=== PATIENT | male | born 1930 | race Caucasian/White ===

== ENCOUNTER 2016-07-20 07:54 | Emergency (ER) | payer MEDICARE, BC ==
[~2016-07-20] VITALS: Wt 88.0 kg
[~2016-07-20 07:54] MED LIST: ATOR40TA68 PO; GLIP-95 PO; LISI40TA9 PO; METF-382 PO; PIOG45TA15 PO; TIMO10DR7 BOTH EYES
[2016-07-20] MEDS ORDERED: TETANUS IMMUNE GLOB 250 UNIT SYG IM ONE (08:30)
[2016-07-20] MEDS ORDERED: DIPHTH/TET/ACEL PERTUSS (ADULT) 0.5 ML VIAL IM* ONE (09:00)
--- NOTE | 2016-07-20 09:22 | ERD ---
ER Documentation Chief Complaint Date/Time DATE: 07/20/16 TIME: 09:09 Chief Complaint fall after missing a step at home. abrasion to left arm. no loc/head injury HPI This is an 85-year-old male that presents to the emergency department after he had a mechanical trip and fall just prior to arrival. The patient indicates he was reading his newspaper and was walking up the stairs when he tripped and landed on his flexed left knee and left upper extremity. He stated there was abrasions with minimal bleeding. He did not hit his head or lose consciousness. He was able to ambulate and drove himself to the emergency department to be further evaluated. His primary care physician is Dr. Perez. He denies a headache or changes in vision and he also denies any neck pain with no numbness or tingling of the upper or lower extremities. He is unaware of when his last tetanus toxoid update was given. ROS All systems reviewed and are negative except as per history of present illness. Medications Home Meds Reported Medications Timolol Maleate* (Timoptic*) 0.5%- 5ml Opht, 1 DROP BOTH EYES QAM, #1 EA 11/30/15 Glipizide* (Glipizide*) 10 Mg Tablet, 10 MG PO BID for 90 Days, #180 TAB 11/30/15 Lisinopril* (Lisinopril*) 40 Mg Tablet, 40 MG PO DAILY for 90 Days, #90 TAB 11/30/15 Atorvastatin* (Atorvastatin*) 40 Mg Tablet, 40 MG PO QHS, #30 TAB 11/30/15 Metformin Hcl* (Metformin Hcl*) 500 Mg Tablet, 500 MG PO WITH MEALS, #90 TAB 11/30/15 Discontinued Reported Medications Pioglitazone Hcl* (Pioglitazone Hcl*) 45 Mg Tablet, 45 MG PO DAILY, TAB 11/30/15 Allergies Allergies: Coded Allergies: No Known Allergy (Unverified , 07/20/16) PMhx/Soc History of Surgery: Yes (Stent placement, tonsillectomy, colonoscopy, resection of prostate) Anesthesia Reaction: No Hx Neurological Disorder: No Hx Respiratory Disorders: No Hx Cardiac Disorders: Yes (HTN, stent placement, atherosclerotic heart disease , ) Hx Psychiatric Problems: No Hx Miscellaneous Medical Probl: Yes (cholesterol) Hx Alcohol Use: Yes (Couple of beers a week ) Hx Substance Use: No Hx Tobacco Use: No Smoking Status: Never smoker Physical Exam Vitals Vital Signs Date Time Temp Pulse Resp B/P Pulse Ox O2 Delivery O2 Flow Rate FiO2 07/20/16 07:58 98.4 78 20 160/64 98 Physical Exam Constitutional:Well-developed. Well-nourished. HEENT:Normocephalic. Atraumatic.Pupils were equal round reactive to light. Moist mucous membranes.No tonsillar exudates. No nasoseptal hematoma. No hemotympanum peer Neck: No nuchal rigidity. No lymphadenopathy. No posterior cervical spine tenderness or step-offs. Respiratory: Not using accessory muscles of respiration.Lungs were clear to auscultation bilaterally. No rhonchi. No rales. No wheezing. Cardiovascular: Regular rate regular rhythm.No murmurs. No rubs were appreciated.S1, S2 normal. Distal pulses are palpable 2+ bilaterally. No crepitus no ecchymosis no flail chest GI: Abdomen was soft. Nontender. Non Distended. No pulsatile abdominal masses or bruits. No rebound. No guarding. Bowel sounds were present and normal. No flank ecchymosis. No periumbilical ecchymosis. Muscle skeletal: Full range of motion of both the upper and lower extremities bilaterally.Normal muscle tone.No assymetrical calf tenderness or swelling. Tenderness with abrasion over the left patella. No laxity on valgus or varus stress testing of the left of the right knee. Lower extremities were equal length and symmetrical with no internal or external rotation. Patient was able to ambulate more than 4 steps in the emergency department without any difficulty. Tenderness over the distal left forearm with no tenderness on flexion or extension of the left of the right elbow. Patient was able to AB duct the left upper extremity past 90 with no tenderness over the left humeral head. Skin: No petechia, no purpura. No lesions on the palms or the soles of the feet. No maculopapular rash. Abrasion over the distal left humerus. Abrasion with ecchymosis over the distal third extensor surface on the radial aspect of the left forearm and overlying abrasion of the left patella with no underlying effusion NEURO: Patient was alert, awake, orientated x3.No facial droop. Gait observed and normal with no ataxia.Speech had regular rate and rhythm. No focal neurological deficits. Results 24 hrs Current Medications Medications (Trade) Dose Ordered Sig/Dimitris Route PRN Reason Start Time Stop Time Status Last Admin Dose Admin Tetanus Immune Globulin (Hypertet S/D) 250 units ONCE ONCE IM 07/20/16 08:30 07/20/16 08:31 Cancel Diphtheria/ Tetanus/Acell Pertussis (Adacel) 0.5 ml ONCE ONCE IM* 07/20/16 09:00 07/20/16 09:01 DC 07/20/16 08:58 Procedures/MDM This patient presented to the emergency department mechanical ground-level fall. The patient is not taking any anticoagulant medication. The patient refused any analgesic medication and was given a tetanus toxoid update. Radiographic imaging ordered and reviewed by myself as well as the radiologist which included an x-ray of the left knee left forearm and there is no underlying fracture. The patient's wounds were cleaned and irrigated with normal saline. Topical antimicrobial gel being bacitracin was applied to the wounds as well as a Kerlix dressing. The patient felt comfortable being discharged home and will follow with his primary care physician Dr. Perez. The patient was discharged home in fair condition. They were instructed to return to the emergency department at any time if there was any worsening of their condition. The patient stated they would follow up with their PCP in the next 24-48 hours to initiate a suitable medication regimen under the care of their PCP as well as to allow their PCP to monitor any drug reactions. The patient was discharged home with prescriptions after they gave informed consent to the new medication. They were also fully informed by myself on the adverse effects and adverse drug interactions in order to provide adequate safeguards to prevent possible adverse reactions to medications. Departure Diagnosis: Primary Impression: Left knee sprain Additional Impression: Abrasion of forearm, left Condition: Fair STEPHANIE SHELL Jul 20, 2016 09:20
--- NOTE | 2016-07-20 09:50 | RADRPT ---
PROCEDURE: Left knee x-ray CLINICAL INDICATION: fall TECHNIQUE: AP, lateral and oblique views of the left knee were obtained. COMPARISON: None FINDINGS: There is normal mineralization. No acute fracture or dislocation is seen. There are no significant degenerative changes. There is no joint effusion. There is no significant soft tissue swelling. Atherosclerotic arterial calcification of the visualized superficial femoral and popliteal artery. IMPRESSION: Normal x-ray of the left knee. RPTAT:AAJJ Physician Jaymie Date Time Electronically viewed and signed by Physician Jaymie on 07/20/2016 09:50 TASHA/
--- NOTE | 2016-07-20 09:51 | RADRPT ---
PROCEDURE: Left forearm x-ray CLINICAL INDICATION: Fall. Skin laceration and pain. TECHNIQUE: AP and lateral views of the left forearm. COMPARISON: None. FINDINGS: No fracture or dislocation. The ulna and radius are intact. The wrist and elbow joints are unremar kable. No soft tissue abnormality. IMPRESSION: 1. No fracture or dislocation. No soft tissue abnormality. RPTAT:AAJJ Sri Berry Physician Date Time Electronically viewed and signed by Physician Jaymie on 07/20/2016 09:51 TASHA/
--- NOTE | 2016-07-20 09:54 | RADRPT ---
PROCEDURE: Left humerus. CLINICAL INDICATION: Fall, skin laceration. TECHNIQUE: AP and abducted view of the left humerus COMPARISON: None. FINDINGS: No evidence of radiopaque foreign body. No fracture or dislocation. The humerus is intact. Normal appearance of the left shoulder joint. The visualized elbow joint is unremarkable. IMPRESSION: No fracture or dislocation. No radiopaque foreign body. Physician Jaymie Date Time Electronically viewed and signed by Physician Jaymie on 07/20/2016 09:53 TASHA/
== END 2016-07-20 10:52 | disposition home or self-care (01) ==
LOC: E/R 07:54
DX: S83.92XA Sprain of unspecified site of left knee, initial encounter (principal); S50.812A Abrasion of left forearm, initial encounter; I10 Essential (primary) hypertension; I25.10 Atherosclerotic heart disease of native coronary artery without angina pectoris; E11.9 Type 2 diabetes mellitus without complications; W10.9XXA Fall (on) (from) unspecified stairs and steps, initial encounter; Y92.009 Unspecified place in unspecified non-institutional (private) residence as the place of occurrence of the external cause; Z95.5 Presence of coronary angioplasty implant and graft; Z79.84 Long term (current) use of oral hypoglycemic drugs; Z23 Encounter for immunization
CPT/HCPCS: 73060; 73090; 73562; 90389; 90471; 90715

== ENCOUNTER → 2016-08-29 | Outpatient (CLI) | payer MEDICARE, BC ==
[~2016-08-29] MED LIST changes: -PIOG45TA15 PO
--- NOTE | 2016-08-29 19:00 | RADRPT ---
PROCEDURE: CT abdomen and pelvis without IV contrast. CLINICAL INDICATION: Abdominal pain TECHNIQUE: CT scan of the abdomen and pelvis without contrast was performed on the turboBOTZ volumetric [address] scanner. The patient was scanned without intravenous contrast. Coronal and sagittal refo rmatted images were obtained from the axial source images. The CTDI vol is 12.74 mGy and the DLP is 810.03 mGy-cm. COMPARISON: 01/16/2016 FINDINGS: CT abdomen: The lung bases are clear. The heart size is not enlarged and is without pericardial thickening or e ffusion. Aortic and coronary vascular calcifications are seen. The liver is normal in size and density and is without focal mass or intrahepatic biliary dilatation . The spleen is normal in size and homogeneous in density. The stomach is grossly unremarkable. A gain seen is a cystic structure in the pancreatic tail measuring approximately 2.3 x 2.1 cm in size and has not changed significantly. The remainder of the pancreas as visualized is normal. The gall bladder and biliary tree are unremarkable and there is no evidence for common bile duct dilatation. The adrenal glands are symmetric and normal. Mild right hydroureteronephrosis is seen secondary to an irregular mass in the bladder. No obstructing stone is seen. The left collecting system is nor mal. No renal calculus or mass lesion is seen. The aorta is of normal in caliber. Atherosclerotic vascular disease is seen. There is no retroperito liu lymphadenopathy. The sj hepatis region is clear. The large bowel is stool-filled. Sigmoid diverticulosis is seen without evidence of diverticulitis. The small and remainder of the large pedro pablo l and mesentery, as visualized, are otherwise unremarkable. The normal appendix is identified. CT pelvis: A large irregular heterogeneous mass from the right side of the bladder is seen. The mass measures approximately 9.3 x 7.3 x 7.7 cm in size. Compared to the prior examination, the mass is new. In a ddition, irregular bladder wall thickening is seen which is increased compared to the prior examinat ion. A bladder calculus is seen measuring 1.2 cm in size and is new compared to the prior examinatio n. The pelvic sidewalls and inguinal regions are clear. No pelvic mass, lymphadenopathy, or free fl uid is seen. No acute inflammation is seen. Diffuse osteopenia is seen. Degenerative spondylosis of the lumbar spine is seen. No osteolytic or o steoblastic lesion is detected. IMPRESSION: 1. Large irregular bladder mass projecting from the right side of the bladder worrisome for a bladd er neoplasm and is new compared to the prior examination. In addition, the urinary bladder wall thi ckening has increased compared to the prior examination. Correlation with cystoscopy and tissue kenyatta gnosis is recommended. 2. Mild right hydroureteronephrosis secondary to obstruction by the irregular bladder mass. 3. Bladder calculus measuring 1.2 cm in size which is new. 4. Stable small cystic lesion in the pancreatic tail. 5. Sigmoid diverticulosis without evidence of diverticulitis. 6. Stool filled large bowel. RPTAT: HPNM Physician Char Date Time Electronically viewed and signed by Ren Cooper Physician on 08/29/2016 18:59 /
--- NOTE | 2016-08-29 19:05 | RADRPT ---
PROCEDURE: CT Lumbar Spine. CLINICAL INDICATION: Low back pain. TECHNIQUE: The study was performed on a GE [address] scanner. Spiral axial images were obtained through the lumbar spine. Sagittal and coronal reformations were created from the ra w axial data. The images were reviewed on a PACS workstation. The CTDI vol is 25.84 mGy an the DLP i s 799.97 mGy-cm. COMPARISON: No prior studies are available for comparison. FINDINGS: Diffuse osteopenia is seen. The lumbar lordosis is maintained. The vertebral body heights are nor mal. No acute fracture or subluxation is seen. Bridging syndesmophytes are seen with relative prese rvation of the disk space. Sclerotic foci is seen in the right sacrum and right iliac bone. The lar gest lesion is seen in the right sacrum measuring 7 mm in size. The paravertebral soft tissues are unremarkable. Atherosclerotic vascular disease is seen. Degenerative changes in the bilateral sacroi liac joints is seen. Near ankylosis of the bilateral sacroiliac joints is seen. T12-L1: Vacuum disk phenomena is seen. No significant central canal or foraminal stenosis is seen. L1-L2: Calcification of the disk space is seen. No significant central canal or foraminal stenosis is seen. L2-L3: Minimal bulging of the posterior annulus is seen. No significant central canal or foraminal stenosis is seen. L3-L4: Mild posterior disk height loss is seen with calcification of the posterior annulus. Mild bi lateral foraminal stenosis is seen. Ligamentum flavum thickening is seen. No significant central c anal stenosis is seen. L4-L5: Mild posterior disk height loss is seen. Mild bulging of the posterior annulus is seen. Mil d bilateral facet arthropathy is seen with ligamentum flavum thickening. Narrowing of the lateral r ecesses is seen. Mild to moderate right foraminal stenosis is seen with mild left foraminal stenosi s. No significant central canal stenosis is seen. L5-S1: Mild posterior disk height loss is seen. Mild posterior disk bulge is seen. Mild bilateral facet arthropathy is seen. No significant central canal stenosis is seen. Mild to moderate bilater al foraminal stenosis is seen. For the findings in the abdomen and pelvis, please refer to the CT of the abdomen and pelvis report from 08/29/2016. IMPRESSION: 1. Multilevel degenerative spondylosis of the lumbar spine as described above. 2. CT findings consistent with diffuse idiopathic skeletal hyperostosis as detailed above. 3. Diffuse osteopenia. RPTAT: HPNM Ren Cooper Physician Date Time Electronically viewed and signed by Ren Cooper Physician on 08/29/2016 19:05 /
== END | disposition home or self-care (01) ==
LOC: C/S 09:44
PROVIDERS: ATTEND Internal Medicine
DX: K57.90 Diverticulosis of intestine, part unspecified, without perforation or abscess without bleeding (principal); R10.9 Unspecified abdominal pain; M54.9 Dorsalgia, unspecified; N32.9 Bladder disorder, unspecified; K86.2 Cyst of pancreas
CPT/HCPCS: 72131; 74176

== ENCOUNTER 2016-09-13 11:51 | Emergency (ER) | payer BC, MEDICARE ==
[~2016-09-13] VITALS: Ht 177.8 cm; Wt 84.5 kg
[2016-09-13 11:54] VITALS: Ht 177.8 cm; Wt 84.5 kg
== END 2016-09-13 16:23 | disposition left against medical advice (07) ==
LOC: E/R 16:07
DX: Z53.21 Procedure and treatment not carried out due to patient leaving prior to being seen by health care provider (principal)

== ENCOUNTER 2016-10-09 03:24 | Inpatient (IN) | payer MEDICARE, BC ==
[2016-10-09] VITALS (11 sets, daily range): BP systolic 99–115; BP diastolic 55–68; PULSE 74–103; RESP 18–20; TEMP 97.2; BMI 26.1
[~2016-10-09] VITALS: Ht 175.3 cm; Wt 83.7 kg
[~2016-10-09 03:24] MED LIST changes: -METF-382 PO; +METF500T4 PO
[2016-10-09 03:58] LABS: ADD SCAN DIFF NO
[2016-10-09 04:10] LABS: INR 1.18; PROTIME 15.1 Sec (12.2-14.2); PT RATIO 1.2
[2016-10-09 04:11] LABS: PARTIAL THROMBOPLASTIN TIME 33.6 Sec (25.0-35.0)
[2016-10-09 04:12] LABS: HEMATOCRIT 28.5 % (42.0-52.0); HEMOGLOBIN 9.1 g/dl (14.0-18.0); MEAN CORPUSCULAR HEMOGLOBIN 25.8 pg (29.0-33.0); MEAN CORPUSCULAR HGB CONC 31.9 g/dl (32.0-37.0); MEAN CORPUSCULAR VOLUME 80.7 fl (82.0-101.0); MEAN PLATELET VOLUME 8.5 fl (7.4-10.4); PLATELET COUNT 447 10^3/UL (140-415); RED BLOOD COUNT 3.53 10^6/ul (4.70-6.10); RED CELL DISTRIBUTION WIDTH 17.7 % (11.5-14.5); WHITE BLOOD COUNT 21.7 10^3/ul (4.8-10.8)
[2016-10-09 04:13] LABS: CALCIUM 10.5 mg/dl (8.4-10.2); CREATININE 1.16 mg/dl (0.61-1.24); POTASSIUM 4.2 mmol/L (3.5-5.1)
[2016-10-09 04:25] LABS: TROPONIN-I 0.034 ng/ml (0.00-0.12)
[2016-10-09] MEDS ORDERED: NITROGLYCERIN 2% 1 GM OINT PKT TD STA (04:37)
--- NOTE | 2016-10-09 04:39 | RADRPT ---
PROCEDURE: XR Chest. CLINICAL INDICATION: Chest pain TECHNIQUE: Single frontal view of the chest was obtained COMPARISON: 01/17/2016 FINDINGS: The heart is not enlarged. Mild tortuosity of thoracic aorta apparent. Calcification in thoracic a bhavin. There is minimal prominence of the lung interstitium likely minimal chronic changes. There is an antelmo roximate 3 cm nodular density at the right lung base not seen on the previous chest x-ray or on the CT abdomen of 08/29/2016 suspicious for metastasis. New patchy increased density at left lung base c ould represent atelectasis or infiltrate. There is no pleural effusion or pneumothorax seen. ECG leads projected over the chest. IMPRESSION: Suspicious for 3 cm metastasis at right lung base appearing since previous studies. New patchy incre ased density at left lung base could represent atelectasis or infiltrate. RPTAT: HJES .Jesus German MD, Date Time Electronically viewed and signed by .Jesus German MD, on 10/09/2016 04:39 .S/
[2016-10-09] MEDS ORDERED: morphine 4 MG/ML VIAL IV STA (05:01)
[2016-10-09] MEDS ORDERED: ONDANSETRON 4 MG INJ IV STA (05:01)
[2016-10-09 05:08] LABS: EOSINOPHILS # 1.1 10^3/ul (0.0-0.5); LYMPHOCYTES # 1.3 10^3/ul (0.8-2.9); MONOCYTE # 0.4 10^3/ul (0.3-0.9); NEUTROPHIL # 18.9 10^3/ul (1.6-7.5)
--- NOTE | 2016-10-09 05:39 | ERA ---
ER Documentation Chief Complaint Date/Time DATE: 10/09/16 TIME: 05:39 Chief Complaint CP, ALIVATED BY 1 SL NITRO BY EMS HPI This is a 86-year-old male who comes in with chest pain via EMS. He was given nitro in route with minimal relief. No fevers or chills. No nausea no vomiting or chest pain is pressure-like, substernal, no chronic exacerbating or alleviating factors. No other current complaints ROS All systems reviewed and are negative except as per history of present illness. Medications Home Meds Reported Medications Timolol Maleate* (Timoptic*) 0.5%- 5ml Opht, 1 DROP BOTH EYES QAM, #1 EA 11/30/15 Glipizide* (Glipizide*) 10 Mg Tablet, 10 MG PO BID for 90 Days, #180 TAB 11/30/15 Lisinopril* (Lisinopril*) 40 Mg Tablet, 40 MG PO DAILY for 90 Days, #90 TAB 11/30/15 Atorvastatin* (Atorvastatin*) 40 Mg Tablet, 40 MG PO QHS, #30 TAB 11/30/15 Metformin Hcl* (Metformin Hcl*) 500 Mg Tablet, 500 MG PO WITH MEALS, #90 TAB 11/30/15 Allergies Allergies: Coded Allergies: No Known Allergy (Unverified , 07/20/16) PMhx/Soc History of Surgery: Yes (Stent placement, tonsillectomy, colonoscopy, resection of prostate) Anesthesia Reaction: No Hx Neurological Disorder: No Hx Respiratory Disorders: No Hx Cardiac Disorders: Yes (HTN, stent placement, atherosclerotic heart disease , ) Hx Psychiatric Problems: No Hx Miscellaneous Medical Probl: Yes (cholesterol, BLADDER CA) Hx Alcohol Use: Yes (Couple of beers a week ) Hx Substance Use: No Hx Tobacco Use: No Smoking Status: Never smoker Physical Exam Vitals Vital Signs Date Time Temp Pulse Resp B/P Pulse Ox O2 Delivery O2 Flow Rate FiO2 10/09/16 03:30 97.2 91 16 133/70 96 Room Air 10/09/16 03:30 Nasal Cannula 4 10/09/16 03:26 97.2 88 16 125/87 100 Physical Exam Const: [] Head: Atraumatic Eyes: Normal Conjunctiva ENT: Normal External Ears, Nose and Mouth. Neck: Full range of motion..~ No meningismus. Resp: Clear to auscultation bilaterally Cardio: Regular rate and rhythm, no murmurs Abd: Soft, non tender, non distended. Normal bowel sounds Skin: No petechiae or rashes Back: No midline or flank tenderness Ext: No cyanosis, or edema Neur: Awake and alert Psych: Normal Mood and Affect Result Diagram: 10/09/1634010/09/16340 Results 24 hrs Laboratory Tests Test 10/09/16 03:41 White Blood Count 21.710^3/ul Red Blood Count 3.5310^6/ul Hemoglobin 9.1g/dl Hematocrit 28.5% Mean Corpuscular Volume 80.7fl Mean Corpuscular Hemoglobin 25.8pg Mean Corpuscular Hemoglobin Concent 31.9g/dl Red Cell Distribution Width 17.7% Platelet Count 98069^3/UL Mean Platelet Volume 8.5fl Neutrophils % 87.0% Lymphocytes % 6.0% Monocytes % 2.0% Eosinophils % 5.0% Neutrophils # 18.910^3/ul Lymphocytes # 1.310^3/ul Monocytes # 0.410^3/ul Eosinophils # 1.110^3/ul Prothrombin Time 15.1Sec Prothrombin Time Ratio 1.2 INR International Normalized Ratio 1.18 Activated Partial Thromboplast Time 33.6Sec Sodium Level 135mmol/L Potassium Level 4.2mmol/L Chloride Level 103mmol/L Carbon Dioxide Level 30mmol/L Anion Gap 6 Blood Urea Nitrogen 22mg/dl Creatinine 1.16mg/dl Glucose Level 210mg/dl Calcium Level 10.5mg/dl Troponin I 0.034ng/ml Current Medications Medications (Trade) Dose Ordered Sig/Dimitris Route PRN Reason Start Time Stop Time Status Last Admin Dose Admin Nitroglycerin (Nitroglycerin 2% Oint) 1 inch ONCE STAT TD 10/09/16 04:37 10/09/16 04:38 DC 10/09/16 04:41 Morphine Sulfate (morphine) 4 mg ONCE STAT IV 10/09/16 05:01 10/09/16 05:03 DC 10/09/16 05:11 Ondansetron HCl (Zofran Inj) 4 mg ONCE STAT IV 10/09/16 05:01 10/09/16 05:03 DC 10/09/16 05:11 Procedures/MDM EKG: Rate/Rhythm: [Normal Sinus Rhythm] QRS, ST, T-waves: [No changes consistent w/ acute ischemia] Impression: [No evidence of ischemia or arrhythmia] Chest X-ray 1V Interpreted by me: Soft Tissue: No acute abnormalities Bones: No acute abnormalities Mediastinum/Cardiac Silhouette/Lungs: Left lower lobe infiltrate Medical decision-makin-year-old gentleman with chest pain but also has an elevated white elevated white count and possible pneumonia. Blood cultures have been sent off. Lactate is currently pending. Oncoming physician will follow up lactic acid. Started on broad-spectrum antibiotics. Departure Diagnosis: Primary Impression: Chest pain Qualified Code: R07.9 - Chest pain, unspecified type Additional Impression: Pneumonia Qualified Code: J18.1 - Pneumonia of left lower lobe due to infectious organism Condition: Serious KAYCE SAHU Oct 09, 2016 05:39
[2016-10-09] MEDS ORDERED: VANCOMYCIN 1 GM (PMX) 250 ML IVPB STA (05:40)
[2016-10-09] MEDS ORDERED: CEFEPIME 1GM/50 ML (PMX) 50 ML IVPB STA (05:40)
--- NOTE | 2016-10-09 05:45 | QN ---
Documentation Comment Primary care physician called Dr. Londono. No response after 1 hour multiple pages. Patient admitted to panel KAYCE SAHU Oct 09, 2016 05:45
[2016-10-09] MEDS ORDERED: ALBUTEROL 0.083% (NEB) 2.5 MG/3 ML AMP NEB PRN (06:30)
[2016-10-09] MEDS ORDERED: IPRATROPIUM (NEB) 0.5 MG/2.5 ML AMP NEB PRN (06:30)
[2016-10-09] MEDS ORDERED: NACL 0.9% 3 ML SYG IV SCH (06:30)
[2016-10-09] MEDS ORDERED: METF500T4 PO (06:36)
[2016-10-09] MEDS ORDERED: PANT40TA3 PO (06:38)
[2016-10-09] MEDS ORDERED: FURO-110 PO (06:38)
[2016-10-09] MEDS ORDERED: INSU100C SQ (06:39)
[2016-10-09] MEDS ORDERED: LANT3I SC (06:40)
[2016-10-09] MEDS ORDERED: METO25TA7 PO (06:40)
[2016-10-09] MEDS ORDERED: SITA100T8 PO (06:40)
[2016-10-09] MEDS ORDERED: GLUCOSE GEL 15 GRAM TUBE PO PRN ×2 (07:30)
[2016-10-09] MEDS ORDERED: DEXTROSE 50% 50 ML SYRINGE IV PRN ×2 (07:30)
[2016-10-09] MEDS ORDERED: GLUCAGON 1 MG INJ IM PRN (07:30)
[2016-10-09] MEDS ORDERED: GLUCOSE GEL 15 GRAM TUBE BUCCAL PRN (07:30)
[2016-10-09] MEDS: METOPROLOL (XL) 25 MG TAB PO SCH (08:41)
[2016-10-09] MEDS: LISINOPRIL 20 MG TAB PO SCH (08:42)
[2016-10-09] MEDS: PANTOPRAZOLE (EC) 40 MG TAB PO SCH (08:42)
[2016-10-09] MEDS: INSULIN ASPART [NOVOLOG] 3 ML PEN SC SCH ×4 (08:51→20:57)
[2016-10-09] MEDS ORDERED: TIMOLOL 0.5% 5 ML OPH BOTH EYES ONE (09:00)
[2016-10-09 09:10] LABS: CREATINE KINASE < 20 IU/L (23-200)
[2016-10-09 09:16] LABS: TROPONIN-I 0.044 ng/ml (0.00-0.12)
[2016-10-09 09:19] LABS: CK-MB 0.29 ng/ml (0.0-2.4)
[2016-10-09] MEDS: CEFTAZIDIME 2GM/50 ML (PMX) 50 ML IV SCH ×3 (10:05→21:33)
[2016-10-09] MEDS: AZITHROMYCIN 500MG/NS (PMX) 250 ML IV SCH (11:04)
[2016-10-09 18:07] LABS: CREATINE KINASE < 20 IU/L (23-200)
[2016-10-09 18:11] LABS: TROPONIN-I 0.024 ng/ml (0.00-0.12)
[2016-10-09 18:12] LABS: CK-MB 0.63 ng/ml (0.0-2.4)
--- NOTE | 2016-10-09 18:56 | PREOPHP ---
DATE OF ADMISSION: 10/09/2016 REASON FOR CONSULTATION: Obstructed right ureter. HISTORY OF PRESENT ILLNESS: This 86-year-old man was transferred early this morning from [facility] after he developed substernal chest pain. The patient was taken by paramedics to [facility]. The patient was seen in the emergency room. He had an acute [place] ruled ou t. He was admitted to a telemetry floor. The patient's recent past medical history is significant in that he has a large right-sided urinary bladder tumor that is obstructing his right ureter. He u nderwent surgery about 2 weeks ago at [facility] by Dr. Seun Gonzalez. Dr. Gonzalez did a biopsy of the bladder tumor and removed a bladder stone. The patient also had a right nephrostomy tube place d because of a blocked right ureter. The patient is now doing well. He says he has had very slight chest pain during today. The patient is awake and alert. He is with his son in his room. CURRENT MEDICATIONS: The patient is currently taking the following medication: 1. Timolol maleate 0.5% one drop both eyes. 2. Lisinopril 40 mg a day. 3. Atorvastatin 40 mg a day. 4. Metformin 500 mg with meals. ALLERGIES: HE HAS NO KNOWN DRUG ALLERGIES. PAST SURGICAL HISTORY: As far as surgery, cardiac stent placed years ago, tonsillectomy, colonoscop y, resection of the prostate gland. PAST MEDICAL HISTORY: He does have a history of hypertension, coronary artery disease, stent placem ent, hyperlipidemia, diabetes mellitus. SOCIAL HISTORY: He drinks alcohol socially, mostly beer, a couple times a week. He does not smoke cigarettes, has never smoked. PHYSICAL EXAMINATION: VITAL SIGNS: Temperature 97.9, pulse of 86, blood pressure 99/57, O2 saturation 97% on 2 liters myron al cannula. HEENT: Head normocephalic. Eyes: Extraocular muscles intact. Nose and mouth normal. NECK: Supple. No neck vein distention. LUNGS: Clear to auscultation. HEART: Regular rhythm. No murmurs, gallops, or rubs. ABDOMEN: Soft, nontender. EXTREMITIES: No peripheral edema. NEUROLOGIC: Grossly intact without any focal deficits. LABORATORY DATA: Show sodium 135, potassium 4.2, chloride 103, CO2 of 30, BUN 22, creatinine 1.16, glucose of 210, calcium of 10.5. White blood count 21,700; hemoglobin 9.2, hematocrit 28.5. Coags are normal. Chest x-ray shows possible metastatic lesion, which the patient is known to have. He d oes have a faint infiltrate or atelectasis at the left base. IMPRESSION: 1. This patient presents now with what sounds like angina. He does have a history of coronary kirit ry disease, but he has been stable without chest pain recently. His troponin was low. 2. Faint left lower lobe infiltrate or atelectasis, possible pneumonia. He is on antibiotics. 3. Obstructed right kidney, now with a nephrostomy tube. 4. Metastatic bladder cancer. 5. Hypertension. 6. Diabetes mellitus. 7. Hypercalcemia. PLAN: 1. Cardiology and oncology consultations. 2. Check labs in the morning. 3. Start physical therapy. 4. Continue current antibiotics. Dictated By: JEFF OSPINA MD ND/NTS Conf#: [id number] DID#: [id number] CC: KAYCE MEJÍA MD;*End*
[2016-10-09] MEDS: ATORVASTATIN 40 MG TAB PO SCH (20:53)
[2016-10-09] MEDS ORDERED: INSULIN GLARGINE [LANtus] 3 ML PEN SC SCH (21:00)
[2016-10-09] MEDS: NITROGLYCERIN 2% 1 GM OINT PKT TD SCH (21:37)
[2016-10-10] VITALS (12 sets, daily range): BP systolic 103–114; BP diastolic 57–65; PULSE 72–87; RESP 16–20
[2016-10-10] MEDS: CEFTAZIDIME 2GM/50 ML (PMX) 50 ML IV SCH ×3 (05:41→21:38)
[2016-10-10] MEDS: PANTOPRAZOLE (EC) 40 MG TAB PO SCH (05:41)
[2016-10-10] MEDS: NITROGLYCERIN 2% 1 GM OINT PKT TD SCH ×3 (05:42→21:40)
[2016-10-10] MEDS: AZITHROMYCIN 500MG/NS (PMX) 250 ML IV SCH (06:26)
[2016-10-10 07:43] LABS: AADO2 Arterial 75.2 mmHg (7.0-24.0); Allen Test ACCEPTAB; Arterial Base Excess 6.8 mmol/L (-3.0-3); Arterial COHb 0.1 % (0.0-3.0); Arterial Fraction of Oxyhgb 93.2 % (93.0-99.0); Arterial HCO3 30.8 mmol/L (22.0-26.0); Arterial MetHb 0.4 % (0.0-1.5); Arterial Total Hemglobin 8.8 g/dl (12.0-18.0); MODE NASAL CANNULA
[2016-10-10 07:52] LABS: ADD SCAN DIFF NO
[2016-10-10 07:59] LABS: BASOPHILS % 0.2 % (0.0-2.0); EOSINOPHILS # 0.2 10^3/ul (0.0-0.5); EOSINOPHILS % 0.8 % (0.0-7.0); HEMATOCRIT 28.9 % (42.0-52.0); HEMOGLOBIN 8.9 g/dl (14.0-18.0); LYMPHOCYTES # 1.4 10^3/ul (0.8-2.9); LYMPHOCYTES % 7.4 % (15.0-51.0); MEAN CORPUSCULAR HEMOGLOBIN 25.2 pg (29.0-33.0); MEAN CORPUSCULAR HGB CONC 30.8 g/dl (32.0-37.0); MEAN CORPUSCULAR VOLUME 81.9 fl (82.0-101.0); MEAN PLATELET VOLUME 8.8 fl (7.4-10.4); MONOCYTE # 1.2 10^3/ul (0.3-0.9); MONOCYTES % 6.5 % (0.0-11.0); NEUTROPHILS % 84.1 % (39.0-77.0); PLATELET COUNT 413 10^3/UL (140-415); RED BLOOD COUNT 3.53 10^6/ul (4.70-6.10); RED CELL DISTRIBUTION WIDTH 17.8 % (11.5-14.5)
[2016-10-10] MEDS: METOPROLOL (XL) 25 MG TAB PO SCH (08:08)
[2016-10-10] MEDS: LISINOPRIL 20 MG TAB PO SCH (08:09)
[2016-10-10] MEDS: INSULIN ASPART [NOVOLOG] 3 ML PEN SC SCH ×4 (08:13→20:50)
[2016-10-10 08:20] LABS: ALBUMIN 2.4 g/dl (3.3-4.9); ALBUMIN/GLOBULIN RATIO 0.85; BILIRUBIN,INDIRECT 0.5 mg/dl (0-1.1); BILIRUBIN,TOTAL 0.5 mg/dl (0.2-1.3); CALCIUM 10.2 mg/dl (8.4-10.2); CREATININE 1.11 mg/dl (0.61-1.24); MAGNESIUM 1.7 mg/dl (1.7-2.5); TOTAL PROTEIN 5.2 g/dl (6.1-8.1)
--- NOTE | 2016-10-10 09:11 | RADRPT ---
PROCEDURE: XR Chest. CLINICAL INDICATION: Chest pain TECHNIQUE: Single frontal chest x-ray. COMPARISON: 10/09/2016 FINDINGS: There are multiple bilateral nodular opacities measuring up to 2.6 cm in the left upper lung and 2.9 cm in the right lower lung. There is mild left basilar atelectasis. There are no alveolar infiltr ates or edema. There is a small left pleural effusion present. Calcific atherosclerosis of the ao rta is present... The cardiomediastinal silhouette is unremarkable. The osseous structures are inta ct. IMPRESSION: Multiple bilateral nodular opacities measuring up to 3 cm. Question metastatic disease. CT scan of the chest could be obtained to further evaluate. Left lower lung atelectasis and small pleural effusion.. RPTAT: JJ .Jesus Jenkins MD, Date Time Electronically viewed and signed by .Jesus Jenkins MD, on 10/10/2016 09:11 .L/
--- NOTE | 2016-10-10 13:09 | CONS ---
Date/Time of Note Date/Time of Note DATE: 10/10/16 TIME: 12:49 Assessment/Plan Assessment/Plan Chief Complaint/Hosp Course Impression: - chest pain - history sounds like unstable angina, relieved with sln. however, trivial trop elevation with flat change not c/w with ACS. will risk stratify with stress testing. 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 per pcp/onc - Chronic leukocytosis - ? related to lung mass Recommendations - lexiscan stress to risk stratify given new severe symptoms. - obtain 2d echo to r/o wma - cont tele monitoring - cont statin/bb - add low dose asa, however unclear if can tolerated intermediate designer given gib history , hgb stable now however - prn sln - d/w dr ospina Problems: Consultation Date/Type/Reason Admit Date/Time Oct 09, 2016 at 05:45 Date of Consultation: Oct 10, 2016 Type of Consultation: Cardiology Reason for Consultation Chest Pain Referring Provider: JEFF OSPINA MD Hx of Present Illness Mr. Fernandez is a 86-year-old man with h/o of CAD s/p PCI in 2002. Pt transferred to [facility] from nursing facility yesterday due to progressive chest pain. Pt reports severe substernal cp at rest, not activity, no associated sob, n/v, diaphoresis. pain persisted for hours and intensified, EMS called pt given medication he states and pain relieved immediately(? SLN). Pt states did have pain at hospital improved with morphine. no current pain. no pnd, orhtopnea, edema. reports cough which makes pain worse. + sputum. no fevers/chills/ sweats. no palpitations, fainting. pt does report unintentional weight loss from metastatic bladder ca. He has a large right-sided urinary bladder tumor that is obstructing his right ureter and underwent surgery about 2 weeks ago at [facility] by Dr. Seun Gonzlaez discharged on 10/01. Constitutional: no complaints Eyes: no complaints ENT: no complaints Respiratory: cough, shortness of breath Cardiovascular: chest pain Gastrointestinal: no complaints Genitourinary: other (R ) Musculoskeletal: no complaints Skin: no complaints Neurologic: no complaints Psychological: nl mood/affect, no complaints Immunologic: no complaints Past Medical History Anemia (285.9) (D64.9)- microcytic iron deficient anemia Aortic stenosis (424.1) (I35.0) - Mild on echo 1.3-1.4 cm 04/07 Asymptomatic carotid artery stenosis (433.10) (I65.29) - Extensive moderately calcified plaquing in bilateral mid and distal common, bilateral proximal with patent vertebral arteries bilaterally 04/07 and 09/07 CAD (coronary artery disease), kashia coronary artery (414.01) (I25.10)- Proximal to mid 3.0 x 13 mm bare-metal stent , 70% OM, 2003 Diabetes mellitus (250.00) (E11.9) Essential hypertension (401.9) (I10) First degree atrioventricular block (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.11) (I44.0) Glaucoma (365.9) (H40.9) History of upper gastrointestinal hemorrhage (V12.79) (Z87.19)- UGI Bleed vph transfused H Pylori Hyperlipidemia (272.4) (E78.5) Left ventricular hypertrophy (429.3) (I51.7) Past Surgical History History of Cath Stent Placement LAD 2002 3.0x13mm BMS prox-mid LAD History of Prostate Surgery TURP History of Tonsillectomy child Family History Significant Family History: other ( Family history of coronary arteriosclerosis (V17.3) (Z82.49)) Social History Smoking Status: Former smoker Other Social History Former smoker (V15.82) (Z87.891) stopped 30 years ago 2ppd x20 yrs. Never Drank Alcohol Exam/Review of Systems Vital Signs Vitals Vital Signs Date Time Temp Pulse Resp B/P Pulse Ox O2 Delivery O2 Flow Rate FiO2 10/10/16 12:14 87 10/10/16 11:33 97.7 18 103/59 97 10/10/16 08:30 Nasal Cannula 2.0 10/10/16 05:40 28 Intake and Output 10/09/16 10/09/16 10/10/16 15:00 23:00 07:00 Intake Total 900 ml 150 ml Output Total 1150 ml 350 ml Balance -250 ml -200 ml Exam Constitutional: alert, oriented, other (cachectic) Psych: nl mood/affect, no complaints Head: atraumatic, normocephalic Eyes: nl conjunctiva, nl lids ENMT: mucosa pink and moist Neck: non-tender, supple, No jvd Respiratory: other (crackles, decreased bs R base) Cardiovascular: other (irregularly irregular, nl s1s2, ii/vi lynda rusb ) Gastrointestinal: non-tender, soft Musculoskeletal: nl extremities to inspection Extremities: normal pulses Neurological: PERMANENT WAVER II-XII intact, nl mental status, nl speech, nl strength Results Result Diagram: 10/10/16 0650 10/10/16 0650 Results 24 hrs Laboratory Tests Test 10/09/16 17:04 10/09/16 17:15 10/09/16 20:52 10/10/16 01:50 Bedside Glucose 222 H 257 H 209 Creatine Kinase < 20 L Creatine Kinase Index Creatinine Kinase MB (Mass) 0.63 Troponin I 0.024 Test 10/10/16 05:00 10/10/16 06:50 10/10/16 07:50 10/10/16 12:11 Blood Gas Specimen Source Blood arterial Arterial Blood Date Drawn 10/10/2016 5:30:09 AM Arterial Blood pH (Temp corrected) 7.491 H Arterial Blood pCO2 (Temp correct) 41.2 Arterial Blood pO2 (Temp corrected) 68.6 L Arterial Blood HCO3 30.8 H Arterial Blood Base Excess 6.8 H Arterial Blood Oxygen Saturation 93.7 L Alvaro Test ACCEPTAB Arterial Blood Gas Puncture Site Left Radial Arterial Blood Carboxyhemoglobin 0.1 Arterial Blood Methemoglobin 0.4 Blood Gas A-a O2 Differential 75.2 H Oxyhemoglobin Percent 93.2 Total Hemoglobin 8.8 L Blood Gas Temperature 37.0 Blood Gas Actual Respiration Rate 18 Blood Gas Modality NASAL CANNULA FiO2 27.0 Blood Gas Notified Whom MG Blood Gas Notified Time 10/10/2016 5:41:20 AM White Blood Count 19.0 H Red Blood Count 3.53 L Hemoglobin 8.9 L Hematocrit 28.9 L Mean Corpuscular Volume 81.9 L Mean Corpuscular Hemoglobin 25.2 L Mean Corpuscular Hemoglobin Concent 30.8 L Red Cell Distribution Width 17.8 H Platelet Count 413 Mean Platelet Volume 8.8 Neutrophils % 84.1 H Lymphocytes % 7.4 L Monocytes % 6.5 Eosinophils % 0.8 Basophils % 0.2 Nucleated Red Blood Cells % 0.0 Neutrophils # 16.0 H Lymphocytes # 1.4 Monocytes # 1.2 H Eosinophils # 0.2 Basophils # 0.0 Nucleated Red Blood Cells # 0.0 Sodium Level 136 Potassium Level 4.0 Chloride Level 102 Carbon Dioxide Level 32 H Anion Gap 6 L Blood Urea Nitrogen 24 H Creatinine 1.11 Glucose Level 150 Calcium Level 10.2 Magnesium Level 1.7 Total Bilirubin 0.5 Direct Bilirubin 0.00 Indirect Bilirubin 0.5 Aspartate Amino Transf (AST/SGOT) 28 Alanine Aminotransferase (ALT/SGPT) 40 Alkaline Phosphatase 74 Total Protein 5.2 L Albumin 2.4 L Globulin 2.80 Albumin/Globulin Ratio 0.85 Bedside Glucose 161 207 Medications Medications Current Medications Ondansetron HCl (Zofran Inj) 4 mg Q6H PRN IV NAUSEA AND/OR VOMITING; Start at 06:30 Acetaminophen (Tylenol Tab) 650 mg Q6H PRN PO PAIN LEVEL 1-3 OR FEVER; Start at 06:30 Acetaminophen/ Hydrocodone Bitart ([place] (5/325)) 1 tab Q6H PRN PO MODERATE PAIN LEVEL 4-6; Start 10/09/16 at 06:30 Acetaminophen/ Hydrocodone Bitart ([place] (5/325)) 2 tab Q6H PRN PO SEVERE PAIN LEVEL 7-10; Start 10/09/16 at 06:30 Docusate Sodium (Colace) 100 mg Q12H PRN PO CONSTIPATION; Start 10/09/16 at 06: 30 Magnesium Hydroxide 30 ml 30 ml DAILY PRN PO CONSTIPATION; Start 10/09/16 at 06 :30 Azithromycin 250 ml @ 250 mls/hr Q24H IV Last administered on 10/10/16 06:26 ; Admin Dose 250 MLS/HR; Start 10/09/16 at 06:30 Ceftazidime/ Dextrose (Fortaz 2gm/50 ml (Pmx)) 50 ml @ 100 mls/hr Q8 IV Last administered on 10/10/16 05:41; Admin Dose 100 MLS/HR; Start 10/09/16 at 06:30 Lisinopril (Zestril) 40 mg DAILY PO Last administered on 10/09/16 08:42; Admin Dose 40 MG; Start 10/09/16 at 09:00 Atorvastatin Calcium (Lipitor) 40 mg HS PO Last administered on 10/09/16 20:53 ; Admin Dose 40 MG; Start 10/09/16 at 21:00 Metoprolol Succinate (Toprol Xl) 25 mg DAILY PO Last administered on 10/09/16 08:41; Admin Dose 25 MG; Start 10/09/16 at 09:00 Insulin Glargine (Lantus) 15 unit QHS SC Last administered on 10/09/16 20:57; Admin Dose 15 UNIT; Start 10/09/16 at 21:00 Pantoprazole (Protonix Tab) 40 mg DAILY@06 PO Last administered on 10/10/16 05 :41; Admin Dose 40 MG; Start 10/09/16 at 07:30 Miscellaneous Information 1 ea NOTE XX ; Start 10/09/16 at 07:30 Glucose (Glutose) 15 gm Q15M PRN PO DECREASED GLUCOSE; Start 10/09/16 at 07:30 Glucose (Glutose) 22.5 gm Q15M PRN PO DECREASED GLUCOSE; Start 10/09/16 at 07: 30 Dextrose (D50w Syringe) 25 ml Q15M PRN IV DECREASED GLUCOSE; Start 10/09/16 at 07:30 Dextrose (D50w Syringe) 50 ml Q15M PRN IV DECREASED GLUCOSE; Start 10/09/16 at 07:30 Glucagon (Glucagen) 1 mg Q15M PRN IM DECREASED GLUCOSE; Start 10/09/16 at 07:30 Glucose (Glutose) 15 gm Q15M PRN BUCCAL DECREASED GLUCOSE; Start 10/09/16 at 07 :30 Nitroglycerin (Nitroglycerin 2% Oint) 1 inch Q8 TD Last administered on 05:42; Admin Dose 1 INCH; Start 10/09/16 at 22:00 Procedures Procedures CXR images reviewed, R lung mass EKG: irregular rhythm, likely sinus with pacs as compared to previous ekg. no acute st abnl. LEAH BLACKMAN Oct 10, 2016 13:00
--- NOTE | 2016-10-10 13:23 | CONS ---
Date/Time of Note Date/Time of Note DATE: 10/10/16 TIME: 13:17 Assessment/Plan Assessment/Plan Chief Complaint/Hosp Course 1. He is here for chest pain and was seen by cardiology this morning , probably a stress test tomoorow . 2. metastatic bladder cancer . 3. CAD 4. DM on insulin 5. dysphagia , will order speech therapy . Problems: Consultation Date/Type/Reason Admit Date/Time Oct 09, 2016 at 05:45 Initial Consult Date 10/10/16 Type of Consultation: Cardiology Referring Provider: JEFF OSPINA MD 24 HR Interval Summary Free Text/Dictation He Is feeling better . No chest pain but he has been coughing . Constitutional: no complaints Exam/Review of Systems Vital Signs Vitals Vital Signs Date Time Temp Pulse Resp B/P Pulse Ox O2 Delivery O2 Flow Rate FiO2 10/10/16 12:14 87 10/10/16 11:33 97.7 18 103/59 97 10/10/16 08:30 Nasal Cannula 2.0 10/10/16 05:40 28 Intake and Output 10/09/16 10/09/16 10/10/16 14:59 22:59 06:59 Intake Total 900 ml 150 ml Output Total 700 ml 800 ml Balance 200 ml -650 ml Exam Constitutional: alert, frail, oriented Psych: nl mood/affect, no complaints Respiratory: clear to auscultation, normal air movement Cardiovascular: regular rate and rhythm Gastrointestinal: non-tender, soft Musculoskeletal: nl extremities to inspection Results Result Diagram: 10/10/16 0650 10/10/16 0650 Results 24 hrs Laboratory Tests Test 10/09/16 17:04 10/09/16 17:15 10/09/16 20:52 10/10/16 01:50 Bedside Glucose 222 H 257 H 209 Creatine Kinase < 20 L Creatine Kinase Index Creatinine Kinase MB (Mass) 0.63 Troponin I 0.024 Test 10/10/16 05:00 10/10/16 06:50 10/10/16 07:50 10/10/16 12:11 Blood Gas Specimen Source Blood arterial Arterial Blood Date Drawn 10/10/2016 5:30:09 AM Arterial Blood pH (Temp corrected) 7.491 H Arterial Blood pCO2 (Temp correct) 41.2 Arterial Blood pO2 (Temp corrected) 68.6 L Arterial Blood HCO3 30.8 H Arterial Blood Base Excess 6.8 H Arterial Blood Oxygen Saturation 93.7 L Alvaro Test ACCEPTAB Arterial Blood Gas Puncture Site Left Radial Arterial Blood Carboxyhemoglobin 0.1 Arterial Blood Methemoglobin 0.4 Blood Gas A-a O2 Differential 75.2 H Oxyhemoglobin Percent 93.2 Total Hemoglobin 8.8 L Blood Gas Temperature 37.0 Blood Gas Actual Respiration Rate 18 Blood Gas Modality NASAL CANNULA FiO2 27.0 Blood Gas Notified Whom MG Blood Gas Notified Time 10/10/2016 5:41:20 AM White Blood Count 19.0 H Red Blood Count 3.53 L Hemoglobin 8.9 L Hematocrit 28.9 L Mean Corpuscular Volume 81.9 L Mean Corpuscular Hemoglobin 25.2 L Mean Corpuscular Hemoglobin Concent 30.8 L Red Cell Distribution Width 17.8 H Platelet Count 413 Mean Platelet Volume 8.8 Neutrophils % 84.1 H Lymphocytes % 7.4 L Monocytes % 6.5 Eosinophils % 0.8 Basophils % 0.2 Nucleated Red Blood Cells % 0.0 Neutrophils # 16.0 H Lymphocytes # 1.4 Monocytes # 1.2 H Eosinophils # 0.2 Basophils # 0.0 Nucleated Red Blood Cells # 0.0 Sodium Level 136 Potassium Level 4.0 Chloride Level 102 Carbon Dioxide Level 32 H Anion Gap 6 L Blood Urea Nitrogen 24 H Creatinine 1.11 Glucose Level 150 Calcium Level 10.2 Magnesium Level 1.7 Total Bilirubin 0.5 Direct Bilirubin 0.00 Indirect Bilirubin 0.5 Aspartate Amino Transf (AST/SGOT) 28 Alanine Aminotransferase (ALT/SGPT) 40 Alkaline Phosphatase 74 Total Protein 5.2 L Albumin 2.4 L Globulin 2.80 Albumin/Globulin Ratio 0.85 Bedside Glucose 161 207 Medications Medications Current Medications Ondansetron HCl (Zofran Inj) 4 mg Q6H PRN IV NAUSEA AND/OR VOMITING; Start at 06:30 Acetaminophen (Tylenol Tab) 650 mg Q6H PRN PO PAIN LEVEL 1-3 OR FEVER; Start at 06:30 Acetaminophen/ Hydrocodone Bitart ([place] (5/325)) 1 tab Q6H PRN PO MODERATE PAIN LEVEL 4-6; Start 10/09/16 at 06:30 Acetaminophen/ Hydrocodone Bitart ([place] (5/325)) 2 tab Q6H PRN PO SEVERE PAIN LEVEL 7-10; Start 10/09/16 at 06:30 Docusate Sodium (Colace) 100 mg Q12H PRN PO CONSTIPATION; Start 10/09/16 at 06: 30 Magnesium Hydroxide 30 ml 30 ml DAILY PRN PO CONSTIPATION; Start 10/09/16 at 06 :30 Azithromycin 250 ml @ 250 mls/hr Q24H IV Last administered on 10/10/16 06:26 ; Admin Dose 250 MLS/HR; Start 10/09/16 at 06:30 Ceftazidime/ Dextrose (Fortaz 2gm/50 ml (Pmx)) 50 ml @ 100 mls/hr Q8 IV Last administered on 10/10/16 05:41; Admin Dose 100 MLS/HR; Start 10/09/16 at 06:30 Lisinopril (Zestril) 40 mg DAILY PO Last administered on 10/09/16 08:42; Admin Dose 40 MG; Start 10/09/16 at 09:00 Atorvastatin Calcium (Lipitor) 40 mg HS PO Last administered on 10/09/16 20:53 ; Admin Dose 40 MG; Start 10/09/16 at 21:00 Metoprolol Succinate (Toprol Xl) 25 mg DAILY PO Last administered on 10/09/16 08:41; Admin Dose 25 MG; Start 10/09/16 at 09:00 Insulin Glargine (Lantus) 15 unit QHS SC Last administered on 10/09/16 20:57; Admin Dose 15 UNIT; Start 10/09/16 at 21:00 Pantoprazole (Protonix Tab) 40 mg DAILY@06 PO Last administered on 10/10/16 05 :41; Admin Dose 40 MG; Start 10/09/16 at 07:30 Miscellaneous Information 1 ea NOTE XX ; Start 10/09/16 at 07:30 Glucose (Glutose) 15 gm Q15M PRN PO DECREASED GLUCOSE; Start 10/09/16 at 07:30 Glucose (Glutose) 22.5 gm Q15M PRN PO DECREASED GLUCOSE; Start 10/09/16 at 07: 30 Dextrose (D50w Syringe) 25 ml Q15M PRN IV DECREASED GLUCOSE; Start 10/09/16 at 07:30 Dextrose (D50w Syringe) 50 ml Q15M PRN IV DECREASED GLUCOSE; Start 4/17/17 at 07:30 Glucagon (Glucagen) 1 mg Q15M PRN IM DECREASED GLUCOSE; Start 10/09/16 at 07:30 Glucose (Glutose) 15 gm Q15M PRN BUCCAL DECREASED GLUCOSE; Start 10/09/16 at 07 :30 Nitroglycerin (Nitroglycerin 2% Oint) 1 inch Q8 TD Last administered on t 05:42; Admin Dose 1 INCH; Start 10/09/16 at 22:00 Aspirin (Halfprin) 81 mg ONCE ONCE PO ; Start 10/10/16 at 13:30; Stop 10/10/16 at 13:31 JEFF OSPINA MD Oct 10, 2016 13:23
[2016-10-10] MEDS ORDERED: ASPIRIN (EC) 81 MG TAB PO ONE (13:30)
[2016-10-10] MEDS: INSULIN GLARGINE [LANtus] 3 ML PEN SC SCH (20:51)
[2016-10-10] MEDS: ATORVASTATIN 40 MG TAB PO SCH (20:51)
[2016-10-11] VITALS (12 sets, daily range): BP systolic 98–122; BP diastolic 54–65; PULSE 75–92; RESP 17–20
[2016-10-11] MEDS: CEFTAZIDIME 2GM/50 ML (PMX) 50 ML IV SCH ×3 (06:03→21:57)
[2016-10-11] MEDS: PANTOPRAZOLE (EC) 40 MG TAB PO SCH (06:03)
[2016-10-11] MEDS: NITROGLYCERIN 2% 1 GM OINT PKT TD SCH ×3 (06:09→22:04)
[2016-10-11] MEDS: AZITHROMYCIN 500MG/NS (PMX) 250 ML IV SCH (06:37)
[2016-10-11] MEDS: INSULIN ASPART [NOVOLOG] 3 ML PEN SC SCH ×4 (07:55→21:59)
[2016-10-11] MEDS: LISINOPRIL 20 MG TAB PO SCH (08:14)
[2016-10-11] MEDS: METOPROLOL (XL) 25 MG TAB PO SCH (08:14)
--- NOTE | 2016-10-11 08:14 | RADRPT ---
Echocardiogram Report Patient Name: JENNY CRAFT Gender: Male Date: 1930 Study Date: 10-Oct-2016 Entry Level Financial Analyst: [facility] Location: 520 Ref. Physician: DEL BLACKMAN Quality: Technically Difficult Study Procedures: Transthoracic echocardiogram with complete 2D, M-Mode, and doppler examination. Indications: Chest Pain. 2D/M Mode Doppler Measurement Value Normal Ranges Measurement Value Normal Ranges LVIDd 2D 3.7 3.5 - 5.6 cm KEITH Vmax 1.5 cm2 LVIDs 2D 2.5 2.1 - 4.1 cm KEITH VTI 1.5 cm2 LVPWd 2D 1.5 0.6 - 1.1 cm AV Mean Jerome 0.7 m/sec IVSd 2D 1.6 0.6 - 1.1 cm AV Mean PG 2.5 mmHg AoR Diam 2D 2.9 2.0 - 3.7 cm AV Peak Jerome 1.1 m/sec EDV 2D 57.6 cm3 AV Peak PG 5.3 mmHg ESV 2D 15.5 cm3 AV VTI 18.2 cm LVOT Diam 2.1 cm LVOT Mean Jerome 0.3 m/sec LVOT Mean PG 0.4 mmHg LVOT Peak Jerome 0.5 m/sec LVOT Peak PG 0.9 mmHg LVOT VTI 7.4 cm MV E Peak Jerome 0.4 m/sec MV A Peak Jerome 0.3 m/sec MV E/A 1.4 MV Decel Time 226 msec MV Decel Mellette 2 MV E/A 1.4 Findings Left Ventricle: Normal left ventricular systolic function. Normal left ventricular cavity size. Left ventricle not well visualized. Moderate concentric left ventricular hypertrophy. Ejection fraction is visually estimated at 60 %. Tissue Doppler/Mitral Doppler indices are within normal limits. Right Ventricle: Not well visualized. Left Atrium: There is mild enlargement of left atrium. Right Atrium: Not well visualized. Mitral Valve: Mild mitral leaflet calcification. Mild mitral annular calcification. Trace mitral regurgitation. Aortic Valve: Mild aortic stenosis. Aortic valve Max velocity 2.72 m/sec. Max PG 29.50 mmHg. Mean PG 17.50 mmHg. Aortic valve area 1.90 cm2. Aortic cusps appear mildly calcified. Trileaflet aortic valve. Tricuspid Valve: Tricuspid valve not well visualized. Unable to obtain RVSP due to minimal presence of tricuspid regurgitation. There is trace tricuspid regurgitation. Pulmonic Valve: Pulmonic valve not well visualized. Pericardium: Normal pericardium with no significant pericardial effusion. Aorta: Not well visualized. IVC: The IVC is not well visualized. Conclusions Very technically difficult study with limited visualization of cardiac structures and endocardial borders in multiple views. Normal left ventricular systolic function. Normal left ventricular cavity size. Left ventricle not well visualized. Moderate concentric left ventricular hypertrophy. Ejection fraction is visually estimated at 60 %. Tissue Doppler/Mitral Doppler indices are within normal limits. Not well visualized. There is mild enlargement of left atrium. Mild aortic stenosis. Aortic valve Max velocity 2.72 m/sec. Max PG 29.50 mmHg. Mean PG 17.50 mmHg. Aortic valve area 1.90 cm2. Aortic cusps appear mildly calcified. Trileaflet aortic valve. Tricuspid valve not well visualized. Unable to obtain RVSP due to minimal presence of tricuspid regurgitation. There is trace tricuspid regurgitation. Normal pericardium with no significant pericardial effusion. Electronically Signed By: Del Blackman 11-Oct-2016 08:13:30 -0700 Patient Name: JENNY CRAFT Study Date: 10-Oct-2016 [id number]
--- NOTE | 2016-10-11 09:04 | RADRPT ---
Vent Rate: 81 bpm RR Interval: 0 msec ME Interval: 0 msec QRS Duration: 82 msec QT Interval: 346 msec QTC Interval: 401 msec P-R-T [place]: 0 - -13 - 44 degrees Atrial fibrillation Abnormal ECG Electronically Signed By: Del Singer [id number]
[2016-10-11] MEDS ORDERED: REGADENOSON 0.4 MG/5 ML SYG ONE (09:10)
--- NOTE | 2016-10-11 09:25 | CONS ---
Date/Time of Note Date/Time of Note DATE: 10/11/16 TIME: 09:07 Assessment/Plan Assessment/Plan Chief Complaint/Hosp Course Impression: - chest pain - history sounds like unstable angina, relieved with sln. however, trivial trop elevation with flat change not c/w with ACS. will risk stratify with stress testing. - afib- rate controlled, non valvular. elevated chads score but not ideal candidate for anticoag given metastatic bladder ca. 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 per pcp/onc - Chronic leukocytosis - ? related to lung mass Recommendations - lexiscan stress to risk stratify today - poor quality 2d echo, no wma normal fxn. - cont tele monitoring - cont statin/bb - low dose asa cont given afib, not ideal candidate for anticoag given ? prognosis from metastatic disease - prn sln - d/w dr ospina Problems: Consultation Date/Type/Reason Admit Date/Time Oct 09, 2016 at 05:45 Initial Consult Date 10/10/16 Type of Consultation: Cardiology Referring Provider: JEFF OSPINA MD 24 HR Interval Summary Free Text/Dictation no acute events. denies recurrent chest pain. has cont cough tele reviewed: irregular rhythm without discernible p waves, likely afib Exam/Review of Systems Vital Signs Vitals Vital Signs Date Time Temp Pulse Resp B/P Pulse Ox O2 Delivery O2 Flow Rate FiO2 10/11/16 08:07 77 10/11/16 07:25 98.6 18 98/54 96 10/10/16 20:04 Nasal Cannula 2.0 10/10/16 05:40 28 Intake and Output 10/10/16 10/10/16 10/11/16 14:59 22:59 06:59 Intake Total 250 ml 740 ml 290 ml Output Total 1200 ml 300 ml Balance 250 ml -460 ml -10 ml Exam Constitutional: alert, oriented Psych: no complaints Head: normocephalic Eyes: nl conjunctiva ENMT: nl external ears & nose, nl lips & teeth, nl nasal mucosa & septum Neck: non-tender, supple, No jvd Respiratory: clear to auscultation, normal air movement Cardiovascular: nl pulses, regular rate and rhythm, systolic murmur, No S3, No S4 Gastrointestinal: non-tender, soft Musculoskeletal: nl extremities to inspection, nl gait and stance Extremities: normal pulses Neurological: RELIABILITY MANAGER II-XII intact, nl mental status Results Result Diagram: 10/10/16 0650 10/10/16 0650 Results 24 hrs Laboratory Tests Test 10/10/16 12:11 10/10/16 17:27 10/10/16 20:49 10/11/16 01:56 Bedside Glucose 207 204 213 158 Test 10/11/16 07:52 Bedside Glucose 151 Medications Medications Current Medications Ondansetron HCl (Zofran Inj) 4 mg Q6H PRN IV NAUSEA AND/OR VOMITING; Start at 06:30 Acetaminophen (Tylenol Tab) 650 mg Q6H PRN PO PAIN LEVEL 1-3 OR FEVER; Start at 06:30 Acetaminophen/ Hydrocodone Bitart ([place] (5/325)) 1 tab Q6H PRN PO MODERATE PAIN LEVEL 4-6; Start 10/09/16 at 06:30 Acetaminophen/ Hydrocodone Bitart ([place] (5/325)) 2 tab Q6H PRN PO SEVERE PAIN LEVEL 7-10; Start 10/09/16 at 06:30 Docusate Sodium (Colace) 100 mg Q12H PRN PO CONSTIPATION; Start 10/09/16 at 06: 30 Magnesium Hydroxide 30 ml 30 ml DAILY PRN PO CONSTIPATION; Start 10/09/16 at 06 :30 Azithromycin 250 ml @ 250 mls/hr Q24H IV Last administered on 10/11/16 06:37 ; Admin Dose 250 MLS/HR; Start 10/09/16 at 06:30 Ceftazidime/ Dextrose (Fortaz 2gm/50 ml (Pmx)) 50 ml @ 100 mls/hr Q8 IV Last administered on 10/11/16 06:03; Admin Dose 100 MLS/HR; Start 10/09/16 at 06:30 Lisinopril (Zestril) 40 mg DAILY PO Last administered on 10/09/16 08:42; Admin Dose 40 MG; Start 10/09/16 at 09:00 Atorvastatin Calcium (Lipitor) 40 mg HS PO Last administered on 10/10/16 20:51 ; Admin Dose 40 MG; Start 10/09/16 at 21:00 Metoprolol Succinate (Toprol Xl) 25 mg DAILY PO Last administered on 10/09/16 08:41; Admin Dose 25 MG; Start 10/09/16 at 09:00 Pantoprazole (Protonix Tab) 40 mg DAILY@06 PO Last administered on 10/11/16 06 :03; Admin Dose 40 MG; Start 10/09/16 at 07:30 Miscellaneous Information 1 ea NOTE XX ; Start 10/09/16 at 07:30 Glucose (Glutose) 15 gm Q15M PRN PO DECREASED GLUCOSE; Start 10/09/16 at 07:30 Glucose (Glutose) 22.5 gm Q15M PRN PO DECREASED GLUCOSE; Start 10/09/16 at 07: 30 Dextrose (D50w Syringe) 25 ml Q15M PRN IV DECREASED GLUCOSE; Start 10/09/16 at 07:30 Dextrose (D50w Syringe) 50 ml Q15M PRN IV DECREASED GLUCOSE; Start 10/09/16 at 07:30 Glucagon (Glucagen) 1 mg Q15M PRN IM DECREASED GLUCOSE; Start 10/09/16 at 07:30 Glucose (Glutose) 15 gm Q15M PRN BUCCAL DECREASED GLUCOSE; Start 10/09/16 at 07 :30 Nitroglycerin (Nitroglycerin 2% Oint) 1 inch Q8 TD Last administered on 06:09; Admin Dose 1 INCH; Start 10/09/16 at 22:00 Insulin Glargine (Lantus) 20 unit QHS SC Last administered on 10/10/16 20:51; Admin Dose 20 UNIT; Start 10/10/16 at 21:00 Procedures Procedures cxr images reviewed Multiple bilateral nodular opacities measuring up to 3 cm. Left lower lung atelectasis and small pleural effusion LEAH BLACKMAN Oct 11, 2016 09:25
--- NOTE | 2016-10-11 10:49 | PN ---
Date/Time of Note Date/Time of Note DATE: 10/11/16 TIME: 10:41 Assessment/Plan VTE Prophylaxis VTE Prophylaxis Intervention: LMWH Lines/Catheters IV Catheter Type (from Nrs): Saline Lock Urinary Cath still in place: Yes (KIMBROUGH CATH AND RIGHT NEPHROSTOMY TUBE) Reason Cath still needed: urinary retention Assessment/Plan Chief Complaint/Hosp Course 1. He is here for chest pain and was seen by cardiology this morning , and had a cardiac stress test today .. 2. metastatic bladder cancer . 3. CAD 4. DM on insulin 5. dysphagia , will order speech therapy . 6. Dr Perez , oncologist has been consulted for treatment of bladder cancer . Problems: Subjective 24 Hr Interval Summary Free Text/Dictation He is awake and alert . he had a cardiac stress test today . He denies Chest pain . Constitutional: improved, no complaints Cardiovascular: no complaints Gastrointestinal: no complaints Genitourinary: no complaints Musculoskeletal: no complaints Neurologic: no complaints Exam/Review of Systems Vital Signs Vitals Vital Signs Date Time Temp Pulse Resp B/P Pulse Ox O2 Delivery O2 Flow Rate FiO2 10/11/16 08:07 77 10/11/16 07:25 98.6 18 98/54 96 10/10/16 20:04 Nasal Cannula 2.0 10/10/16 05:40 28 Intake and Output 10/10/16 10/10/16 10/11/16 15:00 23:00 07:00 Intake Total 250 ml 740 ml 290 ml Output Total 1200 ml 300 ml Balance 250 ml -460 ml -10 ml Exam Constitutional: alert, frail, oriented Respiratory: clear to auscultation, diminished breath sounds Cardiovascular: regular rate and rhythm Gastrointestinal: nl liver, spleen, non-tender, soft Musculoskeletal: nl extremities to inspection Results Result Diagram: 10/10/16 0650 10/10/16 0650 Results 24 hrs Laboratory Tests Test 10/10/16 12:11 10/10/16 17:27 10/10/16 20:49 10/11/16 01:56 Bedside Glucose 207 204 213 158 Test 10/11/16 07:52 Bedside Glucose 151 Medications Medications Current Medications Ondansetron HCl (Zofran Inj) 4 mg Q6H PRN IV NAUSEA AND/OR VOMITING; Start at 06:30 Acetaminophen (Tylenol Tab) 650 mg Q6H PRN PO PAIN LEVEL 1-3 OR FEVER; Start at 06:30 Acetaminophen/ Hydrocodone Bitart ([place] (5/325)) 1 tab Q6H PRN PO MODERATE PAIN LEVEL 4-6; Start 10/09/16 at 06:30 Acetaminophen/ Hydrocodone Bitart ([place] (5/325)) 2 tab Q6H PRN PO SEVERE PAIN LEVEL 7-10; Start 10/09/16 at 06:30 Docusate Sodium (Colace) 100 mg Q12H PRN PO CONSTIPATION; Start 10/09/16 at 06: 30 Magnesium Hydroxide 30 ml 30 ml DAILY PRN PO CONSTIPATION; Start 10/09/16 at 06 :30 Azithromycin 250 ml @ 250 mls/hr Q24H IV Last administered on 10/11/16 06:37 ; Admin Dose 250 MLS/HR; Start 10/09/16 at 06:30 Ceftazidime/ Dextrose (Fortaz 2gm/50 ml (Pmx)) 50 ml @ 100 mls/hr Q8 IV Last administered on 10/11/16 06:03; Admin Dose 100 MLS/HR; Start 10/09/16 at 06:30 Lisinopril (Zestril) 40 mg DAILY PO Last administered on 10/09/16 08:42; Admin Dose 40 MG; Start 10/09/16 at 09:00 Atorvastatin Calcium (Lipitor) 40 mg HS PO Last administered on 10/10/16 20:51 ; Admin Dose 40 MG; Start 10/09/16 at 21:00 Metoprolol Succinate (Toprol Xl) 25 mg DAILY PO Last administered on 10/09/16 08:41; Admin Dose 25 MG; Start 10/09/16 at 09:00 Pantoprazole (Protonix Tab) 40 mg DAILY@06 PO Last administered on 10/11/16 06 :03; Admin Dose 40 MG; Start 10/09/16 at 07:30 Miscellaneous Information 1 ea NOTE XX ; Start 10/09/16 at 07:30 Glucose (Glutose) 15 gm Q15M PRN PO DECREASED GLUCOSE; Start 10/09/16 at 07:30 Glucose (Glutose) 22.5 gm Q15M PRN PO DECREASED GLUCOSE; Start 10/09/16 at 07: 30 Dextrose (D50w Syringe) 25 ml Q15M PRN IV DECREASED GLUCOSE; Start 10/09/16 at 07:30 Dextrose (D50w Syringe) 50 ml Q15M PRN IV DECREASED GLUCOSE; Start 10/09/16 at 07:30 Glucagon (Glucagen) 1 mg Q15M PRN IM DECREASED GLUCOSE; Start 10/09/16 at 07:30 Glucose (Glutose) 15 gm Q15M PRN BUCCAL DECREASED GLUCOSE; Start 10/09/16 at 07 :30 Nitroglycerin (Nitroglycerin 2% Oint) 1 inch Q8 TD Last administered on 06:09; Admin Dose 1 INCH; Start 10/09/16 at 22:00 Insulin Glargine (Lantus) 20 unit QHS SC Last administered on 10/10/16 20:51; Admin Dose 20 UNIT; Start 10/10/16 at 21:00 JEFF OSPINA MD Oct 11, 2016 10:49
[2016-10-11] MEDS: ENOXAPARIN 30 MG/0.3 ML SYG SC SCH (11:54)
--- NOTE | 2016-10-11 13:17 | RADRPT ---
PROCEDURE: Lexiscan myocardial perfusion study CLINICAL INDICATION: 86 -year-old patient complaining of chest pain. TECHNIQUE: Lexiscan 0.4 mg intravenously separate acquisition gated myocardial perfusion SPECT usi ng Tc 99m Myoview 32.3 mCi intravenously at stress and Tc-99m Myoview, 10.5 mCi intravenously at res t was performed using the rest/stress sequence. Poststress Myoview SPECT images were obtained in th e supine position. COMPARISON: November 30, 2015. FINDINGS: Perfusion images reveal no evidence of perfusion defects. Lexiscan post stress gated SPECT images demonstrate no wall motion abnormalities. IMPRESSION: 1. No evidence of new perfusion defects. 2. No new wall motion abnormalities. 3. The left ventricle ejection fraction at stress is 61% (prior EF was 69%). RPTAT: HH .Vanessa Mccoy MD, Date Time Electronically viewed and signed by .Vanessa Mccoy MD, on 10/11/2016 13:17 .L/
[2016-10-11] MEDS: MAGNESIUM HYDROXIDE 30ML CUP PO PRN (13:38)
[2016-10-11] MEDS: DOCUSATE SODIUM 100 MG CAP PO PRN (13:39)
--- NOTE | 2016-10-11 20:24 | CONS ---
DATE OF ADMISSION: 10/09/2016 DATE OF CONSULTATION: 10/11/2016 TYPE OF CONSULTATION: Medical oncology REQUESTING PHYSICIAN: John Ospina MD REASON FOR CONSULTATION: Urothelial carcinoma. Dear Dr. Ospina: Thank you very much for asking me to see this very interesting and pleasant gentleman in oncologic c onsultation. As you know, Mr. Fernandez is an 86-year-old male who has recently been a resident of [facility]. The patient was transferred to [facility] this morning bec ause of substernal chest pain. The patient states that he was given nitroglycerin by EMT and had re lief of symptoms within seconds. The patient has not had any other objective evidence of myocardial damage. He did undergo a myocardial perfusion study today with a stress study. This showed a left ventricular ejection fraction of 61% at stress. Prior to stress, it was 69%. There were no new mo tion wall studies and no evidence of perfusion defects. The patient, however significantly, has recently been found to have evidence of urothelial malignanc y. The patient was found to have a large right-sided mass, which on cystoscopy and transurethral re section, was found could not be resected. It was found actually to be causing obstruction of the ri ght ureteral orifice. It is likely that this tumor is actually evolving from the right ureter. The patient has required the placement of a percutaneous right nephrostomy because of the right uret eral blockage. The patient also had had a recent PET CT scan, which did show evidence of the bladder mass as well a s evidence of extra vesicular spread and probable pulmonary metastases. The patient complaints have been basically regarding the possible bladder tumor, which at one time m ay have been causing some back pain. 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 The patient therefore does self-catheterization s after having developed recurrent urinary tract infections. The patient states that he was told in the that he had a bladder stone. Several attempts in t he past had been made to find this stone, which apparently recently may have passed. PAST MEDICAL HISTORY: The patient's other significant past history includes a history of type 2 kenyatta betes mellitus. He also has a history of coronary artery disease as well as hypertension. He has h ad previous placement of coronary artery stent. He has also had a transurethral resection of the pr ostate in the past for benign hypertrophy. The patient has a history also of at least 2 upper GI bleeds due to peptic ulcer disease. Most rece nt was approximately 1 year ago and was found to be bleeding at the time of upper GI endoscopy. MEDICATIONS AT TIME OF ADMISSION: Include: 1. Lisinopril 40 mg a day. 2. Atorvastatin 40 mg per day. 3. Metformin 500 mg with meals. ALLERGIES: THE PATIENT STATES HE HAS NO KNOWN ALLERGIES. SOCIAL HISTORY: The patient is . He was born in [place]. 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 The patient states he stopped smoking in 1969 when he had his first peptic ulcer bleed. He stat es he also stopped drinking at that time. FAMILY HISTORY: Remarkable in that his father may have had renal carcinoma and his sister may have had colon carcinoma. He has a son with diabetes mellitus. LABORATORY DATA: Sodium 136, potassium 4, BUN 24, creatinine 1.1. Bilirubin: 0.5 total direct, i ndirect 0.5. AST 28, ALT 40, alkaline phosphatase 74, albumin 2.4, and globulin 2.8. White count i s 19,000 with an absolute neutrophil count of 16,000 and absolute lymphocyte count of 1400, hemoglob in 8.9 and hematocrit 28, MCV 81.9, MCH 25.2, MCHC 30.8, RDW 17.8, and platelet count 413,000. Prot domenic on admission was 15.1 seconds, INR of 1.18, and PTT was 33.6 seconds. A chest x-ray does show multiple bilateral nodular opacities, which are said to measure up to 3 cm. PHYSICAL EXAMINATION: GENERAL: At this time reveals a well-developed, but thin male who is in no acute distress . VITAL SIGNS: Temperature 98.1, pulse 80 per minute and regular, respirations 17, blood pressure is 111/65, and pulse oximetry is 96% on 2 liters of oxygen. SKIN: Good skin turgor, but pale. There are scattered ecchymoses in the areas of previous venipunc ture. HEENT: Normocephalic. No evidence of trauma. The pupils are equal, round, react to light and acco mmodation. Sclerae nonicteric. Oral mucosa is moist without lesions. Tongue is well papillated. No gingival hyperplasia, no hypertrophy of Waldeyer ring, no mucosa telangiectasias. There is nasal oxygen in place. NECK: Supple. No jugular venous distention or thyroid enlargement. CHEST: Clear to auscultation and percussion. No rhonchi, wheezes, rales, or rubs. There is no ravi n on percussion of the spine, sternum, clavicles, or ribs. NODES: No palpable lymphadenopathy in lymph node bearing area. BREASTS: No gynecomastia. HEART: Regular sinus rhythm. No S3, S4, or murmurs. No rubs. ABDOMEN: Flat and soft. There is no organomegaly, masses, or tenderness. Bowel sounds are active. There is a Castañeda catheter in place. There is also a percutaneous nephrostomy in the right flank. EXTREMITIES: Good range of motion. No clubbing, no edema, or cyanosis. NEUROLOGIC: Reveals no focal neurologic abnormalities. DISCUSSION: This patient has a biopsy-proven metastatic urothelial carcinoma. This is likely arisi ng from the right ureter causing ureteral obstruction and requiring nephrostomy. The placement of h is nephrostomy has helped to normalize the patient's renal function once again. As noted, the patient has had a PET CT scan that shows extra vesicular spread of tumor including pul monary metastases. I have had a discussion with the patient and his son who is at the bedside at this time. I have exp lained that this tumor is not resectable and that any therapy would be palliative and not curative. Previously there had been a discussion regarding combined chemotherapy and radiation therapy, but I do not feel this would be of any benefit. The patient has pulmonary metastases and therefore local control with radiation therapy would unlikely prolong the patient's survival unless there was also r esponse to systemic therapy. Radiation would also be associated with increased morbidity, including potential bowel injury. Patients with metastatic urothelial carcinoma are best treated with a cisplatin based combination ch emotherapy. This could include a combination of cisplatin and paclitaxel or cisplatin and gemcitabi ne, or all 3 drugs combined. The use of such therapy, of course, would depend on adequate renal function. Cisplatin should be re served for those people whose creatinine clearance is at least 60 mL per minute. Any of the above agents could be used as single agent; however, this is not associated with as a goo d response as the combination. If the patient's renal function is not adequate to allow use of cisplatin, then on carboplatin could be substituted, but this may cause increased marrow suppression. Other options are the use of immu notherapy using PD-L1 inhibitors. The patient is moderately anemic at this time with some hypochromic and macrocytic indices. Will ob tain iron studies to include iron, iron binding capacity, and a ferritin at this time. Will discuss the possible therapies again with the patient and choices will be made somewhat dependi ng upon the ultimate stabilization of his renal function. Once again, thank you very much for the opportunity of participating in the medical care of this harini y interesting and pleasant patient. I will be happy to follow this patient with you and assist in h is oncologic evaluation and followup as necessary. Dictated By: RADHA SHAW MD SR/NTS Conf#: [id number] DID#: [id number] CC: KAYCE MEJÍA MD; JOHN OSPINA MD;*EndCC*
[2016-10-11] MEDS: ATORVASTATIN 40 MG TAB PO SCH (21:57)
[2016-10-11] MEDS: INSULIN GLARGINE [LANtus] 3 ML PEN SC SCH (22:00)
[2016-10-12] VITALS (11 sets, daily range): BP systolic 90–120; BP diastolic 50–69; PULSE 65–84; RESP 17–18
[2016-10-12] MEDS: HYDROCODONE/APAP (5/325) TAB PO PRN (00:34)
[2016-10-12] MEDS: CEFTAZIDIME 2GM/50 ML (PMX) 50 ML IV SCH ×3 (05:38→21:54)
[2016-10-12] MEDS: NITROGLYCERIN 2% 1 GM OINT PKT TD SCH ×3 (05:39→21:52)
[2016-10-12] MEDS: PANTOPRAZOLE (EC) 40 MG TAB PO SCH (05:39)
[2016-10-12] MEDS: AZITHROMYCIN 500MG/NS (PMX) 250 ML IV SCH (06:23)
[2016-10-12] MEDS: INSULIN ASPART [NOVOLOG] 3 ML PEN SC SCH ×4 (07:55→20:41)
[2016-10-12 08:18] LABS: ADD SCAN DIFF NO
[2016-10-12 08:23] LABS: BASOPHILS % 0.1 % (0.0-2.0); EOSINOPHILS # 0.1 10^3/ul (0.0-0.5); EOSINOPHILS % 0.7 % (0.0-7.0); HEMATOCRIT 26.4 % (42.0-52.0); HEMOGLOBIN 8.1 g/dl (14.0-18.0); LYMPHOCYTES # 1.3 10^3/ul (0.8-2.9); LYMPHOCYTES % 8.9 % (15.0-51.0); MEAN CORPUSCULAR HEMOGLOBIN 24.8 pg (29.0-33.0); MEAN CORPUSCULAR HGB CONC 30.7 g/dl (32.0-37.0); MONOCYTES % 6.6 % (0.0-11.0); NEUTROPHIL # 12.5 10^3/ul (1.6-7.5); PLATELET COUNT 384 10^3/UL (140-415); RED BLOOD COUNT 3.26 10^6/ul (4.70-6.10); RED CELL DISTRIBUTION WIDTH 17.3 % (11.5-14.5)
[2016-10-12 08:37] LABS: ALBUMIN 2.1 g/dl (3.3-4.9)
[2016-10-12 08:38] LABS: IRON 16 ug/dl (35-150); POTASSIUM 3.1 mmol/L (3.5-5.1)
[2016-10-12 08:40] LABS: ALBUMIN/GLOBULIN RATIO 0.77; BILIRUBIN,INDIRECT 0.4 mg/dl (0-1.1); BILIRUBIN,TOTAL 0.4 mg/dl (0.2-1.3); CREATININE 1.07 mg/dl (0.61-1.24); TOTAL PROTEIN 4.8 g/dl (6.1-8.1)
[2016-10-12 08:41] LABS: CALCIUM 9.9 mg/dl (8.4-10.2)
[2016-10-12 08:47] LABS: TOTAL IRON BINDING CAPACITY 159 ug/dl (241-421)
[2016-10-12] MEDS: ACETAMINOPHEN 325 MG TAB PO PRN (08:51)
[2016-10-12] MEDS: DOCUSATE SODIUM 100 MG CAP PO PRN (08:51)
[2016-10-12] MEDS: METOPROLOL (XL) 25 MG TAB PO SCH (08:51)
[2016-10-12] MEDS: MAGNESIUM HYDROXIDE 30ML CUP PO PRN (08:51)
[2016-10-12] MEDS: LISINOPRIL 20 MG TAB PO SCH (08:52)
[2016-10-12] MEDS: ENOXAPARIN 30 MG/0.3 ML SYG SC SCH (08:58)
[2016-10-12] MEDS ORDERED: POTASSIUM CHLORIDE (SR) 20 MEQ TAB PO STA (10:11)
--- NOTE | 2016-10-12 10:17 | CONS ---
Date/Time of Note Date/Time of Note DATE: 10/12/16 TIME: 10:15 Assessment/Plan Assessment/Plan Chief Complaint/Hosp Course 1. He is here for chest pain and was seen by cardiology this morning , and had a cardiac stress yesterday which was negative for ischemia... 2. metastatic bladder cancer . 3. CAD 4. DM on insulin 5. dysphagia , will order speech therapy . 6. Dr Perez , oncologist has been consulted for treatment of bladder cancer . Dr. Perez saw the patient yesterday. He probably will start chemotherapy soon. 7. I am going to start discharge planning to transfer the patient back to [facility] . Problems: Consultation Date/Type/Reason Admit Date/Time Oct 09, 2016 at 05:45 Initial Consult Date 10/10/16 Type of Consultation: Cardiology Referring Provider: EJFF OSPINA MD 24 HR Interval Summary Free Text/Dictation He is feeling better. He denies any chest pain. Constitutional: improved, no complaints Exam/Review of Systems Vital Signs Vitals Vital Signs Date Time Temp Pulse Resp B/P Pulse Ox O2 Delivery O2 Flow Rate FiO2 10/12/16 08:19 65 10/12/16 07:41 Nasal Cannula 2.0 10/12/16 07:29 98.2 18 90/50 99 10/10/16 05:40 28 Intake and Output 10/11/16 10/11/16 10/12/16 14:59 22:59 06:59 Intake Total 800 ml 450 ml Output Total 300 ml 500 ml 300 ml Balance -300 ml 300 ml 150 ml Exam Constitutional: alert, frail, oriented Respiratory: clear to auscultation, normal air movement Cardiovascular: regular rate and rhythm Gastrointestinal: non-tender, soft Musculoskeletal: nl extremities to inspection Results Result Diagram: 10/12/16 0735 10/12/16 0735 Results 24 hrs Laboratory Tests Test 10/11/16 11:48 10/11/16 17:32 10/11/16 21:55 10/12/16 01:42 Bedside Glucose 158 225 H 217 130 Test 10/12/16 07:35 10/12/16 08:49 10/12/16 09:13 White Blood Count 15.0 #H Red Blood Count 3.26 L Hemoglobin 8.1 L Hematocrit 26.4 L Mean Corpuscular Volume 81.0 L Mean Corpuscular Hemoglobin 24.8 L Mean Corpuscular Hemoglobin Concent 30.7 L Red Cell Distribution Width 17.3 H Platelet Count 384 Mean Platelet Volume 9.0 Neutrophils % 83.0 H Lymphocytes % 8.9 L Monocytes % 6.6 Eosinophils % 0.7 Basophils % 0.1 Nucleated Red Blood Cells % 0.0 Neutrophils # 12.5 H Lymphocytes # 1.3 Monocytes # 1.0 H Eosinophils # 0.1 Basophils # 0.0 Nucleated Red Blood Cells # 0.0 Sodium Level 136 Potassium Level 3.1 L Chloride Level 99 Carbon Dioxide Level 31 Anion Gap 9 Blood Urea Nitrogen 24 H Creatinine 1.07 Glucose Level 49 *L Calcium Level 9.9 Iron Level 16 L Total Iron Binding Capacity 159 L Percent Iron Saturation 10 L Ferritin Pending Total Bilirubin 0.4 Direct Bilirubin 0.00 Indirect Bilirubin 0.4 Aspartate Amino Transf (AST/SGOT) 33 Alanine Aminotransferase (ALT/SGPT) 39 Alkaline Phosphatase 61 Total Protein 4.8 L Albumin 2.1 L Globulin 2.70 Albumin/Globulin Ratio 0.77 Bedside Glucose 63 L 90 Medications Medications Current Medications Ondansetron HCl (Zofran Inj) 4 mg Q6H PRN IV NAUSEA AND/OR VOMITING; Start at 06:30 Acetaminophen (Tylenol Tab) 650 mg Q6H PRN PO PAIN LEVEL 1-3 OR FEVER Last administered on 10/12/16 08:51; Admin Dose 650 MG; Start 10/09/16 at 06:30 Acetaminophen/ Hydrocodone Bitart ([place] (5/325)) 1 tab Q6H PRN PO MODERATE PAIN LEVEL 4-6; Start 10/09/16 at 06:30 Acetaminophen/ Hydrocodone Bitart ([place] (5/325)) 2 tab Q6H PRN PO SEVERE PAIN LEVEL 7-10 Last administered on 10/12/16 00:34; Admin Dose 2 TAB; Start at 06:30 Docusate Sodium (Colace) 100 mg Q12H PRN PO CONSTIPATION Last administered on 08:51; Admin Dose 100 MG; Start 10/09/16 at 06:30 Magnesium Hydroxide 30 ml 30 ml DAILY PRN PO CONSTIPATION Last administered on 10/12/16 08:51; Admin Dose 30 ML; Start 10/09/16 at 06:30 Azithromycin 250 ml @ 250 mls/hr Q24H IV Last administered on 10/12/16 06:23 ; Admin Dose 250 MLS/HR; Start 10/09/16 at 06:30 Ceftazidime/ Dextrose (Fortaz 2gm/50 ml (Pmx)) 50 ml @ 100 mls/hr Q8 IV Last administered on 10/12/16 05:38; Admin Dose 100 MLS/HR; Start 10/09/16 at 06:30 Lisinopril (Zestril) 40 mg DAILY PO Last administered on 10/09/16 08:42; Admin Dose 40 MG; Start 10/09/16 at 09:00 Atorvastatin Calcium (Lipitor) 40 mg HS PO Last administered on 10/11/16 21:57 ; Admin Dose 40 MG; Start 10/09/16 at 21:00 Metoprolol Succinate (Toprol Xl) 25 mg DAILY PO Last administered on 10/12/16 08:51; Admin Dose 25 MG; Start 10/09/16 at 09:00 Pantoprazole (Protonix Tab) 40 mg DAILY@06 PO Last administered on 10/12/16 05 :39; Admin Dose 40 MG; Start 10/09/16 at 07:30 Miscellaneous Information 1 ea NOTE XX ; Start 10/09/16 at 07:30 Glucose (Glutose) 15 gm Q15M PRN PO DECREASED GLUCOSE; Start 10/09/16 at 07:30 Glucose (Glutose) 22.5 gm Q15M PRN PO DECREASED GLUCOSE; Start 10/09/16 at 07: 30 Dextrose (D50w Syringe) 25 ml Q15M PRN IV DECREASED GLUCOSE; Start 10/09/16 at 07:30 Dextrose (D50w Syringe) 50 ml Q15M PRN IV DECREASED GLUCOSE; Start 10/09/16 at 07:30 Glucagon (Glucagen) 1 mg Q15M PRN IM DECREASED GLUCOSE; Start 10/09/16 at 07:30 Glucose (Glutose) 15 gm Q15M PRN BUCCAL DECREASED GLUCOSE; Start 10/09/16 at 07 :30 Nitroglycerin (Nitroglycerin 2% Oint) 1 inch Q8 TD Last administered on 05:39; Admin Dose 1 INCH; Start 10/09/16 at 22:00 Enoxaparin Sodium (Lovenox) 30 mg DAILY SC Last administered on 10/12/16t 08:58 ; Admin Dose 30 MG; Start 10/11/16 at 11:00 Insulin Glargine (Lantus) 15 unit QHS SC ; Start 10/12/16 at 21:00 JEFF OSPINA MD Oct 12, 2016 10:17
[2016-10-12] MEDS: SOD FERRIC GLUC COMPLX 125 MG in SOD CHLORIDE 0.9% 100 ML IVPB SCH (12:32)
--- NOTE | 2016-10-12 12:34 | PN ---
Date/Time of Note Date/Time of Note DATE: 10/12/16 TIME: 12:27 Assessment/Plan VTE Prophylaxis VTE Prophylaxis Intervention: other (per primary MD) Lines/Catheters IV Catheter Type (from Nrs): Peripheral IV Urinary Cath still in place: Yes Reason Cath still needed: other (indicate) (weakness) Assessment/Plan Assessment/Plan Iron studies are suggestive of anemia of chronic disease. Ferritin is still pending. The lymphopenia and hypoalbuminemia, as well as his clinical appearance, are suggestive of poor nutrition. Cr is not elevated but may understate the impairment of renal function given the depleted muscle mass. 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 Dr. Perez will follow up and decide with family what the best approach is for this man. Subjective 24 Hr Interval Summary Free Text/Dictation Pt is tired and sleepy. No discomfort. Exam/Review of Systems Vital Signs Vitals Vital Signs Date Time Temp Pulse Resp B/P Pulse Ox O2 Delivery O2 Flow Rate FiO2 10/12/16 12:19 78 10/12/16 11:31 98.3 18 110/57 93 10/12/16 07:41 Nasal Cannula 2.0 10/10/16 05:40 28 Intake and Output 10/11/16 10/11/16 10/12/16 15:00 23:00 07:00 Intake Total 800 ml 450 ml Output Total 300 ml 500 ml 300 ml Balance -300 ml 300 ml 150 ml Exam Head: normocephalic Neck: supple Respiratory: clear to auscultation Cardiovascular: regular rate and rhythm Gastrointestinal: non-tender, soft Results Result Diagram: 10/12/16 0735 10/12/16 0735 Results 24 hrs Laboratory Tests Test 10/11/16 17:32 10/11/16 21:55 10/12/16 01:42 10/12/16 07:35 Bedside Glucose 225 H 217 130 White Blood Count 15.0 #H Red Blood Count 3.26 L Hemoglobin 8.1 L Hematocrit 26.4 L Mean Corpuscular Volume 81.0 L Mean Corpuscular Hemoglobin 24.8 L Mean Corpuscular Hemoglobin Concent 30.7 L Red Cell Distribution Width 17.3 H Platelet Count 384 Mean Platelet Volume 9.0 Neutrophils % 83.0 H Lymphocytes % 8.9 L Monocytes % 6.6 Eosinophils % 0.7 Basophils % 0.1 Nucleated Red Blood Cells % 0.0 Neutrophils # 12.5 H Lymphocytes # 1.3 Monocytes # 1.0 H Eosinophils # 0.1 Basophils # 0.0 Nucleated Red Blood Cells # 0.0 Sodium Level 136 Potassium Level 3.1 L Chloride Level 99 Carbon Dioxide Level 31 Anion Gap 9 Blood Urea Nitrogen 24 H Creatinine 1.07 Glucose Level 49 *L Calcium Level 9.9 Iron Level 16 L Total Iron Binding Capacity 159 L Percent Iron Saturation 10 L Ferritin Pending Total Bilirubin 0.4 Direct Bilirubin 0.00 Indirect Bilirubin 0.4 Aspartate Amino Transf (AST/SGOT) 33 Alanine Aminotransferase (ALT/SGPT) 39 Alkaline Phosphatase 61 Total Protein 4.8 L Albumin 2.1 L Globulin 2.70 Albumin/Globulin Ratio 0.77 Test 10/12/16 08:49 10/12/16 09:13 Bedside Glucose 63 L 90 Medications Medications Current Medications Ondansetron HCl (Zofran Inj) 4 mg Q6H PRN IV NAUSEA AND/OR VOMITING; Start at 06:30 Acetaminophen (Tylenol Tab) 650 mg Q6H PRN PO PAIN LEVEL 1-3 OR FEVER Last administered on 10/12/16 08:51; Admin Dose 650 MG; Start 10/09/16 at 06:30 Acetaminophen/ Hydrocodone Bitart ([place] (5/325)) 1 tab Q6H PRN PO MODERATE PAIN LEVEL 4-6; Start 10/09/16 at 06:30 Acetaminophen/ Hydrocodone Bitart ([place] (5/325)) 2 tab Q6H PRN PO SEVERE PAIN LEVEL 7-10 Last administered on 10/12/16 00:34; Admin Dose 2 TAB; Start at 06:30 Docusate Sodium (Colace) 100 mg Q12H PRN PO CONSTIPATION Last administered on 08:51; Admin Dose 100 MG; Start 10/09/16 at 06:30 Magnesium Hydroxide 30 ml 30 ml DAILY PRN PO CONSTIPATION Last administered on 10/12/16 08:51; Admin Dose 30 ML; Start 10/09/16 at 06:30 Ceftazidime/ Dextrose (Fortaz 2gm/50 ml (Pmx)) 50 ml @ 100 mls/hr Q8 IV Last administered on 10/12/16 05:38; Admin Dose 100 MLS/HR; Start 10/09/16 at 06:30 Lisinopril (Zestril) 40 mg DAILY PO Last administered on 10/09/16 08:42; Admin Dose 40 MG; Start 10/09/16 at 09:00 Atorvastatin Calcium (Lipitor) 40 mg HS PO Last administered on 10/11/16 21:57 ; Admin Dose 40 MG; Start 10/09/16 at 21:00 Metoprolol Succinate (Toprol Xl) 25 mg DAILY PO Last administered on 10/12/16 08:51; Admin Dose 25 MG; Start 10/09/16 at 09:00 Pantoprazole (Protonix Tab) 40 mg DAILY@06 PO Last administered on 10/12/16 05 :39; Admin Dose 40 MG; Start 10/09/16 at 07:30 Miscellaneous Information 1 ea NOTE XX ; Start 10/09/16 at 07:30 Glucose (Glutose) 15 gm Q15M PRN PO DECREASED GLUCOSE; Start 10/09/16 at 07:30 Glucose (Glutose) 22.5 gm Q15M PRN PO DECREASED GLUCOSE; Start 10/09/16 at 07: 30 Dextrose (D50w Syringe) 25 ml Q15M PRN IV DECREASED GLUCOSE; Start 10/09/16 at 07:30 Dextrose (D50w Syringe) 50 ml Q15M PRN IV DECREASED GLUCOSE; Start 10/09/16 at 07:30 Glucagon (Glucagen) 1 mg Q15M PRN IM DECREASED GLUCOSE; Start 10/09/16 at 07:30 Glucose (Glutose) 15 gm Q15M PRN BUCCAL DECREASED GLUCOSE; Start 10/09/16 at 07 :30 Nitroglycerin (Nitroglycerin 2% Oint) 1 inch Q8 TD Last administered on 05:39; Admin Dose 1 INCH; Start 10/09/16 at 22:00 Enoxaparin Sodium (Lovenox) 30 mg DAILY SC Last administered on 10/12/16 08:58 ; Admin Dose 30 MG; Start 10/11/16 at 11:00 Insulin Glargine 15 unit 15 unit QHS SC ; Start 10/12/16 at 21:00 Ferric Sodium Gluconate Complex/ Sodium Chloride (Ferrlecit/NS) 110 ml @ 110 mls/hr Q24H IVPB ; Start 10/12/16 at 12:00; Stop 10/16/16 at 12:59 Azithromycin (Zithromax) 250 mg DAILY PO ; Start 10/13/16 at 09:00 KIP MILLER MD Oct 12, 2016 12:34
[2016-10-12] MEDS: ATORVASTATIN 40 MG TAB PO SCH (20:43)
[2016-10-12] MEDS: INSULIN GLARGINE [LANtus] 3 ML PEN SC SCH (20:43)
[2016-10-13] VITALS (11 sets, daily range): BP systolic 102–141; BP diastolic 52–68; PULSE 77–84; RESP 17–20
[2016-10-13] MEDS: NITROGLYCERIN 2% 1 GM OINT PKT TD SCH (06:00)
[2016-10-13] MEDS: PANTOPRAZOLE (EC) 40 MG TAB PO SCH (06:06)
[2016-10-13] MEDS: CEFTAZIDIME 2GM/50 ML (PMX) 50 ML IV SCH (06:06)
[2016-10-13] MEDS: INSULIN ASPART [NOVOLOG] 3 ML PEN SC SCH ×4 (07:55→22:00)
[2016-10-13] MEDS: DOCUSATE SODIUM 100 MG CAP PO PRN (08:28)
[2016-10-13] MEDS: METOPROLOL (XL) 25 MG TAB PO SCH (08:28)
[2016-10-13] MEDS: AZITHROMYCIN 250 MG TAB PO SCH (08:28)
[2016-10-13] MEDS: ACETAMINOPHEN 325 MG TAB PO PRN (08:28)
[2016-10-13] MEDS: MAGNESIUM HYDROXIDE 30ML CUP PO PRN (08:29)
[2016-10-13] MEDS: LISINOPRIL 20 MG TAB PO SCH (08:29)
[2016-10-13] MEDS: ENOXAPARIN 30 MG/0.3 ML SYG SC SCH (08:36)
--- NOTE | 2016-10-13 09:56 | CONS ---
Date/Time of Note Date/Time of Note DATE: 10/13/16 TIME: 09:47 Assessment/Plan Assessment/Plan Chief Complaint/Hosp Course 1. He is here for chest pain and was seen by cardiology this morning , and had a cardiac stress yesterday which was negative for ischemia..He has not had more chest pain . 2. metastatic bladder cancer . 3. CAD 4. DM on insulin 5. dysphagia , will order speech therapy . 6. Dr Perez , oncologist has been consulted for treatment of bladder cancer . Dr. Perez saw the patient yesterday. He probably will start chemotherapy soon. 7. A fib , this is new , cardiology recommends ASA 81 mg a day . 8. he has iron deficiency anemia , he is on a course of IV Ferrlicit . Problems: Consultation Date/Type/Reason Admit Date/Time Oct 09, 2016 at 05:45 Initial Consult Date 10/10/16 Type of Consultation: Cardiology Referring Provider: JEFF OSPINA MD 24 HR Interval Summary Free Text/Dictation He complains of R leg pain . He is getting IV Ferrlicit for iron deficiency Exam/Review of Systems Vital Signs Vitals Vital Signs Date Time Temp Pulse Resp B/P Pulse Ox O2 Delivery O2 Flow Rate FiO2 10/13/16 09:15 84 10/13/16 07:40 Nasal Cannula 2.0 10/13/16 07:31 98.2 20 102/57 97 10/10/16 05:40 28 Intake and Output 10/12/16 10/12/16 10/13/16 15:00 23:00 07:00 Intake Total 850 ml 400 ml Output Total 2600 ml 1900 ml Balance -1750 ml -1500 ml Exam Constitutional: alert, frail, oriented Respiratory: clear to auscultation, normal air movement Cardiovascular: irregular rhythm Gastrointestinal: soft Musculoskeletal: nl extremities to inspection Results Result Diagram: 10/12/16 0735 10/12/16 0735 Results 24 hrs Laboratory Tests Test 10/12/16 11:44 10/12/16 17:10 10/12/16 20:36 10/13/16 01:31 Bedside Glucose 192 218 210 125 Test 10/13/16 08:32 Bedside Glucose 101 Medications Medications Current Medications Ondansetron HCl (Zofran Inj) 4 mg Q6H PRN IV NAUSEA AND/OR VOMITING; Start at 06:30 Acetaminophen (Tylenol Tab) 650 mg Q6H PRN PO PAIN LEVEL 1-3 OR FEVER Last administered on 10/13/16 08:28; Admin Dose 650 MG; Start 10/09/16 at 06:30 Acetaminophen/ Hydrocodone Bitart ([place] (5/325)) 1 tab Q6H PRN PO MODERATE PAIN LEVEL 4-6; Start 10/09/16 at 06:30 Acetaminophen/ Hydrocodone Bitart ([place] (5/325)) 2 tab Q6H PRN PO SEVERE PAIN LEVEL 7-10 Last administered on 10/12/16 00:34; Admin Dose 2 TAB; Start at 06:30 Docusate Sodium (Colace) 100 mg Q12H PRN PO CONSTIPATION Last administered on 08:28; Admin Dose 100 MG; Start 10/09/16 at 06:30 Magnesium Hydroxide 30 ml 30 ml DAILY PRN PO CONSTIPATION Last administered on 10/13/16 08:29; Admin Dose 30 ML; Start 10/09/16 at 06:30 Ceftazidime/ Dextrose (Fortaz 2gm/50 ml (Pmx)) 50 ml @ 100 mls/hr Q8 IV Last administered on 10/13/16 06:06; Admin Dose 100 MLS/HR; Start 10/09/16 at 06:30 Lisinopril (Zestril) 40 mg DAILY PO Last administered on 10/13/16 08:29; Admin Dose 40 MG; Start 10/09/16 at 09:00 Atorvastatin Calcium (Lipitor) 40 mg HS PO Last administered on 10/12/16 20:43 ; Admin Dose 40 MG; Start 10/09/16 at 21:00 Metoprolol Succinate (Toprol Xl) 25 mg DAILY PO Last administered on 10/13/16 08:28; Admin Dose 25 MG; Start 10/09/16 at 09:00 Pantoprazole (Protonix Tab) 40 mg DAILY@06 PO Last administered on 10/13/16 06 :06; Admin Dose 40 MG; Start 10/09/16 at 07:30 Miscellaneous Information 1 ea NOTE XX ; Start 10/09/16 at 07:30 Glucose (Glutose) 15 gm Q15M PRN PO DECREASED GLUCOSE; Start 10/09/16 at 07:30 Glucose (Glutose) 22.5 gm Q15M PRN PO DECREASED GLUCOSE; Start 10/09/16 at 07: 30 Dextrose (D50w Syringe) 25 ml Q15M PRN IV DECREASED GLUCOSE; Start 10/09/16 at 07:30 Dextrose (D50w Syringe) 50 ml Q15M PRN IV DECREASED GLUCOSE; Start 10/09/16 at 07:30 Glucagon (Glucagen) 1 mg Q15M PRN IM DECREASED GLUCOSE; Start 10/09/16 at 07:30 Glucose (Glutose) 15 gm Q15M PRN BUCCAL DECREASED GLUCOSE; Start 10/09/16 at 07 :30 Nitroglycerin (Nitroglycerin 2% Oint) 1 inch Q8 TD Last administered on 05:39; Admin Dose 1 INCH; Start 10/09/16 at 22:00 Enoxaparin Sodium (Lovenox) 30 mg DAILY SC Last administered on 10/13/16 08:36 ; Admin Dose 30 MG; Start 10/11/16 at 11:00 Insulin Glargine 15 unit 15 unit QHS SC Last administered on 10/12/16 20:43; Admin Dose 15 UNIT; Start 10/12/16 at 21:00 Ferric Sodium Gluconate Complex/ Sodium Chloride (Ferrlecit/NS) 110 ml @ 110 mls/hr Q24H IVPB Last administered on 10/12/16 12:32; Admin Dose 110 MLS/HR; Start 10/12/16 at 12:00; Stop 10/16/16 at 12:59 Azithromycin (Zithromax) 250 mg DAILY PO Last administered on 10/13/16 08:28; Admin Dose 250 MG; Start 10/13/16 at 09:00 JEFF OSPINA MD Oct 13, 2016 09:56
--- NOTE | 2016-10-13 10:05 | PN ---
DATE: 10/13/2016 TYPE OF CONSULTATION: Hematology oncology progress note. SUBJECTIVE: The patient complains that he is experiencing some pain in the anterior right thigh. T his started only since being in the hospital. It is not associated with any movement or position. He does not complain of numbness and tingling. OBJECTIVE VITAL SIGNS: Temperature 98.2, pulse 77 and irregular, respirations 20, blood pressure 120/57, puls e oximetry 97%. SKIN: Pale. Scattered ecchymosis. No petechiae or rashes. HEENT: No mucosal lesions. No scleral icterus. Nasal oxygen in place. NECK: Supple, no jugular venous distention or thyroid enlargement. CHEST: Clear to auscultation and percussion. No rhonchi, wheezes, rales, or rubs. HEART: Irregular regular rate and rhythm. Ventricular response approximately 80. ABDOMEN: Soft, no masses or ascites. There is a nephrostomy tube draining urine on the right. Fol ey catheter is in place. EXTREMITIES: No clubbing. No edema or cyanosis. There is no rash or abnormality in the area where the patient does complain of right anterior thigh pain. No palpable cords or Homans sign. NEUROLOGIC: Normal except for weakness. LABORATORY DATA: Iron studies demonstrate a serum iron of 16, iron binding capacity of 159, saturat ion is 10%, ferritin 387. ASSESSMENT: 1. Metastatic urothelial carcinoma. 2. Anemia. PLAN: The patient has been started on parenteral iron replacement and will get 125 mg of elemental iron on a daily basis. This has been ordered for 5 days. I do feel the patient does have some degr ee of iron deficiency. Iron studies are also consistent with "anemia of chronic disease." At this time, we will hold any chemotherapy until the patient does have complete rehabilitation as l pietro as renal function continues to improve. Dictated By: RADHA SHAW MD SR/KAROLYN Conf#: [id number] DID#: [id number]
--- NOTE | 2016-10-13 10:35 | OPR ---
DATE OF OPERATION: 10/11/2016 TEST PERFORMED: ECG portion of Lexiscan nuclear stress test. INDICATIONS: Chest pain. SUPERVISING PROVIDER: Leah Singer MD REFERRING PROVIDER: John Londono MD HISTORY: Mr. Fernandez is an 86-year-old man with a history of metastatic bladder cancer presented with chest pain. The patient with multiple CAD risk factors therefore, presented for nuclear perfusion stress test. PROCEDURE: Following intravenous line placement, 0.4 mg of Lexiscan was infused over 10 minutes. This was followed by injection of radiotracer by nuclear scientist. The patient tolerated the stress portion of the procedure well and was transferred to nuclear department for further imaging. Resting ECG: Atrial fibrillation with a ventricular of 96 beats per minute. No resting ST or T wave abnormalities. Stress ECG shows no evidence of ischemic ST segment changes. Normal blood pressure response to stress. No arrhythmias with stress. No chest pain or dyspnea with stress. SUMMARY: This ECG portion of the nuclear stress test did not show any evidence of ischemia. Please see separately dictated perfusion report for full and final details. Dictated By: LEAH DUMONT/KAROLYN Conf#: [id number] DID#: [id number] MTDQuinton
[2016-10-13 11:25] LABS: ADD SCAN DIFF NO
[2016-10-13 11:27] LABS: ABNORMAL IP MESSAGE 1; HEMATOCRIT 30.8 % (42.0-52.0); HEMOGLOBIN 9.5 g/dl (14.0-18.0); MEAN CORPUSCULAR HEMOGLOBIN 24.9 pg (29.0-33.0); MEAN CORPUSCULAR HGB CONC 30.8 g/dl (32.0-37.0); MEAN CORPUSCULAR VOLUME 80.6 fl (82.0-101.0); MEAN PLATELET VOLUME 8.7 fl (7.4-10.4); PLATELET COUNT 447 10^3/UL (140-415); RED BLOOD COUNT 3.82 10^6/ul (4.70-6.10); RED CELL DISTRIBUTION WIDTH 17.2 % (11.5-14.5); WHITE BLOOD COUNT 24.8 10^3/ul (4.8-10.8)
[2016-10-13] MEDS: ASPIRIN 81 MG TAB GTB SCH (11:33)
--- NOTE | 2016-10-13 11:37 | RADRPT ---
PROCEDURE: Left femur x-ray CLINICAL INDICATION: Right leg pain. TECHNIQUE: AP and lateral views of the femur were obtained. COMPARISON: None FINDINGS: There is normal mineralization. Dorsal patellar enthesopathy. No acute fracture or dislocation is seen. Degenerative changes of the right hip joint with subchond ral acetabular roof sclerosis and femoral head joint spurring. There is no significant soft tissue swelling. Arterial vascular calcification of the superficial femoral artery IMPRESSION: 1. No fracture or dislocation. Degenerative changes of the right hip joint. RPTAT:AAJJ Sri Berry Physician Date Time Electronically viewed and signed by Physician Jaymie on 10/13/2016 11:37 TASHA/
[2016-10-13 11:39] LABS: ALBUMIN 2.5 g/dl (3.3-4.9)
[2016-10-13 11:40] LABS: POTASSIUM 4.1 mmol/L (3.5-5.1)
[2016-10-13 11:42] LABS: ALBUMIN/GLOBULIN RATIO 0.78; BILIRUBIN,INDIRECT 0.5 mg/dl (0-1.1); BILIRUBIN,TOTAL 0.5 mg/dl (0.2-1.3); CREATININE 1.08 mg/dl (0.61-1.24); TOTAL PROTEIN 5.7 g/dl (6.1-8.1)
[2016-10-13 11:43] LABS: CALCIUM 10.3 mg/dl (8.4-10.2)
[2016-10-13] MEDS: SOD FERRIC GLUC COMPLX 125 MG in SOD CHLORIDE 0.9% 100 ML IVPB SCH (12:21)
[2016-10-13 13:48] LABS: MONOCYTE # 3.5 10^3/ul (0.3-0.9); NEUTROPHIL # 20.1 10^3/ul (1.6-7.5)
--- NOTE | 2016-10-13 15:00 | CONS ---
Date/Time of Note Date/Time of Note DATE: 10/13/16 TIME: 14:57 Assessment/Plan Assessment/Plan Chief Complaint/Hosp Course Impression: - chest pain - r/o for acs, negative stress test/low risk. no further cardiac workup. possibly related to lung mass - afib- rate controlled, non valvular. elevated chads score but not ideal candidate for anticoag given metastatic bladder ca. 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 per pcp/onc - Chronic leukocytosis - ? related to lung mass Recommendations - ok to cont low dose asa, unclear prognosis and benefit from full dose anticoag. 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 prognosis from metastatic disease - d/w dr ospina Problems: Consultation Date/Type/Reason Admit Date/Time Oct 09, 2016 at 05:45 Initial Consult Date 10/10/16 Type of Consultation: Cardiology Referring Provider: JEFF OSPINA MD 24 HR Interval Summary Free Text/Dictation no acute events. no cp. cont cough, sob. eating ok, no n/v. tele reviewed: afib, rate controlled pvcs Exam/Review of Systems Vital Signs Vitals Vital Signs Date Time Temp Pulse Resp B/P Pulse Ox O2 Delivery O2 Flow Rate FiO2 10/13/16 11:56 97.4 83 20 121/63 93 10/13/16 07:40 Nasal Cannula 2.0 10/10/16 05:40 28 Intake and Output 10/12/16 10/12/16 10/13/16 15:00 23:00 07:00 Intake Total 850 ml 400 ml Output Total 2600 ml 1900 ml Balance -1750 ml -1500 ml Exam Constitutional: alert, oriented Psych: no complaints Head: normocephalic Eyes: nl conjunctiva ENMT: nl external ears & nose, nl lips & teeth, nl nasal mucosa & septum Neck: non-tender, supple, No jvd Respiratory: clear to auscultation, normal air movement Cardiovascular: nl pulses, regular rate and rhythm, systolic murmur, No S3, No S4 Gastrointestinal: non-tender, soft Musculoskeletal: nl extremities to inspection, nl gait and stance Extremities: normal pulses Neurological: [employer] II-XII intact, nl mental status Results Result Diagram: 10/13/16 1115 10/13/16 1115 Results 24 hrs Laboratory Tests Test 10/12/16 17:10 10/12/16 20:36 10/13/16 01:31 10/13/16 08:32 Bedside Glucose 218 210 125 101 Test 10/13/16 11:15 10/13/16 12:14 White Blood Count 24.8 #H Red Blood Count 3.82 L Hemoglobin 9.5 L Hematocrit 30.8 L Mean Corpuscular Volume 80.6 L Mean Corpuscular Hemoglobin 24.9 L Mean Corpuscular Hemoglobin Concent 30.8 L Red Cell Distribution Width 17.2 H Platelet Count 447 H Mean Platelet Volume 8.7 Neutrophils % 81.0 H Lymphocytes % 4.0 L Monocytes % 14.0 H Metamyelocytes % 1.0 H Neutrophils # 20.1 H Lymphocytes # 1.0 Monocytes # 3.5 H Metamyelocytes # 0.2 Differential Comment MANUAL DIFF Sodium Level 136 Potassium Level 4.1 Chloride Level 97 Carbon Dioxide Level 31 Anion Gap 12 Blood Urea Nitrogen 19 Creatinine 1.08 Glucose Level 152 # Calcium Level 10.3 H Total Bilirubin 0.5 Direct Bilirubin 0.00 Indirect Bilirubin 0.5 Aspartate Amino Transf (AST/SGOT) 27 Alanine Aminotransferase (ALT/SGPT) 37 Alkaline Phosphatase 79 Total Protein 5.7 L Albumin 2.5 L Globulin 3.20 Albumin/Globulin Ratio 0.78 Bedside Glucose 157 Medications Medications Current Medications Ondansetron HCl (Zofran Inj) 4 mg Q6H PRN IV NAUSEA AND/OR VOMITING; Start at 06:30 Acetaminophen (Tylenol Tab) 650 mg Q6H PRN PO PAIN LEVEL 1-3 OR FEVER Last administered on 10/13/16 08:28; Admin Dose 650 MG; Start 10/09/16 at 06:30 Acetaminophen/ Hydrocodone Bitart ([place] (5/325)) 1 tab Q6H PRN PO MODERATE PAIN LEVEL 4-6; Start 10/09/16 at 06:30 Acetaminophen/ Hydrocodone Bitart ([place] (5/325)) 2 tab Q6H PRN PO SEVERE PAIN LEVEL 7-10 Last administered on 10/12/16 00:34; Admin Dose 2 TAB; Start at 06:30 Docusate Sodium (Colace) 100 mg Q12H PRN PO CONSTIPATION Last administered on 08:28; Admin Dose 100 MG; Start 10/09/16 at 06:30 Magnesium Hydroxide (Milk Of Mag) 30 ml DAILY PRN PO CONSTIPATION Last administered on 10/13/16 08:29; Admin Dose 30 ML; Start 10/09/16 at 06:30 Lisinopril (Zestril) 40 mg DAILY PO Last administered on 10/13/16 08:29; Admin Dose 40 MG; Start 10/09/16 at 09:00 Atorvastatin Calcium (Lipitor) 40 mg HS PO Last administered on 10/12/16 20:43 ; Admin Dose 40 MG; Start 10/09/16 at 21:00 Metoprolol Succinate (Toprol Xl) 25 mg DAILY PO Last administered on 10/13/16 08:28; Admin Dose 25 MG; Start 10/09/16 at 09:00 Pantoprazole (Protonix Tab) 40 mg DAILY@06 PO Last administered on 10/13/16 06 :06; Admin Dose 40 MG; Start 10/09/16 at 07:30 Miscellaneous Information 1 ea NOTE XX ; Start 10/09/16 at 07:30 Glucose (Glutose) 15 gm Q15M PRN PO DECREASED GLUCOSE; Start 10/09/16 at 07:30 Glucose (Glutose) 22.5 gm Q15M PRN PO DECREASED GLUCOSE; Start 10/09/16 at 07: 30 Dextrose (D50w Syringe) 25 ml Q15M PRN IV DECREASED GLUCOSE; Start 10/09/16 at 07:30 Dextrose (D50w Syringe) 50 ml Q15M PRN IV DECREASED GLUCOSE; Start 10/09/16 at 07:30 Glucagon (Glucagen) 1 mg Q15M PRN IM DECREASED GLUCOSE; Start 10/09/16 at 07:30 Glucose (Glutose) 15 gm Q15M PRN BUCCAL DECREASED GLUCOSE; Start 10/09/16 at 07 :30 Enoxaparin Sodium (Lovenox) 30 mg DAILY SC Last administered on 10/13/16 08:36 ; Admin Dose 30 MG; Start 10/11/16 at 11:00 Insulin Glargine 15 unit 15 unit QHS SC Last administered on 10/12/16 20:43; Admin Dose 15 UNIT; Start 10/12/16 at 21:00 Ferric Sodium Gluconate Complex/ Sodium Chloride (Ferrlecit/NS) 110 ml @ 110 mls/hr Q24H IVPB Last administered on 10/13/16 12:21; Admin Dose 110 MLS/HR; Start 10/12/16 at 12:00; Stop 10/16/16 at 12:59 Azithromycin (Zithromax) 250 mg DAILY PO Last administered on 10/13/16 08:28; Admin Dose 250 MG; Start 10/13/16 at 09:00 Aspirin (Aspirin) 81 mg DAILY GTB Last administered on 10/13/16 11:33; Admin Dose 81 MG; Start 10/13/16 at 10:30 Procedures Procedures stress images reviewed: no ischemia, normal lvef LEAH BLACKMAN Oct 13, 2016 15:00
[2016-10-13] MEDS: ATORVASTATIN 40 MG TAB PO SCH (21:55)
[2016-10-13] MEDS: INSULIN GLARGINE [LANtus] 3 ML PEN SC SCH (22:02)
[2016-10-14 05:33] LABS: ADD SCAN DIFF NO
[2016-10-14 05:49] LABS: POTASSIUM 3.7 mmol/L (3.5-5.1)
[2016-10-14 05:51] LABS: CREATININE 1.06 mg/dl (0.61-1.24)
[2016-10-14 05:52] LABS: CALCIUM 10.2 mg/dl (8.4-10.2); MAGNESIUM 2.3 mg/dl (1.7-2.5)
[2016-10-14] MEDS: PANTOPRAZOLE (EC) 40 MG TAB PO SCH (06:05)
[2016-10-14 06:59] VITALS: BP 108/62; RESP 19
[2016-10-14 07:29] LABS: BASOPHILS % 0.1 % (0.0-2.0); EOSINOPHILS # 0.1 10^3/ul (0.0-0.5); EOSINOPHILS % 0.5 % (0.0-7.0); HEMATOCRIT 28.3 % (42.0-52.0); HEMOGLOBIN 8.7 g/dl (14.0-18.0); LYMPHOCYTES # 1.5 10^3/ul (0.8-2.9); LYMPHOCYTES % 7.6 % (15.0-51.0); MEAN CORPUSCULAR HEMOGLOBIN 25.1 pg (29.0-33.0); MEAN CORPUSCULAR HGB CONC 30.7 g/dl (32.0-37.0); MEAN CORPUSCULAR VOLUME 81.6 fl (82.0-101.0); MEAN PLATELET VOLUME 9.2 fl (7.4-10.4); MONOCYTE # 1.2 10^3/ul (0.3-0.9); MONOCYTES % 6.1 % (0.0-11.0); NEUTROPHIL # 17.1 10^3/ul (1.6-7.5); NEUTROPHILS % 85.1 % (39.0-77.0); PLATELET COUNT 395 10^3/UL (140-415); RED BLOOD COUNT 3.47 10^6/ul (4.70-6.10); RED CELL DISTRIBUTION WIDTH 17.3 % (11.5-14.5); WHITE BLOOD COUNT 20.1 10^3/ul (4.8-10.8)
[2016-10-14] MEDS: INSULIN ASPART [NOVOLOG] 3 ML PEN SC SCH ×5 (07:50→20:33)
[2016-10-14] MEDS: TIMOPTIC 0.5% EYE DROPS BOTH EYES SCH (08:37)
[2016-10-14] MEDS: AZITHROMYCIN 250 MG TAB PO SCH (08:38)
[2016-10-14] MEDS: ASPIRIN 81 MG TAB GTB SCH (08:38)
[2016-10-14] MEDS: METOPROLOL (XL) 25 MG TAB PO SCH (08:39)
[2016-10-14] MEDS: LISINOPRIL 20 MG TAB PO SCH (08:40)
[2016-10-14] MEDS: ENOXAPARIN 30 MG/0.3 ML SYG SC SCH (08:46)
[2016-10-14] MEDS ORDERED: PATIENT'S OWN MEDICATION BOTH EYES SCH (09:00)
--- NOTE | 2016-10-14 11:21 | CONS ---
DATE OF ADMISSION: 10/09/2016 DATE OF CONSULTATION: 10/14/2016 SUBJECTIVE: Mr. Fernandez is feeling fairly well. He is somewhat frustrated about some care in the [facility]. No specific complaints at this time. OBJECTIVE: VITAL SIGNS: Temperature 98.4, pulse 77, respirations 18, blood pressure 108/62, pulse oximetry 97% on room air. SKIN: Pale. No petechiae or rashes. HEENT: No mucosal lesions. No scleral icterus. NECK: Supple, no jugular venous distention or thyroid enlargement. CHEST: Clear to auscultation and percussion. No rhonchi, wheezes, rales or rubs. NODES: No palpable lymphadenopathy in any lymph node bearing area. ABDOMEN: Soft, no masses, no ascites. There is a right nephrostomy tube in place. There is a Fole y catheter in place. EXTREMITIES: No clubbing, edema or cyanosis. No palpable cords or Homans sign. NEUROLOGIC: Normal except for diffuse weakness. White count 20,100 with 85% neutrophils, hemoglobin 8.7, hematocrit 28.3, platelet count 395,000. Sodium 135, potassium 3.7, creatinine 1.06, BUN 19. 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 PLAN: I have discussed the situation with Dr. Perez, and we agree the patient should receive chemotherapy while in the hospital. Plan will be to give the patient gemcitabine 1000 mg per meter squared on days 1, 8 and 15. He would then also receive cisplatin 70 mg per meter squared on day 2 of each 21 to 28 day cycle. The patient's creatinine clearance is approximately 55 mL per minute and therefore, I feel the patie nt can proceed with cisplatin. The patient does have a leukocytosis. I am concerned about starting chemotherapy with an infection. This is likely urinary in nature. We will obtain urine culture and sensitivity from Castañeda cathete r and also a separate specimen from nephrostomy. Dictated By: RADHA SHAW MD SR/NTS Conf#: [id number] DID#: [id number]
[2016-10-14] MEDS: SOD FERRIC GLUC COMPLX 125 MG in SOD CHLORIDE 0.9% 100 ML IVPB SCH (12:06)
--- NOTE | 2016-10-14 12:43 | PN ---
Date/Time of Note Date/Time of Note DATE: 10/14/16 TIME: 12:33 Assessment/Plan VTE Prophylaxis VTE Prophylaxis Intervention: heparin Lines/Catheters IV Catheter Type (from Nrs): Saline Lock Urinary Cath still in place: Yes Reason Cath still needed: urinary retention Assessment/Plan Chief Complaint/Hosp Course 86 y/o Logan Kae Resident with with metastatic bladder cancer c/b R ureteral obstruction s/p nephrostomy tube. Patient also w/ PMH of HTN, HLD, DMII, CAD who was admitted 10/09 for chest pain. ACS ruled out, stress test found to be negative. Patient was found to have new afib. H/c also c/b leukocytosis. Waiting to have chemo. Problems: Assessment/Plan A/P: Onc/Heme #metastatic bladder cancer -appreciate onc recs -plan to start cisplatin after active infection ruled out #anemia-mixed picture of DAVEY and AOCD -IV iron (venofer) ID #leukocytosis-unclear etiology. has been stable. Patient does not appear septic and no obvious localizing signs/symptoms. Doesnt appear to have PNA. If he does have an infection likely urinary source. blood cx x2 negative at admission -urine culture, UA -ctm Endo #DMII-goal BG 140-180 -lantus -AISS Cards #afib-non valvular, elevated Chads -rate control -ASA per cards given likely poor overall prognosis and risk of further AC at this tie -appreciate cards recs #HLD -atorva Subjective 24 Hr Interval Summary Free Text/Dictation Patient doing well this morning. Eager to start chemo. Denies chest pain, sob, cough, nausea, vomiting, diarrhea, constipation, abdominal pain, fevers or chills. Exam/Review of Systems Vital Signs Vitals Vital Signs Date Time Temp Pulse Resp B/P Pulse Ox O2 Delivery O2 Flow Rate FiO2 10/14/16 06:59 98.4 77 19 108/62 97 10/13/16 23:50 Room Air 10/13/16 16:00 2.0 Intake and Output 10/13/16 10/13/16 10/14/16 15:00 23:00 07:00 Intake Total 700 ml 120 ml 720 ml Output Total 900 ml 100 ml 1025 ml Balance -200 ml 20 ml -305 ml Exam Gen-NAD, alert and oriented to person, place, time, and situation HEENT-OP clear, MMM, no scleral icterus CV-RRR, systolic murmur at base pulm-CTAB, somewhat diminished breath sounds on Left posterior lung urena Abd-soft, nt, ND, +BS Ext-no c/c/e Results Result Diagram: 10/14/16 0423 10/14/16 0423 Results 24 hrs Laboratory Tests Test 10/13/16 17:28 10/13/16 21:55 10/14/16 01:57 10/14/16 04:23 Bedside Glucose 135 242 H 151 White Blood Count 20.1 H Red Blood Count 3.47 L Hemoglobin 8.7 L Hematocrit 28.3 L Mean Corpuscular Volume 81.6 L Mean Corpuscular Hemoglobin 25.1 L Mean Corpuscular Hemoglobin Concent 30.7 L Red Cell Distribution Width 17.3 H Platelet Count 395 Mean Platelet Volume 9.2 Neutrophils % 85.1 H Lymphocytes % 7.6 L Monocytes % 6.1 Eosinophils % 0.5 Basophils % 0.1 Nucleated Red Blood Cells % 0.0 Neutrophils # 17.1 H Lymphocytes # 1.5 Monocytes # 1.2 H Eosinophils # 0.1 Basophils # 0.0 Nucleated Red Blood Cells # 0.0 Sodium Level 135 Potassium Level 3.7 Chloride Level 100 Carbon Dioxide Level 30 Anion Gap 9 Blood Urea Nitrogen 19 Creatinine 1.06 Glucose Level 110 # Calcium Level 10.2 Magnesium Level 2.3 Test 10/14/16 08:36 10/14/16 12:01 Bedside Glucose 83 233 H Medications Medications Current Medications Ondansetron HCl (Zofran Inj) 4 mg Q6H PRN IV NAUSEA AND/OR VOMITING; Start at 06:30 Acetaminophen (Tylenol Tab) 650 mg Q6H PRN PO PAIN LEVEL 1-3 OR FEVER Last administered on 10/13/16 08:28; Admin Dose 650 MG; Start 10/09/16 at 06:30 Acetaminophen/ Hydrocodone Bitart ([place] (5/325)) 1 tab Q6H PRN PO MODERATE PAIN LEVEL 4-6; Start 10/09/16 at 06:30 Acetaminophen/ Hydrocodone Bitart ([place] (5/325)) 2 tab Q6H PRN PO SEVERE PAIN LEVEL 7-10 Last administered on 10/12/16 00:34; Admin Dose 2 TAB; Start at 06:30 Docusate Sodium (Colace) 100 mg Q12H PRN PO CONSTIPATION Last administered on 08:28; Admin Dose 100 MG; Start 10/09/16 at 06:30 Magnesium Hydroxide (Milk Of Mag) 30 ml DAILY PRN PO CONSTIPATION Last administered on 10/13/16 08:29; Admin Dose 30 ML; Start 10/09/16 at 06:30 Lisinopril (Zestril) 40 mg DAILY PO Last administered on 10/14/16 08:40; Admin Dose 40 MG; Start 10/09/16 at 09:00 Atorvastatin Calcium (Lipitor) 40 mg HS PO Last administered on 10/13/16 21:55 ; Admin Dose 40 MG; Start 10/09/16 at 21:00 Metoprolol Succinate (Toprol Xl) 25 mg DAILY PO Last administered on 10/14/16 08:39; Admin Dose 25 MG; Start 10/09/16 at 09:00 Pantoprazole (Protonix Tab) 40 mg DAILY@06 PO Last administered on 10/14/16 06 :05; Admin Dose 40 MG; Start 10/09/16 at 07:30 Miscellaneous Information 1 ea NOTE XX ; Start 10/09/16 at 07:30 Glucose (Glutose) 15 gm Q15M PRN PO DECREASED GLUCOSE; Start 10/09/16 at 07:30 Glucose (Glutose) 22.5 gm Q15M PRN PO DECREASED GLUCOSE; Start 10/09/16 at 07: 30 Dextrose (D50w Syringe) 25 ml Q15M PRN IV DECREASED GLUCOSE; Start 10/09/16 at 07:30 Dextrose (D50w Syringe) 50 ml Q15M PRN IV DECREASED GLUCOSE; Start 10/09/16 at 07:30 Glucagon (Glucagen) 1 mg Q15M PRN IM DECREASED GLUCOSE; Start 10/09/16 at 07:30 Glucose (Glutose) 15 gm Q15M PRN BUCCAL DECREASED GLUCOSE; Start 10/09/16 at 07 :30 Enoxaparin Sodium (Lovenox) 30 mg DAILY SC Last administered on 10/14/16 08:46 ; Admin Dose 30 MG; Start 10/11/16 at 11:00 Insulin Glargine 15 unit 15 unit QHS SC Last administered on 10/13/16 22:02; Admin Dose 15 UNIT; Start 10/12/16 at 21:00 Ferric Sodium Gluconate Complex/ Sodium Chloride (Ferrlecit/NS) 110 ml @ 110 mls/hr Q24H IVPB Last administered on 10/14/16 12:06; Admin Dose 110 MLS/HR; Start 10/12/16 at 12:00; Stop 10/16/16 at 12:59 Azithromycin (Zithromax) 250 mg DAILY PO Last administered on 10/14/16 08:38; Admin Dose 250 MG; Start 10/13/16 at 09:00 Aspirin (Aspirin) 81 mg DAILY GTB Last administered on 10/14/16 08:38; Admin Dose 81 MG; Start 10/13/16 at 10:30 Non-Formulary Medication 1 ea DAILY BOTH EYES Last administered on 10/14/16 08 :37; Admin Dose 1 EA; Start 10/14/16 at 09:00 AMILCAR TELLES MD Oct 14, 2016 12:42
[2016-10-14] MEDS: HYDROCODONE/APAP (5/325) TAB PO PRN (16:04)
[2016-10-14 19:40] VITALS: BP 125/68; RESP 20
[2016-10-14] MEDS: ATORVASTATIN 40 MG TAB PO SCH (20:31)
[2016-10-14] MEDS: INSULIN GLARGINE [LANtus] 3 ML PEN SC SCH (20:33)
[2016-10-15] MEDS: PANTOPRAZOLE (EC) 40 MG TAB PO SCH (05:42)
[2016-10-15 05:57] LABS: ADD SCAN DIFF NO
[2016-10-15 06:02] LABS: CALCIUM 10.2 mg/dl (8.4-10.2); CREATININE 1.11 mg/dl (0.61-1.24); POTASSIUM 4.1 mmol/L (3.5-5.1)
[2016-10-15 06:18] LABS: BASOPHILS % 0.1 % (0.0-2.0); EOSINOPHILS # 0.1 10^3/ul (0.0-0.5); EOSINOPHILS % 0.7 % (0.0-7.0); HEMATOCRIT 28.7 % (42.0-52.0); HEMOGLOBIN 8.8 g/dl (14.0-18.0); LYMPHOCYTES # 1.6 10^3/ul (0.8-2.9); LYMPHOCYTES % 7.7 % (15.0-51.0); MEAN CORPUSCULAR HEMOGLOBIN 25.1 pg (29.0-33.0); MEAN CORPUSCULAR HGB CONC 30.7 g/dl (32.0-37.0); MEAN CORPUSCULAR VOLUME 81.8 fl (82.0-101.0); MEAN PLATELET VOLUME 9.2 fl (7.4-10.4); MONOCYTE # 1.2 10^3/ul (0.3-0.9); MONOCYTES % 5.7 % (0.0-11.0); NEUTROPHIL # 17.2 10^3/ul (1.6-7.5); PLATELET COUNT 373 10^3/UL (140-415); RED BLOOD COUNT 3.51 10^6/ul (4.70-6.10); RED CELL DISTRIBUTION WIDTH 17.5 % (11.5-14.5); WHITE BLOOD COUNT 20.3 10^3/ul (4.8-10.8)
[2016-10-15] MEDS: INSULIN ASPART [NOVOLOG] 3 ML PEN SC SCH ×4 (07:50→21:07)
[2016-10-15 08:35] VITALS: BP 118/65; RESP 18
[2016-10-15] MEDS: TIMOPTIC 0.5% EYE DROPS BOTH EYES SCH (09:00)
[2016-10-15] MEDS: ASPIRIN 81 MG TAB GTB SCH (09:19)
[2016-10-15] MEDS: AZITHROMYCIN 250 MG TAB PO SCH (09:20)
[2016-10-15] MEDS: METOPROLOL (XL) 25 MG TAB PO SCH (09:20)
[2016-10-15] MEDS: ENOXAPARIN 30 MG/0.3 ML SYG SC SCH (09:21)
[2016-10-15] MEDS: LISINOPRIL 20 MG TAB PO SCH (09:21)
--- NOTE | 2016-10-15 11:04 | PN ---
DATE: 10/15/2016 MEDICAL ONCOLOGY PROGRESS NOTE SUBJECTIVE: The patient states he is feeling well. He had a good night sleep. His appetite is goo d. He is not experiencing nausea or vomiting or pain. He has had no cough or shortness of breath. OBJECTIVE: VITAL SIGNS: Temperature 98.5, pulse 88, respirations 18, blood pressure 118/65, pulse oximetry 96% on room air. SKIN: No ecchymoses. No petechiae or rashes but pale. HEENT: No mucosal lesions. No scleral icterus. NECK: Supple, no jugular venous distention or thyroid enlargement. CHEST: Clear to auscultation and percussion. No rhonchi, wheezes, rales, or rubs. NODES: No palpable lymphadenopathy in the lymph node bearing area. ABDOMEN: Soft. There are no masses or ascites. There is a nephrostomy tube on the right flank. A Castañeda catheter is in place. EXTREMITIES: No clubbing. No edema or cyanosis. No palpable cords or Homans sign. LABORATORY DATA: White count is 20,300 with an absolute neutrophil count of 17,200, absolute lympho cyte count is 1600, and absolute monocyte count is 1200. Hemoglobin 8.8, hematocrit 27.6, and plate let count is 373,000. The peripheral smear has been reviewed. Red blood cell morphology is relatively normal. There is s ome macrocytosis. No fragmented red blood cells or spherocytes. The white blood cells are increase d in number, mostly mature neutrophils, but there is definite toxic granulation and Dohle bodies. T here are occasional circulating metamyelocytes seen. Platelets are normal in number and morphology. ASSESSMENT: 1. Metastatic urothelial carcinoma. 2. Leukocytosis, possible urinary tract infection. Urine cultures have been obtained. Separate cultures have been obtained from both the Castañeda cathete r and from the nephrostomy tube. Would like to rule out possible infection prior to initiation of chemotherapy. It is possible that the leukocytosis is a "reactive" phenomenon but more likely the patient has a urinary tract infectio n. This has been a recurrent problem. Dictated By: RADHA SHAW MD SR/NTS Conf#: [id number] DID#: [id number]
--- NOTE | 2016-10-15 11:41 | PN ---
Date/Time of Note Date/Time of Note DATE: 10/15/16 TIME: 11:38 Assessment/Plan VTE Prophylaxis VTE Prophylaxis Intervention: ambulation, heparin, SCD's Lines/Catheters IV Catheter Type (from Nrsg): [place] line still needed: No Urinary Cath still in place: Yes Reason Cath still needed: urinary retention Assessment/Plan Chief Complaint/Hosp Course 86 y/o [facility] Resident with with metastatic bladder cancer c/b R ureteral obstruction s/p nephrostomy tube. Patient also w/ PMH of HTN, HLD, DMII, CAD who was admitted 10/09 for chest pain. ACS ruled out, stress test found to be negative. Patient was found to have new afib. H/c also c/b leukocytosis. Waiting to have chemo. Problems: Assessment/Plan Onc/Heme #metastatic bladder cancer -appreciate onc recs -plan to start cisplatin after active infection ruled out #anemia-mixed picture of DAVEY and AOCD -IV iron (venofer) ID #leukocytosis-unclear etiology. has been stable. Patient does not appear septic and no obvious localizing signs/symptoms. Doesnt appear to have PNA. If he does have an infection likely urinary source. blood cx x2 negative at admission. urine cx no growth thus far. -continue to follow urine cultures -ctm Endo #DMII-goal BG 140-180 -lantus -AISS Cards #afib-non valvular, elevated Chads -rate control -ASA per cards given likely poor overall prognosis and risk of further AC at this tie -appreciate cards recs #HLD -atorva GI #constipation -will add miralax. Subjective 24 Hr Interval Summary Free Text/Dictation Patient doing well this am. Denies fevers, chills, nausea, vomiting, diarrhea, abdominal pain, sob, cough. Has not had BM for 3 days. Exam/Review of Systems Vital Signs Vitals Vital Signs Date Time Temp Pulse Resp B/P Pulse Ox O2 Delivery O2 Flow Rate FiO2 10/15/16 08:35 98.5 88 18 118/65 96 10/13/16 23:50 Room Air 10/13/16 16:00 2.0 Intake and Output 10/14/16 10/14/16 10/15/16 15:00 23:00 07:00 Intake Total 110 ml 1500 ml 480 ml Output Total 950 ml 1700 ml Balance 110 ml 550 ml -1220 ml Exam Gen-NAD, alert and oriented to person, place, time, and situation HEENT-OP clear, MMM, no scleral icterus CV-RRR, systolic murmur at base pulm-CTAB, somewhat diminished breath sounds on Left posterior lung urena Abd-soft, nt, ND, +BS Ext-no c/c/e Results Result Diagram: 10/15/16 0425 10/15/16 0425 Results 24 hrs Laboratory Tests Test 10/14/16 12:01 10/14/16 17:14 10/14/16 20:29 10/15/16 03:37 Bedside Glucose 233 H 183 228 H 113 Test 10/15/16 04:25 10/15/16 08:07 White Blood Count 20.3 H Red Blood Count 3.51 L Hemoglobin 8.8 L Hematocrit 28.7 L Mean Corpuscular Volume 81.8 L Mean Corpuscular Hemoglobin 25.1 L Mean Corpuscular Hemoglobin Concent 30.7 L Red Cell Distribution Width 17.5 H Platelet Count 373 Mean Platelet Volume 9.2 Neutrophils % 85.0 H Lymphocytes % 7.7 L Monocytes % 5.7 Eosinophils % 0.7 Basophils % 0.1 Nucleated Red Blood Cells % 0.0 Neutrophils # 17.2 H Lymphocytes # 1.6 Monocytes # 1.2 H Eosinophils # 0.1 Basophils # 0.0 Nucleated Red Blood Cells # 0.0 Sodium Level 133 L Potassium Level 4.1 Chloride Level 101 Carbon Dioxide Level 32 H Anion Gap 4 L Blood Urea Nitrogen 19 Creatinine 1.11 Glucose Level 97 Calcium Level 10.2 Bedside Glucose 85 Medications Medications Current Medications Ondansetron HCl (Zofran Inj) 4 mg Q6H PRN IV NAUSEA AND/OR VOMITING; Start at 06:30 Acetaminophen (Tylenol Tab) 650 mg Q6H PRN PO PAIN LEVEL 1-3 OR FEVER Last administered on 10/13/16 08:28; Admin Dose 650 MG; Start 10/09/16 at 06:30 Acetaminophen/ Hydrocodone Bitart ([place] (5/325)) 1 tab Q6H PRN PO MODERATE PAIN LEVEL 4-6 Last administered on 10/14/16 16:04; Admin Dose 1 TAB; Start at 06:30 Acetaminophen/ Hydrocodone Bitart ([place] (5/325)) 2 tab Q6H PRN PO SEVERE PAIN LEVEL 7-10 Last administered on 10/12/16 00:34; Admin Dose 2 TAB; Start at 06:30 Docusate Sodium (Colace) 100 mg Q12H PRN PO CONSTIPATION Last administered on 08:28; Admin Dose 100 MG; Start 10/09/16 at 06:30 Magnesium Hydroxide (Milk Of Mag) 30 ml DAILY PRN PO CONSTIPATION Last administered on 10/13/16 08:29; Admin Dose 30 ML; Start 10/09/16 at 06:30 Lisinopril (Zestril) 40 mg DAILY PO Last administered on 10/15/16 09:21; Admin Dose 40 MG; Start 10/09/16 at 09:00 Atorvastatin Calcium (Lipitor) 40 mg HS PO Last administered on 10/14/16 20:31 ; Admin Dose 40 MG; Start 10/09/16 at 21:00 Metoprolol Succinate (Toprol Xl) 25 mg DAILY PO Last administered on 10/15/16 09:20; Admin Dose 25 MG; Start 10/09/16 at 09:00 Pantoprazole (Protonix Tab) 40 mg DAILY@06 PO Last administered on 10/15/16 05 :42; Admin Dose 40 MG; Start 10/09/16 at 07:30 Miscellaneous Information 1 ea NOTE XX ; Start 10/09/16 at 07:30 Glucose (Glutose) 15 gm Q15M PRN PO DECREASED GLUCOSE; Start 10/09/16 at 07:30 Glucose (Glutose) 22.5 gm Q15M PRN PO DECREASED GLUCOSE; Start 10/09/16 at 07: 30 Dextrose (D50w Syringe) 25 ml Q15M PRN IV DECREASED GLUCOSE; Start 10/09/16 at 07:30 Dextrose (D50w Syringe) 50 ml Q15M PRN IV DECREASED GLUCOSE; Start 10/09/16 at 07:30 Glucagon (Glucagen) 1 mg Q15M PRN IM DECREASED GLUCOSE; Start 10/09/16 at 07:30 Glucose (Glutose) 15 gm Q15M PRN BUCCAL DECREASED GLUCOSE; Start 10/09/16 at 07 :30 Enoxaparin Sodium (Lovenox) 30 mg DAILY SC Last administered on 10/15/16 09:21 ; Admin Dose 30 MG; Start 10/11/16 at 11:00 Insulin Glargine 15 unit 15 unit QHS SC Last administered on 10/14/16 20:33; Admin Dose 15 UNIT; Start 10/12/16 at 21:00 Ferric Sodium Gluconate Complex/ Sodium Chloride (Ferrlecit/NS) 110 ml @ 110 mls/hr Q24H IVPB Last administered on 10/14/16 12:06; Admin Dose 110 MLS/HR; Start 10/12/16 at 12:00; Stop 10/16/16 at 12:59 Azithromycin (Zithromax) 250 mg DAILY PO Last administered on 10/15/16 09:20; Admin Dose 250 MG; Start 10/13/16 at 09:00 Aspirin (Aspirin) 81 mg DAILY GTB Last administered on 10/15/16 09:19; Admin Dose 81 MG; Start 10/13/16 at 10:30 Non-Formulary Medication 1 ea DAILY BOTH EYES Last administered on 10/14/16 08 :37; Admin Dose 1 EA; Start 10/14/16 at 09:00 AMILCAR TELLES MD Oct 15, 2016 11:41
[2016-10-15] MEDS ORDERED: POLYETHYLENE GLYCOL 17 GM PACKET NGT PRN (12:00)
[2016-10-15] MEDS: SOD FERRIC GLUC COMPLX 125 MG in SOD CHLORIDE 0.9% 100 ML IVPB SCH (13:09)
[2016-10-15 19:34] VITALS: BP 138/71; RESP 18
[2016-10-15] MEDS ORDERED: POLYETHYLENE GLYCOL 17 GM PACKET PO PRN (20:32)
[2016-10-15] MEDS: ATORVASTATIN 40 MG TAB PO SCH (20:58)
[2016-10-15] MEDS: INSULIN GLARGINE [LANtus] 3 ML PEN SC SCH (21:02)
[2016-10-16 05:26] LABS: ADD SCAN DIFF NO
[2016-10-16 05:34] LABS: BASOPHILS % 0.2 % (0.0-2.0); EOSINOPHILS # 0.1 10^3/ul (0.0-0.5); EOSINOPHILS % 0.7 % (0.0-7.0); HEMATOCRIT 26.9 % (42.0-52.0); HEMOGLOBIN 8.6 g/dl (14.0-18.0); LYMPHOCYTES # 1.4 10^3/ul (0.8-2.9); LYMPHOCYTES % 7.1 % (15.0-51.0); MEAN CORPUSCULAR HEMOGLOBIN 25.7 pg (29.0-33.0); MEAN CORPUSCULAR VOLUME 80.3 fl (82.0-101.0); MEAN PLATELET VOLUME 8.8 fl (7.4-10.4); MONOCYTE # 1.2 10^3/ul (0.3-0.9); MONOCYTES % 6.2 % (0.0-11.0); NEUTROPHIL # 16.5 10^3/ul (1.6-7.5); PLATELET COUNT 329 10^3/UL (140-415); RED BLOOD COUNT 3.35 10^6/ul (4.70-6.10); RED CELL DISTRIBUTION WIDTH 17.4 % (11.5-14.5); WHITE BLOOD COUNT 19.4 10^3/ul (4.8-10.8)
[2016-10-16 05:44] LABS: CREATININE 1.05 mg/dl (0.61-1.24); POTASSIUM 4.4 mmol/L (3.5-5.1)
[2016-10-16] MEDS: PANTOPRAZOLE (EC) 40 MG TAB PO SCH (06:02)
[2016-10-16] MEDS: TIMOPTIC 0.5% EYE DROPS BOTH EYES SCH (08:45)
[2016-10-16] MEDS: ASPIRIN 81 MG TAB GTB SCH (08:45)
[2016-10-16] MEDS: AZITHROMYCIN 250 MG TAB PO SCH (08:46)
[2016-10-16] MEDS: LISINOPRIL 20 MG TAB PO SCH (08:46)
[2016-10-16] MEDS: METOPROLOL (XL) 25 MG TAB PO SCH (08:47)
[2016-10-16] MEDS: INSULIN ASPART [NOVOLOG] 3 ML PEN SC SCH ×4 (08:48→21:16)
[2016-10-16] MEDS: ENOXAPARIN 30 MG/0.3 ML SYG SC SCH (08:49)
[2016-10-16 09:11] VITALS: BP 119/65; RESP 20
--- NOTE | 2016-10-16 10:15 | PN ---
DATE: 10/16/2016 SUBJECTIVE: The patient states he is doing well. Only complaint is fatigue. He is not experiencin g any pain. No shaking, chills or complaints of fever. OBJECTIVE: VITAL SIGNS: Temperature 99.1, pulse 80, respirations 18, blood pressure 138/71, pulse oximetry 94. SKIN: Pale. No ecchymosis, no petechiae or rashes. HEENT: No mucosal lesions. No scleral icterus. NECK: Supple, no jugular venous distention or thyroid enlargement. CHEST: Clear to auscultation and percussion. No rhonchi, wheezes, or rubs. HEART: Regular sinus rhythm. No S3, S4, murmurs. ABDOMEN: Soft, no masses. No ascites. Nephrostomy tube in the right flank. Castañeda catheter in plac e. EXTREMITIES: No clubbing, edema or cyanosis. No palpable cords or Homans sign. NEUROLOGIC: Normal except for generalized weakness. LABORATORIES: Sodium 132, potassium 4.4, creatinine 1.05, BUN 18, white count 19,400 with an absolu te neutrophil count of 16,500, hemoglobin 8.6, hematocrit 26.9 and platelet count 329,000. Urine C and S from the nephrostomy tube shows no growth after 24 hours. There is no growth yet on u rine from Castañeda catheter. ASSESSMENT: Metastatic urothelial carcinoma. PLAN: We will plan on initiating chemotherapy today. The patient will receive gemcitabine today 19 00 mg. On 10/17/2016, the patient will be scheduled to receive cisplatin 130 mg IV. Dictated By: RADHA SHAW MD, SR/KAROLYN Conf#: [id number] DID#: [id number]
[2016-10-16] MEDS: SOD FERRIC GLUC COMPLX 125 MG in SOD CHLORIDE 0.9% 100 ML IVPB SCH (11:40)
--- NOTE | 2016-10-16 13:01 | PN ---
Date/Time of Note Date/Time of Note DATE: 10/16/16 TIME: 12:48 Assessment/Plan VTE Prophylaxis VTE Prophylaxis Intervention: LMWH Lines/Catheters [facility] Urinary Cath still in place: Yes Reason Cath still needed: urinary retention Assessment/Plan Chief Complaint/Hosp Course 1. He is here for chest pain , and had a cardiac stress test which was negative for ischemia..He has not had more chest pain . 2. metastatic bladder cancer . 3. CAD 4. DM on insulin 5. dysphagia , will order speech therapy . 6. Dr Perez , oncologist has been consulted for treatment of bladder cancer . He probably will start chemotherapy soon. 7. A fib , this is new , cardiology recommends ASA 81 mg a day . 8. he has iron deficiency anemia , he is on a course of IV Ferrlicit . 9. UTI , vernon catheter growing enterococci and gram negative rods .ID consulted . Zosyn started . 10. leukocytosis has been present for weeks .possibly related to tumor . Problems: Subjective 24 Hr Interval Summary Free Text/Dictation He is awake and alert. He has no new complaints. Constitutional: no complaints Respiratory: cough Gastrointestinal: no complaints Genitourinary: other Exam/Review of Systems Vital Signs Vitals Vital Signs Date Time Temp Pulse Resp B/P Pulse Ox O2 Delivery O2 Flow Rate FiO2 10/16/16 09:11 99.1 70 20 119/65 96 10/13/16 23:50 Room Air 10/13/16 16:00 2.0 Intake and Output 10/15/16 10/15/16 10/16/16 15:00 23:00 07:00 Intake Total 110 ml 840 ml 580 ml Output Total 3150 ml 1600 ml Balance 110 ml -2310 ml -1020 ml Exam stage 2 decubitis ulcer on buttocks Neck: supple Respiratory: clear to auscultation Cardiovascular: regular rate and rhythm Gastrointestinal: soft Musculoskeletal: nl extremities to inspection Results Result Diagram: 10/16/16 0446 10/16/16 0446 Results 24 hrs Laboratory Tests Test 10/15/16 17:34 10/15/16 20:59 10/16/16 02:08 10/16/16 04:46 Bedside Glucose 196 257 H 187 White Blood Count 19.4 H Red Blood Count 3.35 L Hemoglobin 8.6 L Hematocrit 26.9 L Mean Corpuscular Volume 80.3 L Mean Corpuscular Hemoglobin 25.7 L Mean Corpuscular Hemoglobin Concent 32.0 Red Cell Distribution Width 17.4 H Platelet Count 329 Mean Platelet Volume 8.8 Neutrophils % 85.0 H Lymphocytes % 7.1 L Monocytes % 6.2 Eosinophils % 0.7 Basophils % 0.2 Nucleated Red Blood Cells % 0.0 Neutrophils # 16.5 H Lymphocytes # 1.4 Monocytes # 1.2 H Eosinophils # 0.1 Basophils # 0.0 Nucleated Red Blood Cells # 0.0 Sodium Level 132 L Potassium Level 4.4 Chloride Level 100 Carbon Dioxide Level 30 Anion Gap 6 L Blood Urea Nitrogen 18 Creatinine 1.05 Glucose Level 131 Calcium Level 10.0 Test 10/16/16 08:30 Bedside Glucose 174 Medications Medications Current Medications Ondansetron HCl (Zofran Inj) 4 mg Q6H PRN IV NAUSEA AND/OR VOMITING; Start at 06:30 Acetaminophen (Tylenol Tab) 650 mg Q6H PRN PO PAIN LEVEL 1-3 OR FEVER Last administered on 10/13/16 08:28; Admin Dose 650 MG; Start 10/09/16 at 06:30 Acetaminophen/ Hydrocodone Bitart ([place] (5/325)) 1 tab Q6H PRN PO MODERATE PAIN LEVEL 4-6 Last administered on 10/14/16 16:04; Admin Dose 1 TAB; Start at 06:30 Acetaminophen/ Hydrocodone Bitart ([place] (5/325)) 2 tab Q6H PRN PO SEVERE PAIN LEVEL 7-10 Last administered on 10/12/16 00:34; Admin Dose 2 TAB; Start at 06:30 Docusate Sodium (Colace) 100 mg Q12H PRN PO CONSTIPATION Last administered on 08:28; Admin Dose 100 MG; Start 10/09/16 at 06:30 Magnesium Hydroxide (Milk Of Mag) 30 ml DAILY PRN PO CONSTIPATION Last administered on 10/13/16 08:29; Admin Dose 30 ML; Start 10/09/16 at 06:30 Lisinopril (Zestril) 40 mg DAILY PO Last administered on 10/16/16 08:46; Admin Dose 40 MG; Start 10/09/16 at 09:00 Atorvastatin Calcium (Lipitor) 40 mg HS PO Last administered on 10/15/16 20:58 ; Admin Dose 40 MG; Start 10/09/16 at 21:00 Metoprolol Succinate (Toprol Xl) 25 mg DAILY PO Last administered on 10/16/16 08:47; Admin Dose 25 MG; Start 10/09/16 at 09:00 Pantoprazole (Protonix Tab) 40 mg DAILY@06 PO Last administered on 10/16/16 06 :02; Admin Dose 40 MG; Start 10/09/16 at 07:30 Miscellaneous Information 1 ea NOTE XX ; Start 10/09/16 at 07:30 Glucose (Glutose) 15 gm Q15M PRN PO DECREASED GLUCOSE; Start 10/09/16 at 07:30 Glucose (Glutose) 22.5 gm Q15M PRN PO DECREASED GLUCOSE; Start 10/09/16 at 07: 30 Dextrose (D50w Syringe) 25 ml Q15M PRN IV DECREASED GLUCOSE; Start 10/09/16 at 07:30 Dextrose (D50w Syringe) 50 ml Q15M PRN IV DECREASED GLUCOSE; Start 10/09/16 at 07:30 Glucagon (Glucagen) 1 mg Q15M PRN IM DECREASED GLUCOSE; Start 10/09/16 at 07:30 Glucose (Glutose) 15 gm Q15M PRN BUCCAL DECREASED GLUCOSE; Start 10/09/16 at 07 :30 Enoxaparin Sodium (Lovenox) 30 mg DAILY SC Last administered on 10/16/16 08:49 ; Admin Dose 30 MG; Start 10/11/16 at 11:00 Insulin Glargine 15 unit 15 unit QHS SC Last administered on 10/15/16 21:02; Admin Dose 15 UNIT; Start 10/12/16 at 21:00 Ferric Sodium Gluconate Complex/ Sodium Chloride (Ferrlecit/NS) 110 ml @ 110 mls/hr Q24H IVPB Last administered on 10/16/16 11:40; Admin Dose 110 MLS/HR; Start 10/12/16 at 12:00; Stop 10/16/16 at 12:59 Azithromycin (Zithromax) 250 mg DAILY PO Last administered on 10/16/16 08:46; Admin Dose 250 MG; Start 10/13/16 at 09:00 Aspirin (Aspirin) 81 mg DAILY GTB Last administered on 10/16/16 08:45; Admin Dose 81 MG; Start 10/13/16 at 10:30 Non-Formulary Medication 1 ea DAILY BOTH EYES Last administered on 10/16/16 08 :45; Admin Dose 1 EA; Start 10/14/16 at 09:00 Polyethylene Glycol (Miralax) 17 gm DAILY PRN PO CONSTIPATION; Start 10/15/16 at 20:32 JEFF OSPINA MD Oct 16, 2016 13:01
[2016-10-16] MEDS: PIPER-TAZO 3.375 GM IV (PMX) 100 ML IVPB SCH ×2 (13:43→21:21)
--- NOTE | 2016-10-16 14:24 | CONS ---
Date/Time of Note Date/Time of Note DATE: 10/16/16 TIME: 13:58 Assessment/Plan Assessment/Plan Chief Complaint/Hosp Course assessment/impression - leukocytosis, either due to infection or large tumor burden from metastatic bladder CA - complicated UTI or asymptomatic colonization of the urinary tracts due to Gram negative bacteria, enterococci and yeast - recent UTI due to ESBL+bacteria, took meropenem for this - bladder CA, invasion into the pelvic sidewall, probably lungs too - R hydronephrosis s/p R nephrostomy tube placement - atonic/neurogenic bladder - bladder stone s/p removal - s/p TURP - CAD, recent chest pain. 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 Scant phlegm per Pt. recommendations - I recommend and have ordered: CT abd/pel to r/o deep seated infection/abscess , lactic acid, HIV screen - await the speciation and sensitivity of Gram negative darline in his urinary sample - continue pip/tazo, add fluconazole. Will adjust antibiotics based on the final culture result management d/w Pt, his RN and Dr. Londono. Thank you. Problems: Consultation Date/Type/Reason Admit Date/Time Oct 09, 2016 at 05:45 Date of Consultation: Oct 16, 2016 Type of Consultation: ID Reason for Consultation complicated UTI/pyelonephritis Hx of Present Illness This is an 86 yo male with CAD, DM and atonic bladder requiring self- catheterization for years. Pt developed abdominal and back pain, and was found out to have a large bladder tumor that is obstructing his R ureter and causing R hydronephrosis. 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 A few weeks ago he underwent surgery at [facility] by Dr. Gonzalez. He had a biopsy of the bladder tumor, removed a bladder stone and placed a R nephrostomy tube. Pt was also treated for UTI due to ESBL+bacteria with meropenem. Pt was eventually transferred to SNF. On 10/09/2016, Pt was transferred to ER here due to chest pain. Stress test was negative for ischemia. During this admission, Pt has elevated WBC count. He has chronic cough but no sputum and urine samples were collected from the nephrostomy tube and Castañeda. The sample from nephrostomy tube grew yeast while that from Castañeda grew enterococci and Gram negative darline. Dr. Londono requested ID consultation on this Pt. Constitutional: no complaints Eyes: no complaints ENT: no complaints Respiratory: cough (chronic), No pleuritic pain, No shortness of breath, No sputum, No wheezing Cardiovascular: no complaints Gastrointestinal: no complaints Genitourinary: hematuria, other (Castañeda, +R nephrostomy tube) Musculoskeletal: no complaints Skin: no complaints Neurologic: no complaints Psychological: no complaints Immunologic: no complaints Past Medical History Medical History: coronary artery disease, diabetes, other (metastatic bladder CA) Past Surgical History Past Surgical Hx: other (PCI, CABG) Social History Alcohol Use: occasionally Smoking Status: Former smoker Drug Use: none Exam/Review of Systems Vital Signs Vitals Vital Signs Date Time Temp Pulse Resp B/P Pulse Ox O2 Delivery O2 Flow Rate FiO2 10/16/16 09:11 99.1 70 20 119/65 96 10/13/16 23:50 Room Air 10/13/16 16:00 2.0 Intake and Output 10/15/16 10/15/16 10/16/16 15:00 23:00 07:00 Intake Total 110 ml 840 ml 580 ml Output Total 3150 ml 1600 ml Balance 110 ml -2310 ml -1020 ml Exam Constitutional: frail Psych: no complaints Head: atraumatic, normocephalic Eyes: nl conjunctiva, nl lids ENMT: mucosa pink and moist, nl external ears & nose, nl nasal mucosa & septum , other (poor dentition) Neck: supple Respiratory: clear to auscultation, normal air movement Cardiovascular: nl pulses, regular rate and rhythm Gastrointestinal: non-tender, soft, No distended Genitourinary - Male: other (R nephrostomy tube, Castañeda, insertion site is clean ) Musculoskeletal: nl extremities to inspection Extremities: normal pulses, No edema Neurological: lethargic Skin: nl turgor Results Result Diagram: 10/16/16 0446 10/16/16 0446 Results 24 hrs Laboratory Tests Test 10/15/16 17:34 10/15/16 20:59 10/16/16 02:08 10/16/16 04:46 Bedside Glucose 196 257 H 187 White Blood Count 19.4 H Red Blood Count 3.35 L Hemoglobin 8.6 L Hematocrit 26.9 L Mean Corpuscular Volume 80.3 L Mean Corpuscular Hemoglobin 25.7 L Mean Corpuscular Hemoglobin Concent 32.0 Red Cell Distribution Width 17.4 H Platelet Count 329 Mean Platelet Volume 8.8 Neutrophils % 85.0 H Lymphocytes % 7.1 L Monocytes % 6.2 Eosinophils % 0.7 Basophils % 0.2 Nucleated Red Blood Cells % 0.0 Neutrophils # 16.5 H Lymphocytes # 1.4 Monocytes # 1.2 H Eosinophils # 0.1 Basophils # 0.0 Nucleated Red Blood Cells # 0.0 Sodium Level 132 L Potassium Level 4.4 Chloride Level 100 Carbon Dioxide Level 30 Anion Gap 6 L Blood Urea Nitrogen 18 Creatinine 1.05 Glucose Level 131 Calcium Level 10.0 Test 10/16/16 08:30 10/16/16 12:51 Bedside Glucose 174 207 Medications Medications Current Medications Ondansetron HCl (Zofran Inj) 4 mg Q6H PRN IV NAUSEA AND/OR VOMITING; Start at 06:30 Acetaminophen (Tylenol Tab) 650 mg Q6H PRN PO PAIN LEVEL 1-3 OR FEVER Last administered on 10/13/16 08:28; Admin Dose 650 MG; Start 10/09/16 at 06:30 Acetaminophen/ Hydrocodone Bitart ([place] (5/325)) 1 tab Q6H PRN PO MODERATE PAIN LEVEL 4-6 Last administered on 10/14/16 16:04; Admin Dose 1 TAB; Start at 06:30 Acetaminophen/ Hydrocodone Bitart ([place] (5/325)) 2 tab Q6H PRN PO SEVERE PAIN LEVEL 7-10 Last administered on 10/12/16 00:34; Admin Dose 2 TAB; Start at 06:30 Docusate Sodium (Colace) 100 mg Q12H PRN PO CONSTIPATION Last administered on 08:28; Admin Dose 100 MG; Start 10/09/16 at 06:30 Magnesium Hydroxide (Milk Of Mag) 30 ml DAILY PRN PO CONSTIPATION Last administered on 10/13/16 08:29; Admin Dose 30 ML; Start 10/09/16 at 06:30 Lisinopril (Zestril) 40 mg DAILY PO Last administered on 10/16/16 08:46; Admin Dose 40 MG; Start 10/09/16 at 09:00 Atorvastatin Calcium (Lipitor) 40 mg HS PO Last administered on 10/15/16 20:58 ; Admin Dose 40 MG; Start 10/09/16 at 21:00 Metoprolol Succinate (Toprol Xl) 25 mg DAILY PO Last administered on 10/16/16 08:47; Admin Dose 25 MG; Start 10/09/16 at 09:00 Pantoprazole (Protonix Tab) 40 mg DAILY@06 PO Last administered on 10/16/16 06 :02; Admin Dose 40 MG; Start 10/09/16 at 07:30 Miscellaneous Information 1 ea NOTE XX ; Start 10/09/16 at 07:30 Glucose (Glutose) 15 gm Q15M PRN PO DECREASED GLUCOSE; Start 10/09/16 at 07:30 Glucose (Glutose) 22.5 gm Q15M PRN PO DECREASED GLUCOSE; Start 10/09/16 at 07: 30 Dextrose (D50w Syringe) 25 ml Q15M PRN IV DECREASED GLUCOSE; Start 10/09/16 at 07:30 Dextrose (D50w Syringe) 50 ml Q15M PRN IV DECREASED GLUCOSE; Start 10/09/16 at 07:30 Glucagon (Glucagen) 1 mg Q15M PRN IM DECREASED GLUCOSE; Start 10/09/16 at 07:30 Glucose (Glutose) 15 gm Q15M PRN BUCCAL DECREASED GLUCOSE; Start 10/09/16 at 07 :30 Enoxaparin Sodium (Lovenox) 30 mg DAILY SC Last administered on 10/16/16 08:49 ; Admin Dose 30 MG; Start 10/11/16 at 11:00 Insulin Glargine (Lantus) 15 unit QHS SC Last administered on 10/15/16 21:02; Admin Dose 15 UNIT; Start 10/12/16 at 21:00 Azithromycin (Zithromax) 250 mg DAILY PO Last administered on 10/16/16 08:46; Admin Dose 250 MG; Start 10/13/16 at 09:00 Aspirin (Aspirin) 81 mg DAILY GTB Last administered on 10/16/16 08:45; Admin Dose 81 MG; Start 10/13/16 at 10:30 Non-Formulary Medication 1 ea DAILY BOTH EYES Last administered on 10/16/16 08 :45; Admin Dose 1 EA; Start 10/14/16 at 09:00 Polyethylene Glycol 17 gm 17 gm DAILY PRN PO CONSTIPATION; Start 10/15/16 at 20 :32 Piperacillin Sod/ Tazobactam Sod (Zosyn 3.375gm/ 100 ml (Pmx)) 100 ml @ 200 mls /hr Q8 IVPB Last administered on 10/16/16 13:43; Admin Dose 200 MLS/HR; Start 10/16/16 at 14:00 VIRGILIO JACOBSON M.D. Oct 16, 2016 14:10
--- NOTE | 2016-10-16 15:02 | RADRPT ---
PROCEDURE: XR Chest. CLINICAL INDICATION: Chronic cough. Evaluate for infiltrate. TECHNIQUE: PA and Lateral views of the chest were obtained. COMPARISON: None. FINDINGS: The soft tissues are normal. There are osteophytes in the thoracic spine. The heart is mildly enla rged. The cardiomediastinal silhouette and hilar structures are normal. The pulmonary vasculature i s upper limits of normal. There are vascular calcifications in the aortic arch. There are infiltrate s in the right left lower lobes and in the periphery of the left upper lobe. The costophrenic angle s are normal. IMPRESSION: 1. Infiltrates identified in the lower periphery of the left upper lobe and in the bases of the lung s suspicious for pneumonia. Follow-up imaging is recommended to ensure clearing of the nodular infil trate in the lower periphery of the left upper lobe. 2. Cardiomegaly. 3. Atherosclerotic vascular disease. 4. Spondylosis of the thoracic spine. RPTAT:AAJJ Physician Yolanda Date Time Electronically viewed and signed by Physician Yolanda on 10/16/2016 15:02 CURT/
--- NOTE | 2016-10-16 16:53 | RADRPT ---
PROCEDURE: CT abdomen and pelvis without contrast. CLINICAL INDICATION: Recurrent urinary tract infection and pyelonephritis. Evaluate for abscess o r urinary tract calculi TECHNIQUE: CT scan of the abdomen and pelvis without contrast was performed. Sagittal and coronal reformatted images were obtained from the axial source images. CTDI = 15.79 mGy; DLP = 1044.28 mGy- cm COMPARISON: CT abdomen and pelvis 08/29/2016 FINDINGS: Visualized lower thorax: Interval development of compressive atelectasis of the lower lobes bilater ally caused by new bilateral pleural effusions larger on the left. A new right middle lobe nodule i s estimated at 2.6 x 2.3 cm and unable to exclude metastatic disease versus a primary lung neoplasm (series 3 image 1). Liver, gallbladder, pancreas and spleen: The liver is normal and size, contour and attenuation. Th ere is no evidence for a liver mass or ductal dilatation. The gallbladder is unremarkable. No comm on bile duct abnormality is demonstrated. In the pancreatic tail is a stable unilocular cystic lesi on estimated at 2.5 x 1.7 cm (series 3 image 40). There is no evidence of pancreatitis or pancreati c duct dilatation. The spleen is normal in size. Adrenal glands and genitourinary system: The adrenal glands are normal bilaterally. There has been interval placement of a right-sided percutaneous nephrostomy, the distal tip of the catheter in the right renal pelvis. Associated resolution of right-sided hydronephrosis is noted. Left-sided hydro nephrosis has developed estimated at this moderate to severe. There is stranding of the perinephric fat bilaterally that is worse compared to the prior study however, there is no evidence of perineph tonya collection to suggest abscess. The right ureter is unremarkable, the left ureter is dilated. Th e aggressive appearing mass arising from the right urinary bladder wall is grossly larger than on th e prior study now estimated at 14.4 x 8.5 cm and obliterating the right pelvic fat adjacent to the i liac vasculature at the pelvic sidewall (series 3 image 1 are 44). A Castañeda catheter is now visible within the lumen of the urinary bladder as is intraluminal gas presumably from prior instrumentation. The previously seen in the urinary bladder calculus is believed to have been fragm ented in the interval, small posterior left bladder calculi are suggested the largest 5 mm (series 3 image 143). The prostate gland is grossly normal in size. The scrotum shows likely tiny bilateral hydroceles and bilateral fat containing inguinal hernias are unchanged. Gastrointestinal system: The stomach is normal in caliber with no abnormality of significance. The small bowel is normal in caliber with no ileus, obstruction or wall thickening. The appendix and s urrounding fat are within the limits of normal. Constipation pattern is again noted, a moderate jeramy unt of fecal debris throughout the colon. There is no evidence for colitis or diverticulitis. Peritoneum, retroperitoneum, lymph nodes and vessels: The abdominal aorta is normal in caliber. The re is stable severe aortic and iliac system atherosclerotic calcification. The inferior vena cava i s unremarkable. Pelvic adenopathy on the right is likely present and worse than on the prior examina tion but is continuous with the right urinary bladder mass and difficult to individually evaluate. There is no evidence of retroperitoneal or intra-abdominal adenopathy. There is no ascites. Osseous structures and musculoskeletal findings: There is no fracture, lytic or blastic lesion. Mod erate to severe spondylosis of the thoracolumbar spine is noted with bridging syndesmophytes No musc ular abnormality or soft tissue pathology is present. RPTAT:HJJR IMPRESSION: 1. Interval increase in the bilateral perinephric fat stranding compared to the CT of 08/29/2016 po ssibly correlating with pyelonephritis clinically on this unenhanced exam but without evidence of pe rinephric or pararenal abscess. 2. Successful interval right percutaneous nephrostomy catheter placement with relief of right-sided hydronephrosis and hydroureter seen on the previous study. 3. Development of left-sided hydroureteronephrosis, moderate to severe, presumably related to the en larging aggressive appearing right urinary bladder mass. 4. Suspected small fragments of urinary bladder calculi in the posterior left dependent portion wit h a Castañeda catheter in proper position, foci of gas within the bladder believed to be related to blad milton instrumentation. No gas is visible within the urinary bladder wall. 5. Likely increase in right pelvic sidewall adenopathy versus extension of the urinary bladder mass compared to the previous study. Ben Koch, Physician Date Time Electronically viewed and signed by Ben Koch, Physician on 10/16/2016 16:52 JR/
[2016-10-16] MEDS: FLUCONAZOLE 200 MG/NS (PMX) 100 ML IVPB SCH (16:56)
[2016-10-16 19:47] VITALS: BP 160/62; RESP 18
[2016-10-16] MEDS: ATORVASTATIN 40 MG TAB PO SCH (21:08)
[2016-10-16] MEDS: INSULIN GLARGINE [LANtus] 3 ML PEN SC SCH (21:15)
[2016-10-17] MEDS: PIPER-TAZO 3.375 GM IV (PMX) 100 ML IVPB SCH (05:06)
[2016-10-17] MEDS: DOCUSATE SODIUM 100 MG CAP PO PRN (05:06)
[2016-10-17] MEDS: PANTOPRAZOLE (EC) 40 MG TAB PO SCH (05:07)
[2016-10-17 07:45] VITALS: BP 134/64; RESP 18
[2016-10-17] MEDS: INSULIN ASPART [NOVOLOG] 3 ML PEN SC SCH ×4 (07:50→21:20)
[2016-10-17] MEDS: ASPIRIN 81 MG TAB GTB SCH (08:54)
[2016-10-17] MEDS: TIMOPTIC 0.5% EYE DROPS BOTH EYES SCH (08:54)
[2016-10-17] MEDS: METOPROLOL (XL) 25 MG TAB PO SCH (08:55)
[2016-10-17] MEDS: LISINOPRIL 20 MG TAB PO SCH (08:55)
[2016-10-17] MEDS: AZITHROMYCIN 250 MG TAB PO SCH (08:56)
[2016-10-17] MEDS: ENOXAPARIN 30 MG/0.3 ML SYG SC SCH (09:02)
--- NOTE | 2016-10-17 10:13 | CONS ---
Date/Time of Note Date/Time of Note DATE: 10/17/16 TIME: 10:05 Assessment/Plan Assessment/Plan Chief Complaint/Hosp Course assessment/impression - leukocytosis due to b/l pyelonephritis - complicated UTI and b/l pyelonephritis due to ESBL+E. coli, enterococci and yeast - recent UTI due to ESBL+bacteria, took meropenem for this - bladder CA, invasion into the pelvic sidewall, probably lungs too - R-sided hydronephrosis s/p R nephrostomy tube placement - L-sided hydroureteronephrosis - atonic/neurogenic bladder - bladder stone s/p removal, CT on 10/16/2016 showed residual fragments - s/p TURP - CAD, recent chest pain. 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 Scant phlegm per Pt. recommendations - change pip/tazo to meropenem for ESBL+E. coli and enterococci (ampicillin- sensitive strain). Plan for 10 days - continue fluconazole. Plan for 10 days - contact isolation for ESBL+E. coli management d/w Pt, his RN Thank you. Problems: Consultation Date/Type/Reason Admit Date/Time Oct 09, 2016 at 05:45 Initial Consult Date 10/16/16 Type of Consultation: ID Referring Provider: JEFF OSPINA MD 24 HR Interval Summary Constitutional: no complaints Detailed Summary Eyes: no complaints ENT: no complaints Respiratory: cough (chronic), No pleuritic pain, No sputum Cardiovascular: no complaints Gastrointestinal: no complaints Genitourinary: other (+vernon and nephrostomy tube) Musculoskeletal: no complaints Skin: no complaints Exam/Review of Systems Vital Signs Vitals Vital Signs Date Time Temp Pulse Resp B/P Pulse Ox O2 Delivery O2 Flow Rate FiO2 10/17/16 07:45 99.3 88 18 134/64 93 10/13/16 23:50 Room Air 10/13/16 16:00 2.0 Intake and Output 10/16/16 10/16/16 10/17/16 15:00 23:00 07:00 Intake Total 1260 ml 700 ml Output Total 1775 ml 3000 ml Balance -515 ml -2300 ml Exam Constitutional: frail Psych: nl mood/affect, no complaints Head: normocephalic Eyes: nl conjunctiva ENMT: nl external ears & nose Neck: supple Respiratory: clear to auscultation, normal air movement Cardiovascular: regular rate and rhythm Gastrointestinal: non-tender, soft Genitourinary - Male: other ([place] and R nephrostomy tube) Musculoskeletal: nl extremities to inspection Results Result Diagram: 10/16/16 0446 10/16/16 0446 Results 24 hrs Laboratory Tests Test 10/16/16 12:51 10/16/16 17:38 10/16/16 21:11 10/17/16 04:25 Bedside Glucose 207 208 247 H Lactic Acid Level 1.5 HIV (1&2) Antibody NEGATIVE Test 10/17/16 08:39 Bedside Glucose 119 Medications Medications Current Medications Ondansetron HCl (Zofran Inj) 4 mg Q6H PRN IV NAUSEA AND/OR VOMITING; Start at 06:30 Acetaminophen (Tylenol Tab) 650 mg Q6H PRN PO PAIN LEVEL 1-3 OR FEVER Last administered on 10/13/16 08:28; Admin Dose 650 MG; Start 10/09/16 at 06:30 Acetaminophen/ Hydrocodone Bitart ([place] (5/325)) 1 tab Q6H PRN PO MODERATE PAIN LEVEL 4-6 Last administered on 10/14/16 16:04; Admin Dose 1 TAB; Start at 06:30 Acetaminophen/ Hydrocodone Bitart ([place] (5/325)) 2 tab Q6H PRN PO SEVERE PAIN LEVEL 7-10 Last administered on 10/12/16 00:34; Admin Dose 2 TAB; Start at 06:30 Docusate Sodium (Colace) 100 mg Q12H PRN PO CONSTIPATION Last administered on 05:06; Admin Dose 100 MG; Start 10/09/16 at 06:30 Magnesium Hydroxide (Milk Of Mag) 30 ml DAILY PRN PO CONSTIPATION Last administered on 10/13/16 08:29; Admin Dose 30 ML; Start 10/09/16 at 06:30 Lisinopril (Zestril) 40 mg DAILY PO Last administered on 10/17/16 08:55; Admin Dose 40 MG; Start 10/09/16 at 09:00 Atorvastatin Calcium (Lipitor) 40 mg HS PO Last administered on 10/16/16 21:08 ; Admin Dose 40 MG; Start 10/09/16 at 21:00 Metoprolol Succinate (Toprol Xl) 25 mg DAILY PO Last administered on 10/17/16 08:55; Admin Dose 25 MG; Start 10/09/16 at 09:00 Pantoprazole (Protonix Tab) 40 mg DAILY@06 PO Last administered on 10/17/16 05 :07; Admin Dose 40 MG; Start 10/09/16 at 07:30 Miscellaneous Information 1 ea NOTE XX ; Start 10/09/16 at 07:30 Glucose (Glutose) 15 gm Q15M PRN PO DECREASED GLUCOSE; Start 10/09/16 at 07:30 Glucose (Glutose) 22.5 gm Q15M PRN PO DECREASED GLUCOSE; Start 10/09/16 at 07: 30 Dextrose (D50w Syringe) 25 ml Q15M PRN IV DECREASED GLUCOSE; Start 10/09/16 at 07:30 Dextrose (D50w Syringe) 50 ml Q15M PRN IV DECREASED GLUCOSE; Start 10/09/16 at 07:30 Glucagon (Glucagen) 1 mg Q15M PRN IM DECREASED GLUCOSE; Start 10/09/16 at 07:30 Glucose (Glutose) 15 gm Q15M PRN BUCCAL DECREASED GLUCOSE; Start 10/09/16 at 07 :30 Enoxaparin Sodium (Lovenox) 30 mg DAILY SC Last administered on 10/17/16 09:02 ; Admin Dose 30 MG; Start 10/11/16 at 11:00 Insulin Glargine (Lantus) 15 unit QHS SC Last administered on 10/16/16 21:15; Admin Dose 15 UNIT; Start 10/12/16 at 21:00 Azithromycin (Zithromax) 250 mg DAILY PO Last administered on 10/17/16 08:56; Admin Dose 250 MG; Start 10/13/16 at 09:00 Aspirin (Aspirin) 81 mg DAILY GTB Last administered on 10/17/16 08:54; Admin Dose 81 MG; Start 10/13/16 at 10:30 Non-Formulary Medication 1 ea DAILY BOTH EYES Last administered on 10/17/16 08 :54; Admin Dose 1 EA; Start 10/14/16 at 09:00 Polyethylene Glycol 17 gm 17 gm DAILY PRN PO CONSTIPATION; Start 10/15/16 at 20 :32 Piperacillin Sod/ Tazobactam Sod 100 ml @ 200 mls/hr Q8 IVPB Last administered on 10/17/16 05:06; Admin Dose 200 MLS/HR; Start 10/16/16 at 14:00 Fluconazole (Diflucan 200 Mg/ NS (Pmx)) 100 ml @ 100 mls/hr Q24H IVPB Last administered on 10/16/16 16:56; Admin Dose 100 MLS/HR; Start 10/16/16 at 16:00 VIRGILIO JACOBSON M.D. Oct 17, 2016 10:13
[2016-10-17] MEDS ORDERED: ONDANSETRON INJ 16 MG, DEXAMETHASONE 4 MG/ML 20 MG in DEXTROSE 5% 50 ML IV ONE (13:00)
--- NOTE | 2016-10-17 13:27 | PN ---
Date/Time of Note Date/Time of Note DATE: 10/17/16 TIME: 13:20 Assessment/Plan VTE Prophylaxis VTE Prophylaxis Intervention: other (per primary) Lines/Catheters IV Catheter Type (from Nrsg): Saline Lock Urinary Cath still in place: Yes Reason Cath still needed: other (indicate) (weakness) Assessment/Plan Assessment/Plan Chemotherapy is being delayed for treatment of his infection. He and family are asking whether he will go to [facility] before the chemo is given. I do not know the answer to that presently. I will inform Dr. Perez of the delay. Subjective 24 Hr Interval Summary Free Text/Dictation Pt was due for chemotherapy today but he is being started on antibiotics for infection. Exam/Review of Systems Vital Signs Vitals Vital Signs Date Time Temp Pulse Resp B/P Pulse Ox O2 Delivery O2 Flow Rate FiO2 10/17/16 07:45 99.3 88 18 134/64 93 10/13/16 23:50 Room Air 10/13/16 16:00 2.0 Intake and Output 10/16/16 10/16/16 10/17/16 15:00 23:00 07:00 Intake Total 1260 ml 700 ml Output Total 1775 ml 3000 ml Balance -515 ml -2300 ml Exam Constitutional: alert, oriented Head: normocephalic, other (bitemporal muscle wasting) Eyes: nl conjunctiva ENMT: nl external ears & nose, other (no mucositis) Respiratory: clear to auscultation Cardiovascular: regular rate and rhythm Gastrointestinal: non-tender, soft Results Result Diagram: 10/16/16 0446 10/16/16 0446 Results 24 hrs Laboratory Tests Test 10/16/16 17:38 10/16/16 21:11 10/17/16 04:25 10/17/16 08:39 Bedside Glucose 208 247 H 119 Lactic Acid Level 1.5 HIV (1&2) Antibody NEGATIVE Test 10/17/16 12:14 Bedside Glucose 223 H Medications Medications Current Medications Ondansetron HCl (Zofran Inj) 4 mg Q6H PRN IV NAUSEA AND/OR VOMITING; Start at 06:30 Acetaminophen (Tylenol Tab) 650 mg Q6H PRN PO PAIN LEVEL 1-3 OR FEVER Last administered on 10/13/16t 08:28; Admin Dose 650 MG; Start 10/09/16 at 06:30 Acetaminophen/ Hydrocodone Bitart ([place] (5/325)) 1 tab Q6H PRN PO MODERATE PAIN LEVEL 4-6 Last administered on 10/14/16 16:04; Admin Dose 1 TAB; Start at 06:30 Acetaminophen/ Hydrocodone Bitart ([place] (5/325)) 2 tab Q6H PRN PO SEVERE PAIN LEVEL 7-10 Last administered on 10/12/16 00:34; Admin Dose 2 TAB; Start at 06:30 Docusate Sodium (Colace) 100 mg Q12H PRN PO CONSTIPATION Last administered on 05:06; Admin Dose 100 MG; Start 10/09/16 at 06:30 Magnesium Hydroxide (Milk Of Mag) 30 ml DAILY PRN PO CONSTIPATION Last administered on 10/13/16 08:29; Admin Dose 30 ML; Start 10/09/16 at 06:30 Lisinopril (Zestril) 40 mg DAILY PO Last administered on 10/17/16 08:55; Admin Dose 40 MG; Start 10/09/16 at 09:00 Atorvastatin Calcium (Lipitor) 40 mg HS PO Last administered on 10/16/16 21:08 ; Admin Dose 40 MG; Start 10/09/16 at 21:00 Metoprolol Succinate (Toprol Xl) 25 mg DAILY PO Last administered on 10/17/16 08:55; Admin Dose 25 MG; Start 10/09/16 at 09:00 Pantoprazole (Protonix Tab) 40 mg DAILY@06 PO Last administered on 10/17/16 05 :07; Admin Dose 40 MG; Start 10/09/16 at 07:30 Miscellaneous Information 1 ea NOTE XX ; Start 10/09/16 at 07:30 Glucose (Glutose) 15 gm Q15M PRN PO DECREASED GLUCOSE; Start 10/09/16 at 07:30 Glucose (Glutose) 22.5 gm Q15M PRN PO DECREASED GLUCOSE; Start 10/09/16 at 07: 30 Dextrose (D50w Syringe) 25 ml Q15M PRN IV DECREASED GLUCOSE; Start 10/09/16 at 07:30 Dextrose (D50w Syringe) 50 ml Q15M PRN IV DECREASED GLUCOSE; Start 10/09/16 at 07:30 Glucagon (Glucagen) 1 mg Q15M PRN IM DECREASED GLUCOSE; Start 10/09/16 at 07:30 Glucose (Glutose) 15 gm Q15M PRN BUCCAL DECREASED GLUCOSE; Start 10/09/16 at 07 :30 Enoxaparin Sodium (Lovenox) 30 mg DAILY SC Last administered on 10/17/16 09:02 ; Admin Dose 30 MG; Start 10/11/16 at 11:00 Insulin Glargine (Lantus) 15 unit QHS SC Last administered on 10/16/16 21:15; Admin Dose 15 UNIT; Start 10/12/16 at 21:00 Azithromycin (Zithromax) 250 mg DAILY PO Last administered on 10/17/16 08:56; Admin Dose 250 MG; Start 10/13/16 at 09:00 Aspirin (Aspirin) 81 mg DAILY GTB Last administered on 10/17/16 08:54; Admin Dose 81 MG; Start 10/13/16 at 10:30 Non-Formulary Medication 1 ea DAILY BOTH EYES Last administered on 10/17/16 08 :54; Admin Dose 1 EA; Start 10/14/16 at 09:00 Polyethylene Glycol 17 gm 17 gm DAILY PRN PO CONSTIPATION; Start 10/15/16 at 20 :32 Fluconazole 100 ml @ 100 mls/hr Q24H IVPB Last administered on 10/16/16 16:56 ; Admin Dose 100 MLS/HR; Start 10/16/16 at 16:00 Meropenem 100 ml @ 200 mls/hr Q8 IVPB ; Start 10/17/16 at 14:00; Stop 10/27/16 at 13:59 Gemcitabine HCl/ Sodium Chloride (Gemzar/NS) 250 ml @ 500 mls/hr ONCE IV ; Start 10/17/16 at 14:00; Status Future Hold KIP MILLER MD Oct 17, 2016 13:27
[2016-10-17] MEDS ORDERED: SOD CHLORIDE 0.9% IV SCH (14:00)
[2016-10-17] MEDS ORDERED: GEMCITABINE IV SCH (14:00)
[2016-10-17] MEDS: HYDROCODONE/APAP (5/325) TAB PO PRN ×2 (14:07→22:50)
[2016-10-17] MEDS ORDERED: BARIUM SULFATE 135 ML (E-Z HD) PO ONE (15:01)
[2016-10-17] MEDS ORDERED: BARIUM SULFATE 454 GM TUBE (E-Z PASTE) PO ONE (15:01)
--- NOTE | 2016-10-17 15:12 | RADRPT ---
PROCEDURE: Video swallow examination of the esophagus CLINICAL INDICATION: aspiration TECHNIQUE: Real time video fluoroscopy of the lateral neck was performed. The patient was given b arium in multiple different consistencies by the speech pathologist. Fluoroscopy time: 2.5 minutes COMPARISON: None. FINDINGS: There is mild pooling of contrast in the vallecula and piriform sinus. IMPRESSION: Mild pooling of contrast in the vallecula and piriform sinus. Please refer to the speech pathology notes for more information and recommendations. RPTAT: KK Physician Elaina Date Time Electronically viewed and signed by Physician Elaina on 10/17/2016 15:12 RA/
[2016-10-17] MEDS: MEROPENEM 1 GM/100 ML (PMX) 100 ML IVPB SCH ×2 (15:49→21:21)
[2016-10-17] MEDS: MAGNESIUM HYDROXIDE 30ML CUP PO PRN (15:49)
[2016-10-17] MEDS: ACETAMINOPHEN 325 MG TAB PO PRN (16:33)
[2016-10-17] MEDS: FLUCONAZOLE 200 MG/NS (PMX) 100 ML IVPB SCH (17:48)
--- NOTE | 2016-10-17 20:36 | CONS ---
Date/Time of Note Date/Time of Note DATE: 10/17/16 TIME: 20:28 Assessment/Plan Assessment/Plan Chief Complaint/Hosp Course 1. He is here for chest pain , and had a cardiac stress test which was negative for ischemia..He has not had more chest pain . 2. metastatic bladder cancer .I spoke with his son Santo and we discussed current situation . We discussed Code status and son says that he wants to be DNR . 3. CAD 4. DM on insulin 5. dysphagia , will order speech therapy . 6. Dr Perez , oncologist has been consulted for treatment of bladder cancer . He probably will start chemotherapy soon however now needs to have treatment of antibiotics . 7. A fib , this is new , cardiology recommends ASA 81 mg a day . 8. he has iron deficiency anemia , he is on a course of IV Ferrlicit . 9. UTI , now with L hydronephrosis , possible abscess . he may need a L nephrostomy . 10. leukocytosis has been present for weeks .possibly related to tumor He is now having urine cultures positive for ESBL and enterococci . He is now on appropriate antibiotics and being seen by ID .. Problems: Consultation Date/Type/Reason Admit Date/Time Oct 09, 2016 at 05:45 Initial Consult Date 10/10/16 Type of Consultation: ID Referring Provider: JEFF OSPINA MD 24 HR Interval Summary Free Text/Dictation he is feeling weak and tired . He just finished a video swallowing study . Exam/Review of Systems Vital Signs Vitals Vital Signs Date Time Temp Pulse Resp B/P Pulse Ox O2 Delivery O2 Flow Rate FiO2 10/17/16 18:00 101.5 10/17/16 07:45 88 18 134/64 93 10/13/16 23:50 Room Air 10/13/16 16:00 2.0 Intake and Output 10/16/16 10/16/16 10/17/16 15:00 23:00 07:00 Intake Total 1260 ml 700 ml Output Total 1775 ml 3000 ml Balance -515 ml -2300 ml Exam Constitutional: alert, frail, oriented Respiratory: clear to auscultation Cardiovascular: regular rate and rhythm Gastrointestinal: non-tender, soft Musculoskeletal: nl extremities to inspection Results Result Diagram: 10/16/16 0446 10/16/16 0446 Results 24 hrs Laboratory Tests Test 10/16/16 21:11 10/17/16 04:25 10/17/16 08:39 10/17/16 12:14 Bedside Glucose 247 H 119 223 H Lactic Acid Level 1.5 HIV (1&2) Antibody NEGATIVE Test 10/17/16 17:47 Bedside Glucose 216 Medications Medications Current Medications Ondansetron HCl (Zofran Inj) 4 mg Q6H PRN IV NAUSEA AND/OR VOMITING; Start at 06:30 Acetaminophen (Tylenol Tab) 650 mg Q6H PRN PO PAIN LEVEL 1-3 OR FEVER Last administered on 10/17/16 16:33; Admin Dose 650 MG; Start 10/09/16 at 06:30 Acetaminophen/ Hydrocodone Bitart ([place] (5/325)) 1 tab Q6H PRN PO MODERATE PAIN LEVEL 4-6 Last administered on 10/17/16 14:07; Admin Dose 1 TAB; Start at 06:30 Acetaminophen/ Hydrocodone Bitart ([place] (5/325)) 2 tab Q6H PRN PO SEVERE PAIN LEVEL 7-10 Last administered on 10/12/16 00:34; Admin Dose 2 TAB; Start at 06:30 Docusate Sodium (Colace) 100 mg Q12H PRN PO CONSTIPATION Last administered on 05:06; Admin Dose 100 MG; Start 10/09/16 at 06:30 Magnesium Hydroxide (Milk Of Mag) 30 ml DAILY PRN PO CONSTIPATION Last administered on 10/17/16 15:49; Admin Dose 30 ML; Start 10/09/16 at 06:30 Lisinopril (Zestril) 40 mg DAILY PO Last administered on 10/17/16 08:55; Admin Dose 40 MG; Start 10/09/16 at 09:00 Atorvastatin Calcium (Lipitor) 40 mg HS PO Last administered on 10/16/16 21:08 ; Admin Dose 40 MG; Start 10/09/16 at 21:00 Metoprolol Succinate (Toprol Xl) 25 mg DAILY PO Last administered on 10/17/16 08:55; Admin Dose 25 MG; Start 10/09/16 at 09:00 Pantoprazole (Protonix Tab) 40 mg DAILY@06 PO Last administered on 10/17/16 05 :07; Admin Dose 40 MG; Start 10/09/16 at 07:30 Miscellaneous Information 1 ea NOTE XX ; Start 10/09/16 at 07:30 Glucose (Glutose) 15 gm Q15M PRN PO DECREASED GLUCOSE; Start 10/09/16 at 07:30 Glucose (Glutose) 22.5 gm Q15M PRN PO DECREASED GLUCOSE; Start 10/09/16 at 07: 30 Dextrose (D50w Syringe) 25 ml Q15M PRN IV DECREASED GLUCOSE; Start 10/09/16 at 07:30 Dextrose (D50w Syringe) 50 ml Q15M PRN IV DECREASED GLUCOSE; Start 10/09/16 at 07:30 Glucagon (Glucagen) 1 mg Q15M PRN IM DECREASED GLUCOSE; Start 10/09/16 at 07:30 Glucose (Glutose) 15 gm Q15M PRN BUCCAL DECREASED GLUCOSE; Start 10/09/16 at 07 :30 Enoxaparin Sodium (Lovenox) 30 mg DAILY SC Last administered on 10/17/16 09:02 ; Admin Dose 30 MG; Start 10/11/16 at 11:00 Insulin Glargine (Lantus) 15 unit QHS SC Last administered on 10/16/16 21:15; Admin Dose 15 UNIT; Start 10/12/16 at 21:00 Azithromycin (Zithromax) 250 mg DAILY PO Last administered on 10/17/16 08:56; Admin Dose 250 MG; Start 10/13/16 at 09:00 Aspirin (Aspirin) 81 mg DAILY GTB Last administered on 10/17/16 08:54; Admin Dose 81 MG; Start 10/13/16 at 10:30 Non-Formulary Medication 1 ea DAILY BOTH EYES Last administered on 10/17/16 08 :54; Admin Dose 1 EA; Start 10/14/16 at 09:00 Polyethylene Glycol 17 gm 17 gm DAILY PRN PO CONSTIPATION; Start 10/15/16 at 20 :32 Fluconazole 100 ml @ 100 mls/hr Q24H IVPB Last administered on 10/17/16 17:48 ; Admin Dose 100 MLS/HR; Start 10/16/16 at 16:00 Meropenem 100 ml @ 200 mls/hr Q8 IVPB Last administered on 10/17/16 15:49; Admin Dose 200 MLS/HR; Start 10/17/16 at 14:00; Stop 10/27/16 at 13:59 Gemcitabine HCl/ Sodium Chloride (Gemzar/NS) 250 ml @ 500 mls/hr ONCE IV ; Start 10/17/16 at 14:00; Status Future Hold JEFF OSPINA MD Oct 17, 2016 20:36
[2016-10-17 21:03] VITALS: BP 102/58; RESP 20
[2016-10-17] MEDS: ATORVASTATIN 40 MG TAB PO SCH (21:18)
[2016-10-17] MEDS: INSULIN GLARGINE [LANtus] 3 ML PEN SC SCH (21:20)
[2016-10-18] MEDS: MEROPENEM 1 GM/100 ML (PMX) 100 ML IVPB SCH ×3 (05:53→21:10)
[2016-10-18] MEDS: PANTOPRAZOLE (EC) 40 MG TAB PO SCH (05:53)
[2016-10-18 07:53] VITALS: BP 87/54; RESP 20
--- NOTE | 2016-10-18 08:32 | CONS ---
Date/Time of Note Date/Time of Note DATE: 10/18/16 TIME: 08:27 Assessment/Plan Assessment/Plan Chief Complaint/Hosp Course 1. He has a L hydronephrosis on CT scan of abdomen and pelvis . I spoke to him and his son about placing a L percutaneous nephrostomy . Patient agrees . 2. metastatic bladder cancer .I spoke with his son Santo and we discussed current situation . We discussed Code status and son says that he wants to be DNR . 3. CAD 4. DM on insulin 5. dysphagia , will order speech therapy . 6. Dr Perez , oncologist has been consulted for treatment of bladder cancer . He probably will start chemotherapy soon however now needs to have treatment of antibiotics . 7. A fib , this is new , cardiology recommends ASA 81 mg a day . 8. he has iron deficiency anemia , he is on a course of IV Ferrlicit . 9. UTI , now with L hydronephrosis , possible abscess . he may need a L nephrostomy . 10. leukocytosis has been present for weeks .possibly related to tumor He is now having urine cultures positive for ESBL and enterococci . He is now on appropriate antibiotics and being seen by ID .. Problems: Consultation Date/Type/Reason Admit Date/Time Oct 09, 2016 at 05:45 Initial Consult Date 10/10/16 Type of Consultation: ID Referring Provider: JEFF OSPINA MD 24 HR Interval Summary Free Text/Dictation He is feeling better today today . Constitutional: no complaints Exam/Review of Systems Vital Signs Vitals Vital Signs Date Time Temp Pulse Resp B/P Pulse Ox O2 Delivery O2 Flow Rate FiO2 10/18/16 07:53 97.8 93 20 87/54 94 Intake and Output 10/17/16 10/17/16 10/18/16 15:00 23:00 07:00 Intake Total 900 ml 500 ml Output Total 1300 ml 350 ml Balance -400 ml 150 ml Exam Constitutional: alert, frail, oriented Respiratory: clear to auscultation Cardiovascular: regular rate and rhythm Gastrointestinal: soft Musculoskeletal: nl extremities to inspection Results Result Diagram: 10/16/16 0446 10/16/16 0446 Results 24 hrs Laboratory Tests Test 10/17/16 08:39 10/17/16 12:14 10/17/16 17:47 10/17/16 21:16 Bedside Glucose 119 223 H 216 307 H Test 10/18/16 02:15 Bedside Glucose 270 H Medications Medications Current Medications Ondansetron HCl (Zofran Inj) 4 mg Q6H PRN IV NAUSEA AND/OR VOMITING; Start at 06:30 Acetaminophen (Tylenol Tab) 650 mg Q6H PRN PO PAIN LEVEL 1-3 OR FEVER Last administered on 10/17/16 16:33; Admin Dose 650 MG; Start 10/09/16 at 06:30 Acetaminophen/ Hydrocodone Bitart ([place] (5/325)) 1 tab Q6H PRN PO MODERATE PAIN LEVEL 4-6 Last administered on 10/17/16 14:07; Admin Dose 1 TAB; Start at 06:30 Acetaminophen/ Hydrocodone Bitart ([place] (5/325)) 2 tab Q6H PRN PO SEVERE PAIN LEVEL 7-10 Last administered on 10/17/16 22:50; Admin Dose 2 TAB; Start at 06:30 Docusate Sodium (Colace) 100 mg Q12H PRN PO CONSTIPATION Last administered on 05:06; Admin Dose 100 MG; Start 10/09/16 at 06:30 Magnesium Hydroxide (Milk Of Mag) 30 ml DAILY PRN PO CONSTIPATION Last administered on 10/17/16 15:49; Admin Dose 30 ML; Start 10/09/16 at 06:30 Lisinopril (Zestril) 40 mg DAILY PO Last administered on 10/17/16 08:55; Admin Dose 40 MG; Start 10/09/16 at 09:00 Atorvastatin Calcium (Lipitor) 40 mg HS PO Last administered on 10/17/16 21:18 ; Admin Dose 40 MG; Start 10/09/16 at 21:00 Metoprolol Succinate (Toprol Xl) 25 mg DAILY PO Last administered on 10/17/16 08:55; Admin Dose 25 MG; Start 10/09/16 at 09:00 Pantoprazole (Protonix Tab) 40 mg DAILY@06 PO Last administered on 10/18/16 05 :53; Admin Dose 40 MG; Start 10/09/16 at 07:30 Miscellaneous Information 1 ea NOTE XX ; Start 10/09/16 at 07:30 Glucose (Glutose) 15 gm Q15M PRN PO DECREASED GLUCOSE; Start 10/09/16 at 07:30 Glucose (Glutose) 22.5 gm Q15M PRN PO DECREASED GLUCOSE; Start 10/09/16 at 07: 30 Dextrose (D50w Syringe) 25 ml Q15M PRN IV DECREASED GLUCOSE; Start 10/09/16 at 07:30 Dextrose (D50w Syringe) 50 ml Q15M PRN IV DECREASED GLUCOSE; Start 10/09/16 at 07:30 Glucagon (Glucagen) 1 mg Q15M PRN IM DECREASED GLUCOSE; Start 10/09/16 at 07:30 Glucose (Glutose) 15 gm Q15M PRN BUCCAL DECREASED GLUCOSE; Start 10/09/16 at 07 :30 Insulin Glargine (Lantus) 15 unit QHS SC Last administered on 10/17/16 21:20; Admin Dose 15 UNIT; Start 10/12/16 at 21:00 Non-Formulary Medication 1 ea DAILY BOTH EYES Last administered on 10/17/16 08 :54; Admin Dose 1 EA; Start 10/14/16 at 09:00 Polyethylene Glycol 17 gm 17 gm DAILY PRN PO CONSTIPATION; Start 10/15/16 at 20 :32 Fluconazole 100 ml @ 100 mls/hr Q24H IVPB Last administered on 10/17/16 17:48 ; Admin Dose 100 MLS/HR; Start 10/16/16 at 16:00 Meropenem 100 ml @ 200 mls/hr Q8 IVPB Last administered on 10/18/16 05:53; Admin Dose 200 MLS/HR; Start 10/17/16 at 14:00; Stop 10/27/16 at 13:59 Gemcitabine HCl/ Sodium Chloride (Gemzar/NS) 250 ml @ 500 mls/hr ONCE IV ; Start 10/17/16 at 14:00; Status Future Hold JEFF OSPINA MD Oct 18, 2016 08:32
[2016-10-18] MEDS: METOPROLOL (XL) 25 MG TAB PO SCH (09:00)
[2016-10-18] MEDS: LISINOPRIL 20 MG TAB PO SCH (09:00)
[2016-10-18 09:17] LABS: ADD SCAN DIFF NO
[2016-10-18 09:21] LABS: ABNORMAL IP MESSAGE 1; MEAN CORPUSCULAR HEMOGLOBIN 25.1 pg (29.0-33.0); MEAN CORPUSCULAR VOLUME 80.8 fl (82.0-101.0); MEAN PLATELET VOLUME 9.1 fl (7.4-10.4); PLATELET COUNT 339 10^3/UL (140-415); RED BLOOD COUNT 3.59 10^6/ul (4.70-6.10); RED CELL DISTRIBUTION WIDTH 18.3 % (11.5-14.5); WHITE BLOOD COUNT 30.2 10^3/ul (4.8-10.8)
[2016-10-18 09:39] LABS: INR 1.34; PROTIME 16.7 Sec (12.2-14.2); PT RATIO 1.3
[2016-10-18 09:40] LABS: ALBUMIN 2.2 g/dl (3.3-4.9); PARTIAL THROMBOPLASTIN TIME 37.6 Sec (25.0-35.0); POTASSIUM 3.6 mmol/L (3.5-5.1)
[2016-10-18 09:42] LABS: CREATININE 1.27 mg/dl (0.61-1.24)
[2016-10-18 09:43] LABS: ALBUMIN/GLOBULIN RATIO 0.75; BILIRUBIN,INDIRECT 0.6 mg/dl (0-1.1); BILIRUBIN,TOTAL 0.6 mg/dl (0.2-1.3); TOTAL PROTEIN 5.1 g/dl (6.1-8.1)
[2016-10-18] MEDS: TIMOPTIC 0.5% EYE DROPS BOTH EYES SCH (09:44)
[2016-10-18] MEDS: INSULIN ASPART [NOVOLOG] 3 ML PEN SC SCH ×4 (09:44→21:16)
--- NOTE | 2016-10-18 10:19 | CONS ---
DATE OF ADMISSION: 10/09/2016 DATE OF CONSULTATION: 10/18/2016 TYPE OF CONSULTATION: Oncology progress note. SUBJECTIVE: The patient states he had a near syncopal episode after coming back from scan yesterday. This was not associated with any chest pain. No diaphoresis, no nausea or vomiting. The patient is not complaining of pain at this time. OBJECTIVE VITAL SIGNS: Temperature max 101.5, now 97.8, pulse 93 per minute and regular, respirations 20, blo od pressure 87/54, pulse oximetry 94% on 2 liters. SKIN: Pale. No petechiae or rashes. HEENT: No mucosal lesions. No scleral icterus. Oral mucosa is dry, but there are no lesions. NECK: Supple, no jugular venous distention or thyroid enlargement. CHEST: Clear to auscultation and percussion. No rhonchi, wheezes, rales or rubs. There is a cardi ac device in the left anterior chest. HEART: Regular sinus rhythm, no S3, S4 or murmurs. ABDOMEN: Soft. No masses or ascites. EXTREMITIES: No clubbing, edema or cyanosis. No palpable cords or Homans sign. NEUROLOGIC: Normal. The patient did have a CT scan of the abdomen and pelvis on October 16. This did demonstrate worsening hydronephrosis and hydroureter on the left side. A urine culture of 10/14/2016 from the Castañeda catheter does show enterococcus species as well as ESBL E coli. The patient has been seen in infectious disease consultation by Dr. Masters. He is now on m eropenem. Hopefully, this will cover both organisms. Also will continue on fluconazole. ASSESSMENT: 1. Metastatic urothelial carcinoma. 2. Hydronephrosis, secondary to #1. 3. Urinary tract infection with enterococcus and ESBL E. coli. The patient will require some type of drainage of the kidney on the left side. Without this it will be difficult to clear the patient's infection and initiate chemotherapy. Dictated By: RADHA SHAW MD SR/NTS Conf#: [id number] DID#: [id number]
[2016-10-18 11:27] LABS: LYMPHOCYTES # 0.3 10^3/ul (0.8-2.9); MONOCYTE # 0.9 10^3/ul (0.3-0.9)
[2016-10-18 11:43] LABS: ADD UMIC YES; URINE BILIRUBIN (Dip) NEGATIVE (NEGATIVE); URINE BLOOD (Dip) 3+ (NEGATIVE); URINE COLOR YELLOW (YELLOW); URINE GLUCOSE (Dip) NEGATIVE (NEGATIVE); URINE KETONES (Dip) TRACE (NEGATIVE); URINE LEUKOCYTE ESTERASE (Dip) 2+ (NEGATIVE); URINE NITRITE (Dip) NEGATIVE (NEGATIVE); URINE TOTAL PROTEIN (Dip) 2+ (NEGATIVE); URINE UROBILINOGEN (Dip) 0.2 E.U./dL (0.1-1.0)
--- NOTE | 2016-10-18 11:55 | CONS ---
Date/Time of Note Date/Time of Note DATE: 10/18/16 TIME: 11:47 Assessment/Plan Assessment/Plan Chief Complaint/Hosp Course assessment/impression - fever and leukocytosis due to b/l pyelonephritis, large tumor burden and L hydronephrosis - complicated UTI and b/l pyelonephritis due to ESBL+E. coli, enterococci and yeast - recent UTI due to ESBL+bacteria, took meropenem for this - bladder CA, invasion into the pelvic sidewall, probably lungs too - R-sided hydronephrosis s/p R nephrostomy tube placement - L-sided hydroureteronephrosis - atonic/neurogenic bladder - bladder stone s/p removal, CT on 10/16/2016 showed residual fragments - s/p TURP - CAD, recent chest pain. 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 Scant phlegm per Pt. recommendations - repeat blood cultures, urinalysis and urine culture from each Castañeda catheter and R nephrostomy tube - continue meropenem for ESBL+E. coli and enterococci (ampicillin-sensitive strain, 10/18/2016-). Plan for 10 days - continue fluconazole. Plan for 10 days too - will adjust antibiotics based on new culture results - contact isolation for ESBL+E. coli management d/w Pt, his RN Problems: Consultation Date/Type/Reason Admit Date/Time Oct 09, 2016 at 05:45 Initial Consult Date 10/16/16 Type of Consultation: ID Referring Provider: JEFF OSPINA MD 24 HR Interval Summary Constitutional: no complaints Detailed Summary Eyes: no complaints ENT: no complaints Respiratory: cough, No sputum Cardiovascular: no complaints Gastrointestinal: other (passing mucus/air per rectum) Genitourinary: other (FC, R nephrostomy tube) Musculoskeletal: no complaints Skin: no complaints Exam/Review of Systems Vital Signs Vitals Vital Signs Date Time Temp Pulse Resp B/P Pulse Ox O2 Delivery O2 Flow Rate FiO2 10/18/16 07:53 97.8 93 20 87/54 94 Intake and Output 10/17/16 10/17/16 10/18/16 15:00 23:00 07:00 Intake Total 900 ml 500 ml Output Total 1300 ml 350 ml Balance -400 ml 150 ml Exam Constitutional: alert, frail Psych: confusion Head: atraumatic, normocephalic Eyes: nl conjunctiva, nl lids ENMT: nl external ears & nose, nl nasal mucosa & septum Neck: supple Respiratory: clear to auscultation, congested cough, normal air movement Cardiovascular: regular rate and rhythm Gastrointestinal: non-tender, other (bloody mucus per rectum), soft Genitourinary - Male: other (FC) Extremities: No edema Results Result Diagram: 10/18/16 0911 10/18/16 0911 Results 24 hrs Laboratory Tests Test 10/17/16 12:14 10/17/16 17:47 10/17/16 21:16 10/18/16 02:15 Bedside Glucose 223 H 216 307 H 270 H Test 10/18/16 08:30 10/18/16 09:11 Bedside Glucose 173 White Blood Count 30.2 #H Red Blood Count 3.59 L Hemoglobin 9.0 L Hematocrit 29.0 L Mean Corpuscular Volume 80.8 L Mean Corpuscular Hemoglobin 25.1 L Mean Corpuscular Hemoglobin Concent 31.0 L Red Cell Distribution Width 18.3 H Platelet Count 339 Mean Platelet Volume 9.1 Neutrophils % 96.0 H Lymphocytes % 1.0 L Monocytes % 3.0 Neutrophils # 29.0 H Lymphocytes # 0.3 L Monocytes # 0.9 Differential Comment MANUAL DIFF Large Platelets OCCASIONAL Prothrombin Time 16.7 H Prothrombin Time Ratio 1.3 INR International Normalized Ratio 1.34 Activated Partial Thromboplast Time 37.6 H Sodium Level 135 Potassium Level 3.6 Chloride Level 99 Carbon Dioxide Level 28 Anion Gap 12 Blood Urea Nitrogen 27 H Creatinine 1.27 H Glucose Level 189 Calcium Level 10.0 Total Bilirubin 0.6 Direct Bilirubin 0.00 Indirect Bilirubin 0.6 Aspartate Amino Transf (AST/SGOT) 20 Alanine Aminotransferase (ALT/SGPT) 33 Alkaline Phosphatase 68 Total Protein 5.1 L Albumin 2.2 L Globulin 2.90 Albumin/Globulin Ratio 0.75 Medications Medications Current Medications Ondansetron HCl (Zofran Inj) 4 mg Q6H PRN IV NAUSEA AND/OR VOMITING; Start at 06:30 Acetaminophen (Tylenol Tab) 650 mg Q6H PRN PO PAIN LEVEL 1-3 OR FEVER Last administered on 10/17/16 16:33; Admin Dose 650 MG; Start 10/09/16 at 06:30 Acetaminophen/ Hydrocodone Bitart ([place] (5/325)) 1 tab Q6H PRN PO MODERATE PAIN LEVEL 4-6 Last administered on 10/17/16 14:07; Admin Dose 1 TAB; Start at 06:30 Acetaminophen/ Hydrocodone Bitart ([place] (5/325)) 2 tab Q6H PRN PO SEVERE PAIN LEVEL 7-10 Last administered on 10/17/16 22:50; Admin Dose 2 TAB; Start at 06:30 Docusate Sodium (Colace) 100 mg Q12H PRN PO CONSTIPATION Last administered on 05:06; Admin Dose 100 MG; Start 10/09/16 at 06:30 Magnesium Hydroxide (Milk Of Mag) 30 ml DAILY PRN PO CONSTIPATION Last administered on 10/17/16 15:49; Admin Dose 30 ML; Start 10/09/16 at 06:30 Lisinopril (Zestril) 40 mg DAILY PO Last administered on 10/17/16 08:55; Admin Dose 40 MG; Start 10/09/16 at 09:00 Atorvastatin Calcium (Lipitor) 40 mg HS PO Last administered on 10/17/16 21:18 ; Admin Dose 40 MG; Start 10/09/16 at 21:00 Metoprolol Succinate (Toprol Xl) 25 mg DAILY PO Last administered on 10/17/16 08:55; Admin Dose 25 MG; Start 10/09/16 at 09:00 Pantoprazole (Protonix Tab) 40 mg DAILY@06 PO Last administered on 10/18/16 05 :53; Admin Dose 40 MG; Start 10/09/16 at 07:30 Miscellaneous Information 1 ea NOTE XX ; Start 10/09/16 at 07:30 Glucose (Glutose) 15 gm Q15M PRN PO DECREASED GLUCOSE; Start 10/09/16 at 07:30 Glucose (Glutose) 22.5 gm Q15M PRN PO DECREASED GLUCOSE; Start 10/09/16 at 07: 30 Dextrose (D50w Syringe) 25 ml Q15M PRN IV DECREASED GLUCOSE; Start 10/09/16 at 07:30 Dextrose (D50w Syringe) 50 ml Q15M PRN IV DECREASED GLUCOSE; Start 10/09/16 at 07:30 Glucagon (Glucagen) 1 mg Q15M PRN IM DECREASED GLUCOSE; Start 10/09/16 at 07:30 Glucose (Glutose) 15 gm Q15M PRN BUCCAL DECREASED GLUCOSE; Start 10/09/16 at 07 :30 Insulin Glargine (Lantus) 15 unit QHS SC Last administered on 10/17/16 21:20; Admin Dose 15 UNIT; Start 10/12/16 at 21:00 Non-Formulary Medication 1 ea DAILY BOTH EYES Last administered on 10/18/16 09 :44; Admin Dose 1 EA; Start 10/14/16 at 09:00 Polyethylene Glycol 17 gm 17 gm DAILY PRN PO CONSTIPATION; Start 10/15/16 at 20 :32 Fluconazole 100 ml @ 100 mls/hr Q24H IVPB Last administered on 10/17/16 17:48 ; Admin Dose 100 MLS/HR; Start 10/16/16 at 16:00 Meropenem 100 ml @ 200 mls/hr Q8 IVPB Last administered on 10/18/16 05:53; Admin Dose 200 MLS/HR; Start 10/17/16 at 14:00; Stop 10/27/16 at 13:59 Gemcitabine HCl/ Sodium Chloride (Gemzar/NS) 250 ml @ 500 mls/hr ONCE IV ; Start 10/17/16 at 14:00; Status Future Hold VIRGILIO JACOBSON M.D. Oct 18, 2016 11:55
[2016-10-18 12:57] LABS: BACTERIA,URINE MANY; URINE RBCS >200 /HPF (0)
[2016-10-18] MEDS ORDERED: SOD CHLORIDE 0.9% 500 ML IV ONE (13:00)
[2016-10-18 13:26] LABS: ADD UMIC YES; URINE BILIRUBIN (Dip) NEGATIVE (NEGATIVE); URINE BLOOD (Dip) TRACE (NEGATIVE); URINE COLOR LT. YELLOW (YELLOW); URINE GLUCOSE (Dip) NEGATIVE (NEGATIVE); URINE KETONES (Dip) NEGATIVE (NEGATIVE); URINE LEUKOCYTE ESTERASE (Dip) NEGATIVE (NEGATIVE); URINE NITRITE (Dip) NEGATIVE (NEGATIVE); URINE TOTAL PROTEIN (Dip) TRACE (NEGATIVE); URINE UROBILINOGEN (Dip) 0.2 E.U./dL (0.1-1.0)
[2016-10-18 13:45] LABS: BACTERIA,URINE FEW
[2016-10-18] MEDS ORDERED: PHYTONADIONE (1 MG/ML PO SYG) PO ONE (14:30)
[2016-10-18] MEDS: SOD CHLORIDE 0.9% 1,000 ML IV SCH ×2 (17:32→21:00)
[2016-10-18] MEDS: FLUCONAZOLE 200 MG/NS (PMX) 100 ML IVPB SCH (17:34)
[2016-10-18 20:56] VITALS: BP 98/56; RESP 20
[2016-10-18] MEDS: ATORVASTATIN 40 MG TAB PO SCH (21:10)
[2016-10-18] MEDS: INSULIN GLARGINE [LANtus] 3 ML PEN SC SCH (21:20)
[2016-10-19] VITALS (17 sets, daily range): BP systolic 98–134; BP diastolic 50–84; PULSE 87–106; RESP 16–18
[2016-10-19] MEDS ORDERED: DEXTROSE 5%-0.45% NACL 1,000 ML IV SCH (01:00)
[2016-10-19 05:09] LABS: ADD SCAN DIFF NO
[2016-10-19 05:15] LABS: ABNORMAL IP MESSAGE 1; EOSINOPHILS # 0.1 10^3/ul (0.0-0.5); EOSINOPHILS % 0.3 % (0.0-7.0); HEMATOCRIT 25.2 % (42.0-52.0); HEMOGLOBIN 7.7 g/dl (14.0-18.0); LYMPHOCYTES # 1.3 10^3/ul (0.8-2.9); LYMPHOCYTES % 5.3 % (15.0-51.0); MEAN CORPUSCULAR HEMOGLOBIN 24.5 pg (29.0-33.0); MEAN CORPUSCULAR HGB CONC 30.6 g/dl (32.0-37.0); MEAN CORPUSCULAR VOLUME 80.3 fl (82.0-101.0); MONOCYTE # 0.9 10^3/ul (0.3-0.9); MONOCYTES % 3.9 % (0.0-11.0); NEUTROPHIL # 21.1 10^3/ul (1.6-7.5); NEUTROPHILS % 89.8 % (39.0-77.0); PLATELET COUNT 288 10^3/UL (140-415); RED BLOOD COUNT 3.14 10^6/ul (4.70-6.10); RED CELL DISTRIBUTION WIDTH 18.4 % (11.5-14.5); WHITE BLOOD COUNT 23.6 10^3/ul (4.8-10.8)
[2016-10-19] MEDS: PANTOPRAZOLE (EC) 40 MG TAB PO SCH (05:19)
[2016-10-19] MEDS: MEROPENEM 1 GM/100 ML (PMX) 100 ML IVPB SCH ×3 (05:19→22:37)
[2016-10-19 05:24] LABS: INR 1.17; PT RATIO 1.2
[2016-10-19 05:25] LABS: PARTIAL THROMBOPLASTIN TIME 40.5 Sec (25.0-35.0)
[2016-10-19 05:30] LABS: ALBUMIN/GLOBULIN RATIO 0.8; BILIRUBIN,INDIRECT 0.4 mg/dl (0-1.1); BILIRUBIN,TOTAL 0.4 mg/dl (0.2-1.3); CALCIUM 9.9 mg/dl (8.4-10.2); CREATININE 1.22 mg/dl (0.61-1.24); POTASSIUM 3.6 mmol/L (3.5-5.1); TOTAL PROTEIN 4.5 g/dl (6.1-8.1)
[2016-10-19] MEDS: TIMOPTIC 0.5% EYE DROPS BOTH EYES SCH (08:21)
[2016-10-19] MEDS: INSULIN ASPART [NOVOLOG] 3 ML PEN SC SCH ×4 (08:24→21:42)
--- NOTE | 2016-10-19 08:52 | PN ---
Date/Time of Note Date/Time of Note DATE: 10/19/16 TIME: 08:50 Assessment/Plan VTE Prophylaxis VTE Prophylaxis Intervention: other (per primary) Lines/Catheters IV Catheter Type (from Nrs): Saline Lock Urinary Cath still in place: Yes Reason Cath still needed: other (indicate) (weakness) Assessment/Plan Assessment/Plan Pt is still on antibiotics. Chemotherapy to be given once he is cleared by ID. No new suggestions now. Subjective 24 Hr Interval Summary Free Text/Dictation Pt feels alright presently. Anxious to get treatment started. Exam/Review of Systems Vital Signs Vitals Vital Signs Date Time Temp Pulse Resp B/P Pulse Ox O2 Delivery O2 Flow Rate FiO2 10/19/16 08:10 98.3 102 18 102/50 93 Intake and Output 10/18/16 10/18/16 10/19/16 15:00 23:00 07:00 Intake Total 1350 ml 1090 ml Output Total 465 ml 600 ml Balance 885 ml 490 ml Exam Constitutional: alert, oriented Head: normocephalic, other (bilateral temporal wasting) Eyes: nl conjunctiva Neck: supple Respiratory: clear to auscultation Cardiovascular: regular rate and rhythm Gastrointestinal: soft Results Result Diagram: 10/19/16 0450 10/19/16 0450 Results 24 hrs Laboratory Tests Test 10/18/16 09:11 10/18/16 09:45 10/18/16 12:15 10/18/16 17:33 White Blood Count 30.2 #H Red Blood Count 3.59 L Hemoglobin 9.0 L Hematocrit 29.0 L Mean Corpuscular Volume 80.8 L Mean Corpuscular Hemoglobin 25.1 L Mean Corpuscular Hemoglobin Concent 31.0 L Red Cell Distribution Width 18.3 H Platelet Count 339 Mean Platelet Volume 9.1 Neutrophils % 96.0 H Lymphocytes % 1.0 L Monocytes % 3.0 Neutrophils # 29.0 H Lymphocytes # 0.3 L Monocytes # 0.9 Differential Comment MANUAL DIFF Large Platelets OCCASIONAL Prothrombin Time 16.7 H Prothrombin Time Ratio 1.3 INR International Normalized Ratio 1.34 Activated Partial Thromboplast Time 37.6 H Sodium Level 135 Potassium Level 3.6 Chloride Level 99 Carbon Dioxide Level 28 Anion Gap 12 Blood Urea Nitrogen 27 H Creatinine 1.27 H Glucose Level 189 Calcium Level 10.0 Total Bilirubin 0.6 Direct Bilirubin 0.00 Indirect Bilirubin 0.6 Aspartate Amino Transf (AST/SGOT) 20 Alanine Aminotransferase (ALT/SGPT) 33 Alkaline Phosphatase 68 Total Protein 5.1 L Albumin 2.2 L Globulin 2.90 Albumin/Globulin Ratio 0.75 Urine Color LT. YELLOW Urine Clarity CLEAR Urine pH 5.5 Urine Specific [place] 1.020 Urine Ketones NEGATIVE Urine Nitrite NEGATIVE Urine Bilirubin NEGATIVE Urine Urobilinogen 0.2 E.U./dL Urine Leukocyte Esterase NEGATIVE Urine Microscopic RBC 2-5 Urine Microscopic WBC 2-5 Urine Epithelial Cells FEW Urine Bacteria FEW Urine Coarse Granular Casts FEW Urine Yeast FEW Urine Hemoglobin TRACE Urine Glucose NEGATIVE Urine Total Protein TRACE Bedside Glucose 198 148 Test 10/18/16 20:23 10/19/16 04:50 10/19/16 08:18 Bedside Glucose 185 166 White Blood Count 23.6 #H Red Blood Count 3.14 L Hemoglobin 7.7 L Hematocrit 25.2 L Mean Corpuscular Volume 80.3 L Mean Corpuscular Hemoglobin 24.5 L Mean Corpuscular Hemoglobin Concent 30.6 L Red Cell Distribution Width 18.4 H Platelet Count 288 Mean Platelet Volume 9.0 Neutrophils % 89.8 H Lymphocytes % 5.3 L Monocytes % 3.9 Eosinophils % 0.3 Basophils % 0.0 Nucleated Red Blood Cells % 0.0 Neutrophils # 21.1 H Lymphocytes # 1.3 Monocytes # 0.9 Eosinophils # 0.1 Basophils # 0.0 Nucleated Red Blood Cells # 0.0 Prothrombin Time 15.0 H Prothrombin Time Ratio 1.2 INR International Normalized Ratio 1.17 Activated Partial Thromboplast Time 40.5 H Sodium Level 131 L Potassium Level 3.6 Chloride Level 102 Carbon Dioxide Level 27 Anion Gap 6 L Blood Urea Nitrogen 27 H Creatinine 1.22 Glucose Level 174 Calcium Level 9.9 Total Bilirubin 0.4 Direct Bilirubin 0.00 Indirect Bilirubin 0.4 Aspartate Amino Transf (AST/SGOT) 27 Alanine Aminotransferase (ALT/SGPT) 36 Alkaline Phosphatase 68 Total Protein 4.5 L Albumin 2.0 L Globulin 2.50 Albumin/Globulin Ratio 0.80 Medications Medications Current Medications Ondansetron HCl (Zofran Inj) 4 mg Q6H PRN IV NAUSEA AND/OR VOMITING; Start at 06:30 Acetaminophen (Tylenol Tab) 650 mg Q6H PRN PO PAIN LEVEL 1-3 OR FEVER Last administered on 10/17/16 16:33; Admin Dose 650 MG; Start 10/09/16 at 06:30 Acetaminophen/ Hydrocodone Bitart ([place] (5/325)) 1 tab Q6H PRN PO MODERATE PAIN LEVEL 4-6 Last administered on 10/17/16 14:07; Admin Dose 1 TAB; Start at 06:30 Acetaminophen/ Hydrocodone Bitart ([place] (5/325)) 2 tab Q6H PRN PO SEVERE PAIN LEVEL 7-10 Last administered on 10/17/16 22:50; Admin Dose 2 TAB; Start at 06:30 Docusate Sodium (Colace) 100 mg Q12H PRN PO CONSTIPATION Last administered on 05:06; Admin Dose 100 MG; Start 10/09/16 at 06:30 Magnesium Hydroxide (Milk Of Mag) 30 ml DAILY PRN PO CONSTIPATION Last administered on 10/17/16 15:49; Admin Dose 30 ML; Start 10/09/16 at 06:30 Lisinopril (Zestril) 40 mg DAILY PO Last administered on 10/17/16 08:55; Admin Dose 40 MG; Start 10/09/16 at 09:00 Atorvastatin Calcium (Lipitor) 40 mg HS PO Last administered on 10/18/16 21:10 ; Admin Dose 40 MG; Start 10/09/16 at 21:00 Metoprolol Succinate (Toprol Xl) 25 mg DAILY PO Last administered on 10/17/16 08:55; Admin Dose 25 MG; Start 10/09/16 at 09:00 Pantoprazole (Protonix Tab) 40 mg DAILY@06 PO Last administered on 10/19/16 05 :19; Admin Dose 40 MG; Start 10/09/16 at 07:30 Miscellaneous Information 1 ea NOTE XX ; Start 10/09/16 at 07:30 Glucose (Glutose) 15 gm Q15M PRN PO DECREASED GLUCOSE; Start 10/09/16 at 07:30 Glucose (Glutose) 22.5 gm Q15M PRN PO DECREASED GLUCOSE; Start 10/09/16 at 07: 30 Dextrose (D50w Syringe) 25 ml Q15M PRN IV DECREASED GLUCOSE; Start 10/09/16 at 07:30 Dextrose (D50w Syringe) 50 ml Q15M PRN IV DECREASED GLUCOSE; Start 10/09/16 at 07:30 Glucagon (Glucagen) 1 mg Q15M PRN IM DECREASED GLUCOSE; Start 10/09/16 at 07:30 Glucose (Glutose) 15 gm Q15M PRN BUCCAL DECREASED GLUCOSE; Start 10/09/16 at 07 :30 Insulin Glargine (Lantus) 15 unit QHS SC Last administered on 10/18/16 21:20; Admin Dose 15 UNIT; Start 10/12/16 at 21:00 Non-Formulary Medication 1 ea DAILY BOTH EYES Last administered on 10/19/16 08 :21; Admin Dose 1 EA; Start 10/14/16 at 09:00 Polyethylene Glycol 17 gm 17 gm DAILY PRN PO CONSTIPATION; Start 10/15/16 at 20 :32 Fluconazole 100 ml @ 100 mls/hr Q24H IVPB Last administered on 10/18/16 17:34 ; Admin Dose 100 MLS/HR; Start 10/16/16 at 16:00 Meropenem 100 ml @ 200 mls/hr Q8 IVPB Last administered on 10/19/16 05:19; Admin Dose 200 MLS/HR; Start 10/17/16 at 14:00; Stop 10/27/16 at 13:59 Gemcitabine HCl 1.9 gm/Sodium Chloride 250 ml @ 500 mls/hr ONCE IV ; Start at 14:00; Status Future Hold Dextrose/Sodium Chloride (D5-1/2ns) 1,000 ml @ 70 mls/hr [id number] IV Last administered on 10/19/16 02:15; Admin Dose 70 MLS/HR; Start 10/19/16 at 01:00 KIP MILLER MD Oct 19, 2016 08:52
[2016-10-19] MEDS: METOPROLOL (XL) 25 MG TAB PO SCH (09:00)
[2016-10-19] MEDS: LISINOPRIL 20 MG TAB PO SCH (09:00)
--- NOTE | 2016-10-19 10:39 | PN ---
Date/Time of Note Date/Time of Note DATE: 10/19/16 TIME: 10:35 Assessment/Plan VTE Prophylaxis VTE Prophylaxis Intervention: other Lines/Catheters IV Catheter Type (from Nrs): Saline Lock Urinary Cath still in place: Yes Reason Cath still needed: urinary retention Assessment/Plan Assessment/Plan 1. Metastatic bladder cancer with now need for left nephrostomy 2. Mild hypercalcemia (albumin is low) 3. Anemia, will transfuse 2 units in anticipation for #1. 4. Hyponatremia, will change iv fluid 5. ESBL uti, abx per id Subjective 24 Hr Interval Summary Constitutional: other (feels weak) Respiratory: No cough, No shortness of breath Cardiovascular: No chest pain Gastrointestinal: other (abd bloating, mild) Genitourinary: no complaints Exam/Review of Systems Vital Signs Vitals Vital Signs Date Time Temp Pulse Resp B/P Pulse Ox O2 Delivery O2 Flow Rate FiO2 10/19/16 08:10 98.3 102 18 102/50 93 Intake and Output 10/18/16 10/18/16 10/19/16 15:00 23:00 07:00 Intake Total 1350 ml 1090 ml Output Total 465 ml 600 ml Balance 885 ml 490 ml Exam Neck: No jvd Respiratory: clear to auscultation Cardiovascular: regular rate and rhythm Gastrointestinal: other (sl distended, not tender) Extremities: edema (1+ and 1-2+ sacral edema) Results Result Diagram: 10/19/16 0450 10/19/16 0450 Results 24 hrs Laboratory Tests Test 10/18/16 12:15 10/18/16 17:33 10/18/16 20:23 10/19/16 04:50 Bedside Glucose 198 148 185 White Blood Count 23.6 #H Red Blood Count 3.14 L Hemoglobin 7.7 L Hematocrit 25.2 L Mean Corpuscular Volume 80.3 L Mean Corpuscular Hemoglobin 24.5 L Mean Corpuscular Hemoglobin Concent 30.6 L Red Cell Distribution Width 18.4 H Platelet Count 288 Mean Platelet Volume 9.0 Neutrophils % 89.8 H Lymphocytes % 5.3 L Monocytes % 3.9 Eosinophils % 0.3 Basophils % 0.0 Nucleated Red Blood Cells % 0.0 Neutrophils # 21.1 H Lymphocytes # 1.3 Monocytes # 0.9 Eosinophils # 0.1 Basophils # 0.0 Nucleated Red Blood Cells # 0.0 Prothrombin Time 15.0 H Prothrombin Time Ratio 1.2 INR International Normalized Ratio 1.17 Activated Partial Thromboplast Time 40.5 H Sodium Level 131 L Potassium Level 3.6 Chloride Level 102 Carbon Dioxide Level 27 Anion Gap 6 L Blood Urea Nitrogen 27 H Creatinine 1.22 Glucose Level 174 Calcium Level 9.9 Total Bilirubin 0.4 Direct Bilirubin 0.00 Indirect Bilirubin 0.4 Aspartate Amino Transf (AST/SGOT) 27 Alanine Aminotransferase (ALT/SGPT) 36 Alkaline Phosphatase 68 Total Protein 4.5 L Albumin 2.0 L Globulin 2.50 Albumin/Globulin Ratio 0.80 Test 10/19/16 08:18 Bedside Glucose 166 Medications Medications Current Medications Ondansetron HCl (Zofran Inj) 4 mg Q6H PRN IV NAUSEA AND/OR VOMITING; Start at 06:30 Acetaminophen (Tylenol Tab) 650 mg Q6H PRN PO PAIN LEVEL 1-3 OR FEVER Last administered on 10/17/16 16:33; Admin Dose 650 MG; Start 10/09/16 at 06:30 Acetaminophen/ Hydrocodone Bitart ([place] (5/325)) 1 tab Q6H PRN PO MODERATE PAIN LEVEL 4-6 Last administered on 10/17/16 14:07; Admin Dose 1 TAB; Start at 06:30 Acetaminophen/ Hydrocodone Bitart ([place] (5/325)) 2 tab Q6H PRN PO SEVERE PAIN LEVEL 7-10 Last administered on 10/17/16 22:50; Admin Dose 2 TAB; Start at 06:30 Docusate Sodium (Colace) 100 mg Q12H PRN PO CONSTIPATION Last administered on 05:06; Admin Dose 100 MG; Start 10/09/16 at 06:30 Magnesium Hydroxide (Milk Of Mag) 30 ml DAILY PRN PO CONSTIPATION Last administered on 10/17/16 15:49; Admin Dose 30 ML; Start 10/09/16 at 06:30 Lisinopril (Zestril) 40 mg DAILY PO Last administered on 10/17/16 08:55; Admin Dose 40 MG; Start 10/09/16 at 09:00 Atorvastatin Calcium (Lipitor) 40 mg HS PO Last administered on 10/18/16 21:10 ; Admin Dose 40 MG; Start 10/09/16 at 21:00 Metoprolol Succinate (Toprol Xl) 25 mg DAILY PO Last administered on 10/17/16 08:55; Admin Dose 25 MG; Start 10/09/16 at 09:00 Pantoprazole (Protonix Tab) 40 mg DAILY@06 PO Last administered on 10/19/16 05 :19; Admin Dose 40 MG; Start 10/09/16 at 07:30 Miscellaneous Information 1 ea NOTE XX ; Start 10/09/16 at 07:30 Glucose (Glutose) 15 gm Q15M PRN PO DECREASED GLUCOSE; Start 10/09/16 at 07:30 Glucose (Glutose) 22.5 gm Q15M PRN PO DECREASED GLUCOSE; Start 10/09/16 at 07: 30 Dextrose (D50w Syringe) 25 ml Q15M PRN IV DECREASED GLUCOSE; Start 10/09/16 at 07:30 Dextrose (D50w Syringe) 50 ml Q15M PRN IV DECREASED GLUCOSE; Start 10/09/16 at 07:30 Glucagon (Glucagen) 1 mg Q15M PRN IM DECREASED GLUCOSE; Start 10/09/16 at 07:30 Glucose (Glutose) 15 gm Q15M PRN BUCCAL DECREASED GLUCOSE; Start 10/09/16 at 07 :30 Insulin Glargine (Lantus) 15 unit QHS SC Last administered on 10/18/16 21:20; Admin Dose 15 UNIT; Start 10/12/16 at 21:00 Non-Formulary Medication 1 ea DAILY BOTH EYES Last administered on 10/19/16 08 :21; Admin Dose 1 EA; Start 10/14/16 at 09:00 Polyethylene Glycol 17 gm 17 gm DAILY PRN PO CONSTIPATION; Start 10/15/16 at 20 :32 Fluconazole 100 ml @ 100 mls/hr Q24H IVPB Last administered on 10/18/16 17:34 ; Admin Dose 100 MLS/HR; Start 10/16/16 at 16:00 Meropenem 100 ml @ 200 mls/hr Q8 IVPB Last administered on 10/19/16 05:19; Admin Dose 200 MLS/HR; Start 10/17/16 at 14:00; Stop 10/27/16 at 13:59 Gemcitabine HCl 1.9 gm/Sodium Chloride 250 ml @ 500 mls/hr ONCE IV ; Start at 14:00; Status Future Hold Dextrose/Sodium Chloride (D5-1/2ns) 1,000 ml @ 70 mls/hr [id number] IV Last administered on 10/19/16t 02:15; Admin Dose 70 MLS/HR; Start 10/19/16 at 01:00 KIP SEXTON MD Oct 19, 2016 10:39
[2016-10-19] MEDS: SOD CHLORIDE 0.9% 1,000 ML IV SCH (11:13)
[2016-10-19] MEDS ORDERED: POTASSIUM CHLORIDE 20 MEQ in SOD CHLORIDE 0.9% 100 ML IVPB ONE (12:00)
--- NOTE | 2016-10-19 12:05 | CONS ---
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 Radiation therapy strictly for local control can be considered He appears to have a progressive infectious process I think the most likely source is his left kidney where he may have infected urine and that obstructed kidney. Chemotherapy is being contemplated but would not be safe until and unless the infectious process is under control Patient's outlook in my opinion is quite limited in my opinion treatment should be engaged mostly to limit pain and discomfort I spoke with Dr. Walton and Dr. Billings. Left-sided percutaneous nephrostomy is scheduled with Dr. Billings I hand irrigated the patient's catheter today and will ask the nurses to hand irrigated relatively vigorously 3 times a day I spoke with the charge nurse and the patient's nurse Problems: Consultation Date/Type/Reason Admit Date/Time Oct 09, 2016 at 05:45 Date of Consultation: Oct 19, 2016 Type of Consultation: uro Reason for Consultation bladder cancer with complications Referring Provider: ALLISON RAMIREZ MD Hx of Present Illness Thank you for request for evaluation Leslie is known to me for about a year but he presented a few weeks ago with a bladder mass identified on CT scan. Indication for the CT scan was hematuria and unexplained weight loss. The CT scan showed bladder mass with evidence of metastatic disease both the lung and pelvis. The the bladder mass extended to the pelvic sidewall and was causing small degree of right hydronephrosis.. The patient has been on self intermittent catheterization initially under the care of Dr. Claudia Ortiz and then the patient followed up with me about a year ago. At that time he was diagnosed with an atonic bladder having failed transurethral resection of the prostate and he voiding by self- catheterization which she was doing without problem. Neurologic evaluation about a year ago showed no evidence of pelvic mass. He then followed up several weeks ago with the above CT findings. Patient underwent cystoscopy and eventually surgical resection/biopsy. Bladder mass was extremely large replacing the great majority of the bladder. A large portion of the mass was necrotic and also he was identified as having a large bladder stone was causing problems with his catheterization. The bladder stone was broken up and excised a few weeks ago at the same time as the biopsy resection of his bladder mass which was entirely unresectable. The trigone was not visible so was unable to insert a stent on the right left side was also obliterated but there was no hydronephrosis on the left side at that time The patient was subsequently discharged from [facility] and went to a rehabilitation unit is tolerating the hematuria catheter well. He needed a special catheter because of the large amount of debris that was necrosing from his bladder cancer. This catheter has large holes and a large bore to allow for a hand irrigation if needed and to allow the large particulate matter to pass. Patient's prognosis is poor and he was however being evaluated for the option of chemotherapy. Radiation to the bladder is being considered only for local control because he is at risk of hemorrhage and pain and obstruction. Indeed, before he underwent a resection he was having copious hematuria with recurrent clot retention. Last week however he was admitted to the [facility] emergency room because of chest pain and he has been admitted ever since. He has slowly deteriorated and now has developed relatively severe left hydronephrosis which only a few weeks ago was not present. Also he appears to possibly have an infectious scenario. The bacteria growing from his bladder may be misleading as this is colonization due to indwelling catheter. He has however been treated for the bacteria growing from the bladder but he continues to deteriorate and his white count is quite high. I have had discussions with Dr. Londono over the phone and left nephrostomy tube is advisable. I spoke with Dr. Billings this morning who will proceed I also spoke with Dr. Walton Constitutional: other (feels weak) Eyes: no complaints ENT: no complaints Respiratory: No cough, No shortness of breath Cardiovascular: No chest pain Gastrointestinal: other (abd bloating, mild) Genitourinary: no complaints Musculoskeletal: no complaints Skin: no complaints Neurologic: no complaints Psychological: confusion Immunologic: no complaints Past Medical History Medical History: coronary artery disease, diabetes, other (metastatic bladder CA) Past Surgical History Past Surgical Hx: other (PCI, CABG) Social History Alcohol Use: occasionally Smoking Status: Former smoker Drug Use: none Exam/Review of Systems Vital Signs Vitals Vital Signs Date Time Temp Pulse Resp B/P Pulse Ox O2 Delivery O2 Flow Rate FiO2 10/19/16 08:10 98.3 102 18 102/50 93 Intake and Output 10/18/16 10/18/16 10/19/16 15:00 23:00 07:00 Intake Total 1350 ml 1090 ml Output Total 465 ml 600 ml Balance 885 ml 490 ml Exam Constitutional: alert, oriented Psych: no complaints Neck: supple Respiratory: normal air movement Gastrointestinal: soft Genitourinary - Male: nl penis, other (Indwelling large-bore hematuria catheter was irrigated has debris but appears to be unobstructed) Results Result Diagram: 10/19/16 0450 10/19/16 0450 Results 24 hrs Laboratory Tests Test 10/18/16 12:15 10/18/16 17:33 10/18/16 20:23 10/19/16 04:50 Bedside Glucose 198 148 185 White Blood Count 23.6 #H Red Blood Count 3.14 L Hemoglobin 7.7 L Hematocrit 25.2 L Mean Corpuscular Volume 80.3 L Mean Corpuscular Hemoglobin 24.5 L Mean Corpuscular Hemoglobin Concent 30.6 L Red Cell Distribution Width 18.4 H Platelet Count 288 Mean Platelet Volume 9.0 Neutrophils % 89.8 H Lymphocytes % 5.3 L Monocytes % 3.9 Eosinophils % 0.3 Basophils % 0.0 Nucleated Red Blood Cells % 0.0 Neutrophils # 21.1 H Lymphocytes # 1.3 Monocytes # 0.9 Eosinophils # 0.1 Basophils # 0.0 Nucleated Red Blood Cells # 0.0 Prothrombin Time 15.0 H Prothrombin Time Ratio 1.2 INR International Normalized Ratio 1.17 Activated Partial Thromboplast Time 40.5 H Sodium Level 131 L Potassium Level 3.6 Chloride Level 102 Carbon Dioxide Level 27 Anion Gap 6 L Blood Urea Nitrogen 27 H Creatinine 1.22 Glucose Level 174 Calcium Level 9.9 Total Bilirubin 0.4 Direct Bilirubin 0.00 Indirect Bilirubin 0.4 Aspartate Amino Transf (AST/SGOT) 27 Alanine Aminotransferase (ALT/SGPT) 36 Alkaline Phosphatase 68 Total Protein 4.5 L Albumin 2.0 L Globulin 2.50 Albumin/Globulin Ratio 0.80 Test 10/19/16 08:18 10/19/16 11:02 Bedside Glucose 166 199 Medications Medications Current Medications Ondansetron HCl (Zofran Inj) 4 mg Q6H PRN IV NAUSEA AND/OR VOMITING; Start at 06:30 Acetaminophen (Tylenol Tab) 650 mg Q6H PRN PO PAIN LEVEL 1-3 OR FEVER Last administered on 10/17/16 16:33; Admin Dose 650 MG; Start 10/09/16 at 06:30 Acetaminophen/ Hydrocodone Bitart ([place] (5/325)) 1 tab Q6H PRN PO MODERATE PAIN LEVEL 4-6 Last administered on 10/17/16 14:07; Admin Dose 1 TAB; Start at 06:30 Acetaminophen/ Hydrocodone Bitart ([place] (5/325)) 2 tab Q6H PRN PO SEVERE PAIN LEVEL 7-10 Last administered on 10/17/16 22:50; Admin Dose 2 TAB; Start at 06:30 Docusate Sodium (Colace) 100 mg Q12H PRN PO CONSTIPATION Last administered on 05:06; Admin Dose 100 MG; Start 10/09/16 at 06:30 Magnesium Hydroxide (Milk Of Mag) 30 ml DAILY PRN PO CONSTIPATION Last administered on 10/17/16 15:49; Admin Dose 30 ML; Start 10/09/16 at 06:30 Lisinopril (Zestril) 40 mg DAILY PO Last administered on 10/17/16 08:55; Admin Dose 40 MG; Start 10/09/16 at 09:00 Atorvastatin Calcium (Lipitor) 40 mg HS PO Last administered on 10/18/16 21:10 ; Admin Dose 40 MG; Start 10/09/16 at 21:00 Metoprolol Succinate (Toprol Xl) 25 mg DAILY PO Last administered on 10/17/16 08:55; Admin Dose 25 MG; Start 10/09/16 at 09:00 Pantoprazole (Protonix Tab) 40 mg DAILY@06 PO Last administered on 10/19/16 05 :19; Admin Dose 40 MG; Start 10/09/16 at 07:30 Miscellaneous Information 1 ea NOTE XX ; Start 10/09/16 at 07:30 Glucose (Glutose) 15 gm Q15M PRN PO DECREASED GLUCOSE; Start 10/09/16 at 07:30 Glucose (Glutose) 22.5 gm Q15M PRN PO DECREASED GLUCOSE; Start 10/09/16 at 07: 30 Dextrose (D50w Syringe) 25 ml Q15M PRN IV DECREASED GLUCOSE; Start 10/09/16 at 07:30 Dextrose (D50w Syringe) 50 ml Q15M PRN IV DECREASED GLUCOSE; Start 10/09/16 at 07:30 Glucagon (Glucagen) 1 mg Q15M PRN IM DECREASED GLUCOSE; Start 10/09/16 at 07:30 Glucose (Glutose) 15 gm Q15M PRN BUCCAL DECREASED GLUCOSE; Start 10/09/16 at 07 :30 Insulin Glargine (Lantus) 15 unit QHS SC Last administered on 10/18/16 21:20; Admin Dose 15 UNIT; Start 10/12/16 at 21:00 Non-Formulary Medication 1 ea DAILY BOTH EYES Last administered on 10/19/16 08 :21; Admin Dose 1 EA; Start 10/14/16 at 09:00 Polyethylene Glycol 17 gm 17 gm DAILY PRN PO CONSTIPATION; Start 10/15/16 at 20 :32 Fluconazole 100 ml @ 100 mls/hr Q24H IVPB Last administered on 10/18/16 17:34 ; Admin Dose 100 MLS/HR; Start 10/16/16 at 16:00 Meropenem 100 ml @ 200 mls/hr Q8 IVPB Last administered on 10/19/16 05:19; Admin Dose 200 MLS/HR; Start 10/17/16 at 14:00; Stop 10/27/16 at 13:59 Gemcitabine HCl 1.9 gm/Sodium Chloride 250 ml @ 500 mls/hr ONCE IV ; Start at 14:00; Status Future Hold Sodium Chloride 1,000 ml @ 60 mls/hr [id number] IV Last administered on 11:13; Admin Dose 60 MLS/HR; Start 10/19/16 at 10:30 Potassium Chloride/Sodium Chloride (KCl/NS) 110 ml @ 55 mls/hr ONCE ONCE IVPB ; Start 10/19/16 at 12:00; Stop 10/19/16 at 13:59 ALLISON RAMIREZ MD Oct 19, 2016 12:05
[2016-10-19] MEDS ORDERED: FENTAnyl 50 MCG/ML VIAL ONE (13:31)
[2016-10-19] MEDS ORDERED: MIDAZOLAM 1 MG/ML 2 ML INJ ONE (13:31)
[2016-10-19] MEDS ORDERED: LIDOCAINE 1% (MDV) 20 ML INJ ONE (13:31)
[2016-10-19] MEDS ORDERED: SOD CHLORIDE 0.9% 500 ML ONE (13:31)
[2016-10-19] MEDS ORDERED: IODIXANOL LOCM 50 ML BTL ONE (14:31)
[2016-10-19] MEDS ORDERED: ONDANSETRON 4 MG INJ ONE (14:38)
--- NOTE | 2016-10-19 16:12 | RADRPT ---
PROCEDURE: Ultrasound guidance for needle placement for left nephrostomy. CLINICAL INDICATION: Left hydronephrosis. TECHNIQUE: Informed consent was obtained. The procedure, risks, benefits, complications and alternatives were explained to the patient. Risks including bleeding and infection were explained. The patient underst ood and was willing to proceed. A procedural pause was performed. The patient's name, date of , and procedure to be performed w ere verified. Using local anesthetic, sterile technique and ultrasound guidance, a 22-gauge Chiba needle was advan clovis into a mid pole jane in the left kidney. A 0.018 in guidewire was inserted. The remainder of the study was performed with fluoroscopic guidance. The patient tolerated procedure well. COMPARISON: None. FINDINGS: The ultrasound images demonstrate the needle within a midpole jane of the left kidney. IMPRESSION: 1. Successful ultrasound guidance for placement of the needle in the mid pole jane of the left scout hanley. RPTAT: QQ .Wagner Billings MD, MD Date Time Electronically viewed and signed by .Wagner Billings MD, on 10/19/2016 16:12 .R/
[2016-10-19] MEDS: FLUCONAZOLE 200 MG/NS (PMX) 100 ML IVPB SCH (16:53)
--- NOTE | 2016-10-19 20:00 | CONS ---
Date/Time of Note Date/Time of Note DATE: 10/19/16 TIME: 19:56 Assessment/Plan Assessment/Plan Chief Complaint/Hosp Course assessment/impression - fever and leukocytosis due to b/l pyelonephritis, large tumor burden and L hydronephrosis - complicated UTI and b/l pyelonephritis due to ESBL+E. coli, enterococci and yeast - recent UTI due to ESBL+bacteria, took meropenem for this - bladder CA, invasion into the pelvic sidewall, probably lungs too - R-sided hydronephrosis s/p R nephrostomy tube placement - L-sided hydroureteronephrosis, s/p nephrostomy tube placement - atonic/neurogenic bladder - bladder stone s/p removal, CT on 10/16/2016 showed residual fragments - s/p TURP - CAD, recent chest pain. Stress test was negative for ischemia - s/p CABG - s/p PCI with stent placement ~2000 - h/o colonoscopy and endoscopy - quit smoking in s - chronic cough, unchanged according to Pt. Scant phlegm per Pt. recommendations - I ordered repeat blood cultures, urine cultures from each Castañeda catheter and R nephrostomy tube on 10/18/2016. Only two sets of blood cultures and urine culture from R nephrostomy tube was collected - will send urinalysis and urine culture from L nephrostomy tube today - continue meropenem for ESBL+E. coli and enterococci (ampicillin-sensitive strain, 10/18/2016-). Plan for 10 days through 10/27/2016 - continue fluconazole. Plan for 10 days too - will adjust antibiotics based on new culture results - contact isolation for ESBL+E. coli management d/w Pt, his son Problems: Consultation Date/Type/Reason Admit Date/Time Oct 09, 2016 at 05:45 Initial Consult Date 10/16/16 Type of Consultation: ID Referring Provider: JEFF OSPINA MD 24 HR Interval Summary Constitutional: other (weak) Detailed Summary Eyes: no complaints ENT: no complaints Respiratory: cough, No pleuritic pain, No shortness of breath, No sputum Cardiovascular: no complaints Gastrointestinal: no complaints Genitourinary: other (b/l nephrostomy tubes and Castañeda) Musculoskeletal: no complaints Skin: no complaints Neurologic: no complaints Exam/Review of Systems Vital Signs Vitals Vital Signs Date Time Temp Pulse Resp B/P Pulse Ox O2 Delivery O2 Flow Rate FiO2 10/19/16 15:52 Nasal Cannula 3 10/19/16 15:50 88 16 110/64 97 10/19/16 14:50 98.6 Intake and Output 10/18/16 10/18/16 10/19/16 15:00 23:00 07:00 Intake Total 1350 ml 1090 ml Output Total 465 ml 600 ml Balance 885 ml 490 ml Exam Constitutional: alert, frail, oriented Psych: nl mood/affect, no complaints Head: normocephalic Eyes: nl conjunctiva, nl lids ENMT: nl external ears & nose Neck: supple Respiratory: clear to auscultation, normal air movement Cardiovascular: nl pulses, regular rate and rhythm Gastrointestinal: non-tender, soft Genitourinary - Male: other (Castañeda and b/l nephrostomy tubes are in place) Extremities: No edema Neurological: NATURAL DEVELOPER II-XII intact Skin: nl turgor Results Result Diagram: 10/19/16 0450 10/19/16 0450 Results 24 hrs Laboratory Tests Test 10/18/16 20:23 10/19/16 04:50 10/19/16 08:18 10/19/16 11:02 Bedside Glucose 185 166 199 White Blood Count 23.6 #H Red Blood Count 3.14 L Hemoglobin 7.7 L Hematocrit 25.2 L Mean Corpuscular Volume 80.3 L Mean Corpuscular Hemoglobin 24.5 L Mean Corpuscular Hemoglobin Concent 30.6 L Red Cell Distribution Width 18.4 H Platelet Count 288 Mean Platelet Volume 9.0 Neutrophils % 89.8 H Lymphocytes % 5.3 L Monocytes % 3.9 Eosinophils % 0.3 Basophils % 0.0 Nucleated Red Blood Cells % 0.0 Neutrophils # 21.1 H Lymphocytes # 1.3 Monocytes # 0.9 Eosinophils # 0.1 Basophils # 0.0 Nucleated Red Blood Cells # 0.0 Prothrombin Time 15.0 H Prothrombin Time Ratio 1.2 INR International Normalized Ratio 1.17 Activated Partial Thromboplast Time 40.5 H Sodium Level 131 L Potassium Level 3.6 Chloride Level 102 Carbon Dioxide Level 27 Anion Gap 6 L Blood Urea Nitrogen 27 H Creatinine 1.22 Glucose Level 174 Calcium Level 9.9 Total Bilirubin 0.4 Direct Bilirubin 0.00 Indirect Bilirubin 0.4 Aspartate Amino Transf (AST/SGOT) 27 Alanine Aminotransferase (ALT/SGPT) 36 Alkaline Phosphatase 68 Total Protein 4.5 L Albumin 2.0 L Globulin 2.50 Albumin/Globulin Ratio 0.80 Test 10/19/16 16:55 Bedside Glucose 156 Medications Medications Current Medications Ondansetron HCl (Zofran Inj) 4 mg Q6H PRN IV NAUSEA AND/OR VOMITING; Start at 06:30 Acetaminophen (Tylenol Tab) 650 mg Q6H PRN PO PAIN LEVEL 1-3 OR FEVER Last administered on 10/17/16 16:33; Admin Dose 650 MG; Start 10/09/16 at 06:30 Acetaminophen/ Hydrocodone Bitart ([place] (5/325)) 1 tab Q6H PRN PO MODERATE PAIN LEVEL 4-6 Last administered on 10/17/16 14:07; Admin Dose 1 TAB; Start at 06:30 Acetaminophen/ Hydrocodone Bitart ([place] (5/325)) 2 tab Q6H PRN PO SEVERE PAIN LEVEL 7-10 Last administered on 10/17/16 22:50; Admin Dose 2 TAB; Start at 06:30 Docusate Sodium (Colace) 100 mg Q12H PRN PO CONSTIPATION Last administered on 05:06; Admin Dose 100 MG; Start 10/09/16 at 06:30 Magnesium Hydroxide (Milk Of Mag) 30 ml DAILY PRN PO CONSTIPATION Last administered on 10/17/16 15:49; Admin Dose 30 ML; Start 10/09/16 at 06:30 Lisinopril (Zestril) 40 mg DAILY PO Last administered on 10/17/16 08:55; Admin Dose 40 MG; Start 10/09/16 at 09:00 Atorvastatin Calcium (Lipitor) 40 mg HS PO Last administered on 10/18/16 21:10 ; Admin Dose 40 MG; Start 10/09/16 at 21:00 Metoprolol Succinate (Toprol Xl) 25 mg DAILY PO Last administered on 10/17/16 08:55; Admin Dose 25 MG; Start 10/09/16 at 09:00 Pantoprazole (Protonix Tab) 40 mg DAILY@06 PO Last administered on 10/19/16 05 :19; Admin Dose 40 MG; Start 10/09/16 at 07:30 Miscellaneous Information 1 ea NOTE XX ; Start 10/09/16 at 07:30 Glucose (Glutose) 15 gm Q15M PRN PO DECREASED GLUCOSE; Start 10/09/16 at 07:30 Glucose (Glutose) 22.5 gm Q15M PRN PO DECREASED GLUCOSE; Start 10/09/16 at 07: 30 Dextrose (D50w Syringe) 25 ml Q15M PRN IV DECREASED GLUCOSE; Start 10/09/16 at 07:30 Dextrose (D50w Syringe) 50 ml Q15M PRN IV DECREASED GLUCOSE; Start 10/09/16 at 07:30 Glucagon (Glucagen) 1 mg Q15M PRN IM DECREASED GLUCOSE; Start 10/09/16 at 07:30 Glucose (Glutose) 15 gm Q15M PRN BUCCAL DECREASED GLUCOSE; Start 10/09/16 at 07 :30 Insulin Glargine (Lantus) 15 unit QHS SC Last administered on 10/18/16 21:20; Admin Dose 15 UNIT; Start 10/12/16 at 21:00 Non-Formulary Medication 1 ea DAILY BOTH EYES Last administered on 10/19/16 08 :21; Admin Dose 1 EA; Start 10/14/16 at 09:00 Polyethylene Glycol 17 gm 17 gm DAILY PRN PO CONSTIPATION; Start 10/15/16 at 20 :32 Fluconazole 100 ml @ 100 mls/hr Q24H IVPB Last administered on 10/19/16 16:53 ; Admin Dose 100 MLS/HR; Start 10/16/16 at 16:00 Meropenem 100 ml @ 200 mls/hr Q8 IVPB Last administered on 10/19/16 16:23; Admin Dose 200 MLS/HR; Start 10/17/16 at 14:00; Stop 10/27/16 at 13:59 Gemcitabine HCl 1.9 gm/Sodium Chloride 250 ml @ 500 mls/hr ONCE IV ; Start at 14:00; Status Future Hold Sodium Chloride (NS) 1,000 ml @ 60 mls/hr [id number] IV Last administered on 10/19 11:13; Admin Dose 60 MLS/HR; Start 10/19/16 at 10:30 VIRGILIO JACOBSON M.D. Oct 19, 2016 20:00
[2016-10-19] MEDS: ATORVASTATIN 40 MG TAB PO SCH (21:38)
[2016-10-19] MEDS: INSULIN GLARGINE [LANtus] 3 ML PEN SC SCH (21:41)
[2016-10-20 00:04] LABS: ADD UMIC YES; URINE BILIRUBIN (Dip) NEGATIVE (NEGATIVE); URINE BLOOD (Dip) 3+ (NEGATIVE); URINE COLOR LT. YELLOW (YELLOW); URINE KETONES (Dip) NEGATIVE (NEGATIVE); URINE LEUKOCYTE ESTERASE (Dip) NEGATIVE (NEGATIVE); URINE NITRITE (Dip) NEGATIVE (NEGATIVE); URINE TOTAL PROTEIN (Dip) 2+ (NEGATIVE); URINE UROBILINOGEN (Dip) 0.2 E.U./dL (0.1-1.0)
[2016-10-20 00:17] LABS: BACTERIA,URINE OCCASIONAL; URINE RBCS >200 /HPF (0)
[2016-10-20] MEDS: SOD CHLORIDE 0.9% 1,000 ML IV SCH (03:10)
[2016-10-20] MEDS: PANTOPRAZOLE (EC) 40 MG TAB PO SCH (05:24)
[2016-10-20] MEDS: MEROPENEM 1 GM/100 ML (PMX) 100 ML IVPB SCH ×3 (05:24→21:48)
[2016-10-20 05:25] VITALS: BP 122/57; PULSE 101; RESP 18
[2016-10-20 06:11] LABS: ADD SCAN DIFF NO
[2016-10-20 06:25] LABS: BASOPHILS % 0.1 % (0.0-2.0); EOSINOPHILS # 0.1 10^3/ul (0.0-0.5); EOSINOPHILS % 0.4 % (0.0-7.0); HEMATOCRIT 31.7 % (42.0-52.0); HEMOGLOBIN 9.7 g/dl (14.0-18.0); LYMPHOCYTES % 5.6 % (15.0-51.0); MEAN CORPUSCULAR HEMOGLOBIN 24.8 pg (29.0-33.0); MEAN CORPUSCULAR HGB CONC 30.6 g/dl (32.0-37.0); MEAN CORPUSCULAR VOLUME 81.1 fl (82.0-101.0); MEAN PLATELET VOLUME 9.3 fl (7.4-10.4); MONOCYTE # 0.9 10^3/ul (0.3-0.9); MONOCYTES % 4.9 % (0.0-11.0); NEUTROPHIL # 16.1 10^3/ul (1.6-7.5); NEUTROPHILS % 88.5 % (39.0-77.0); PLATELET COUNT 289 10^3/UL (140-415); RED BLOOD COUNT 3.91 10^6/ul (4.70-6.10); RED CELL DISTRIBUTION WIDTH 18.1 % (11.5-14.5); WHITE BLOOD COUNT 18.2 10^3/ul (4.8-10.8)
[2016-10-20 06:58] LABS: CALCIUM 9.8 mg/dl (8.4-10.2); CREATININE 0.94 mg/dl (0.61-1.24); MAGNESIUM 1.9 mg/dl (1.7-2.5); PHOSPHORUS 2.6 mg/dl (2.5-4.9); POTASSIUM 3.8 mmol/L (3.5-5.1)
[2016-10-20] MEDS: INSULIN ASPART [NOVOLOG] 3 ML PEN SC SCH ×4 (07:50→21:39)
[2016-10-20 08:28] VITALS: BP 126/76; RESP 20
[2016-10-20] MEDS: TIMOPTIC 0.5% EYE DROPS BOTH EYES SCH (08:53)
[2016-10-20] MEDS: LISINOPRIL 20 MG TAB PO SCH (08:54)
[2016-10-20] MEDS: METOPROLOL (XL) 25 MG TAB PO SCH (08:54)
--- NOTE | 2016-10-20 10:21 | CONS ---
DATE OF ADMISSION: 10/09/2016 DATE OF CONSULTATION: 10/20/2016 HEMATOLOGY / ONCOLOGY PROGRESS NOTE HISTORY OF PRESENT ILLNESS: Mr. Fernandez states that he is feeling discouraged because he is unable t o ambulate. He complains of weakness. The patient is not experiencing any bone pain. He does not complain of numbness or tingling in the lower extremities. The patient did have a left-sided nephrostomy placed yesterday. OBJECTIVE: VITAL SIGNS: Temperature 97.6, pulse 103, respirations 20, blood pressure 126/76, pulse oximetry 95 % on 2 liters. SKIN: Pale. No ecchymosis, no petechiae or rashes. HEENT: No mucosal lesions. No scleral icterus. NECK: Supple. No jugular venous distention or thyroid enlargement. CHEST: Clear to auscultation and percussion. No rhonchi, wheezes, rales or rubs. NODES: No palpable lymphadenopathy in lymph node-bearing area. ABDOMEN: Soft. No masses, no ascites. The patient now has bilateral nephrostomies, which are drai yadiel clear urine. EXTREMITIES: No clubbing or cyanosis. NEUROLOGIC: Normal. LABORATORY: White count is 18,200, hemoglobin 9.5, hematocrit 31.7, platelet count 289,000. Creati nine 0.94, BUN 21, sodium 133, potassium 3.8. ASSESSMENT: 1. Metastatic urothelial carcinoma. 2. Bilateral hydronephrosis secondary to #1. 3. Urinary tract infection secondary to extended spectrum Beta-Lactamases positive Escherichia coli , as well as enterococcus species. IMPRESSION: The patient is presently on meropenem. Will continue on antibiotic therapy for 1 or 2 more days before attempting to initiate chemotherapy, as outlined previously, with cisplatin and gem citabine. The patient's renal function now is adequate to allow treatment with cisplatin. Dictated By: RADHA SHAW MD SR/NTS Conf#: [id number] DID#: [id number]
--- NOTE | 2016-10-20 10:43 | PN ---
Date/Time of Note Date/Time of Note DATE: 10/20/16 TIME: 10:40 Assessment/Plan VTE Prophylaxis VTE Prophylaxis Intervention: other Lines/Catheters IV Catheter Type (from Nrs): Peripheral IV Urinary Cath still in place: Yes Reason Cath still needed: urinary retention Assessment/Plan Assessment/Plan 1. Left nephrostomy was placed yesterday without incident 2. Hct stable after transfused 2 units, cont to observe, lovenox resumed. 3. Chemo -met bladder ca-per dr bruner 4. UTI-rx per ID 5. IV slowed 6. Will get NIVVS Subjective 24 Hr Interval Summary Respiratory: No shortness of breath Cardiovascular: No chest pain Gastrointestinal: no complaints Genitourinary: other (vernon in place) Exam/Review of Systems Vital Signs Vitals Vital Signs Date Time Temp Pulse Resp B/P Pulse Ox O2 Delivery O2 Flow Rate FiO2 10/20/16 08:28 97.6 103 20 126/76 95 10/20/16 05:25 Room Air 10/19/16 15:52 3 Intake and Output 10/19/16 10/19/16 10/20/16 15:00 23:00 07:00 Intake Total 650 ml 750 ml Output Total 250 ml 1405 ml Balance -250 ml 650 ml -655 ml Exam Neck: No jvd Respiratory: clear to auscultation, diminished breath sounds Cardiovascular: No irregular rhythm Gastrointestinal: soft Extremities: edema (1+ edema) Results Result Diagram: 10/20/16 0555 10/20/16 0555 Results 24 hrs Laboratory Tests Test 10/19/16 11:02 10/19/16 16:55 10/19/16 20:28 10/19/16 23:30 Bedside Glucose 199 156 211 Urine Color LT. YELLOW Urine Clarity SLIGHTLY CLOUDY Urine pH 6.0 Urine Specific [place] 1.025 Urine Ketones NEGATIVE Urine Nitrite NEGATIVE Urine Bilirubin NEGATIVE Urine Urobilinogen 0.2 E.U./dL Urine Leukocyte Esterase NEGATIVE Urine Microscopic RBC >200 Urine Microscopic WBC 10-25 Urine Bacteria OCCASIONAL Urine Hemoglobin 3+ H Urine Glucose 0.1% H Urine Total Protein 2+ H Test 10/20/16 05:55 10/20/16 08:12 White Blood Count 18.2 #H Red Blood Count 3.91 #L Hemoglobin 9.7 #L Hematocrit 31.7 #L Mean Corpuscular Volume 81.1 L Mean Corpuscular Hemoglobin 24.8 L Mean Corpuscular Hemoglobin Concent 30.6 L Red Cell Distribution Width 18.1 H Platelet Count 289 Mean Platelet Volume 9.3 Neutrophils % 88.5 H Lymphocytes % 5.6 L Monocytes % 4.9 Eosinophils % 0.4 Basophils % 0.1 Nucleated Red Blood Cells % 0.0 Neutrophils # 16.1 H Lymphocytes # 1.0 Monocytes # 0.9 Eosinophils # 0.1 Basophils # 0.0 Nucleated Red Blood Cells # 0.0 Sodium Level 133 L Potassium Level 3.8 Chloride Level 105 Carbon Dioxide Level 28 Anion Gap 4 L Blood Urea Nitrogen 21 H Creatinine 0.94 Glucose Level 144 Calcium Level 9.8 Phosphorus Level 2.6 Magnesium Level 1.9 Bedside Glucose 121 Medications Medications Current Medications Ondansetron HCl (Zofran Inj) 4 mg Q6H PRN IV NAUSEA AND/OR VOMITING; Start at 06:30 Acetaminophen (Tylenol Tab) 650 mg Q6H PRN PO PAIN LEVEL 1-3 OR FEVER Last administered on 10/17/16 16:33; Admin Dose 650 MG; Start 10/09/16 at 06:30 Acetaminophen/ Hydrocodone Bitart ([place] (5/325)) 1 tab Q6H PRN PO MODERATE PAIN LEVEL 4-6 Last administered on 10/17/16 14:07; Admin Dose 1 TAB; Start at 06:30 Acetaminophen/ Hydrocodone Bitart ([place] (5/325)) 2 tab Q6H PRN PO SEVERE PAIN LEVEL 7-10 Last administered on 10/17/16 22:50; Admin Dose 2 TAB; Start at 06:30 Docusate Sodium (Colace) 100 mg Q12H PRN PO CONSTIPATION Last administered on 05:06; Admin Dose 100 MG; Start 10/09/16 at 06:30 Magnesium Hydroxide (Milk Of Mag) 30 ml DAILY PRN PO CONSTIPATION Last administered on 10/17/16 15:49; Admin Dose 30 ML; Start 10/09/16 at 06:30 Lisinopril (Zestril) 40 mg DAILY PO Last administered on 10/20/16 08:54; Admin Dose 40 MG; Start 10/09/16 at 09:00 Atorvastatin Calcium (Lipitor) 40 mg HS PO Last administered on 10/19/16 21:38 ; Admin Dose 40 MG; Start 10/09/16 at 21:00 Metoprolol Succinate (Toprol Xl) 25 mg DAILY PO Last administered on 10/20/16 08:54; Admin Dose 25 MG; Start 10/09/16 at 09:00 Pantoprazole (Protonix Tab) 40 mg DAILY@06 PO Last administered on 10/20/16 05 :24; Admin Dose 40 MG; Start 10/09/16 at 07:30 Miscellaneous Information 1 ea NOTE XX ; Start 10/09/16 at 07:30 Glucose (Glutose) 15 gm Q15M PRN PO DECREASED GLUCOSE; Start 10/09/16 at 07:30 Glucose (Glutose) 22.5 gm Q15M PRN PO DECREASED GLUCOSE; Start 10/09/16 at 07: 30 Dextrose (D50w Syringe) 25 ml Q15M PRN IV DECREASED GLUCOSE; Start 10/09/16 at 07:30 Dextrose (D50w Syringe) 50 ml Q15M PRN IV DECREASED GLUCOSE; Start 10/09/16 at 07:30 Glucagon (Glucagen) 1 mg Q15M PRN IM DECREASED GLUCOSE; Start 10/09/16 at 07:30 Glucose (Glutose) 15 gm Q15M PRN BUCCAL DECREASED GLUCOSE; Start 10/09/16 at 07 :30 Insulin Glargine (Lantus) 15 unit QHS SC Last administered on 10/19/16 21:41; Admin Dose 15 UNIT; Start 10/12/16 at 21:00 Non-Formulary Medication 1 ea DAILY BOTH EYES Last administered on 10/20/16 08 :53; Admin Dose 1 EA; Start 10/14/16 at 09:00 Polyethylene Glycol 17 gm 17 gm DAILY PRN PO CONSTIPATION; Start 10/15/16 at 20 :32 Fluconazole 100 ml @ 100 mls/hr Q24H IVPB Last administered on 10/19/16 16:53 ; Admin Dose 100 MLS/HR; Start 10/16/16 at 16:00 Meropenem 100 ml @ 200 mls/hr Q8 IVPB Last administered on 10/20/16 05:24; Admin Dose 200 MLS/HR; Start 10/17/16 at 14:00; Stop 10/27/16 at 13:59 Gemcitabine HCl 1.9 gm/Sodium Chloride 250 ml @ 500 mls/hr ONCE IV ; Start at 14:00; Status Future Hold Sodium Chloride (NS) 1,000 ml @ 60 mls/hr [id number] IV Last administered on 10/19t 11:13; Admin Dose 60 MLS/HR; Start 10/19/16 at 10:30 KIP SEXTON MD Oct 20, 2016 10:43
--- NOTE | 2016-10-20 11:06 | RADRPT ---
PROCEDURE: Ultrasound and fluoroscopic guided left nephrostomy. CLINICAL INDICATION: Left hydronephrosis. 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 TECHNIQUE: Informed consent was obtained. The procedure, risks, benefits, complications and alternatives were explained to the patient. Risks including bleeding and infection were explained. The patient underst ood and was willing to proceed. A procedural pause was performed. The patient's name, date of , and procedure to be performed w ere verified. Using local anesthetic, sterile technique and ultrasound guidance, a 22-gauge Chiba needle was advan clovis into a posterior jane in the lower left kidney. A 0.018 in guidewire was inserted. The tract was dilated to 6-Cuban. Urine was aspirated and contrast was injected confirming position. A 0.035 -inch Amplatz guidewire was advanced through the catheter into the renal pelvis with fluoroscopic gu idance. The catheter was removed. The tract was dilated to 8-Cuban. An 8.5 [place] multipurpose d rainage catheter was advanced over the guidewire into the renal pelvis with fluoroscopic guidance. The guidewire was removed. Additional contrast was injected confirming position. The catheter was then sutured to the patient's skin with 2-0 monofilament. The catheter was connected to a drainage bag. A dressing was applied. The patient tolerated procedure well. COMPARISON: None. FINDINGS: The ultrasound images demonstrate the needle entering a left mid pole posterior jane. The nephrost ogram demonstrates the nephrostomy tube in satisfactory position within the left renal pelvis. IMPRESSION: 1. Successful ultrasound and fluoroscopic guided left nephrostomy. 2. The nephrostogram demonstrates the tube in satisfactory position within the left renal pelvis. RPTAT: QQ .Wagner Billings MD, MD Date Time Electronically viewed and signed by .Wagner Billings MD, MD on 10/20/2016 11:06 .R/
--- NOTE | 2016-10-20 11:14 | CONS ---
Date/Time of Note Date/Time of Note DATE: 10/20/16 TIME: 11:11 Assessment/Plan Assessment/Plan Chief Complaint/Hosp Course assessment/impression - fever and leukocytosis due to b/l pyelonephritis, large tumor burden and hydronephrosis - complicated UTI and b/l pyelonephritis due to ESBL+E. coli, enterococci and yeast - recent UTI due to ESBL+bacteria, took meropenem for this - bladder CA, invasion into the pelvic sidewall, probably lungs too - R-sided hydronephrosis s/p R nephrostomy tube placement - L-sided hydroureteronephrosis, s/p nephrostomy tube placement - atonic/neurogenic bladder - bladder stone s/p removal, CT on 10/16/2016 showed residual fragments - erythema of L elbow, no e/o infection - CAD, recent chest pain. Stress test was negative for ischemia - s/p CABG - s/p PCI with stent placement ~2000 - h/o colonoscopy and endoscopy - quit smoking in - chronic cough, unchanged according to Pt. Scant phlegm per Pt. recommendations - pending resuls: repeat blood cultures from 10/18/2016, urine culture from L nephrostomy tube from 10/19/2016 - continue meropenem for ESBL+E. coli and enterococci (ampicillin-sensitive strain, 10/18/2016-). Plan for 10 days through 10/27/2016 - continue fluconazole. Plan for 10 days too - will adjust antibiotics based on new culture results - apply a protection to L elbow - contact isolation for ESBL+E. coli management d/w Pt, his RN Problems: Consultation Date/Type/Reason Admit Date/Time Oct 09, 2016 at 05:45 Initial Consult Date 10/16/16 Type of Consultation: ID Referring Provider: JEFF OSPINA MD 24 HR Interval Summary Constitutional: no complaints Detailed Summary Eyes: no complaints ENT: no complaints Respiratory: cough Cardiovascular: no complaints Gastrointestinal: no complaints Genitourinary: other (+Castañeda and b/l nephrosomy tubes) Musculoskeletal: no complaints Skin: bruising (L elbow), erythema (L elbow) Neurologic: no complaints Exam/Review of Systems Vital Signs Vitals Vital Signs Date Time Temp Pulse Resp B/P Pulse Ox O2 Delivery O2 Flow Rate FiO2 10/20/16 08:28 97.6 103 20 126/76 95 10/20/16 05:25 Room Air 10/19/16 15:52 3 Intake and Output 10/19/16 10/19/16 10/20/16 14:59 22:59 06:59 Intake Total 650 ml 750 ml Output Total 250 ml 1405 ml Balance -250 ml 650 ml -655 ml Exam Constitutional: alert, frail Psych: nl mood/affect, no complaints Head: atraumatic, normocephalic Eyes: nl conjunctiva, nl lids ENMT: nl external ears & nose, nl nasal mucosa & septum Respiratory: clear to auscultation, normal air movement Cardiovascular: nl pulses, regular rate and rhythm Gastrointestinal: non-tender, soft Genitourinary - Male: other (Castañeda and b/l nephrosomy tubes) Extremities: normal pulses Neurological: CAVALRY SCOUT II-XII intact, nl mental status Skin: laceration (eryhema of L elbow, TTP) Results Result Diagram: 10/20/16 0555 10/20/16 0555 Results 24 hrs Laboratory Tests Test 10/19/16 16:55 10/19/16 20:28 10/19/16 23:30 10/20/16 05:55 Bedside Glucose 156 211 Urine Color LT. YELLOW Urine Clarity SLIGHTLY CLOUDY Urine pH 6.0 Urine Specific [place] 1.025 Urine Ketones NEGATIVE Urine Nitrite NEGATIVE Urine Bilirubin NEGATIVE Urine Urobilinogen 0.2 E.U./dL Urine Leukocyte Esterase NEGATIVE Urine Microscopic RBC >200 Urine Microscopic WBC 10-25 Urine Bacteria OCCASIONAL Urine Hemoglobin 3+ H Urine Glucose 0.1% H Urine Total Protein 2+ H White Blood Count 18.2 #H Red Blood Count 3.91 #L Hemoglobin 9.7 #L Hematocrit 31.7 #L Mean Corpuscular Volume 81.1 L Mean Corpuscular Hemoglobin 24.8 L Mean Corpuscular Hemoglobin Concent 30.6 L Red Cell Distribution Width 18.1 H Platelet Count 289 Mean Platelet Volume 9.3 Neutrophils % 88.5 H Lymphocytes % 5.6 L Monocytes % 4.9 Eosinophils % 0.4 Basophils % 0.1 Nucleated Red Blood Cells % 0.0 Neutrophils # 16.1 H Lymphocytes # 1.0 Monocytes # 0.9 Eosinophils # 0.1 Basophils # 0.0 Nucleated Red Blood Cells # 0.0 Sodium Level 133 L Potassium Level 3.8 Chloride Level 105 Carbon Dioxide Level 28 Anion Gap 4 L Blood Urea Nitrogen 21 H Creatinine 0.94 Glucose Level 144 Calcium Level 9.8 Phosphorus Level 2.6 Magnesium Level 1.9 Test 10/20/16 08:12 Bedside Glucose 121 Medications Medications Current Medications Ondansetron HCl (Zofran Inj) 4 mg Q6H PRN IV NAUSEA AND/OR VOMITING; Start at 06:30 Acetaminophen (Tylenol Tab) 650 mg Q6H PRN PO PAIN LEVEL 1-3 OR FEVER Last administered on 10/17/16 16:33; Admin Dose 650 MG; Start 10/09/16 at 06:30 Acetaminophen/ Hydrocodone Bitart ([place] (5/325)) 1 tab Q6H PRN PO MODERATE PAIN LEVEL 4-6 Last administered on 10/17/16 14:07; Admin Dose 1 TAB; Start at 06:30 Acetaminophen/ Hydrocodone Bitart ([place] (5/325)) 2 tab Q6H PRN PO SEVERE PAIN LEVEL 7-10 Last administered on 10/17/16 22:50; Admin Dose 2 TAB; Start at 06:30 Docusate Sodium (Colace) 100 mg Q12H PRN PO CONSTIPATION Last administered on 05:06; Admin Dose 100 MG; Start 10/09/16 at 06:30 Magnesium Hydroxide (Milk Of Mag) 30 ml DAILY PRN PO CONSTIPATION Last administered on 10/17/16 15:49; Admin Dose 30 ML; Start 10/09/16 at 06:30 Lisinopril (Zestril) 40 mg DAILY PO Last administered on 10/20/16 08:54; Admin Dose 40 MG; Start 10/09/16 at 09:00 Atorvastatin Calcium (Lipitor) 40 mg HS PO Last administered on 10/19/16 21:38 ; Admin Dose 40 MG; Start 10/09/16 at 21:00 Metoprolol Succinate (Toprol Xl) 25 mg DAILY PO Last administered on 10/20/16 08:54; Admin Dose 25 MG; Start 10/09/16 at 09:00 Pantoprazole (Protonix Tab) 40 mg DAILY@06 PO Last administered on 10/20/16 05 :24; Admin Dose 40 MG; Start 10/09/16 at 07:30 Miscellaneous Information 1 ea NOTE XX ; Start 10/09/16 at 07:30 Glucose (Glutose) 15 gm Q15M PRN PO DECREASED GLUCOSE; Start 10/09/16 at 07:30 Glucose (Glutose) 22.5 gm Q15M PRN PO DECREASED GLUCOSE; Start 10/09/16 at 07: 30 Dextrose (D50w Syringe) 25 ml Q15M PRN IV DECREASED GLUCOSE; Start 10/09/16 at 07:30 Dextrose (D50w Syringe) 50 ml Q15M PRN IV DECREASED GLUCOSE; Start 10/09/16 at 07:30 Glucagon (Glucagen) 1 mg Q15M PRN IM DECREASED GLUCOSE; Start 10/09/16 at 07:30 Glucose (Glutose) 15 gm Q15M PRN BUCCAL DECREASED GLUCOSE; Start 10/09/16 at 07 :30 Insulin Glargine (Lantus) 15 unit QHS SC Last administered on 10/19/16 21:41; Admin Dose 15 UNIT; Start 10/12/16 at 21:00 Non-Formulary Medication 1 ea DAILY BOTH EYES Last administered on 10/20/16 08 :53; Admin Dose 1 EA; Start 10/14/16 at 09:00 Polyethylene Glycol 17 gm 17 gm DAILY PRN PO CONSTIPATION; Start 10/15/16 at 20 :32 Fluconazole 100 ml @ 100 mls/hr Q24H IVPB Last administered on 10/19/16 16:53 ; Admin Dose 100 MLS/HR; Start 10/16/16 at 16:00 Meropenem 100 ml @ 200 mls/hr Q8 IVPB Last administered on 10/20/16 05:24; Admin Dose 200 MLS/HR; Start 10/17/16 at 14:00; Stop 10/27/16 at 13:59 Gemcitabine HCl 1.9 gm/Sodium Chloride 250 ml @ 500 mls/hr ONCE IV ; Start at 14:00; Status Future Hold Sodium Chloride (NS) 1,000 ml @ 40 mls/hr Q24H IV Last administered on 11:13; Admin Dose 60 MLS/HR; Start 10/19/16 at 10:30 Enoxaparin Sodium (Lovenox) 40 mg DAILY SC ; Start 10/20/16 at 11:00 VIRGILIO JACOBSON M.D. Oct 20, 2016 11:14
[2016-10-20] MEDS: ENOXAPARIN 40 MG/0.4 ML SYG SC SCH (11:31)
--- NOTE | 2016-10-20 12:28 | RADRPT ---
PROCEDURE: US DVT. CLINICAL INDICATION: Lower extremity edema.. TECHNIQUE: Multiple longitudinal and transverse images of the bilateral lower extremity veins were obtained with quach scale and color Doppler imaging. 2D grayscale measurements with compression, co lakisha Doppler flow, and augmentation was performed. The calf veins were interrogated as well. COMPARISON: No prior studies are available for comparison. FINDINGS: The bilateral common femoral, superficial femoral and popliteal veins are normally compressible thro ughout. Color flow demonstrates normal filling of the vessel. Normal waveforms are visualized and there is normal response to augmentation. IMPRESSION: 1. No evidence of a deep vein thrombosis involving either lower extremity. RPTAT: [facility] Physician Oliva Date Time Electronically viewed and signed by Physician Oliva on 10/20/2016 12:27 /
[2016-10-20] MEDS: FLUCONAZOLE 200 MG/NS (PMX) 100 ML IVPB SCH (15:58)
[2016-10-20 19:56] VITALS: BP 145/65; RESP 20
[2016-10-20] MEDS: ATORVASTATIN 40 MG TAB PO SCH (21:36)
[2016-10-20] MEDS: INSULIN GLARGINE [LANtus] 3 ML PEN SC SCH (21:38)
[2016-10-21] MEDS: SOD CHLORIDE 0.9% 1,000 ML IV SCH ×3 (00:30→21:07)
[2016-10-21] MEDS: MEROPENEM 1 GM/100 ML (PMX) 100 ML IVPB SCH ×3 (06:00→21:04)
[2016-10-21 06:03] LABS: ADD SCAN DIFF NO
[2016-10-21] MEDS: PANTOPRAZOLE (EC) 40 MG TAB PO SCH (06:03)
[2016-10-21 06:23] LABS: BASOPHILS % 0.1 % (0.0-2.0); EOSINOPHILS # 0.1 10^3/ul (0.0-0.5); EOSINOPHILS % 0.6 % (0.0-7.0); HEMATOCRIT 31.6 % (42.0-52.0); HEMOGLOBIN 9.9 g/dl (14.0-18.0); LYMPHOCYTES # 1.5 10^3/ul (0.8-2.9); LYMPHOCYTES % 9.1 % (15.0-51.0); MEAN CORPUSCULAR HEMOGLOBIN 25.1 pg (29.0-33.0); MEAN CORPUSCULAR HGB CONC 31.3 g/dl (32.0-37.0); MEAN PLATELET VOLUME 9.1 fl (7.4-10.4); MONOCYTE # 0.9 10^3/ul (0.3-0.9); MONOCYTES % 5.4 % (0.0-11.0); NEUTROPHIL # 13.4 10^3/ul (1.6-7.5); NEUTROPHILS % 84.1 % (39.0-77.0); PLATELET COUNT 298 10^3/UL (140-415); RED BLOOD COUNT 3.95 10^6/ul (4.70-6.10); RED CELL DISTRIBUTION WIDTH 17.5 % (11.5-14.5); WHITE BLOOD COUNT 15.9 10^3/ul (4.8-10.8)
[2016-10-21 06:53] LABS: CALCIUM 9.8 mg/dl (8.4-10.2); CREATININE 0.87 mg/dl (0.61-1.24); MAGNESIUM 1.8 mg/dl (1.7-2.5); PHOSPHORUS 2.1 mg/dl (2.5-4.9); POTASSIUM 3.5 mmol/L (3.5-5.1)
[2016-10-21] MEDS: INSULIN ASPART [NOVOLOG] 3 ML PEN SC SCH ×4 (07:50→21:02)
[2016-10-21 07:58] VITALS: BP 113/56; RESP 20
[2016-10-21] MEDS: TIMOPTIC 0.5% EYE DROPS BOTH EYES SCH (09:00)
[2016-10-21] MEDS: LISINOPRIL 20 MG TAB PO SCH (09:01)
[2016-10-21] MEDS: ENOXAPARIN 40 MG/0.4 ML SYG SC SCH (09:07)
--- NOTE | 2016-10-21 09:11 | CONS ---
Date/Time of Note Date/Time of Note DATE: 10/21/16 TIME: 09:07 Consult Date/Type/Reason Admit Date/Time Oct 09, 2016 at 05:45 Initial Consult Date 10/19/16 Type of Consultation: ID Ordering Provider: JEFF OSPINA MD Subjective Pt has no new events overnight. Feels a bit weak. Has chronic right leg pain but no swelling. Objective Vital Signs Date Time Temp Pulse Resp B/P Pulse Ox O2 Delivery O2 Flow Rate FiO2 10/21/16 07:58 97.5 87 20 113/56 96 10/20/16 05:25 Room Air 10/19/16 15:52 3 Intake and Output 10/20/16 10/20/16 10/21/16 15:00 23:00 07:00 Intake Total 100 ml 1160 ml 1410 ml Output Total 2650 ml 2710 ml Balance 100 ml -1490 ml -1300 ml Exam NAD/A&Ox 3 OP clear NCAT, PERRLA RRR CTA anteriorly Soft, nt, a bit distended, no rebound or guarding No LE edema Moves all 4 extremities Results/Medications Result Diagram: 10/21/16 0438 10/21/16 0438 Results 24 hrs Laboratory Tests Test 10/20/16 11:47 10/20/16 12:25 10/20/16 17:15 10/20/16 17:55 Bedside Glucose 168 176 169 176 Test 10/20/16 21:33 10/21/16 04:38 10/21/16 08:10 Bedside Glucose 195 86 White Blood Count 15.9 H Red Blood Count 3.95 L Hemoglobin 9.9 L Hematocrit 31.6 L Mean Corpuscular Volume 80.0 L Mean Corpuscular Hemoglobin 25.1 L Mean Corpuscular Hemoglobin Concent 31.3 L Red Cell Distribution Width 17.5 H Platelet Count 298 Mean Platelet Volume 9.1 Neutrophils % 84.1 H Lymphocytes % 9.1 L Monocytes % 5.4 Eosinophils % 0.6 Basophils % 0.1 Nucleated Red Blood Cells % 0.0 Neutrophils # 13.4 H Lymphocytes # 1.5 Monocytes # 0.9 Eosinophils # 0.1 Basophils # 0.0 Nucleated Red Blood Cells # 0.0 Sodium Level 134 L Potassium Level 3.5 Chloride Level 104 Carbon Dioxide Level 28 Anion Gap 6 L Blood Urea Nitrogen 18 Creatinine 0.87 Glucose Level 77 # Calcium Level 9.8 Phosphorus Level 2.1 L Magnesium Level 1.8 Medications Current Medications Ondansetron HCl (Zofran Inj) 4 mg Q6H PRN IV NAUSEA AND/OR VOMITING; Start at 06:30 Acetaminophen (Tylenol Tab) 650 mg Q6H PRN PO PAIN LEVEL 1-3 OR FEVER Last administered on 10/17/16 16:33; Admin Dose 650 MG; Start 10/09/16 at 06:30 Acetaminophen/ Hydrocodone Bitart ([place] (5/325)) 1 tab Q6H PRN PO MODERATE PAIN LEVEL 4-6 Last administered on 10/17/16 14:07; Admin Dose 1 TAB; Start at 06:30 Acetaminophen/ Hydrocodone Bitart ([place] (5/325)) 2 tab Q6H PRN PO SEVERE PAIN LEVEL 7-10 Last administered on 10/17/16 22:50; Admin Dose 2 TAB; Start at 06:30 Docusate Sodium (Colace) 100 mg Q12H PRN PO CONSTIPATION Last administered on 05:06; Admin Dose 100 MG; Start 10/09/16 at 06:30 Magnesium Hydroxide (Milk Of Mag) 30 ml DAILY PRN PO CONSTIPATION Last administered on 10/17/16 15:49; Admin Dose 30 ML; Start 10/09/16 at 06:30 Lisinopril (Zestril) 40 mg DAILY PO Last administered on 10/20/16 08:54; Admin Dose 40 MG; Start 10/09/16 at 09:00 Atorvastatin Calcium (Lipitor) 40 mg HS PO Last administered on 10/20/16 21:36 ; Admin Dose 40 MG; Start 10/09/16 at 21:00 Metoprolol Succinate (Toprol Xl) 25 mg DAILY PO Last administered on 10/20/16 08:54; Admin Dose 25 MG; Start 10/09/16 at 09:00 Pantoprazole (Protonix Tab) 40 mg DAILY@06 PO Last administered on 10/21/16 06 :03; Admin Dose 40 MG; Start 10/09/16 at 07:30 Miscellaneous Information 1 ea NOTE XX ; Start 10/09/16 at 07:30 Glucose (Glutose) 15 gm Q15M PRN PO DECREASED GLUCOSE; Start 10/09/16 at 07:30 Glucose (Glutose) 22.5 gm Q15M PRN PO DECREASED GLUCOSE; Start 10/09/16 at 07: 30 Dextrose (D50w Syringe) 25 ml Q15M PRN IV DECREASED GLUCOSE; Start 10/09/16 at 07:30 Dextrose (D50w Syringe) 50 ml Q15M PRN IV DECREASED GLUCOSE; Start 10/09/16 at 07:30 Glucagon (Glucagen) 1 mg Q15M PRN IM DECREASED GLUCOSE; Start 10/09/16 at 07:30 Glucose (Glutose) 15 gm Q15M PRN BUCCAL DECREASED GLUCOSE; Start 10/09/16 at 07 :30 Insulin Glargine (Lantus) 15 unit QHS SC Last administered on 10/20/16 21:38; Admin Dose 15 UNIT; Start 10/12/16 at 21:00 Non-Formulary Medication 1 ea DAILY BOTH EYES Last administered on 10/20/16 08 :53; Admin Dose 1 EA; Start 10/14/16 at 09:00 Polyethylene Glycol 17 gm 17 gm DAILY PRN PO CONSTIPATION; Start 10/15/16 at 20 :32 Fluconazole 100 ml @ 100 mls/hr Q24H IVPB Last administered on 10/20/16 15:58 ; Admin Dose 100 MLS/HR; Start 10/16/16 at 16:00 Meropenem 100 ml @ 200 mls/hr Q8 IVPB Last administered on 10/21/16 06:00; Admin Dose 200 MLS/HR; Start 10/17/16 at 14:00; Stop 10/27/16 at 13:59 Gemcitabine HCl 1.9 gm/Sodium Chloride 250 ml @ 500 mls/hr ONCE IV ; Start at 14:00; Status Future Hold Sodium Chloride (NS) 1,000 ml @ 40 mls/hr Q24H IV Last administered on 05:59; Admin Dose 40 MLS/HR; Start 10/19/16 at 10:30 Enoxaparin Sodium (Lovenox) 40 mg DAILY SC Last administered on 10/20/16 11:31 ; Admin Dose 40 MG; Start 10/20/16 at 11:00 Assessment/Plan Problems: (1) Chest pain (2) Pneumonia Additional Assessment/Plan Pt with met urothelial carcinoma admitted with urosepsis. On abx for ESBL. Tx for neoplasm on hold. Would strongly recommend front line atezoluzimab as an alternate therapy to pilot point doublet. This agent was recently approved as front-line therapy for those not considered candidates for pilot point doublet. Cont dvt ppx. PT. ANMOL PAYTON Oct 21, 2016 09:11
[2016-10-21] MEDS: METOPROLOL (XL) 25 MG TAB PO SCH (09:28)
--- NOTE | 2016-10-21 11:53 | CONS ---
ROSEMARIEJAIMIE 10/21/16 1153: Date/Time of Note Date/Time of Note DATE: 10/21/16 TIME: 11:51 Assessment/Plan Assessment/Plan Additional Assessment/Plan - fever and leukocytosis due to b/l pyelonephritis, large tumor burden and hydronephrosis--improving - complicated UTI and b/l pyelonephritis due to ESBL+E. coli, enterococci and yeast - recent UTI due to ESBL+bacteria, took meropenem for this - bladder CA, invasion into the pelvic sidewall, probably lungs too - R-sided hydronephrosis s/p R nephrostomy tube placement - L-sided hydroureteronephrosis, s/p nephrostomy tube placement - atonic/neurogenic bladder - bladder stone s/p removal, CT on 10/16/2016 showed residual fragments - erythema of L elbow, no e/o infection - CAD, recent chest pain. Stress test was negative for ischemia - s/p CABG - s/p PCI with stent placement ~2000 - h/o colonoscopy and endoscopy - quit smoking in - chronic cough, unchanged according to Pt. Scant phlegm per Pt. recommendations - pending results: repeat blood cultures from 10/18/2016, urine culture from L nephrostomy tube from 10/19/2016(negative) - continue meropenem for ESBL+E. coli and enterococci (ampicillin-sensitive strain, 10/18/2016-). Plan for 10 days through 10/27/2016 - continue fluconazole. Plan for 10 days too - will adjust antibiotics based on new culture results - apply a protection to L elbow - contact isolation for ESBL+E. coli d/w Dr Kaiser Consultation Date/Type/Reason Admit Date/Time Oct 09, 2016 at 05:45 Initial Consult Date 10/19/16 Type of Consultation: ID Referring Provider: JEFF OSPINA MD 24 HR Interval Summary Free Text/Dictation Alert, NAD, denies flank/back/supra pubic pain, chills, fever, sweats, n/v/d. Nephrostomy o/p clear--UA: LE/Nitrite negatve, 10-25 WBC; Cx from 10/19 negative , from 10/18 grew less than 10K Ruth. BCx NTD Constitutional: no complaints Exam/Review of Systems Vital Signs Vitals Vital Signs Date Time Temp Pulse Resp B/P Pulse Ox O2 Delivery O2 Flow Rate FiO2 10/21/16 07:58 97.5 87 20 113/56 96 10/20/16 05:25 Room Air 10/19/16 15:52 3 Intake and Output 10/20/16 10/20/16 10/21/16 14:59 22:59 06:59 Intake Total 100 ml 1160 ml 1410 ml Output Total 2650 ml 2710 ml Balance 100 ml -1490 ml -1300 ml Exam Constitutional: alert, frail, oriented Psych: no complaints Head: atraumatic, normocephalic Eyes: EOMI, nl conjunctiva ENMT: nl external ears & nose Neck: non-tender, supple Respiratory: clear to auscultation, normal air movement Cardiovascular: regular rate and rhythm Gastrointestinal: bowel sounds, non-tender, soft Genitourinary - Male: other (Nephrostomy o/p clear; Castañeda o/p cloudy w/ much sediment) Results Result Diagram: 10/21/16 0438 10/21/16 0438 Results 24 hrs Laboratory Tests Test 10/20/16 12:25 10/20/16 17:15 10/20/16 17:55 10/20/16 21:33 Bedside Glucose 176 169 176 195 Test 10/21/16 04:38 10/21/16 08:10 White Blood Count 15.9 H Red Blood Count 3.95 L Hemoglobin 9.9 L Hematocrit 31.6 L Mean Corpuscular Volume 80.0 L Mean Corpuscular Hemoglobin 25.1 L Mean Corpuscular Hemoglobin Concent 31.3 L Red Cell Distribution Width 17.5 H Platelet Count 298 Mean Platelet Volume 9.1 Neutrophils % 84.1 H Lymphocytes % 9.1 L Monocytes % 5.4 Eosinophils % 0.6 Basophils % 0.1 Nucleated Red Blood Cells % 0.0 Neutrophils # 13.4 H Lymphocytes # 1.5 Monocytes # 0.9 Eosinophils # 0.1 Basophils # 0.0 Nucleated Red Blood Cells # 0.0 Sodium Level 134 L Potassium Level 3.5 Chloride Level 104 Carbon Dioxide Level 28 Anion Gap 6 L Blood Urea Nitrogen 18 Creatinine 0.87 Glucose Level 77 # Calcium Level 9.8 Phosphorus Level 2.1 L Magnesium Level 1.8 Bedside Glucose 86 Medications Medications Current Medications Ondansetron HCl (Zofran Inj) 4 mg Q6H PRN IV NAUSEA AND/OR VOMITING; Start at 06:30 Acetaminophen (Tylenol Tab) 650 mg Q6H PRN PO PAIN LEVEL 1-3 OR FEVER Last administered on 10/17/16 16:33; Admin Dose 650 MG; Start 10/09/16 at 06:30 Acetaminophen/ Hydrocodone Bitart ([place] (5/325)) 1 tab Q6H PRN PO MODERATE PAIN LEVEL 4-6 Last administered on 10/17/16 14:07; Admin Dose 1 TAB; Start at 06:30 Acetaminophen/ Hydrocodone Bitart ([place] (5/325)) 2 tab Q6H PRN PO SEVERE PAIN LEVEL 7-10 Last administered on 10/17/16 22:50; Admin Dose 2 TAB; Start at 06:30 Docusate Sodium (Colace) 100 mg Q12H PRN PO CONSTIPATION Last administered on 05:06; Admin Dose 100 MG; Start 10/09/16 at 06:30 Magnesium Hydroxide (Milk Of Mag) 30 ml DAILY PRN PO CONSTIPATION Last administered on 10/17/16 15:49; Admin Dose 30 ML; Start 10/09/16 at 06:30 Lisinopril (Zestril) 40 mg DAILY PO Last administered on 10/21/16 09:01; Admin Dose 40 MG; Start 10/09/16 at 09:00 Atorvastatin Calcium (Lipitor) 40 mg HS PO Last administered on 10/20/16 21:36 ; Admin Dose 40 MG; Start 10/09/16 at 21:00 Metoprolol Succinate (Toprol Xl) 25 mg DAILY PO Last administered on 10/21/16 09:28; Admin Dose 25 MG; Start 10/09/16 at 09:00 Pantoprazole (Protonix Tab) 40 mg DAILY@06 PO Last administered on 10/21/16 06 :03; Admin Dose 40 MG; Start 10/09/16 at 07:30 Miscellaneous Information 1 ea NOTE XX ; Start 10/09/16 at 07:30 Glucose (Glutose) 15 gm Q15M PRN PO DECREASED GLUCOSE; Start 10/09/16 at 07:30 Glucose (Glutose) 22.5 gm Q15M PRN PO DECREASED GLUCOSE; Start 10/09/16 at 07: 30 Dextrose (D50w Syringe) 25 ml Q15M PRN IV DECREASED GLUCOSE; Start 10/09/16 at 07:30 Dextrose (D50w Syringe) 50 ml Q15M PRN IV DECREASED GLUCOSE; Start 10/09/16 at 07:30 Glucagon (Glucagen) 1 mg Q15M PRN IM DECREASED GLUCOSE; Start 10/09/16 at 07:30 Glucose (Glutose) 15 gm Q15M PRN BUCCAL DECREASED GLUCOSE; Start 10/09/16 at 07 :30 Insulin Glargine (Lantus) 15 unit QHS SC Last administered on 10/20/16 21:38; Admin Dose 15 UNIT; Start 10/12/16 at 21:00 Non-Formulary Medication 1 ea DAILY BOTH EYES Last administered on 10/21/16 09 :00; Admin Dose 1 EA; Start 10/14/16 at 09:00 Polyethylene Glycol 17 gm 17 gm DAILY PRN PO CONSTIPATION; Start 10/15/16 at 20 :32 Fluconazole 100 ml @ 100 mls/hr Q24H IVPB Last administered on 10/20/16 15:58 ; Admin Dose 100 MLS/HR; Start 10/16/16 at 16:00 Meropenem 100 ml @ 200 mls/hr Q8 IVPB Last administered on 10/21/16 06:00; Admin Dose 200 MLS/HR; Start 10/17/16 at 14:00; Stop 10/27/16 at 13:59 Gemcitabine HCl 1.9 gm/Sodium Chloride 250 ml @ 500 mls/hr ONCE IV ; Start at 14:00; Status Future Hold Sodium Chloride (NS) 1,000 ml @ 40 mls/hr Q24H IV Last administered on 05:59; Admin Dose 40 MLS/HR; Start 10/19/16 at 10:30 Enoxaparin Sodium (Lovenox) 40 mg DAILY SC Last administered on 10/21/16 09:07 ; Admin Dose 40 MG; Start 10/20/16 at 11:00 VIRGILIO KAISER M.D. 10/23/16 1029: Assessment/Plan Assessment/Plan Additional Assessment/Plan Job attestation: I discussed the management with KAROLYN Weldon and agree with the above. Exam/Review of Systems Results Result Diagram: 4/29/17 0438 10/21/16 0438 JAIMIE WELDON Oct 21, 2016 11:53 VIRGILIO KAISER M.D. October 23, 2016 10:29
[2016-10-21] MEDS: FLUCONAZOLE 200 MG/NS (PMX) 100 ML IVPB SCH (16:34)
[2016-10-21 19:52] VITALS: BP 140/80; RESP 18
[2016-10-21] MEDS: ATORVASTATIN 40 MG TAB PO SCH (20:52)
[2016-10-21] MEDS: INSULIN GLARGINE [LANtus] 3 ML PEN SC SCH (21:02)
[2016-10-22] MEDS: PANTOPRAZOLE (EC) 40 MG TAB PO SCH (06:04)
[2016-10-22] MEDS: MEROPENEM 1 GM/100 ML (PMX) 100 ML IVPB SCH ×3 (06:04→21:41)
[2016-10-22] MEDS: INSULIN ASPART [NOVOLOG] 3 ML PEN SC SCH ×4 (07:50→21:38)
--- NOTE | 2016-10-22 08:47 | CONS ---
Date/Time of Note Date/Time of Note DATE: 10/22/16 TIME: 08:45 Consult Date/Type/Reason Admit Date/Time Oct 09, 2016 at 05:45 Initial Consult Date 10/19/16 Type of Consultation: ID Ordering Provider: JEFF OSPINA MD Subjective No significant overnight events. No fevers overnight. Has slight headache. Requesting Tylenol. Objective Vital Signs Date Time Temp Pulse Resp B/P Pulse Ox O2 Delivery O2 Flow Rate FiO2 10/21/16 19:52 98.8 84 18 140/80 96 10/20/16 05:25 Room Air 10/19/16 15:52 3 Intake and Output 10/21/16 10/21/16 10/22/16 15:00 23:00 07:00 Intake Total 100 ml 1420 ml 950 ml Output Total 1850 ml 3100 ml Balance 100 ml -430 ml -2150 ml Exam NAD/A&Ox 4 OP clear-dry RRR no m/g/r CTA anteriorly Soft, NT, ND, +BS Right nephrostomy tube in place No c/c/e Results/Medications Result Diagram: 10/21/16 0438 10/21/16 0438 Results 24 hrs Laboratory Tests Test 10/21/16 12:43 10/21/16 17:55 10/21/16 20:51 10/22/16 01:53 Bedside Glucose 95 125 204 146 Medications Current Medications Ondansetron HCl (Zofran Inj) 4 mg Q6H PRN IV NAUSEA AND/OR VOMITING; Start at 06:30 Acetaminophen (Tylenol Tab) 650 mg Q6H PRN PO PAIN LEVEL 1-3 OR FEVER Last administered on 10/17/16 16:33; Admin Dose 650 MG; Start 10/09/16 at 06:30 Acetaminophen/ Hydrocodone Bitart ([place] (5/325)) 1 tab Q6H PRN PO MODERATE PAIN LEVEL 4-6 Last administered on 10/17/16 14:07; Admin Dose 1 TAB; Start at 06:30 Acetaminophen/ Hydrocodone Bitart ([place] (5/325)) 2 tab Q6H PRN PO SEVERE PAIN LEVEL 7-10 Last administered on 10/17/16 22:50; Admin Dose 2 TAB; Start at 06:30 Docusate Sodium (Colace) 100 mg Q12H PRN PO CONSTIPATION Last administered on 05:06; Admin Dose 100 MG; Start 10/09/16 at 06:30 Magnesium Hydroxide (Milk Of Mag) 30 ml DAILY PRN PO CONSTIPATION Last administered on 10/17/16 15:49; Admin Dose 30 ML; Start 10/09/16 at 06:30 Lisinopril (Zestril) 40 mg DAILY PO Last administered on 10/21/16 09:01; Admin Dose 40 MG; Start 10/09/16 at 09:00 Atorvastatin Calcium (Lipitor) 40 mg HS PO Last administered on 10/21/16 20:52 ; Admin Dose 40 MG; Start 10/09/16 at 21:00 Metoprolol Succinate (Toprol Xl) 25 mg DAILY PO Last administered on 10/21/16 09:28; Admin Dose 25 MG; Start 10/09/16 at 09:00 Pantoprazole (Protonix Tab) 40 mg DAILY@06 PO Last administered on 10/22/16 06 :04; Admin Dose 40 MG; Start 10/09/16 at 07:30 Miscellaneous Information 1 ea NOTE XX ; Start 10/09/16 at 07:30 Glucose (Glutose) 15 gm Q15M PRN PO DECREASED GLUCOSE; Start 10/09/16 at 07:30 Glucose (Glutose) 22.5 gm Q15M PRN PO DECREASED GLUCOSE; Start 10/09/16 at 07: 30 Dextrose (D50w Syringe) 25 ml Q15M PRN IV DECREASED GLUCOSE; Start 10/09/16 at 07:30 Dextrose (D50w Syringe) 50 ml Q15M PRN IV DECREASED GLUCOSE; Start 10/09/16 at 07:30 Glucagon (Glucagen) 1 mg Q15M PRN IM DECREASED GLUCOSE; Start 10/09/16 at 07:30 Glucose (Glutose) 15 gm Q15M PRN BUCCAL DECREASED GLUCOSE; Start 10/09/16 at 07 :30 Insulin Glargine (Lantus) 15 unit QHS SC Last administered on 10/21/16 21:02; Admin Dose 15 UNIT; Start 10/12/16 at 21:00 Non-Formulary Medication 1 ea DAILY BOTH EYES Last administered on 10/21/16 09 :00; Admin Dose 1 EA; Start 10/14/16 at 09:00 Polyethylene Glycol 17 gm 17 gm DAILY PRN PO CONSTIPATION; Start 10/15/16 at 20 :32 Fluconazole 100 ml @ 100 mls/hr Q24H IVPB Last administered on 10/21/16 16:34 ; Admin Dose 100 MLS/HR; Start 10/16/16 at 16:00 Meropenem 100 ml @ 200 mls/hr Q8 IVPB Last administered on 10/22/16 06:04; Admin Dose 200 MLS/HR; Start 10/17/16 at 14:00; Stop 10/27/16 at 13:59 Gemcitabine HCl 1.9 gm/Sodium Chloride 250 ml @ 500 mls/hr ONCE IV ; Start at 14:00; Status Future Hold Sodium Chloride (NS) 1,000 ml @ 40 mls/hr Q24H IV Last administered on 21:07; Admin Dose 40 MLS/HR; Start 10/19/16 at 10:30 Enoxaparin Sodium (Lovenox) 40 mg DAILY SC Last administered on 10/21/16 09:07 ; Admin Dose 40 MG; Start 10/20/16 at 11:00 Assessment/Plan Additional Assessment/Plan Pt with met urothelial cancer admitted with urosepsis. Cont antibiotic therapy for now. Defer initiation of any systemic therapy for cancer until infection clear. Cont PT ANMOL PAYTON Oct 22, 2016 08:47
[2016-10-22] MEDS: METOPROLOL (XL) 25 MG TAB PO SCH (08:50)
[2016-10-22] MEDS: LISINOPRIL 20 MG TAB PO SCH (08:50)
[2016-10-22] MEDS: TIMOPTIC 0.5% EYE DROPS BOTH EYES SCH (08:51)
[2016-10-22] MEDS: ENOXAPARIN 40 MG/0.4 ML SYG SC SCH (08:59)
[2016-10-22 09:06] VITALS: BP 141/85; RESP 18
--- NOTE | 2016-10-22 10:20 | PN ---
Date/Time of Note Date/Time of Note DATE: 10/21/16 TIME: 10:17 Assessment/Plan VTE Prophylaxis VTE Prophylaxis Intervention: LMWH Lines/Catheters IV Catheter Type (from Nrsg): Peripheral IV Urinary Cath still in place: Yes Reason Cath still needed: urinary retention Assessment/Plan Assessment/Plan Left nephrostomy 10/19 Hgb stable Chemo -met bladder ca-per dr bruner UTI- cont Abx per ID. repeat cultures negative cont fluconazole x 10 days Subjective 24 Hr Interval Summary Free Text/Dictation Feeling ok, standing up with PT. No acute complaints Constitutional: improved, no complaints Exam/Review of Systems Vital Signs Vitals Vital Signs Date Time Temp Pulse Resp B/P Pulse Ox O2 Delivery O2 Flow Rate FiO2 10/22/16 09:06 98.8 87 18 141/85 98 10/20/16 05:25 Room Air 10/19/16 15:52 3 Intake and Output 10/21/16 10/21/16 10/22/16 14:59 22:59 06:59 Intake Total 100 ml 1420 ml 950 ml Output Total 1850 ml 3100 ml Balance 100 ml -430 ml -2150 ml Exam Constitutional: alert, oriented Respiratory: clear to auscultation, normal air movement Cardiovascular: nl pulses, regular rate and rhythm Gastrointestinal: bowel sounds, non-tender Results Result Diagram: 10/21/16 0438 10/21/16 0438 Results 24 hrs Laboratory Tests Test 10/21/16 12:43 10/21/16 17:55 10/21/16 20:51 10/22/16 01:53 Bedside Glucose 95 125 204 146 Test 10/22/16 08:47 Bedside Glucose 70 Medications Medications Current Medications Ondansetron HCl (Zofran Inj) 4 mg Q6H PRN IV NAUSEA AND/OR VOMITING; Start at 06:30 Acetaminophen (Tylenol Tab) 650 mg Q6H PRN PO PAIN LEVEL 1-3 OR FEVER Last administered on 10/17/16 16:33; Admin Dose 650 MG; Start 10/09/16 at 06:30 Acetaminophen/ Hydrocodone Bitart ([place] (5/325)) 1 tab Q6H PRN PO MODERATE PAIN LEVEL 4-6 Last administered on 10/17/16 14:07; Admin Dose 1 TAB; Start at 06:30 Acetaminophen/ Hydrocodone Bitart ([place] (5/325)) 2 tab Q6H PRN PO SEVERE PAIN LEVEL 7-10 Last administered on 10/17/16 22:50; Admin Dose 2 TAB; Start at 06:30 Docusate Sodium (Colace) 100 mg Q12H PRN PO CONSTIPATION Last administered on 05:06; Admin Dose 100 MG; Start 10/09/16 at 06:30 Magnesium Hydroxide (Milk Of Mag) 30 ml DAILY PRN PO CONSTIPATION Last administered on 10/17/16 15:49; Admin Dose 30 ML; Start 10/09/16 at 06:30 Lisinopril (Zestril) 40 mg DAILY PO Last administered on 10/22/16 08:50; Admin Dose 40 MG; Start 10/09/16 at 09:00 Atorvastatin Calcium (Lipitor) 40 mg HS PO Last administered on 10/21/16 20:52 ; Admin Dose 40 MG; Start 10/09/16 at 21:00 Metoprolol Succinate (Toprol Xl) 25 mg DAILY PO Last administered on 10/22/16 08:50; Admin Dose 25 MG; Start 10/09/16 at 09:00 Pantoprazole (Protonix Tab) 40 mg DAILY@06 PO Last administered on 10/22/16 06 :04; Admin Dose 40 MG; Start 10/09/16 at 07:30 Miscellaneous Information 1 ea NOTE XX ; Start 10/09/16 at 07:30 Glucose (Glutose) 15 gm Q15M PRN PO DECREASED GLUCOSE; Start 10/09/16 at 07:30 Glucose (Glutose) 22.5 gm Q15M PRN PO DECREASED GLUCOSE; Start 10/09/16 at 07: 30 Dextrose (D50w Syringe) 25 ml Q15M PRN IV DECREASED GLUCOSE; Start 10/09/16 at 07:30 Dextrose (D50w Syringe) 50 ml Q15M PRN IV DECREASED GLUCOSE; Start 10/09/16 at 07:30 Glucagon (Glucagen) 1 mg Q15M PRN IM DECREASED GLUCOSE; Start 10/09/16 at 07:30 Glucose (Glutose) 15 gm Q15M PRN BUCCAL DECREASED GLUCOSE; Start 10/09/16 at 07 :30 Insulin Glargine (Lantus) 15 unit QHS SC Last administered on 10/21/16 21:02; Admin Dose 15 UNIT; Start 10/12/16 at 21:00 Non-Formulary Medication 1 ea DAILY BOTH EYES Last administered on 10/22/16 08 :51; Admin Dose 1 EA; Start 10/14/16 at 09:00 Polyethylene Glycol 17 gm 17 gm DAILY PRN PO CONSTIPATION; Start 10/15/16 at 20 :32 Fluconazole 100 ml @ 100 mls/hr Q24H IVPB Last administered on 10/21/16 16:34 ; Admin Dose 100 MLS/HR; Start 10/16/16 at 16:00 Meropenem 100 ml @ 200 mls/hr Q8 IVPB Last administered on 10/22/16 06:04; Admin Dose 200 MLS/HR; Start 10/17/16 at 14:00; Stop 10/27/16 at 13:59 Gemcitabine HCl 1.9 gm/Sodium Chloride 250 ml @ 500 mls/hr ONCE IV ; Start at 14:00; Status Future Hold Sodium Chloride (NS) 1,000 ml @ 40 mls/hr Q24H IV Last administered on 21:07; Admin Dose 40 MLS/HR; Start 10/19/16 at 10:30 Enoxaparin Sodium (Lovenox) 40 mg DAILY SC Last administered on 10/22/16 08:59 ; Admin Dose 40 MG; Start 10/20/16 at 11:00 JUANA JAIME MD Oct 22, 2016 10:20
--- NOTE | 2016-10-22 10:52 | PN ---
Date/Time of Note Date/Time of Note DATE: 10/22/16 TIME: 10:51 Assessment/Plan VTE Prophylaxis VTE Prophylaxis Intervention: LMWH Lines/Catheters IV Catheter Type (from Nrsg): Peripheral IV Urinary Cath still in place: Yes Reason Cath still needed: urinary retention Assessment/Plan Assessment/Plan Left nephrostomy 10/19 Hgb stable Chemo -met bladder ca-per dr bruner UTI- cont Abx per ID. repeat cultures negative cont fluconazole x 10 days Subjective 24 Hr Interval Summary Free Text/Dictation Doing ok. PT did not come by yesterday. Still wondering when he will get chemo. Exam/Review of Systems Vital Signs Vitals Vital Signs Date Time Temp Pulse Resp B/P Pulse Ox O2 Delivery O2 Flow Rate FiO2 10/22/16 09:06 98.8 87 18 141/85 98 10/20/16 05:25 Room Air 10/19/16 15:52 3 Intake and Output 10/21/16 10/21/16 10/22/16 15:00 23:00 07:00 Intake Total 100 ml 1420 ml 950 ml Output Total 1850 ml 3100 ml Balance 100 ml -430 ml -2150 ml Exam Constitutional: alert, oriented Respiratory: clear to auscultation, normal air movement Cardiovascular: nl pulses, regular rate and rhythm Gastrointestinal: bowel sounds, non-tender, soft Results Result Diagram: 10/21/16 0438 10/21/16 0438 Results 24 hrs Laboratory Tests Test 10/21/16 12:43 10/21/16 17:55 10/21/16 20:51 10/22/16 01:53 Bedside Glucose 95 125 204 146 Test 10/22/16 08:47 Bedside Glucose 70 Medications Medications Current Medications Ondansetron HCl (Zofran Inj) 4 mg Q6H PRN IV NAUSEA AND/OR VOMITING; Start at 06:30 Acetaminophen (Tylenol Tab) 650 mg Q6H PRN PO PAIN LEVEL 1-3 OR FEVER Last administered on 10/17/16 16:33; Admin Dose 650 MG; Start 10/09/16 at 06:30 Acetaminophen/ Hydrocodone Bitart ([place] (5/325)) 1 tab Q6H PRN PO MODERATE PAIN LEVEL 4-6 Last administered on 10/17/16 14:07; Admin Dose 1 TAB; Start at 06:30 Acetaminophen/ Hydrocodone Bitart ([place] (5/325)) 2 tab Q6H PRN PO SEVERE PAIN LEVEL 7-10 Last administered on 10/17/16 22:50; Admin Dose 2 TAB; Start at 06:30 Docusate Sodium (Colace) 100 mg Q12H PRN PO CONSTIPATION Last administered on 05:06; Admin Dose 100 MG; Start 10/09/16 at 06:30 Magnesium Hydroxide (Milk Of Mag) 30 ml DAILY PRN PO CONSTIPATION Last administered on 10/17/16 15:49; Admin Dose 30 ML; Start 10/09/16 at 06:30 Lisinopril (Zestril) 40 mg DAILY PO Last administered on 10/22/16 08:50; Admin Dose 40 MG; Start 10/09/16 at 09:00 Atorvastatin Calcium (Lipitor) 40 mg HS PO Last administered on 10/21/16 20:52 ; Admin Dose 40 MG; Start 10/09/16 at 21:00 Metoprolol Succinate (Toprol Xl) 25 mg DAILY PO Last administered on 10/22/16 08:50; Admin Dose 25 MG; Start 10/09/16 at 09:00 Pantoprazole (Protonix Tab) 40 mg DAILY@06 PO Last administered on 10/22/16 06 :04; Admin Dose 40 MG; Start 10/09/16 at 07:30 Miscellaneous Information 1 ea NOTE XX ; Start 10/09/16 at 07:30 Glucose (Glutose) 15 gm Q15M PRN PO DECREASED GLUCOSE; Start 10/09/16 at 07:30 Glucose (Glutose) 22.5 gm Q15M PRN PO DECREASED GLUCOSE; Start 10/09/16 at 07: 30 Dextrose (D50w Syringe) 25 ml Q15M PRN IV DECREASED GLUCOSE; Start 10/09/16 at 07:30 Dextrose (D50w Syringe) 50 ml Q15M PRN IV DECREASED GLUCOSE; Start 10/09/16 at 07:30 Glucagon (Glucagen) 1 mg Q15M PRN IM DECREASED GLUCOSE; Start 10/09/16 at 07:30 Glucose (Glutose) 15 gm Q15M PRN BUCCAL DECREASED GLUCOSE; Start 10/09/16 at 07 :30 Insulin Glargine (Lantus) 15 unit QHS SC Last administered on 10/21/16 21:02; Admin Dose 15 UNIT; Start 10/12/16 at 21:00 Non-Formulary Medication 1 ea DAILY BOTH EYES Last administered on 10/22/16 08 :51; Admin Dose 1 EA; Start 10/14/16 at 09:00 Polyethylene Glycol 17 gm 17 gm DAILY PRN PO CONSTIPATION; Start 10/15/16 at 20 :32 Fluconazole 100 ml @ 100 mls/hr Q24H IVPB Last administered on 10/21/16 16:34 ; Admin Dose 100 MLS/HR; Start 10/16/16 at 16:00 Meropenem 100 ml @ 200 mls/hr Q8 IVPB Last administered on 10/22/16 06:04; Admin Dose 200 MLS/HR; Start 10/17/16 at 14:00; Stop 10/27/16 at 13:59 Gemcitabine HCl 1.9 gm/Sodium Chloride 250 ml @ 500 mls/hr ONCE IV ; Start at 14:00; Status Future Hold Sodium Chloride (NS) 1,000 ml @ 40 mls/hr Q24H IV Last administered on 21:07; Admin Dose 40 MLS/HR; Start 10/19/16 at 10:30 Enoxaparin Sodium (Lovenox) 40 mg DAILY SC Last administered on 10/22/16 08:59 ; Admin Dose 40 MG; Start 10/20/16 at 11:00 JUANA JAIME MD Oct 22, 2016 10:52
--- NOTE | 2016-10-22 14:15 | PN ---
Date/Time of Note Date/Time of Note DATE: 10/22/16 TIME: 14:13 Assessment/Plan VTE Prophylaxis VTE Prophylaxis Intervention: other Lines/Catheters IV Catheter Type (from Nrsg): Peripheral IV Central line still needed: No Urinary Cath still in place: Yes Reason Cath still needed: urinary retention Assessment/Plan Chief Complaint/Hosp Course he appears clinically improved and improving since left PCN was placed no further urologic intervention needed for now. Problems: Subjective 24 Hr Interval Summary Constitutional: improved, no complaints Eyes: no complaints Respiratory: no complaints Cardiovascular: no complaints Exam/Review of Systems Vital Signs Vitals Vital Signs Date Time Temp Pulse Resp B/P Pulse Ox O2 Delivery O2 Flow Rate FiO2 10/22/16 09:06 98.8 87 18 141/85 98 10/20/16 05:25 Room Air 10/19/16 15:52 3 Intake and Output 10/21/16 10/21/16 10/22/16 15:00 23:00 07:00 Intake Total 100 ml 1420 ml 950 ml Output Total 1850 ml 3100 ml Balance 100 ml -430 ml -2150 ml Exam Constitutional: alert, oriented Respiratory: normal air movement Genitourinary - Male: nl scrotum (urine cloudy, no blood), other (bilateral nephro tubrs draining clear urine) Results Result Diagram: 10/21/16 0438 10/21/16 0438 Results 24 hrs Laboratory Tests Test 10/21/16 17:55 10/21/16 20:51 10/22/16 01:53 10/22/16 08:47 Bedside Glucose 125 204 146 70 Test 10/22/16 12:35 Bedside Glucose 117 Medications Medications Current Medications Ondansetron HCl (Zofran Inj) 4 mg Q6H PRN IV NAUSEA AND/OR VOMITING; Start at 06:30 Acetaminophen (Tylenol Tab) 650 mg Q6H PRN PO PAIN LEVEL 1-3 OR FEVER Last administered on 10/17/16 16:33; Admin Dose 650 MG; Start 10/09/16 at 06:30 Acetaminophen/ Hydrocodone Bitart ([place] (5/325)) 1 tab Q6H PRN PO MODERATE PAIN LEVEL 4-6 Last administered on 10/17/16 14:07; Admin Dose 1 TAB; Start at 06:30 Acetaminophen/ Hydrocodone Bitart ([place] (5/325)) 2 tab Q6H PRN PO SEVERE PAIN LEVEL 7-10 Last administered on 10/17/16 22:50; Admin Dose 2 TAB; Start at 06:30 Docusate Sodium (Colace) 100 mg Q12H PRN PO CONSTIPATION Last administered on 05:06; Admin Dose 100 MG; Start 10/09/16 at 06:30 Magnesium Hydroxide (Milk Of Mag) 30 ml DAILY PRN PO CONSTIPATION Last administered on 10/17/16 15:49; Admin Dose 30 ML; Start 10/09/16 at 06:30 Lisinopril (Zestril) 40 mg DAILY PO Last administered on 10/22/16 08:50; Admin Dose 40 MG; Start 10/09/16 at 09:00 Atorvastatin Calcium (Lipitor) 40 mg HS PO Last administered on 10/21/16 20:52 ; Admin Dose 40 MG; Start 10/09/16 at 21:00 Metoprolol Succinate (Toprol Xl) 25 mg DAILY PO Last administered on 10/22/16 08:50; Admin Dose 25 MG; Start 10/09/16 at 09:00 Pantoprazole (Protonix Tab) 40 mg DAILY@06 PO Last administered on 10/22/16 06 :04; Admin Dose 40 MG; Start 10/09/16 at 07:30 Miscellaneous Information 1 ea NOTE XX ; Start 10/09/16 at 07:30 Glucose (Glutose) 15 gm Q15M PRN PO DECREASED GLUCOSE; Start 10/09/16 at 07:30 Glucose (Glutose) 22.5 gm Q15M PRN PO DECREASED GLUCOSE; Start 10/09/16 at 07: 30 Dextrose (D50w Syringe) 25 ml Q15M PRN IV DECREASED GLUCOSE; Start 10/09/16 at 07:30 Dextrose (D50w Syringe) 50 ml Q15M PRN IV DECREASED GLUCOSE; Start 10/09/16 at 07:30 Glucagon (Glucagen) 1 mg Q15M PRN IM DECREASED GLUCOSE; Start 10/09/16 at 07:30 Glucose (Glutose) 15 gm Q15M PRN BUCCAL DECREASED GLUCOSE; Start 10/09/16 at 07 :30 Insulin Glargine (Lantus) 15 unit QHS SC Last administered on 10/21/16 21:02; Admin Dose 15 UNIT; Start 10/12/16 at 21:00 Non-Formulary Medication 1 ea DAILY BOTH EYES Last administered on 10/22/16 08 :51; Admin Dose 1 EA; Start 10/14/16 at 09:00 Polyethylene Glycol 17 gm 17 gm DAILY PRN PO CONSTIPATION; Start 10/15/16 at 20 :32 Fluconazole 100 ml @ 100 mls/hr Q24H IVPB Last administered on 10/21/16 16:34 ; Admin Dose 100 MLS/HR; Start 10/16/16 at 16:00 Meropenem 100 ml @ 200 mls/hr Q8 IVPB Last administered on 10/22/16 13:54; Admin Dose 200 MLS/HR; Start 10/17/16 at 14:00; Stop 10/27/16 at 13:59 Gemcitabine HCl 1.9 gm/Sodium Chloride 250 ml @ 500 mls/hr ONCE IV ; Start at 14:00; Status Future Hold Sodium Chloride (NS) 1,000 ml @ 40 mls/hr Q24H IV Last administered on 21:07; Admin Dose 40 MLS/HR; Start 10/19/16 at 10:30 Enoxaparin Sodium (Lovenox) 40 mg DAILY SC Last administered on 10/22/16 08:59 ; Admin Dose 40 MG; Start 10/20/16 at 11:00 ALLISON RAMIREZ MD Oct 22, 2016 14:15
[2016-10-22] MEDS: FLUCONAZOLE 200 MG/NS (PMX) 100 ML IVPB SCH (15:54)
--- NOTE | 2016-10-22 18:56 | CONS ---
Date/Time of Note Date/Time of Note DATE: 10/22/16 TIME: 18:54 Assessment/Plan Assessment/Plan Chief Complaint/Hosp Course assessment/impression - fever and leukocytosis due to b/l pyelonephritis, large tumor burden and hydronephrosis - complicated UTI and b/l pyelonephritis due to ESBL+E. coli, enterococci and yeast - recent UTI due to ESBL+bacteria, took meropenem for this - bladder CA, invasion into the pelvic sidewall, probably lungs too - R-sided hydronephrosis s/p R nephrostomy tube placement - L-sided hydroureteronephrosis, s/p nephrostomy tube placement - atonic/neurogenic bladder - bladder stone s/p removal, CT on 10/16/2016 showed residual fragments - erythema of L elbow, no e/o infection - CAD, recent chest pain. Stress test was negative for ischemia - s/p CABG - s/p PCI with stent placement ~2000 - h/o colonoscopy and endoscopy - quit smoking in - chronic cough, unchanged according to Pt. Scant phlegm per Pt. recommendations - continue meropenem for ESBL+E. coli and enterococci (ampicillin-sensitive strain, 10/18/2016-). Plan for 10 days through 10/27/2016 - continue fluconazole. Plan for 10 days too - will collect urine cultures for surveillance next week - contact isolation for ESBL+E. coli management d/w Pt, his family members Problems: Consultation Date/Type/Reason Admit Date/Time Oct 09, 2016 at 05:45 Initial Consult Date 10/16/16 Type of Consultation: ID Referring Provider: JEFF OSPINA MD 24 HR Interval Summary Constitutional: no complaints Detailed Summary Eyes: no complaints ENT: no complaints Respiratory: cough, No pleuritic pain, No shortness of breath, No sputum Cardiovascular: no complaints Gastrointestinal: no complaints Genitourinary: other (b/l nephrostomy tubes and vernon) Skin: no complaints Exam/Review of Systems Vital Signs Vitals Vital Signs Date Time Temp Pulse Resp B/P Pulse Ox O2 Delivery O2 Flow Rate FiO2 10/22/16 09:06 98.8 87 18 141/85 98 10/20/16 05:25 Room Air 10/19/16 15:52 3 Intake and Output 10/21/16 10/21/16 10/22/16 15:00 23:00 07:00 Intake Total 100 ml 1420 ml 950 ml Output Total 1850 ml 3100 ml Balance 100 ml -430 ml -2150 ml Exam Constitutional: alert, frail Psych: nl mood/affect, no complaints Head: atraumatic, normocephalic Eyes: nl conjunctiva, nl lids ENMT: nl external ears & nose, nl nasal mucosa & septum Neck: supple Respiratory: crackles/rales Cardiovascular: nl pulses, regular rate and rhythm Gastrointestinal: non-tender, soft Genitourinary - Male: other (b/l nephrostomy tubes and Vernon catheter) Extremities: No edema Skin: ecchymosis (b/l UE) Results Result Diagram: 10/21/168 10/21/16437 Results 24 hrs Laboratory Tests Test 10/21/16 20:51 10/22/16 01:53 10/22/16 08:47 10/22/16 12:35 Bedside Glucose 204 146 70 117 Test 10/22/16 17:14 Bedside Glucose 140 Medications Medications Current Medications Ondansetron HCl (Zofran Inj) 4 mg Q6H PRN IV NAUSEA AND/OR VOMITING; Start at 06:30 Acetaminophen (Tylenol Tab) 650 mg Q6H PRN PO PAIN LEVEL 1-3 OR FEVER Last administered on 10/17/16 16:33; Admin Dose 650 MG; Start 10/09/16 at 06:30 Acetaminophen/ Hydrocodone Bitart ([place] (5/325)) 1 tab Q6H PRN PO MODERATE PAIN LEVEL 4-6 Last administered on 10/17/16 14:07; Admin Dose 1 TAB; Start at 06:30 Acetaminophen/ Hydrocodone Bitart ([place] (5/325)) 2 tab Q6H PRN PO SEVERE PAIN LEVEL 7-10 Last administered on 10/17/16 22:50; Admin Dose 2 TAB; Start at 06:30 Docusate Sodium (Colace) 100 mg Q12H PRN PO CONSTIPATION Last administered on 05:06; Admin Dose 100 MG; Start 10/09/16 at 06:30 Magnesium Hydroxide (Milk Of Mag) 30 ml DAILY PRN PO CONSTIPATION Last administered on 10/17/16 15:49; Admin Dose 30 ML; Start 10/09/16 at 06:30 Lisinopril (Zestril) 40 mg DAILY PO Last administered on 10/22/16 08:50; Admin Dose 40 MG; Start 10/09/16 at 09:00 Atorvastatin Calcium (Lipitor) 40 mg HS PO Last administered on 10/21/16 20:52 ; Admin Dose 40 MG; Start 10/09/16 at 21:00 Metoprolol Succinate (Toprol Xl) 25 mg DAILY PO Last administered on 10/22/16 08:50; Admin Dose 25 MG; Start 10/09/16 at 09:00 Pantoprazole (Protonix Tab) 40 mg DAILY@06 PO Last administered on 10/22/16 06 :04; Admin Dose 40 MG; Start 10/09/16 at 07:30 Miscellaneous Information 1 ea NOTE XX ; Start 10/09/16 at 07:30 Glucose (Glutose) 15 gm Q15M PRN PO DECREASED GLUCOSE; Start 10/09/16 at 07:30 Glucose (Glutose) 22.5 gm Q15M PRN PO DECREASED GLUCOSE; Start 10/09/16 at 07: 30 Dextrose (D50w Syringe) 25 ml Q15M PRN IV DECREASED GLUCOSE; Start 10/09/16 at 07:30 Dextrose (D50w Syringe) 50 ml Q15M PRN IV DECREASED GLUCOSE; Start 10/09/16 at 07:30 Glucagon (Glucagen) 1 mg Q15M PRN IM DECREASED GLUCOSE; Start 10/09/16 at 07:30 Glucose (Glutose) 15 gm Q15M PRN BUCCAL DECREASED GLUCOSE; Start 10/09/16 at 07 :30 Insulin Glargine (Lantus) 15 unit QHS SC Last administered on 10/21/16 21:02; Admin Dose 15 UNIT; Start 10/12/16 at 21:00 Non-Formulary Medication 1 ea DAILY BOTH EYES Last administered on 10/22/16 08 :51; Admin Dose 1 EA; Start 10/14/16 at 09:00 Polyethylene Glycol 17 gm 17 gm DAILY PRN PO CONSTIPATION; Start 10/15/16 at 20 :32 Fluconazole 100 ml @ 100 mls/hr Q24H IVPB Last administered on 10/22/16 15:54 ; Admin Dose 100 MLS/HR; Start 10/16/16 at 16:00 Meropenem 100 ml @ 200 mls/hr Q8 IVPB Last administered on 10/22/16 13:54; Admin Dose 200 MLS/HR; Start 10/17/16 at 14:00; Stop 10/27/16 at 13:59 Gemcitabine HCl 1.9 gm/Sodium Chloride 250 ml @ 500 mls/hr ONCE IV ; Start at 14:00; Status Future Hold Sodium Chloride (NS) 1,000 ml @ 40 mls/hr Q24H IV Last administered on 21:07; Admin Dose 40 MLS/HR; Start 10/19/16 at 10:30 Enoxaparin Sodium (Lovenox) 40 mg DAILY SC Last administered on 10/22/16 08:59 ; Admin Dose 40 MG; Start 10/20/16 at 11:00 VIRGILIO JACOBSON M.D. Oct 22, 2016 18:55
[2016-10-22 19:14] VITALS: BP 152/65; RESP 18
[2016-10-22] MEDS: ATORVASTATIN 40 MG TAB PO SCH (21:11)
[2016-10-22] MEDS: INSULIN GLARGINE [LANtus] 3 ML PEN SC SCH (21:39)
[2016-10-22 22:00] VITALS: BP 135/59
[2016-10-23] MEDS: SOD CHLORIDE 0.9% 1,000 ML IV SCH (02:18)
[2016-10-23] MEDS: MEROPENEM 1 GM/100 ML (PMX) 100 ML IVPB SCH ×3 (05:51→21:05)
[2016-10-23] MEDS: PANTOPRAZOLE (EC) 40 MG TAB PO SCH (05:52)
[2016-10-23 07:49] VITALS: BP 125/68; RESP 20
[2016-10-23] MEDS: INSULIN ASPART [NOVOLOG] 3 ML PEN SC SCH ×4 (07:50→21:07)
[2016-10-23] MEDS: METOPROLOL (XL) 25 MG TAB PO SCH (08:39)
[2016-10-23] MEDS: TIMOPTIC 0.5% EYE DROPS BOTH EYES SCH (08:39)
[2016-10-23] MEDS: LISINOPRIL 20 MG TAB PO SCH (08:39)
[2016-10-23] MEDS: ENOXAPARIN 40 MG/0.4 ML SYG SC SCH (08:43)
--- NOTE | 2016-10-23 11:32 | CONS ---
Date/Time of Note Date/Time of Note DATE: 10/23/16 TIME: 11:30 Assessment/Plan Assessment/Plan Chief Complaint/Hosp Course assessment/impression - fever and leukocytosis due to b/l pyelonephritis, large tumor burden and hydronephrosis - complicated UTI and b/l pyelonephritis due to ESBL+E. coli, enterococci and yeast - h/o UTI due to ESBL+bacteria, took meropenem for this earlier in 2016 - bladder CA, invasion into the pelvic sidewall, probably lungs too - R-sided hydronephrosis s/p R nephrostomy tube placement - L-sided hydroureteronephrosis, s/p nephrostomy tube placement - atonic/neurogenic bladder - bladder stone s/p removal, CT on 10/16/2016 showed residual fragments - erythema of L elbow, no e/o infection - CAD, recent chest pain. 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 Scant phlegm per Pt. recommendations - continue meropenem for ESBL+E. coli and enterococci (ampicillin-sensitive strain, 10/18/2016-). Plan for 10 days through 10/27/2016 - continue fluconazole. Plan for 10 days too - will collect urine cultures for surveillance this week - contact isolation for ESBL+E. coli management d/w Pt, his PT Problems: Consultation Date/Type/Reason Admit Date/Time Oct 09, 2016 at 05:45 Initial Consult Date 10/16/16 Type of Consultation: ID Referring Provider: JEFF OSPINA MD 24 HR Interval Summary Constitutional: no complaints Detailed Summary Eyes: no complaints ENT: no complaints Respiratory: cough, No pleuritic pain, No shortness of breath, No sputum Cardiovascular: no complaints Gastrointestinal: no complaints Genitourinary: no complaints, other (has vernon and two nephrostoomy tubes) Musculoskeletal: other (walked with a walker and PT) Skin: no complaints Neurologic: no complaints Exam/Review of Systems Vital Signs Vitals Vital Signs Date Time Temp Pulse Resp B/P Pulse Ox O2 Delivery O2 Flow Rate FiO2 10/23/16 07:49 97.4 89 20 125/68 97 10/20/16 05:25 Room Air 10/19/16 15:52 3 Intake and Output 10/22/16 10/22/16 10/23/16 15:00 23:00 07:00 Intake Total 1690 ml 950 ml Output Total 1500 ml 200 ml Balance 190 ml 750 ml Exam Constitutional: alert, frail Psych: nl mood/affect, no complaints Head: atraumatic, normocephalic Eyes: nl conjunctiva, nl lids ENMT: nl external ears & nose, nl nasal mucosa & septum Neck: supple Respiratory: clear to auscultation, normal air movement, other (occasional cough) Cardiovascular: nl pulses, regular rate and rhythm Gastrointestinal: non-tender, soft Genitourinary - Male: other (b/l nephrostomy tubes are intact, Vernon catheter) Neurological: [employer] II-XII intact, nl mental status, nl speech Skin: nl turgor Results Result Diagram: 10/21/1643710/21/16437 Results 24 hrs Laboratory Tests Test 10/22/16 12:35 10/22/16 17:14 10/22/16 21:35 10/23/16 02:08 Bedside Glucose 117 140 225 H 142 Test 10/23/16 08:37 Bedside Glucose 74 Medications Medications Current Medications Ondansetron HCl (Zofran Inj) 4 mg Q6H PRN IV NAUSEA AND/OR VOMITING; Start at 06:30 Acetaminophen (Tylenol Tab) 650 mg Q6H PRN PO PAIN LEVEL 1-3 OR FEVER Last administered on 10/17/16 16:33; Admin Dose 650 MG; Start 10/09/16 at 06:30 Acetaminophen/ Hydrocodone Bitart ([place] (5/325)) 1 tab Q6H PRN PO MODERATE PAIN LEVEL 4-6 Last administered on 10/17/16 14:07; Admin Dose 1 TAB; Start at 06:30 Acetaminophen/ Hydrocodone Bitart ([place] (5/325)) 2 tab Q6H PRN PO SEVERE PAIN LEVEL 7-10 Last administered on 10/17/16 22:50; Admin Dose 2 TAB; Start at 06:30 Docusate Sodium (Colace) 100 mg Q12H PRN PO CONSTIPATION Last administered on 05:06; Admin Dose 100 MG; Start 10/09/16 at 06:30 Magnesium Hydroxide (Milk Of Mag) 30 ml DAILY PRN PO CONSTIPATION Last administered on 10/17/16 15:49; Admin Dose 30 ML; Start 10/09/16 at 06:30 Lisinopril (Zestril) 40 mg DAILY PO Last administered on 10/23/16 08:39; Admin Dose 40 MG; Start 10/09/16 at 09:00 Atorvastatin Calcium (Lipitor) 40 mg HS PO Last administered on 10/22/16 21:11 ; Admin Dose 40 MG; Start 10/09/16 at 21:00 Metoprolol Succinate (Toprol Xl) 25 mg DAILY PO Last administered on 10/23/16 08:39; Admin Dose 25 MG; Start 10/09/16 at 09:00 Pantoprazole (Protonix Tab) 40 mg DAILY@06 PO Last administered on 10/23/16 05: 52; Admin Dose 40 MG; Start 10/09/16 at 07:30 Miscellaneous Information 1 ea NOTE XX ; Start 10/09/16 at 07:30 Glucose (Glutose) 15 gm Q15M PRN PO DECREASED GLUCOSE; Start 10/09/16 at 07:30 Glucose (Glutose) 22.5 gm Q15M PRN PO DECREASED GLUCOSE; Start 10/09/16 at 07: 30 Dextrose (D50w Syringe) 25 ml Q15M PRN IV DECREASED GLUCOSE; Start 10/09/16 at 07:30 Dextrose (D50w Syringe) 50 ml Q15M PRN IV DECREASED GLUCOSE; Start 10/09/16 at 07:30 Glucagon (Glucagen) 1 mg Q15M PRN IM DECREASED GLUCOSE; Start 10/09/16 at 07:30 Glucose (Glutose) 15 gm Q15M PRN BUCCAL DECREASED GLUCOSE; Start 10/09/16 at 07 :30 Insulin Glargine (Lantus) 15 unit QHS SC Last administered on 10/22/16 21:39; Admin Dose 15 UNIT; Start 10/12/16 at 21:00 Non-Formulary Medication 1 ea DAILY BOTH EYES Last administered on 10/23/16 08: 39; Admin Dose 1 EA; Start 10/14/16 at 09:00 Polyethylene Glycol 17 gm 17 gm DAILY PRN PO CONSTIPATION; Start 10/15/16 at 20 :32 Fluconazole 100 ml @ 100 mls/hr Q24H IVPB Last administered on 10/22/16 15:54 ; Admin Dose 100 MLS/HR; Start 10/16/16 at 16:00 Meropenem 100 ml @ 200 mls/hr Q8 IVPB Last administered on 10/23/16 05:51; Admin Dose 200 MLS/HR; Start 10/17/16 at 14:00; Stop 10/27/16 at 13:59 Gemcitabine HCl 1.9 gm/Sodium Chloride 250 ml @ 500 mls/hr ONCE IV ; Start at 14:00; Status Future Hold Sodium Chloride (NS) 1,000 ml @ 40 mls/hr Q24H IV Last administered on 02:18; Admin Dose 40 MLS/HR; Start 10/19/16 at 10:30 Enoxaparin Sodium (Lovenox) 40 mg DAILY SC Last administered on 10/23/16 08:43 ; Admin Dose 40 MG; Start 10/20/16 at 11:00 VIRGILIO JACOBSON M.D. October 23, 2016 11:32
[2016-10-23] MEDS: FLUCONAZOLE 200 MG/NS (PMX) 100 ML IVPB SCH (15:49)
--- NOTE | 2016-10-23 16:54 | CONS ---
DATE OF ADMISSION: 10/09/2016 DATE OF CONSULTATION: 10/23/2016 TYPE OF CONSULTATION: Hematology/oncology. HISTORY: The patient states that he is feeling well except for his weakness. He is concerned becau se he is unable to walk. PHYSICAL EXAMINATION GENERAL: The patient has no complaints of abdominal pain. No fevers, chills or night sweats: VITAL SIGNS: Temperature 97.4, pulse is 89, respirations 20, blood pressure 125/68 and pulse oximet ry is 97% on room air. SKIN: No ecchymosis, no petechiae or rashes. HEENT: No mucosal lesions. No scleral icterus. NECK: Supple, no jugular venous distention or thyroid enlargement. CHEST: Clear to auscultation and percussion. No rhonchi, wheezes, rales or rubs. Nodes: No palpab le lymphadenopathy in lymph node bearing area. ABDOMEN: Soft, no masses, no ascites. There are bilateral nephrostomies present which are draining urine. EXTREMITIES: No clubbing, edema or cyanosis. NEUROLOGIC: Normal except for generalized weakness. LABORATORY DATA: White count on 10/21/2016 is 15,900, hemoglobin 9.9, hematocrit 31.6, platelet cou nt 298,000. ASSESSMENT: 1. Urothelial carcinoma metastatic. 2. Bilateral ureteral obstruction secondary to #1. 3. Urinary tract infection with extended-spectrum beta-lactamase Escherichia coli and Enterococcus. PLAN: The patient will continue antibiotics, but would like to initiate chemotherapy on Sunday 0 10/25/2016. As previously noted, the patient will receive cisplatin and gemcitabine. I feel that the patient wi ll be able tolerate this. The immunotherapy agents such as Tecentriq are not without their systemic complications. Dictated By: RADHA SHAW MD SR/NTS Conf#: [id number] DID#: [id number]
--- NOTE | 2016-10-23 19:36 | PN ---
Date/Time of Note Date/Time of Note DATE: 10/23/16 TIME: 19:28 Assessment/Plan VTE Prophylaxis VTE Prophylaxis Intervention: LMWH Lines/Catheters IV C[facility]from [facility] Peripheral IV Urinary Cath still in place: Yes Reason Cath still needed: urinary retention Assessment/Plan Chief Complaint/Hosp Course 1. Obstructive uropathy . He has bilateral percutaneous nephrostomies . They are both draining well . 2. metastatic bladder cancer . 3. CAD 4. DM on insulin 5. dysphagia , will order speech therapy . 6. Dr Perez , oncologist has been consulted for treatment of bladder cancer . He will start chemotherapy soon . 7. A fib , this is new , cardiology recommends ASA 81 mg a day . 8. he has iron deficiency anemia , he has completed a course of Ferrlicit. 9. UTI , he is now on appropriate antibiotics 10. leukocytosis . His WBC when last checked was lower . Problems: Subjective 24 Hr Interval Summary Free Text/Dictation He sleeping but is easily arousable . Constitutional: no complaints Respiratory: no complaints Cardiovascular: no complaints Gastrointestinal: no complaints Musculoskeletal: no complaints Exam/Review of Systems Vital Signs Vitals Vital Signs Date Time Temp Pulse Resp B/P Pulse Ox O2 Delivery O2 Flow Rate FiO2 10/23/16 07:49 97.4 89 20 125/68 97 10/20/16 05:25 Room Air 10/19/16 15:52 3 Intake and Output 10/22/16 10/22/16 10/23/16 15:00 23:00 07:00 Intake Total 1690 ml 950 ml Output Total 1500 ml 200 ml Balance 190 ml 750 ml Exam He has some edema in his flanks . Constitutional: frail Neck: supple Respiratory: clear to auscultation, normal air movement Cardiovascular: regular rate and rhythm Gastrointestinal: soft Extremities: edema Results Result Diagram: 10/21/16 0438 10/21/16 0438 Results 24 hrs Laboratory Tests Test 10/22/16 21:35 10/23/16 02:08 10/23/16 08:37 10/23/16 12:38 Bedside Glucose 225 H 142 74 127 Test 10/23/16 17:49 Bedside Glucose 174 Medications Medications Current Medications Ondansetron HCl (Zofran Inj) 4 mg Q6H PRN IV NAUSEA AND/OR VOMITING; Start at 06:30 Acetaminophen (Tylenol Tab) 650 mg Q6H PRN PO PAIN LEVEL 1-3 OR FEVER Last administered on 10/17/16 16:33; Admin Dose 650 MG; Start 10/09/16 at 06:30 Acetaminophen/ Hydrocodone Bitart ([place] (5/325)) 1 tab Q6H PRN PO MODERATE PAIN LEVEL 4-6 Last administered on 10/17/16 14:07; Admin Dose 1 TAB; Start at 06:30 Acetaminophen/ Hydrocodone Bitart ([place] (5/325)) 2 tab Q6H PRN PO SEVERE PAIN LEVEL 7-10 Last administered on 10/17/16 22:50; Admin Dose 2 TAB; Start at 06:30 Docusate Sodium (Colace) 100 mg Q12H PRN PO CONSTIPATION Last administered on 05:06; Admin Dose 100 MG; Start 10/09/16 at 06:30 Magnesium Hydroxide (Milk Of Mag) 30 ml DAILY PRN PO CONSTIPATION Last administered on 10/17/16 15:49; Admin Dose 30 ML; Start 10/09/16 at 06:30 Lisinopril (Zestril) 40 mg DAILY PO Last administered on 10/23/16 08:39; Admin Dose 40 MG; Start 10/09/16 at 09:00 Atorvastatin Calcium (Lipitor) 40 mg HS PO Last administered on 10/22/16 21:11 ; Admin Dose 40 MG; Start 10/09/16 at 21:00 Metoprolol Succinate (Toprol Xl) 25 mg DAILY PO Last administered on 10/23/16 08:39; Admin Dose 25 MG; Start 10/09/16 at 09:00 Pantoprazole (Protonix Tab) 40 mg DAILY@06 PO Last administered on 10/23/16 05: 52; Admin Dose 40 MG; Start 10/09/16 at 07:30 Miscellaneous Information 1 ea NOTE XX ; Start 10/09/16 at 07:30 Glucose (Glutose) 15 gm Q15M PRN PO DECREASED GLUCOSE; Start 10/09/16 at 07:30 Glucose (Glutose) 22.5 gm Q15M PRN PO DECREASED GLUCOSE; Start 10/09/16 at 07: 30 Dextrose (D50w Syringe) 25 ml Q15M PRN IV DECREASED GLUCOSE; Start 10/09/16 at 07:30 Dextrose (D50w Syringe) 50 ml Q15M PRN IV DECREASED GLUCOSE; Start 10/09/16 at 07:30 Glucagon (Glucagen) 1 mg Q15M PRN IM DECREASED GLUCOSE; Start 10/09/16 at 07:30 Glucose (Glutose) 15 gm Q15M PRN BUCCAL DECREASED GLUCOSE; Start 10/09/16 at 07 :30 Insulin Glargine (Lantus) 15 unit QHS SC Last administered on 10/22/16 21:39; Admin Dose 15 UNIT; Start 10/12/16 at 21:00 Non-Formulary Medication 1 ea DAILY BOTH EYES Last administered on 10/23/16 08: 39; Admin Dose 1 EA; Start 10/14/16 at 09:00 Polyethylene Glycol 17 gm 17 gm DAILY PRN PO CONSTIPATION; Start 10/15/16 at 20 :32 Fluconazole 100 ml @ 100 mls/hr Q24H IVPB Last administered on 10/23/16 15:49 ; Admin Dose 100 MLS/HR; Start 10/16/16 at 16:00; Stop 10/27/16 at 23:59 Meropenem 100 ml @ 200 mls/hr Q8 IVPB Last administered on 10/23/16 14:16; Admin Dose 200 MLS/HR; Start 10/17/16 at 14:00; Stop 10/27/16 at 13:59 Gemcitabine HCl 1.9 gm/Sodium Chloride 250 ml @ 500 mls/hr ONCE IV ; Start at 14:00; Status Future Hold Sodium Chloride (NS) 1,000 ml @ 40 mls/hr Q24H IV Last administered on 02:18; Admin Dose 40 MLS/HR; Start 10/19/16 at 10:30 Enoxaparin Sodium (Lovenox) 40 mg DAILY SC Last administered on 10/23/16 08:43 ; Admin Dose 40 MG; Start 10/20/16 at 11:00 JEFF OSPINA MD October 23, 2016 19:36
[2016-10-23 19:51] VITALS: BP 147/76; RESP 20
[2016-10-23] MEDS: ATORVASTATIN 40 MG TAB PO SCH (21:05)
[2016-10-23] MEDS: INSULIN GLARGINE [LANtus] 3 ML PEN SC SCH (21:06)
[2016-10-24] MEDS: MEROPENEM 1 GM/100 ML (PMX) 100 ML IVPB SCH ×3 (05:19→21:42)
[2016-10-24] MEDS: SOD CHLORIDE 0.9% 1,000 ML IV SCH (05:19)
[2016-10-24] MEDS: PANTOPRAZOLE (EC) 40 MG TAB PO SCH (05:19)
[2016-10-24 05:42] LABS: ADD SCAN DIFF NO
[2016-10-24 05:47] LABS: BASOPHILS % 0.1 % (0.0-2.0); EOSINOPHILS # 0.2 10^3/ul (0.0-0.5); EOSINOPHILS % 1.3 % (0.0-7.0); HEMATOCRIT 32.6 % (42.0-52.0); HEMOGLOBIN 10.1 g/dl (14.0-18.0); LYMPHOCYTES # 1.6 10^3/ul (0.8-2.9); LYMPHOCYTES % 9.8 % (15.0-51.0); MEAN CORPUSCULAR HEMOGLOBIN 24.9 pg (29.0-33.0); MEAN CORPUSCULAR VOLUME 80.5 fl (82.0-101.0); MONOCYTES % 6.3 % (0.0-11.0); PLATELET COUNT 364 10^3/UL (140-415); RED BLOOD COUNT 4.05 10^6/ul (4.70-6.10); RED CELL DISTRIBUTION WIDTH 17.3 % (11.5-14.5); WHITE BLOOD COUNT 15.9 10^3/ul (4.8-10.8)
[2016-10-24 06:46] LABS: POTASSIUM 3.1 mmol/L (3.5-5.1)
[2016-10-24 06:48] LABS: ALBUMIN/GLOBULIN RATIO 0.68; BILIRUBIN,INDIRECT 0.7 mg/dl (0-1.1); BILIRUBIN,TOTAL 0.7 mg/dl (0.2-1.3); CREATININE 0.74 mg/dl (0.61-1.24); TOTAL PROTEIN 4.9 g/dl (6.1-8.1)
[2016-10-24 06:49] LABS: CALCIUM 9.3 mg/dl (8.4-10.2); MAGNESIUM 1.8 mg/dl (1.7-2.5); PHOSPHORUS 2.1 mg/dl (2.5-4.9)
[2016-10-24 07:45] VITALS: BP 138/73; RESP 18
[2016-10-24] MEDS: INSULIN ASPART [NOVOLOG] 3 ML PEN SC SCH ×4 (07:50→21:02)
[2016-10-24] MEDS: TIMOPTIC 0.5% EYE DROPS BOTH EYES SCH (08:16)
[2016-10-24] MEDS: LISINOPRIL 20 MG TAB PO SCH (08:17)
[2016-10-24] MEDS: METOPROLOL (XL) 25 MG TAB PO SCH (08:17)
[2016-10-24] MEDS: ENOXAPARIN 40 MG/0.4 ML SYG SC SCH (08:58)
--- NOTE | 2016-10-24 12:53 | CONS ---
Date/Time of Note Date/Time of Note DATE: 10/24/16 TIME: 12:49 Assessment/Plan Assessment/Plan Chief Complaint/Hosp Course assessment/impression - fever and leukocytosis due to b/l pyelonephritis, large tumor burden and hydronephrosis - complicated UTI and b/l pyelonephritis due to ESBL+E. coli, enterococci and yeast - h/o UTI due to ESBL+bacteria, took meropenem for this earlier in 2016 - bladder CA, invasion into the pelvic sidewall, probably lungs too - R-sided hydronephrosis s/p R nephrostomy tube placement - L-sided hydroureteronephrosis, s/p nephrostomy tube placement - atonic/neurogenic bladder - bladder stone s/p removal, CT on 10/16/2016 showed residual fragments - erythema of L elbow, no e/o infection - CAD, recent chest pain. 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 Scant phlegm per Pt. recommendations - for surveillance: collect urinalysis and urine culture from b/l nephrostomy bags and Castañeda catheter - continue meropenem for ESBL+E. coli and enterococci (ampicillin-sensitive strain, 10/18/2016-). Plan for 10 days through 10/27/2016 - continue fluconazole. Plan for 10 days too trough 10/27/2016 - contact isolation for ESBL+E. coli management d/w Pt and his RN Problems: Consultation Date/Type/Reason Admit Date/Time Oct 09, 2016 at 05:45 Initial Consult Date 10/16/16 Type of Consultation: ID Referring Provider: JEFF OSPINA MD 24 HR Interval Summary Constitutional: no complaints Detailed Summary Eyes: no complaints ENT: no complaints Respiratory: cough, No pain, No shortness of breath, No sputum Cardiovascular: no complaints Gastrointestinal: no complaints Genitourinary: other (has F[place], b/l nephrostomy tubes) Musculoskeletal: no complaints Skin: no complaints Neurologic: no complaints Exam/Review of Systems Vital Signs Vitals Vital Signs Date Time Temp Pulse Resp B/P Pulse Ox O2 Delivery O2 Flow Rate FiO2 10/24/16 07:45 98.5 85 18 138/73 97 10/24/16 07:40 Nasal Cannula 2.0 Intake and Output 10/23/16 10/23/16 10/24/16 15:00 23:00 07:00 Intake Total 100 ml 1980 ml 1080 ml Output Total 1850 ml 2220 ml Balance 100 ml 130 ml -1140 ml Exam Constitutional: frail Psych: nl mood/affect, no complaints Head: atraumatic, normocephalic Eyes: nl conjunctiva, nl lids ENMT: nl external ears & nose, nl nasal mucosa & septum Neck: supple Respiratory: clear to auscultation, normal air movement Cardiovascular: nl pulses, regular rate and rhythm Gastrointestinal: non-tender, soft Genitourinary - Male: nl penis, other (b/l nephrostomy tubes and Castañeda), No CVA tenderness Musculoskeletal: nl extremities to inspection Extremities: normal pulses Neurological: RECEIVING DOCK CHECKER II-XII intact, nl mental status Results Result Diagram: 10/24/16 0420 10/24/16 0420 Results 24 hrs Laboratory Tests Test 10/23/16 17:49 10/23/16 20:54 10/24/16 04:20 10/24/16 08:14 Bedside Glucose 174 193 102 White Blood Count 15.9 H Red Blood Count 4.05 L Hemoglobin 10.1 L Hematocrit 32.6 L Mean Corpuscular Volume 80.5 L Mean Corpuscular Hemoglobin 24.9 L Mean Corpuscular Hemoglobin Concent 31.0 L Red Cell Distribution Width 17.3 H Platelet Count 364 # Mean Platelet Volume 9.0 Neutrophils % 82.0 H Lymphocytes % 9.8 L Monocytes % 6.3 Eosinophils % 1.3 Basophils % 0.1 Nucleated Red Blood Cells % 0.0 Neutrophils # 13.0 H Lymphocytes # 1.6 Monocytes # 1.0 H Eosinophils # 0.2 Basophils # 0.0 Nucleated Red Blood Cells # 0.0 Sodium Level 135 Potassium Level 3.1 L Chloride Level 99 Carbon Dioxide Level 29 Anion Gap 10 Blood Urea Nitrogen 16 Creatinine 0.74 Glucose Level 123 Calcium Level 9.3 Phosphorus Level 2.1 L Magnesium Level 1.8 Total Bilirubin 0.7 Direct Bilirubin 0.00 Indirect Bilirubin 0.7 Aspartate Amino Transf (AST/SGOT) 41 Alanine Aminotransferase (ALT/SGPT) 41 Alkaline Phosphatase 67 Total Protein 4.9 L Albumin 2.0 L Globulin 2.90 Albumin/Globulin Ratio 0.68 Test 10/24/16 11:21 Bedside Glucose 178 Medications Medications Current Medications Ondansetron HCl (Zofran Inj) 4 mg Q6H PRN IV NAUSEA AND/OR VOMITING; Start at 06:30 Acetaminophen (Tylenol Tab) 650 mg Q6H PRN PO PAIN LEVEL 1-3 OR FEVER Last administered on 10/17/16 16:33; Admin Dose 650 MG; Start 10/09/16 at 06:30 Acetaminophen/ Hydrocodone Bitart ([place] (5/325)) 1 tab Q6H PRN PO MODERATE PAIN LEVEL 4-6 Last administered on 10/17/16 14:07; Admin Dose 1 TAB; Start at 06:30 Acetaminophen/ Hydrocodone Bitart ([place] (5/325)) 2 tab Q6H PRN PO SEVERE PAIN LEVEL 7-10 Last administered on 10/17/16 22:50; Admin Dose 2 TAB; Start at 06:30 Docusate Sodium (Colace) 100 mg Q12H PRN PO CONSTIPATION Last administered on 05:06; Admin Dose 100 MG; Start 10/09/16 at 06:30 Magnesium Hydroxide (Milk Of Mag) 30 ml DAILY PRN PO CONSTIPATION Last administered on 10/17/16 15:49; Admin Dose 30 ML; Start 10/09/16 at 06:30 Lisinopril (Zestril) 40 mg DAILY PO Last administered on 10/24/16 08:17; Admin Dose 40 MG; Start 10/09/16 at 09:00 Atorvastatin Calcium (Lipitor) 40 mg HS PO Last administered on 10/23/16 21:05 ; Admin Dose 40 MG; Start 10/09/16 at 21:00 Metoprolol Succinate (Toprol Xl) 25 mg DAILY PO Last administered on 10/24/16 08:17; Admin Dose 25 MG; Start 10/09/16 at 09:00 Pantoprazole (Protonix Tab) 40 mg DAILY@06 PO Last administered on 10/24/16 05: 19; Admin Dose 40 MG; Start 10/09/16 at 07:30 Miscellaneous Information 1 ea NOTE XX ; Start 10/09/16 at 07:30 Glucose (Glutose) 15 gm Q15M PRN PO DECREASED GLUCOSE; Start 10/09/16 at 07:30 Glucose (Glutose) 22.5 gm Q15M PRN PO DECREASED GLUCOSE; Start 10/09/16 at 07: 30 Dextrose (D50w Syringe) 25 ml Q15M PRN IV DECREASED GLUCOSE; Start 10/09/16 at 07:30 Dextrose (D50w Syringe) 50 ml Q15M PRN IV DECREASED GLUCOSE; Start 10/09/16 at 07:30 Glucagon (Glucagen) 1 mg Q15M PRN IM DECREASED GLUCOSE; Start 10/09/16 at 07:30 Glucose (Glutose) 15 gm Q15M PRN BUCCAL DECREASED GLUCOSE; Start 10/09/16 at 07 :30 Insulin Glargine (Lantus) 15 unit QHS SC Last administered on 10/23/16 21:06; Admin Dose 15 UNIT; Start 10/12/16 at 21:00 Non-Formulary Medication 1 ea DAILY BOTH EYES Last administered on 10/24/16 08: 16; Admin Dose 1 EA; Start 10/14/16 at 09:00 Polyethylene Glycol 17 gm 17 gm DAILY PRN PO CONSTIPATION; Start 10/15/16 at 20 :32 Fluconazole 100 ml @ 100 mls/hr Q24H IVPB Last administered on 10/23/16 15:49 ; Admin Dose 100 MLS/HR; Start 10/16/16 at 16:00; Stop 10/27/16 at 23:59 Meropenem 100 ml @ 200 mls/hr Q8 IVPB Last administered on 10/24/16 05:19; Admin Dose 200 MLS/HR; Start 10/17/16 at 14:00; Stop 10/27/16 at 13:59 Gemcitabine HCl 1.9 gm/Sodium Chloride 250 ml @ 500 mls/hr ONCE IV ; Start at 14:00; Status Future Hold Sodium Chloride (NS) 1,000 ml @ 40 mls/hr Q24H IV Last administered on 05:19; Admin Dose 40 MLS/HR; Start 10/19/16 at 10:30 Enoxaparin Sodium (Lovenox) 40 mg DAILY SC Last administered on 10/24/16 08:58 ; Admin Dose 40 MG; Start 10/20/16 at 11:00 VIRGILIO JACOBSON M.D. October 24, 2016 12:53
--- NOTE | 2016-10-24 13:14 | PN ---
Date/Time of Note Date/Time of Note DATE: 10/24/16 TIME: 13:12 Assessment/Plan VTE Prophylaxis VTE Prophylaxis Intervention: other (per primary MD) Lines/Catheters IV Catheter Type (from Nrsg): Peripheral IV Urinary Cath still in place: Yes Reason Cath still needed: skin wounds contaminated by urine Assessment/Plan Assessment/Plan Pt stable. Chemotherapy to start tomorrow. Subjective 24 Hr Interval Summary Free Text/Dictation Pt resting comfortably Exam/Review of Systems Vital Signs Vitals Vital Signs Date Time Temp Pulse Resp B/P Pulse Ox O2 Delivery O2 Flow Rate FiO2 10/24/16 07:45 98.5 85 18 138/73 97 10/24/16 07:40 Nasal Cannula 2.0 Intake and Output 10/23/16 10/23/16 10/24/16 14:59 22:59 06:59 Intake Total 100 ml 1980 ml 1080 ml Output Total 1850 ml 2220 ml Balance 100 ml 130 ml -1140 ml Exam Respiratory: clear to auscultation Cardiovascular: regular rate and rhythm Gastrointestinal: soft Extremities: other (loss of muscle mass) Results Result Diagram: 10/24/16 0420 10/24/16 0420 Results 24 hrs Laboratory Tests Test 10/23/16 17:49 10/23/16 20:54 10/24/16 04:20 10/24/16 08:14 Bedside Glucose 174 193 102 White Blood Count 15.9 H Red Blood Count 4.05 L Hemoglobin 10.1 L Hematocrit 32.6 L Mean Corpuscular Volume 80.5 L Mean Corpuscular Hemoglobin 24.9 L Mean Corpuscular Hemoglobin Concent 31.0 L Red Cell Distribution Width 17.3 H Platelet Count 364 # Mean Platelet Volume 9.0 Neutrophils % 82.0 H Lymphocytes % 9.8 L Monocytes % 6.3 Eosinophils % 1.3 Basophils % 0.1 Nucleated Red Blood Cells % 0.0 Neutrophils # 13.0 H Lymphocytes # 1.6 Monocytes # 1.0 H Eosinophils # 0.2 Basophils # 0.0 Nucleated Red Blood Cells # 0.0 Sodium Level 135 Potassium Level 3.1 L Chloride Level 99 Carbon Dioxide Level 29 Anion Gap 10 Blood Urea Nitrogen 16 Creatinine 0.74 Glucose Level 123 Calcium Level 9.3 Phosphorus Level 2.1 L Magnesium Level 1.8 Total Bilirubin 0.7 Direct Bilirubin 0.00 Indirect Bilirubin 0.7 Aspartate Amino Transf (AST/SGOT) 41 Alanine Aminotransferase (ALT/SGPT) 41 Alkaline Phosphatase 67 Total Protein 4.9 L Albumin 2.0 L Globulin 2.90 Albumin/Globulin Ratio 0.68 Test 10/24/16 11:21 Bedside Glucose 178 Medications Medications Current Medications Ondansetron HCl (Zofran Inj) 4 mg Q6H PRN IV NAUSEA AND/OR VOMITING; Start at 06:30 Acetaminophen (Tylenol Tab) 650 mg Q6H PRN PO PAIN LEVEL 1-3 OR FEVER Last administered on 10/17/16 16:33; Admin Dose 650 MG; Start 10/09/16 at 06:30 Acetaminophen/ Hydrocodone Bitart ([place] (5/325)) 1 tab Q6H PRN PO MODERATE PAIN LEVEL 4-6 Last administered on 10/17/16 14:07; Admin Dose 1 TAB; Start at 06:30 Acetaminophen/ Hydrocodone Bitart ([place] (5/325)) 2 tab Q6H PRN PO SEVERE PAIN LEVEL 7-10 Last administered on 10/17/16 22:50; Admin Dose 2 TAB; Start at 06:30 Docusate Sodium (Colace) 100 mg Q12H PRN PO CONSTIPATION Last administered on 05:06; Admin Dose 100 MG; Start 10/09/16 at 06:30 Magnesium Hydroxide (Milk Of Mag) 30 ml DAILY PRN PO CONSTIPATION Last administered on 10/17/16 15:49; Admin Dose 30 ML; Start 10/09/16 at 06:30 Lisinopril (Zestril) 40 mg DAILY PO Last administered on 10/24/16 08:17; Admin Dose 40 MG; Start 10/09/16 at 09:00 Atorvastatin Calcium (Lipitor) 40 mg HS PO Last administered on 10/23/16 21:05 ; Admin Dose 40 MG; Start 10/09/16 at 21:00 Metoprolol Succinate (Toprol Xl) 25 mg DAILY PO Last administered on 10/24/16 08:17; Admin Dose 25 MG; Start 10/09/16 at 09:00 Pantoprazole (Protonix Tab) 40 mg DAILY@06 PO Last administered on 10/24/16 05: 19; Admin Dose 40 MG; Start 10/09/16 at 07:30 Miscellaneous Information 1 ea NOTE XX ; Start 10/09/16 at 07:30 Glucose (Glutose) 15 gm Q15M PRN PO DECREASED GLUCOSE; Start 10/09/16 at 07:30 Glucose (Glutose) 22.5 gm Q15M PRN PO DECREASED GLUCOSE; Start 10/09/16 at 07: 30 Dextrose (D50w Syringe) 25 ml Q15M PRN IV DECREASED GLUCOSE; Start 10/09/16 at 07:30 Dextrose (D50w Syringe) 50 ml Q15M PRN IV DECREASED GLUCOSE; Start 10/09/16 at 07:30 Glucagon (Glucagen) 1 mg Q15M PRN IM DECREASED GLUCOSE; Start 10/09/16 at 07:30 Glucose (Glutose) 15 gm Q15M PRN BUCCAL DECREASED GLUCOSE; Start 10/09/16 at 07 :30 Insulin Glargine (Lantus) 15 unit QHS SC Last administered on 10/23/16 21:06; Admin Dose 15 UNIT; Start 10/12/16 at 21:00 Non-Formulary Medication 1 ea DAILY BOTH EYES Last administered on 10/24/16 08: 16; Admin Dose 1 EA; Start 10/14/16 at 09:00 Polyethylene Glycol 17 gm 17 gm DAILY PRN PO CONSTIPATION; Start 10/15/16 at 20 :32 Fluconazole 100 ml @ 100 mls/hr Q24H IVPB Last administered on 10/23/16 15:49 ; Admin Dose 100 MLS/HR; Start 10/16/16 at 16:00; Stop 10/27/16 at 23:59 Meropenem 100 ml @ 200 mls/hr Q8 IVPB Last administered on 10/24/16 05:19; Admin Dose 200 MLS/HR; Start 10/17/16 at 14:00; Stop 10/27/16 at 13:59 Gemcitabine HCl 1.9 gm/Sodium Chloride 250 ml @ 500 mls/hr ONCE IV ; Start at 14:00; Status Future Hold Sodium Chloride (NS) 1,000 ml @ 40 mls/hr Q24H IV Last administered on 05:19; Admin Dose 40 MLS/HR; Start 10/19/16 at 10:30 Enoxaparin Sodium (Lovenox) 40 mg DAILY SC Last administered on 10/24/16t 08:58 ; Admin Dose 40 MG; Start 10/20/16 at 11:00 KIP MILLER MD October 24, 2016 13:14
[2016-10-24 15:40] LABS: ADD UMIC YES; URINE BILIRUBIN (Dip) NEGATIVE (NEGATIVE); URINE BLOOD (Dip) 2+ (NEGATIVE); URINE BLOOD (Dip) 3+ (NEGATIVE); URINE BLOOD (Dip) TRACE (NEGATIVE); URINE COLOR DK. YELLOW (YELLOW); URINE COLOR LT. YELLOW (YELLOW); URINE GLUCOSE (Dip) NEGATIVE (NEGATIVE); URINE KETONES (Dip) NEGATIVE (NEGATIVE); URINE LEUKOCYTE ESTERASE (Dip) 2+ (NEGATIVE); URINE LEUKOCYTE ESTERASE (Dip) TRACE (NEGATIVE); URINE NITRITE (Dip) NEGATIVE (NEGATIVE); URINE TOTAL PROTEIN (Dip) 1+ (NEGATIVE); URINE TOTAL PROTEIN (Dip) 2+ (NEGATIVE); URINE TOTAL PROTEIN (Dip) NEGATIVE (NEGATIVE); URINE UROBILINOGEN (Dip) 0.2 E.U./dL (0.1-1.0)
[2016-10-24 15:59] LABS: BACTERIA,URINE MANY; SQUAMOUS EPITHELIAL CELL,UR FEW
[2016-10-24 16:08] LABS: BACTERIA,URINE FEW; SQUAMOUS EPITHELIAL CELL,UR RARE; URINE RBCS 25-50 /HPF (0)
[2016-10-24 16:09] LABS: SQUAMOUS EPITHELIAL CELL,UR RARE; URINE RBCS 0-2 /HPF (0)
[2016-10-24] MEDS: FLUCONAZOLE 200 MG/NS (PMX) 100 ML IVPB SCH (16:57)
--- NOTE | 2016-10-24 18:57 | PN ---
Date/Time of Note Date/Time of Note DATE: 10/24/16 TIME: 18:53 Assessment/Plan VTE Prophylaxis VTE Prophylaxis Intervention: LMWH Lines/Catheters [facility] Per[facility] IV Urinary Cath still in place: Yes Reason Cath still needed: urinary retention Assessment/Plan Chief Complaint/Hosp Course 1. Obstructive uropathy . He has bilateral percutaneous nephrostomies . They are both draining well . He was in negative fluid balance yesterday . Potassium and phos are low , will replace . 2. metastatic bladder cancer . 3. CAD 4. DM on insulin 5. dysphagia , will order speech therapy . 6. Dr Perez , oncologist has been consulted for treatment of bladder cancer . He will start chemotherapy soon . 7. A fib , this is new , cardiology recommends ASA 81 mg a day . 8. he has iron deficiency anemia , he has completed a course of Ferrlicit. 9. UTI , he is now on appropriate antibiotics 10. leukocytosis . His WBC when last checked was lower . Problems: Subjective 24 Hr Interval Summary Free Text/Dictation He is feeling dizzy when he stands . Constitutional: improved, no complaints Cardiovascular: no complaints Gastrointestinal: no complaints Neurologic: dizziness Exam/Review of Systems Vital Signs Vitals Vital Signs Date Time Temp Pulse Resp B/P Pulse Ox O2 Delivery O2 Flow Rate FiO2 10/24/16 07:45 98.5 85 18 138/73 97 10/24/16 07:40 Nasal Cannula 2.0 Intake and Output 10/23/16 10/23/16 10/24/16 15:00 23:00 07:00 Intake Total 100 ml 1980 ml 1080 ml Output Total 1850 ml 2220 ml Balance 100 ml 130 ml -1140 ml Exam Constitutional: alert, frail, oriented Respiratory: clear to auscultation, normal air movement Cardiovascular: regular rate and rhythm Gastrointestinal: soft Extremities: edema Results Result Diagram: 10/24/16 0420 10/24/16 0420 Results 24 hrs Laboratory Tests Test 10/23/16 20:54 10/24/16 04:20 10/24/16 08:14 10/24/16 11:21 Bedside Glucose 193 102 178 White Blood Count 15.9 H Red Blood Count 4.05 L Hemoglobin 10.1 L Hematocrit 32.6 L Mean Corpuscular Volume 80.5 L Mean Corpuscular Hemoglobin 24.9 L Mean Corpuscular Hemoglobin Concent 31.0 L Red Cell Distribution Width 17.3 H Platelet Count 364 # Mean Platelet Volume 9.0 Neutrophils % 82.0 H Lymphocytes % 9.8 L Monocytes % 6.3 Eosinophils % 1.3 Basophils % 0.1 Nucleated Red Blood Cells % 0.0 Neutrophils # 13.0 H Lymphocytes # 1.6 Monocytes # 1.0 H Eosinophils # 0.2 Basophils # 0.0 Nucleated Red Blood Cells # 0.0 Sodium Level 135 Potassium Level 3.1 L Chloride Level 99 Carbon Dioxide Level 29 Anion Gap 10 Blood Urea Nitrogen 16 Creatinine 0.74 Glucose Level 123 Calcium Level 9.3 Phosphorus Level 2.1 L Magnesium Level 1.8 Total Bilirubin 0.7 Direct Bilirubin 0.00 Indirect Bilirubin 0.7 Aspartate Amino Transf (AST/SGOT) 41 Alanine Aminotransferase (ALT/SGPT) 41 Alkaline Phosphatase 67 Total Protein 4.9 L Albumin 2.0 L Globulin 2.90 Albumin/Globulin Ratio 0.68 Test 10/24/16 14:30 10/24/16 17:21 Urine Color DK. YELLOW Urine Clarity CLOUDY H Urine pH 7.5 Urine Specific [place] 1.020 Urine Ketones NEGATIVE Urine Nitrite NEGATIVE Urine Bilirubin NEGATIVE Urine Urobilinogen 0.2 E.U./dL Urine Leukocyte Esterase 2+ H Urine Microscopic RBC 10-25 Urine Microscopic WBC >200 Urine Squamous Epithelial Cells FEW Urine Bacteria MANY Urine Hemoglobin 3+ H Urine Glucose NEGATIVE Urine Total Protein 2+ H Bedside Glucose 211 Medications Medications Current Medications Ondansetron HCl (Zofran Inj) 4 mg Q6H PRN IV NAUSEA AND/OR VOMITING; Start at 06:30 Acetaminophen (Tylenol Tab) 650 mg Q6H PRN PO PAIN LEVEL 1-3 OR FEVER Last administered on 10/17/16 16:33; Admin Dose 650 MG; Start 10/09/16 at 06:30 Acetaminophen/ Hydrocodone Bitart ([place] (5/325)) 1 tab Q6H PRN PO MODERATE PAIN LEVEL 4-6 Last administered on 10/17/16 14:07; Admin Dose 1 TAB; Start at 06:30 Acetaminophen/ Hydrocodone Bitart ([place] (5/325)) 2 tab Q6H PRN PO SEVERE PAIN LEVEL 7-10 Last administered on 10/17/16 22:50; Admin Dose 2 TAB; Start at 06:30 Docusate Sodium (Colace) 100 mg Q12H PRN PO CONSTIPATION Last administered on 05:06; Admin Dose 100 MG; Start 10/09/16 at 06:30 Magnesium Hydroxide (Milk Of Mag) 30 ml DAILY PRN PO CONSTIPATION Last administered on 10/17/16 15:49; Admin Dose 30 ML; Start 10/09/16 at 06:30 Lisinopril (Zestril) 40 mg DAILY PO Last administered on 10/24/16 08:17; Admin Dose 40 MG; Start 10/09/16 at 09:00 Atorvastatin Calcium (Lipitor) 40 mg HS PO Last administered on 10/23/16 21:05 ; Admin Dose 40 MG; Start 10/09/16 at 21:00 Metoprolol Succinate (Toprol Xl) 25 mg DAILY PO Last administered on 10/24/16 08:17; Admin Dose 25 MG; Start 10/09/16 at 09:00 Pantoprazole (Protonix Tab) 40 mg DAILY@06 PO Last administered on 10/24/16 05: 19; Admin Dose 40 MG; Start 10/09/16 at 07:30 Miscellaneous Information 1 ea NOTE XX ; Start 10/09/16 at 07:30 Glucose (Glutose) 15 gm Q15M PRN PO DECREASED GLUCOSE; Start 10/09/16 at 07:30 Glucose (Glutose) 22.5 gm Q15M PRN PO DECREASED GLUCOSE; Start 10/09/16 at 07: 30 Dextrose (D50w Syringe) 25 ml Q15M PRN IV DECREASED GLUCOSE; Start 10/09/16 at 07:30 Dextrose (D50w Syringe) 50 ml Q15M PRN IV DECREASED GLUCOSE; Start 10/09/16 at 07:30 Glucagon (Glucagen) 1 mg Q15M PRN IM DECREASED GLUCOSE; Start 10/09/16 at 07:30 Glucose (Glutose) 15 gm Q15M PRN BUCCAL DECREASED GLUCOSE; Start 10/09/16 at 07 :30 Insulin Glargine (Lantus) 15 unit QHS SC Last administered on 10/23/16 21:06; Admin Dose 15 UNIT; Start 10/12/16 at 21:00 Non-Formulary Medication 1 ea DAILY BOTH EYES Last administered on 10/24/16 08: 16; Admin Dose 1 EA; Start 10/14/16 at 09:00 Polyethylene Glycol 17 gm 17 gm DAILY PRN PO CONSTIPATION; Start 10/15/16 at 20 :32 Fluconazole 100 ml @ 100 mls/hr Q24H IVPB Last administered on 10/24/16 16:57 ; Admin Dose 100 MLS/HR; Start 10/16/16 at 16:00; Stop 10/27/16 at 23:59 Meropenem 100 ml @ 200 mls/hr Q8 IVPB Last administered on 10/24/16 14:36; Admin Dose 200 MLS/HR; Start 10/17/16 at 14:00; Stop 10/27/16 at 13:59 Gemcitabine HCl/ Sodium Chloride (Gemzar/NS) 250 ml @ 500 mls/hr ONCE IV ; Start 10/17/16 at 14:00; Status Future Hold Enoxaparin Sodium 40 mg 40 mg DAILY SC Last administered on 10/24/16 08:58; Admin Dose 40 MG; Start 10/20/16 at 11:00 Potassium Chloride/ Potassium Phosphate/Sodium Chloride (KCl/K Phos (Meq)/NS) 1, 012.2727 ml @ 125 mls/hr Q8H6M IV ; Start 10/24/16 at 18:43 Lidocaine (Xylocaine 1% (Mpf)) 5 ml ONCE ONCE SC ; Start 10/24/16 at 19:00; Stop 10/24/16 at 19:01; Status UNV Potassium Chloride (Klor-Con 10) 30 meq ONCE ONCE PO ; Start 10/24/16 at 19:00; Stop 10/24/16 at 19:01; Status UNV JEFF OSPINA MD October 24, 2016 18:57
[2016-10-24] MEDS ORDERED: POTASSIUM CHLORIDE (SR) 10 MEQ TAB PO ONE (19:00)
[2016-10-24] MEDS ORDERED: LIDOCAINE 1% (MPF) 5 ML VIAL SC ONE (19:00)
[2016-10-24 20:04] VITALS: BP 154/75; RESP 19
[2016-10-24] MEDS: ATORVASTATIN 40 MG TAB PO SCH (21:00)
[2016-10-24] MEDS: INSULIN GLARGINE [LANtus] 3 ML PEN SC SCH (21:01)
[2016-10-24] MEDS: POTASSIUM PHOSPHATE IV SCH (21:41)
[2016-10-24] MEDS: POTASSIUM CHLORIDE IV SCH (21:41)
[2016-10-24] MEDS: SOD CHLORIDE 0.9% IV SCH (21:41)
[2016-10-25] VITALS (10 sets, daily range): BP systolic 126–165; BP diastolic 60–79; PULSE 69–84; RESP 17–19; Ht 175.3 cm; Wt 83.7 kg
[2016-10-25 05:09] LABS: ADD SCAN DIFF NO
[2016-10-25 05:25] LABS: BASOPHILS % 0.1 % (0.0-2.0); EOSINOPHILS # 0.2 10^3/ul (0.0-0.5); EOSINOPHILS % 1.4 % (0.0-7.0); HEMATOCRIT 32.5 % (42.0-52.0); HEMOGLOBIN 10.2 g/dl (14.0-18.0); LYMPHOCYTES # 1.5 10^3/ul (0.8-2.9); LYMPHOCYTES % 10.4 % (15.0-51.0); MEAN CORPUSCULAR HGB CONC 31.4 g/dl (32.0-37.0); MEAN CORPUSCULAR VOLUME 79.7 fl (82.0-101.0); MEAN PLATELET VOLUME 8.7 fl (7.4-10.4); MONOCYTE # 1.1 10^3/ul (0.3-0.9); MONOCYTES % 7.5 % (0.0-11.0); NEUTROPHIL # 11.2 10^3/ul (1.6-7.5); PLATELET COUNT 366 10^3/UL (140-415); RED BLOOD COUNT 4.08 10^6/ul (4.70-6.10); RED CELL DISTRIBUTION WIDTH 17.2 % (11.5-14.5)
[2016-10-25 05:31] LABS: ALBUMIN 2.1 g/dl (3.3-4.9); ALBUMIN/GLOBULIN RATIO 0.75; BILIRUBIN,INDIRECT 0.5 mg/dl (0-1.1); BILIRUBIN,TOTAL 0.5 mg/dl (0.2-1.3); CALCIUM 9.2 mg/dl (8.4-10.2); CREATININE 0.72 mg/dl (0.61-1.24); MAGNESIUM 1.7 mg/dl (1.7-2.5); PHOSPHORUS 2.3 mg/dl (2.5-4.9); POTASSIUM 3.7 mmol/L (3.5-5.1); TOTAL PROTEIN 4.9 g/dl (6.1-8.1)
[2016-10-25] MEDS: SOD CHLORIDE 0.9% IV SCH ×4 (05:59→21:13)
[2016-10-25] MEDS: POTASSIUM PHOSPHATE IV SCH ×3 (05:59→21:13)
[2016-10-25] MEDS: PANTOPRAZOLE (EC) 40 MG TAB PO SCH (05:59)
[2016-10-25] MEDS: MEROPENEM 1 GM/100 ML (PMX) 100 ML IVPB SCH ×3 (05:59→21:13)
[2016-10-25] MEDS: POTASSIUM CHLORIDE IV SCH ×3 (05:59→21:13)
[2016-10-25] MEDS: INSULIN ASPART [NOVOLOG] 3 ML PEN SC SCH ×4 (07:46→21:12)
[2016-10-25] MEDS: HYDROCODONE/APAP (5/325) TAB PO PRN (07:47)
[2016-10-25] MEDS: LISINOPRIL 20 MG TAB PO SCH (07:49)
[2016-10-25] MEDS: ENOXAPARIN 40 MG/0.4 ML SYG SC SCH (07:50)
[2016-10-25] MEDS: METOPROLOL (XL) 25 MG TAB PO SCH (07:50)
[2016-10-25] MEDS: TIMOPTIC 0.5% EYE DROPS BOTH EYES SCH (07:51)
[2016-10-25] MEDS ORDERED: LIDOCAINE 1% (MPF) 5 ML VIAL SC ONE (09:00)
[2016-10-25] MEDS ORDERED: MAGNESIUM SULFATE 2 GM/50 ML 50 ML IVPB ONE (09:00)
[2016-10-25] MEDS ORDERED: SOD CHLORIDE 0.9% 100 ML ONE (12:14)
--- NOTE | 2016-10-25 13:15 | RADRPT ---
PROCEDURE: XR Chest. CLINICAL INDICATION: PICC placement. TECHNIQUE: Chest x-ray, single view. COMPARISON: 10/16/2016. FINDINGS: The cardiac silhouette is magnified. Aortic arch atherosclerotic calcification is present. Low lung volumes are observed. Patchy hazy opacification is present and most pronounced within the lung bas es. A nodular density of the left upper lobe is unchanged. A left upper extremity PICC is in place and terminates within the lower SVC , which is satisfactory in position. Skeletal structures and upper abdomen are unremarkable. IMPRESSION: Satisfactory positioning of left upper extremity PICC. Patchy hazy opacification predominately involving the lung bases, increased. A nodular opacity of t he left upper lobe is unchanged. Follow-up recommended to ensure resolution. If abnormality persis ts, follow-up should be obtained with CT chest. RPTAT: HLST .Ana Ware MD, Date Time Electronically viewed and signed by .Ana Ware MD, on 10/25/2016 13:15 .T/
--- NOTE | 2016-10-25 13:42 | PN ---
DATE: 10/25/2016 HEMATOLOGY/ONCOLOGY PROGRESS NOTE SUBJECTIVE: The patient has no new complaints. Main difficulty is still weakness and inability to ambulate. PHYSICAL EXAMINATION: VITAL SIGNS: Temperature 98.1, pulse 100 and regular, respirations 18, blood pressure 137/79. Oxyg en saturation is 99% on 2 liters of nasal oxygen. SKIN: No ecchymosis, no petechiae or rashes. HEENT: No mucosal lesions. No scleral icterus. NECK: Supple, no jugular venous distention or thyroid enlargement. CHEST: Clear to auscultation and percussion. No rhonchi, wheezes, rales or rubs. NODES: No palpable lymphadenopathy in any lymph node bearing area ABDOMEN: Soft. There are no masses or ascites. Bilateral nephrostomies are in place and draining clear liquid. EXTREMITIES: No clubbing, edema or cyanosis. There is now a PICC line in the left upper extremity. NEUROLOGIC: Normal except for generalized weakness. LABORATORY DATA: Sodium 134, potassium 3.7, creatinine 0.72, BUN 13. White count 14,000, hemoglobi n 10.2, hematocrit 32.5, and platelet count is 366,000. ASSESSMENT: 1. Metastatic urothelial carcinoma. 2. Bilateral hydronephrosis secondary to #1. IMPRESSION The patient will start chemotherapy today. He is to receive is cisplatin and gemcitabin e. Hopefully, patient will be able to tolerate this medication. Dictated By: RADHA SHAW MD SR/NTS Conf#: [id number] DID#: [id number]
--- NOTE | 2016-10-25 14:14 | RADRPT ---
PROCEDURE: Ultrasound guidance for placement of needle in left upper extremity vein. CLINICAL INDICATION: Venous access. TECHNIQUE: Limited sonography of the left upper extremity was performed. Ultrasound images were recorded and s tored in the patient's medical record. COMPARISON: None. FINDINGS: The ultrasound images demonstrate a patent left upper extremity vein. The PICC line was inserted by the PICC line nurse. IMPRESSION: 1. Ultrasound guidance for a needle placement in a left upper extremity vein. 2. The left upper extremity vein is patent. RPTAT: QQ .Wagner Billings MD, MD Date Time Electronically viewed and signed by .Wagner Billings MD, MD on 10/25/2016 14:14 .R/
[2016-10-25] MEDS: FLUCONAZOLE 200 MG/NS (PMX) 100 ML IVPB SCH (16:18)
[2016-10-25] MEDS: ONDANSETRON INJ 16 MG, DEXAMETHASONE 4 MG/ML 20 MG in DEXTROSE 5% 50 ML IV SCH (18:27)
--- NOTE | 2016-10-25 18:29 | CONS ---
Date/Time of Note Date/Time of Note DATE: 10/25/16 TIME: 18:25 Assessment/Plan Assessment/Plan Chief Complaint/Hosp Course 1. Obstructive uropathy . He has bilateral percutaneous nephrostomies . They are both draining well . He was in positive fluid balance yesterday . Potassium and phosphorus are correcting 2. metastatic bladder cancer . He is going to start chemotherapy today. 3. CAD 4. DM on insulin 5. dysphagia , will order speech therapy . 6. Anorexia, his appetite is improved and he is eating better. 8. he has iron deficiency anemia , he has completed a course of Ferrlicit. 9. UTI , he is now on appropriate antibiotics 10. leukocytosis . His WBC is lower today.. Problems: Consultation Date/Type/Reason Admit Date/Time Oct 09, 2016 at 05:45 Initial Consult Date 10/10/16 Type of Consultation: ID Referring Provider: JEFF OSPINA MD 24 HR Interval Summary Free Text/Dictation He is overall feeling better. He says that his appetite is improved. He is sitting up eating dinner. Constitutional: improved, no complaints Exam/Review of Systems Vital Signs Vitals Vital Signs Date Time Temp Pulse Resp B/P Pulse Ox O2 Delivery O2 Flow Rate FiO2 10/25/16 07:52 Nasal Cannula 2.0 10/25/16 07:43 98.1 100 18 137/79 99 Intake and Output 10/24/16 10/24/16 10/25/16 15:00 23:00 07:00 Intake Total 1050 ml 1350 ml Output Total 300 ml 1850 ml Balance 750 ml -500 ml Exam Constitutional: alert, frail, oriented Respiratory: clear to auscultation, normal air movement Cardiovascular: edema, irregular rhythm Gastrointestinal: soft Extremities: edema Results Result Diagram: 10/25/16 0445 10/25/16 0445 Results 24 hrs Laboratory Tests Test 10/24/16 20:59 10/25/16 04:45 10/25/16 07:46 10/25/16 11:17 Bedside Glucose 189 116 198 White Blood Count 14.0 H Red Blood Count 4.08 L Hemoglobin 10.2 L Hematocrit 32.5 L Mean Corpuscular Volume 79.7 L Mean Corpuscular Hemoglobin 25.0 L Mean Corpuscular Hemoglobin Concent 31.4 L Red Cell Distribution Width 17.2 H Platelet Count 366 Mean Platelet Volume 8.7 Neutrophils % 80.0 H Lymphocytes % 10.4 L Monocytes % 7.5 Eosinophils % 1.4 Basophils % 0.1 Nucleated Red Blood Cells % 0.0 Neutrophils # 11.2 H Lymphocytes # 1.5 Monocytes # 1.1 H Eosinophils # 0.2 Basophils # 0.0 Nucleated Red Blood Cells # 0.0 Sodium Level 134 L Potassium Level 3.7 Chloride Level 103 Carbon Dioxide Level 30 Anion Gap 5 L Blood Urea Nitrogen 13 Creatinine 0.72 Glucose Level 119 Calcium Level 9.2 Phosphorus Level 2.3 L Magnesium Level 1.7 Total Bilirubin 0.5 Direct Bilirubin 0.00 Indirect Bilirubin 0.5 Aspartate Amino Transf (AST/SGOT) 28 Alanine Aminotransferase (ALT/SGPT) 43 Alkaline Phosphatase 69 Total Protein 4.9 L Albumin 2.1 L Globulin 2.80 Albumin/Globulin Ratio 0.75 Test 10/25/16 17:50 Bedside Glucose 162 Medications Medications Current Medications Ondansetron HCl (Zofran Inj) 4 mg Q6H PRN IV NAUSEA AND/OR VOMITING; Start at 06:30 Acetaminophen (Tylenol Tab) 650 mg Q6H PRN PO PAIN LEVEL 1-3 OR FEVER Last administered on 10/17/16 16:33; Admin Dose 650 MG; Start 10/09/16 at 06:30 Acetaminophen/ Hydrocodone Bitart ([place] (5/325)) 1 tab Q6H PRN PO MODERATE PAIN LEVEL 4-6 Last administered on 10/25/16 07:47; Admin Dose 1 TAB; Start at 06:30 Acetaminophen/ Hydrocodone Bitart ([place] (5/325)) 2 tab Q6H PRN PO SEVERE PAIN LEVEL 7-10 Last administered on 10/17/16 22:50; Admin Dose 2 TAB; Start at 06:30 Docusate Sodium (Colace) 100 mg Q12H PRN PO CONSTIPATION Last administered on 05:06; Admin Dose 100 MG; Start 10/09/16 at 06:30 Magnesium Hydroxide (Milk Of Mag) 30 ml DAILY PRN PO CONSTIPATION Last administered on 10/17/16 15:49; Admin Dose 30 ML; Start 10/09/16 at 06:30 Lisinopril (Zestril) 40 mg DAILY PO Last administered on 10/25/16 07:49; Admin Dose 40 MG; Start 10/09/16 at 09:00 Atorvastatin Calcium (Lipitor) 40 mg HS PO Last administered on 10/24/16 21:00 ; Admin Dose 40 MG; Start 10/09/16 at 21:00 Metoprolol Succinate (Toprol Xl) 25 mg DAILY PO Last administered on 10/25/16 07:50; Admin Dose 25 MG; Start 10/09/16 at 09:00 Pantoprazole (Protonix Tab) 40 mg DAILY@06 PO Last administered on 10/25/16 05: 59; Admin Dose 40 MG; Start 10/09/16 at 07:30 Miscellaneous Information 1 ea NOTE XX ; Start 10/09/16 at 07:30 Glucose (Glutose) 15 gm Q15M PRN PO DECREASED GLUCOSE; Start 10/09/16 at 07:30 Glucose (Glutose) 22.5 gm Q15M PRN PO DECREASED GLUCOSE; Start 10/09/16 at 07: 30 Dextrose (D50w Syringe) 25 ml Q15M PRN IV DECREASED GLUCOSE; Start 10/09/16 at 07:30 Dextrose (D50w Syringe) 50 ml Q15M PRN IV DECREASED GLUCOSE; Start 10/09/16 at 07:30 Glucagon (Glucagen) 1 mg Q15M PRN IM DECREASED GLUCOSE; Start 10/09/16 at 07:30 Glucose (Glutose) 15 gm Q15M PRN BUCCAL DECREASED GLUCOSE; Start 10/09/16 at 07 :30 Insulin Glargine (Lantus) 15 unit QHS SC Last administered on 10/24/16 21:01; Admin Dose 15 UNIT; Start 10/12/16 at 21:00 Non-Formulary Medication 1 ea DAILY BOTH EYES Last administered on 10/25/16 07: 51; Admin Dose 1 EA; Start 10/14/16 at 09:00 Polyethylene Glycol 17 gm 17 gm DAILY PRN PO CONSTIPATION; Start 10/15/16 at 20 :32 Fluconazole 100 ml @ 100 mls/hr Q24H IVPB Last administered on 10/25/16 16:18 ; Admin Dose 100 MLS/HR; Start 10/16/16 at 16:00; Stop 10/27/16 at 23:59 Meropenem (Merrem 1 Gm/100 ml (Pmx)) 100 ml @ 200 mls/hr Q8 IVPB Last administered on 10/25/16 13:54; Admin Dose 200 MLS/HR; Start 10/17/16 at 14:00; Stop 10/27/16 at 13:59 Enoxaparin Sodium 40 mg 40 mg DAILY SC Last administered on 10/24/16 08:58; Admin Dose 40 MG; Start 10/20/16 at 11:00 Potassium Chloride/ Potassium Phosphate/Sodium Chloride (KCl/K Phos (Meq)/NS) 1, 012.2727 ml @ 125 mls/hr Q8H6M IV Last administered on 10/25/16 11:21; Admin Dose 125 MLS/HR; Start 10/24/16 at 18:43 IV Flush 10 ml 10 ml PRN PRN IV IV PROTOCOL; Start 10/25/16 at 11:00 Gemcitabine HCl 1.9 gm/Sodium Chloride 250 ml @ 250 mls/hr Q7D IV ; Start at 18:00; Stop 11/08/16 at 18:59 Ondansetron HCl/ Dexamethasone/ Dextrose (Zofran Inj/ Decadron/D5W) 63 ml @ 252 mls/hr Q7D IV ; Start 10/25/16 at 17:30; Stop 11/08/16 at 17:44 JEFF OSPINA MD October 25, 2016 18:29
[2016-10-25] MEDS: GEMCITABINE IV SCH (18:53)
--- NOTE | 2016-10-25 18:54 | CONS ---
Date/Time of Note Date/Time of Note DATE: 10/25/16 TIME: 18:52 Assessment/Plan Assessment/Plan Chief Complaint/Hosp Course assessment/impression - fever and leukocytosis due to b/l pyelonephritis, large tumor burden and hydronephrosis - complicated UTI and b/l pyelonephritis due to ESBL+E. 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 Scant phlegm per Pt. recommendations - pending: urine cultures from b/l nephrostomy bags and Castañeda catheter - if urine culture from Castañeda grows pathogenic bacteria, will start appropriate antibiotic for that - continue meropenem for ESBL+E. coli and enterococci (ampicillin-sensitive strain, 10/18/2016-). Plan for 10 days through 10/27/2016 - continue fluconazole. Plan for 10 days too trough 10/27/2016 - contact isolation for ESBL+E. coli management d/w Pt and his son Problems: Consultation Date/Type/Reason Admit Date/Time Oct 09, 2016 at 05:45 Initial Consult Date 10/16/16 Type of Consultation: ID Referring Provider: JEFF OSPINA MD 24 HR Interval Summary Free Text/Dictation started on chemo Constitutional: no complaints Detailed Summary Eyes: no complaints ENT: no complaints Respiratory: cough Cardiovascular: no complaints Gastrointestinal: no complaints Genitourinary: no complaints Musculoskeletal: no complaints Skin: no complaints Neurologic: no complaints Exam/Review of Systems Vital Signs Vitals Vital Signs Date Time Temp Pulse Resp B/P Pulse Ox O2 Delivery O2 Flow Rate FiO2 10/25/16 07:52 Nasal Cannula 2.0 10/25/16 07:43 98.1 100 18 137/79 99 Intake and Output 10/24/16 10/24/16 10/25/16 15:00 23:00 07:00 Intake Total 1050 ml 1350 ml Output Total 300 ml 1850 ml Balance 750 ml -500 ml Exam Constitutional: frail Psych: nl mood/affect, no complaints Head: atraumatic, normocephalic Eyes: nl conjunctiva, nl lids ENMT: nl external ears & nose, nl nasal mucosa & septum Neck: supple Respiratory: clear to auscultation, normal air movement Cardiovascular: nl pulses, regular rate and rhythm Gastrointestinal: non-tender, soft Musculoskeletal: nl extremities to inspection Extremities: No edema Results Result Diagram: 10/25/16 0445 10/25/165 Results 24 hrs Laboratory Tests Test 10/24/16 20:59 10/25/16 04:45 10/25/16 07:46 10/25/16 11:17 Bedside Glucose 189 116 198 White Blood Count 14.0 H Red Blood Count 4.08 L Hemoglobin 10.2 L Hematocrit 32.5 L Mean Corpuscular Volume 79.7 L Mean Corpuscular Hemoglobin 25.0 L Mean Corpuscular Hemoglobin Concent 31.4 L Red Cell Distribution Width 17.2 H Platelet Count 366 Mean Platelet Volume 8.7 Neutrophils % 80.0 H Lymphocytes % 10.4 L Monocytes % 7.5 Eosinophils % 1.4 Basophils % 0.1 Nucleated Red Blood Cells % 0.0 Neutrophils # 11.2 H Lymphocytes # 1.5 Monocytes # 1.1 H Eosinophils # 0.2 Basophils # 0.0 Nucleated Red Blood Cells # 0.0 Sodium Level 134 L Potassium Level 3.7 Chloride Level 103 Carbon Dioxide Level 30 Anion Gap 5 L Blood Urea Nitrogen 13 Creatinine 0.72 Glucose Level 119 Calcium Level 9.2 Phosphorus Level 2.3 L Magnesium Level 1.7 Total Bilirubin 0.5 Direct Bilirubin 0.00 Indirect Bilirubin 0.5 Aspartate Amino Transf (AST/SGOT) 28 Alanine Aminotransferase (ALT/SGPT) 43 Alkaline Phosphatase 69 Total Protein 4.9 L Albumin 2.1 L Globulin 2.80 Albumin/Globulin Ratio 0.75 Test 10/25/16 17:50 Bedside Glucose 162 Medications Medications Current Medications Ondansetron HCl (Zofran Inj) 4 mg Q6H PRN IV NAUSEA AND/OR VOMITING; Start 4/ 17/17 at 06:30 Acetaminophen (Tylenol Tab) 650 mg Q6H PRN PO PAIN LEVEL 1-3 OR FEVER Last administered on 10/17/16 16:33; Admin Dose 650 MG; Start 10/09/16 at 06:30 Acetaminophen/ Hydrocodone Bitart ([place] (5/325)) 1 tab Q6H PRN PO MODERATE PAIN LEVEL 4-6 Last administered on 10/25/16 07:47; Admin Dose 1 TAB; Start at 06:30 Acetaminophen/ Hydrocodone Bitart ([place] (5/325)) 2 tab Q6H PRN PO SEVERE PAIN LEVEL 7-10 Last administered on 10/17/16 22:50; Admin Dose 2 TAB; Start at 06:30 Docusate Sodium (Colace) 100 mg Q12H PRN PO CONSTIPATION Last administered on 05:06; Admin Dose 100 MG; Start 10/09/16 at 06:30 Magnesium Hydroxide (Milk Of Mag) 30 ml DAILY PRN PO CONSTIPATION Last administered on 10/17/16 15:49; Admin Dose 30 ML; Start 10/09/16 at 06:30 Lisinopril (Zestril) 40 mg DAILY PO Last administered on 10/25/16 07:49; Admin Dose 40 MG; Start 10/09/16 at 09:00 Atorvastatin Calcium (Lipitor) 40 mg HS PO Last administered on 10/24/16 21:00 ; Admin Dose 40 MG; Start 10/09/16 at 21:00 Metoprolol Succinate (Toprol Xl) 25 mg DAILY PO Last administered on 10/25/16 07:50; Admin Dose 25 MG; Start 10/09/16 at 09:00 Pantoprazole (Protonix Tab) 40 mg DAILY@06 PO Last administered on 10/25/16 05: 59; Admin Dose 40 MG; Start 10/09/16 at 07:30 Miscellaneous Information 1 ea NOTE XX ; Start 10/09/16 at 07:30 Glucose (Glutose) 15 gm Q15M PRN PO DECREASED GLUCOSE; Start 10/09/16 at 07:30 Glucose (Glutose) 22.5 gm Q15M PRN PO DECREASED GLUCOSE; Start 10/09/16 at 07: 30 Dextrose (D50w Syringe) 25 ml Q15M PRN IV DECREASED GLUCOSE; Start 10/09/16 at 07:30 Dextrose (D50w Syringe) 50 ml Q15M PRN IV DECREASED GLUCOSE; Start 10/09/16 at 07:30 Glucagon (Glucagen) 1 mg Q15M PRN IM DECREASED GLUCOSE; Start 10/09/16 at 07:30 Glucose (Glutose) 15 gm Q15M PRN BUCCAL DECREASED GLUCOSE; Start 10/09/16 at 07 :30 Insulin Glargine (Lantus) 15 unit QHS SC Last administered on 10/24/16 21:01; Admin Dose 15 UNIT; Start 10/12/16 at 21:00 Non-Formulary Medication 1 ea DAILY BOTH EYES Last administered on 10/25/16 07: 51; Admin Dose 1 EA; Start 10/14/16 at 09:00 Polyethylene Glycol 17 gm 17 gm DAILY PRN PO CONSTIPATION; Start 10/15/16 at 20 :32 Fluconazole 100 ml @ 100 mls/hr Q24H IVPB Last administered on 10/25/16 16:18 ; Admin Dose 100 MLS/HR; Start 10/16/16 at 16:00; Stop 10/27/16 at 23:59 Meropenem (Merrem 1 Gm/100 ml (Pmx)) 100 ml @ 200 mls/hr Q8 IVPB Last administered on 10/25/16 13:54; Admin Dose 200 MLS/HR; Start 10/17/16 at 14:00; Stop 10/27/16 at 13:59 Enoxaparin Sodium 40 mg 40 mg DAILY SC Last administered on 10/24/16 08:58; Admin Dose 40 MG; Start 10/20/16 at 11:00 Potassium Chloride/ Potassium Phosphate/Sodium Chloride (KCl/K Phos (Meq)/NS) 1, 012.2727 ml @ 75 mls/hr [id number] IV Last administered on 10/25/16 11:21; Admin Dose 125 MLS/HR; Start 10/24/16 at 18:43 IV Flush 10 ml 10 ml PRN PRN IV IV PROTOCOL; Start 10/25/16 at 11:00 Gemcitabine HCl 1.9 gm/Sodium Chloride 250 ml @ 250 mls/hr Q7D IV ; Start at 18:00; Stop 11/08/16 at 18:59 Ondansetron HCl/ Dexamethasone/ Dextrose (Zofran Inj/ Decadron/D5W) 63 ml @ 252 mls/hr Q7D IV Last administered on 10/25/16t 18:27; Admin Dose 252 MLS/HR; Start 10/25/16 at 17:30; Stop 11/08/16 at 17:44 VIRGILIO JACOBSON M.D. October 25, 2016 18:54
[2016-10-25] MEDS: INSULIN GLARGINE [LANtus] 3 ML PEN SC SCH (21:11)
[2016-10-25] MEDS: ATORVASTATIN 40 MG TAB PO SCH (21:13)
[2016-10-26] VITALS (8 sets, daily range): BP systolic 102–149; BP diastolic 62–74; PULSE 75–86; RESP 18–20
[2016-10-26] MEDS: HYDROCODONE/APAP (5/325) TAB PO PRN (03:05)
[2016-10-26 05:42] LABS: ADD SCAN DIFF NO
[2016-10-26 05:47] LABS: BASOPHILS % 0.1 % (0.0-2.0); HEMATOCRIT 33.2 % (42.0-52.0); HEMOGLOBIN 10.4 g/dl (14.0-18.0); LYMPHOCYTES # 0.7 10^3/ul (0.8-2.9); LYMPHOCYTES % 5.6 % (15.0-51.0); MEAN CORPUSCULAR HEMOGLOBIN 24.8 pg (29.0-33.0); MEAN CORPUSCULAR HGB CONC 31.3 g/dl (32.0-37.0); MEAN CORPUSCULAR VOLUME 79.2 fl (82.0-101.0); MEAN PLATELET VOLUME 8.7 fl (7.4-10.4); MONOCYTE # 0.2 10^3/ul (0.3-0.9); MONOCYTES % 1.9 % (0.0-11.0); NEUTROPHIL # 10.9 10^3/ul (1.6-7.5); NEUTROPHILS % 91.9 % (39.0-77.0); PLATELET COUNT 358 10^3/UL (140-415); RED BLOOD COUNT 4.19 10^6/ul (4.70-6.10); RED CELL DISTRIBUTION WIDTH 17.1 % (11.5-14.5); WHITE BLOOD COUNT 11.9 10^3/ul (4.8-10.8)
[2016-10-26 06:06] LABS: ALBUMIN/GLOBULIN RATIO 0.66; BILIRUBIN,INDIRECT 0.6 mg/dl (0-1.1); BILIRUBIN,TOTAL 0.6 mg/dl (0.2-1.3); CALCIUM 9.1 mg/dl (8.4-10.2); CREATININE 0.66 mg/dl (0.61-1.24); PHOSPHORUS 3.8 mg/dl (2.5-4.9); POTASSIUM 4.7 mmol/L (3.5-5.1)
[2016-10-26] MEDS: MEROPENEM 1 GM/100 ML (PMX) 100 ML IVPB SCH ×3 (06:09→22:19)
[2016-10-26] MEDS: PANTOPRAZOLE (EC) 40 MG TAB PO SCH (06:09)
[2016-10-26] MEDS: SOD CHLORIDE 0.9% IV SCH (08:49)
[2016-10-26] MEDS: POTASSIUM CHLORIDE IV SCH (08:49)
[2016-10-26] MEDS: POTASSIUM PHOSPHATE IV SCH (08:49)
[2016-10-26] MEDS: INSULIN ASPART [NOVOLOG] 3 ML PEN SC SCH ×4 (10:14→21:38)
[2016-10-26] MEDS: TIMOPTIC 0.5% EYE DROPS BOTH EYES SCH (10:33)
[2016-10-26] MEDS: ENOXAPARIN 40 MG/0.4 ML SYG SC SCH (10:33)
[2016-10-26] MEDS: LISINOPRIL 20 MG TAB PO SCH (10:36)
[2016-10-26] MEDS: METOPROLOL (XL) 25 MG TAB PO SCH (10:36)
[2016-10-26] MEDS ORDERED: SOD CHLORIDE 0.9% IV SCH ×3 (12:00→19:00)
[2016-10-26] MEDS ORDERED: MAGNESIUM SULFATE IV SCH ×2 (12:00→19:00)
[2016-10-26] MEDS ORDERED: POTASSIUM CHLORIDE IV SCH ×2 (12:00→19:00)
--- NOTE | 2016-10-26 12:46 | PN ---
Date/Time of Note Date/Time of Note DATE: 10/26/16 TIME: 12:42 Assessment/Plan VTE Prophylaxis VTE Prophylaxis Intervention: other (per primary) Lines/Catheters IV Catheter Type (from Nrs): PICC Line Central line still needed: Yes Urinary Cath still in place: Yes Reason Cath still needed: other (indicate) (weakness) Assessment/Plan Assessment/Plan Chemotherapy starting but will take several weeks to see how he responds. No side effects so far. Subjective 24 Hr Interval Summary Free Text/Dictation Chemotherapy started yesterday with Gemzar but cisplatin not yet given. He has not noted any side effects so far. Exam/Review of Systems Vital Signs Vitals Vital Signs Date Time Temp Pulse Resp B/P Pulse Ox O2 Delivery O2 Flow Rate FiO2 10/26/16 08:33 98.0 94 19 111/74 98 10/26/16 08:00 Nasal Cannula 1.0 Intake and Output 10/25/16 10/25/16 10/26/16 15:00 23:00 07:00 Intake Total 2513 ml 960 ml Output Total 300 ml 1972 ml Balance 2213 ml -1012 ml Exam Constitutional: alert, oriented Psych: no complaints Head: normocephalic Neck: supple Respiratory: clear to auscultation Cardiovascular: regular rate and rhythm Gastrointestinal: non-tender, soft Results Result Diagram: 10/26/16 0500 10/26/16 0500 Results 24 hrs Laboratory Tests Test 10/25/16 17:50 10/25/16 21:06 10/26/16 05:00 10/26/16 09:00 Bedside Glucose 162 302 H 201 White Blood Count 11.9 H Red Blood Count 4.19 L Hemoglobin 10.4 L Hematocrit 33.2 L Mean Corpuscular Volume 79.2 L Mean Corpuscular Hemoglobin 24.8 L Mean Corpuscular Hemoglobin Concent 31.3 L Red Cell Distribution Width 17.1 H Platelet Count 358 Mean Platelet Volume 8.7 Neutrophils % 91.9 H Lymphocytes % 5.6 L Monocytes % 1.9 Eosinophils % 0.0 Basophils % 0.1 Nucleated Red Blood Cells % 0.0 Neutrophils # 10.9 H Lymphocytes # 0.7 L Monocytes # 0.2 L Eosinophils # 0.0 Basophils # 0.0 Nucleated Red Blood Cells # 0.0 Sodium Level 131 L Potassium Level 4.7 Chloride Level 102 Carbon Dioxide Level 27 Anion Gap 7 L Blood Urea Nitrogen 18 Creatinine 0.66 Glucose Level 219 # Calcium Level 9.1 Phosphorus Level 3.8 Magnesium Level 2.0 Total Bilirubin 0.6 Direct Bilirubin 0.00 Indirect Bilirubin 0.6 Aspartate Amino Transf (AST/SGOT) 21 Alanine Aminotransferase (ALT/SGPT) 36 Alkaline Phosphatase 68 Total Protein 5.0 L Albumin 2.0 L Globulin 3.00 Albumin/Globulin Ratio 0.66 Test 10/26/16 11:33 Bedside Glucose 270 H Medications Medications Current Medications Ondansetron HCl (Zofran Inj) 4 mg Q6H PRN IV NAUSEA AND/OR VOMITING; Start at 06:30 Acetaminophen (Tylenol Tab) 650 mg Q6H PRN PO PAIN LEVEL 1-3 OR FEVER Last administered on 10/17/16 16:33; Admin Dose 650 MG; Start 10/09/16 at 06:30 Acetaminophen/ Hydrocodone Bitart ([place] (5/325)) 1 tab Q6H PRN PO MODERATE PAIN LEVEL 4-6 Last administered on 10/26/16 03:05; Admin Dose 1 TAB; Start at 06:30 Acetaminophen/ Hydrocodone Bitart ([place] (5/325)) 2 tab Q6H PRN PO SEVERE PAIN LEVEL 7-10 Last administered on 10/17/16 22:50; Admin Dose 2 TAB; Start at 06:30 Docusate Sodium (Colace) 100 mg Q12H PRN PO CONSTIPATION Last administered on 05:06; Admin Dose 100 MG; Start 10/09/16 at 06:30 Magnesium Hydroxide (Milk Of Mag) 30 ml DAILY PRN PO CONSTIPATION Last administered on 10/17/16 15:49; Admin Dose 30 ML; Start 10/09/16 at 06:30 Lisinopril (Zestril) 40 mg DAILY PO Last administered on 10/26/16 10:36; Admin Dose 40 MG; Start 10/09/16 at 09:00 Atorvastatin Calcium (Lipitor) 40 mg HS PO Last administered on 10/25/16 21:13 ; Admin Dose 40 MG; Start 10/09/16 at 21:00 Metoprolol Succinate (Toprol Xl) 25 mg DAILY PO Last administered on 10/26/16 10:36; Admin Dose 25 MG; Start 10/09/16 at 09:00 Pantoprazole (Protonix Tab) 40 mg DAILY@06 PO Last administered on 10/26/16 06: 09; Admin Dose 40 MG; Start 10/09/16 at 07:30 Miscellaneous Information 1 ea NOTE XX ; Start 10/09/16 at 07:30 Glucose (Glutose) 15 gm Q15M PRN PO DECREASED GLUCOSE; Start 10/09/16 at 07:30 Glucose (Glutose) 22.5 gm Q15M PRN PO DECREASED GLUCOSE; Start 10/09/16 at 07: 30 Dextrose (D50w Syringe) 25 ml Q15M PRN IV DECREASED GLUCOSE; Start 10/09/16 at 07:30 Dextrose (D50w Syringe) 50 ml Q15M PRN IV DECREASED GLUCOSE; Start 10/09/16 at 07:30 Glucagon (Glucagen) 1 mg Q15M PRN IM DECREASED GLUCOSE; Start 10/09/16 at 07:30 Glucose (Glutose) 15 gm Q15M PRN BUCCAL DECREASED GLUCOSE; Start 10/09/16 at 07 :30 Insulin Glargine (Lantus) 15 unit QHS SC Last administered on 10/25/16 21:11; Admin Dose 15 UNIT; Start 10/12/16 at 21:00 Non-Formulary Medication 1 ea DAILY BOTH EYES Last administered on 10/26/16 10: 33; Admin Dose 1 EA; Start 10/14/16 at 09:00 Polyethylene Glycol 17 gm 17 gm DAILY PRN PO CONSTIPATION; Start 10/15/16 at 20 :32 Fluconazole 100 ml @ 100 mls/hr Q24H IVPB Last administered on 10/25/16 16:18 ; Admin Dose 100 MLS/HR; Start 10/16/16 at 16:00; Stop 10/27/16 at 23:59 Meropenem (Merrem 1 Gm/100 ml (Pmx)) 100 ml @ 200 mls/hr Q8 IVPB Last administered on 10/26/16 06:09; Admin Dose 200 MLS/HR; Start 10/17/16 at 14:00; Stop 10/27/16 at 13:59 Enoxaparin Sodium 40 mg 40 mg DAILY SC Last administered on 10/26/16 10:33; Admin Dose 40 MG; Start 10/20/16 at 11:00 Potassium Chloride/ Potassium Phosphate/Sodium Chloride (KCl/K Phos (Meq)/NS) 1, 012.2727 ml @ 75 mls/hr [id number] IV Last administered on 10/25/16 21:13; Admin Dose 75 MLS/HR; Start 10/24/16 at 18:43 IV Flush 10 ml 10 ml PRN PRN IV IV PROTOCOL; Start 10/25/16 at 11:00 Gemcitabine HCl 1.9 gm/Sodium Chloride 250 ml @ 250 mls/hr Q7D IV Last administered on 10/25/16 18:53; Admin Dose 250 MLS/HR; Start 10/25/16 at 18:00; Stop 11/08/16 at 18:59 Ondansetron HCl 16 mg/ Dexamethasone 20 mg/Dextrose 63 ml @ 252 mls/hr Q7D IV Last administered on 10/25/16 18:27; Admin Dose 252 MLS/HR; Start 10/25/16 at 17: 30; Stop 11/08/16 at 17:44 Cisplatin 100 mg/ Cisplatin 30 mg/ Sodium Chloride 500 ml @ 166.667 mls/hr ONCE IV ; Start 10/26/16 at 16:00; Stop 10/26/16 at 18:59 Potassium Chloride 20 meq/ Magnesium Sulfate 4 meq/Sodium Chloride 1,011 ml @ 252.75 mls/ hr Q4H IV ; Start 10/26/16 at 12:00; Stop 10/26/16 at 15:59 Potassium Chloride 20 meq/ Magnesium Sulfate 4 meq/Sodium Chloride 1,011 ml @ 252.75 mls/ hr Q4H IV ; Start 10/26/16 at 19:00; Stop 10/26/16 at 22:59 Ondansetron HCl/ Dexamethasone/ Dextrose (Zofran Inj/ Decadron/D5W) 63 ml @ 252 mls/hr ONCE IV ; Start 10/26/16 at 15:00; Stop 10/26/16 at 15:14 KIP MILLER MD October 26, 2016 12:46
--- NOTE | 2016-10-26 13:21 | PN ---
Date/Time of Note Date/Time of Note DATE: 10/26/16 TIME: 13:15 Assessment/Plan VTE Prophylaxis VTE Prophylaxis Intervention: ambulation, LMWH Lines/Catheters IV Catheter Type (from [facility]): PICC Line Central line still needed: Yes Urinary Cath still in place: Yes Reason Cath still needed: urinary retention Assessment/Plan Chief Complaint/Hosp Course 1. Obstructive uropathy . He has bilateral percutaneous nephrostomies . They are both draining well . He was in positive fluid balance yesterday . Potassium and phosphorus are correcting 2. metastatic bladder cancer . He is going to get [facility] today. 3. CAD 4. DM on insulin 5. dysphagia , will order speech therapy . 6. Anorexia, his appetite is improved and he is eating better. 8. he has iron deficiency anemia , he has completed a course of Ferrlicit. 9. UTI , he is now on appropriate antibiotics 10. leukocytosis . His WBC is lower today.. Problems: Subjective 24 Hr Interval Summary Free Text/Dictation He is feeling better today. His appetite is improved. He said that he was up walking with physical therapy. Constitutional: improved, no complaints Respiratory: no complaints Cardiovascular: no complaints Musculoskeletal: no complaints Exam/Review of Systems Vital Signs Vitals Vital Signs Date Time Temp Pulse Resp B/P Pulse Ox O2 Delivery O2 Flow Rate FiO2 10/26/16 08:33 98.0 94 19 111/74 98 10/26/16 08:00 Nasal Cannula 1.0 Intake and Output 10/25/16 10/25/16 10/26/16 15:00 23:00 07:00 Intake Total 2513 ml 960 ml Output Total 300 ml 1972 ml Balance 2213 ml -1012 ml Exam Constitutional: alert, frail, oriented Respiratory: clear to auscultation, normal air movement Cardiovascular: edema, irregular rhythm Gastrointestinal: soft Extremities: edema Results Result Diagram: 10/26/16 0500 10/26/16 0500 Results 24 hrs Laboratory Tests Test 10/25/16 17:50 10/25/16 21:06 10/26/16 05:00 10/26/16 09:00 Bedside Glucose 162 302 H 201 White Blood Count 11.9 H Red Blood Count 4.19 L Hemoglobin 10.4 L Hematocrit 33.2 L Mean Corpuscular Volume 79.2 L Mean Corpuscular Hemoglobin 24.8 L Mean Corpuscular Hemoglobin Concent 31.3 L Red Cell Distribution Width 17.1 H Platelet Count 358 Mean Platelet Volume 8.7 Neutrophils % 91.9 H Lymphocytes % 5.6 L Monocytes % 1.9 Eosinophils % 0.0 Basophils % 0.1 Nucleated Red Blood Cells % 0.0 Neutrophils # 10.9 H Lymphocytes # 0.7 L Monocytes # 0.2 L Eosinophils # 0.0 Basophils # 0.0 Nucleated Red Blood Cells # 0.0 Sodium Level 131 L Potassium Level 4.7 Chloride Level 102 Carbon Dioxide Level 27 Anion Gap 7 L Blood Urea Nitrogen 18 Creatinine 0.66 Glucose Level 219 # Calcium Level 9.1 Phosphorus Level 3.8 Magnesium Level 2.0 Total Bilirubin 0.6 Direct Bilirubin 0.00 Indirect Bilirubin 0.6 Aspartate Amino Transf (AST/SGOT) 21 Alanine Aminotransferase (ALT/SGPT) 36 Alkaline Phosphatase 68 Total Protein 5.0 L Albumin 2.0 L Globulin 3.00 Albumin/Globulin Ratio 0.66 Test 10/26/16 11:33 Bedside Glucose 270 H Medications Medications Current Medications Ondansetron HCl (Zofran Inj) 4 mg Q6H PRN IV NAUSEA AND/OR VOMITING; Start at 06:30 Acetaminophen (Tylenol Tab) 650 mg Q6H PRN PO PAIN LEVEL 1-3 OR FEVER Last administered on 10/17/16 16:33; Admin Dose 650 MG; Start 10/09/16 at 06:30 Acetaminophen/ Hydrocodone Bitart ([place] (5/325)) 1 tab Q6H PRN PO MODERATE PAIN LEVEL 4-6 Last administered on 10/26/16 03:05; Admin Dose 1 TAB; Start at 06:30 Acetaminophen/ Hydrocodone Bitart ([place] (5/325)) 2 tab Q6H PRN PO SEVERE PAIN LEVEL 7-10 Last administered on 10/17/16 22:50; Admin Dose 2 TAB; Start at 06:30 Docusate Sodium (Colace) 100 mg Q12H PRN PO CONSTIPATION Last administered on 05:06; Admin Dose 100 MG; Start 10/09/16 at 06:30 Magnesium Hydroxide (Milk Of Mag) 30 ml DAILY PRN PO CONSTIPATION Last administered on 10/17/16 15:49; Admin Dose 30 ML; Start 10/09/16 at 06:30 Lisinopril (Zestril) 40 mg DAILY PO Last administered on 10/26/16 10:36; Admin Dose 40 MG; Start 10/09/16 at 09:00 Atorvastatin Calcium (Lipitor) 40 mg HS PO Last administered on 10/25/16 21:13 ; Admin Dose 40 MG; Start 10/09/16 at 21:00 Metoprolol Succinate (Toprol Xl) 25 mg DAILY PO Last administered on 10/26/16 10:36; Admin Dose 25 MG; Start 10/09/16 at 09:00 Pantoprazole (Protonix Tab) 40 mg DAILY@06 PO Last administered on 10/26/16 06: 09; Admin Dose 40 MG; Start 10/09/16 at 07:30 Miscellaneous Information 1 ea NOTE XX ; Start 10/09/16 at 07:30 Glucose (Glutose) 15 gm Q15M PRN PO DECREASED GLUCOSE; Start 10/09/16 at 07:30 Glucose (Glutose) 22.5 gm Q15M PRN PO DECREASED GLUCOSE; Start 10/09/16 at 07: 30 Dextrose (D50w Syringe) 25 ml Q15M PRN IV DECREASED GLUCOSE; Start 10/09/16 at 07:30 Dextrose (D50w Syringe) 50 ml Q15M PRN IV DECREASED GLUCOSE; Start 10/09/16 at 07:30 Glucagon (Glucagen) 1 mg Q15M PRN IM DECREASED GLUCOSE; Start 10/09/16 at 07:30 Glucose (Glutose) 15 gm Q15M PRN BUCCAL DECREASED GLUCOSE; Start 10/09/16 at 07 :30 Insulin Glargine (Lantus) 15 unit QHS SC Last administered on 10/25/16 21:11; Admin Dose 15 UNIT; Start 10/12/16 at 21:00 Non-Formulary Medication 1 ea DAILY BOTH EYES Last administered on 10/26/16 10: 33; Admin Dose 1 EA; Start 10/14/16 at 09:00 Polyethylene Glycol 17 gm 17 gm DAILY PRN PO CONSTIPATION; Start 10/15/16 at 20 :32 Fluconazole 100 ml @ 100 mls/hr Q24H IVPB Last administered on 10/25/16 16:18 ; Admin Dose 100 MLS/HR; Start 10/16/16 at 16:00; Stop 10/27/16 at 23:59 Meropenem (Merrem 1 Gm/100 ml (Pmx)) 100 ml @ 200 mls/hr Q8 IVPB Last administered on 10/26/16 06:09; Admin Dose 200 MLS/HR; Start 10/17/16 at 14:00; Stop 10/27/16 at 13:59 Enoxaparin Sodium 40 mg 40 mg DAILY SC Last administered on 10/26/16 10:33; Admin Dose 40 MG; Start 10/20/16 at 11:00 Potassium Chloride/ Potassium Phosphate/Sodium Chloride (KCl/K Phos (Meq)/NS) 1, 012.2727 ml @ 75 mls/hr [id number] IV Last administered on 10/25/16 21:13; Admin Dose 75 MLS/HR; Start 10/24/16 at 18:43 IV Flush 10 ml 10 ml PRN PRN IV IV PROTOCOL; Start 10/25/16 at 11:00 Gemcitabine HCl 1.9 gm/Sodium Chloride 250 ml @ 250 mls/hr Q7D IV Last administered on 10/25/16 18:53; Admin Dose 250 MLS/HR; Start 10/25/16 at 18:00; Stop 11/08/16 at 18:59 Ondansetron HCl 16 mg/ Dexamethasone 20 mg/Dextrose 63 ml @ 252 mls/hr Q7D IV Last administered on 10/25/16 18:27; Admin Dose 252 MLS/HR; Start 10/25/16 at 17: 30; Stop 11/08/16 at 17:44 Cisplatin 100 mg/ Cisplatin 30 mg/ Sodium Chloride 500 ml @ 166.667 mls/hr ONCE IV ; Start 10/26/16 at 16:00; Stop 10/26/16 at 18:59 Potassium Chloride 20 meq/ Magnesium Sulfate 4 meq/Sodium Chloride 1,011 ml @ 252.75 mls/ hr Q4H IV Last administered on 10/26/16 12:51; Admin Dose 252.75 MLS/HR; Start 10/26/16 at 12:00; Stop 10/26/16 at 15:59 Potassium Chloride 20 meq/ Magnesium Sulfate 4 meq/Sodium Chloride 1,011 ml @ 252.75 mls/ hr Q4H IV ; Start 10/26/16 at 19:00; Stop 10/26/16 at 22:59 Ondansetron HCl/ Dexamethasone/ Dextrose (Zofran Inj/ Decadron/D5W) 63 ml @ 252 mls/hr ONCE IV ; Start 10/26/16 at 15:00; Stop 10/26/16 at 15:14 JEFF OSPINA MD October 26, 2016 13:21
[2016-10-26] MEDS ORDERED: ONDANSETRON INJ 16 MG, DEXAMETHASONE 4 MG/ML 20 MG in DEXTROSE 5% 50 ML IV SCH (15:00)
[2016-10-26] MEDS: FLUCONAZOLE 200 MG/NS (PMX) 100 ML IVPB SCH (15:51)
[2016-10-26] MEDS ORDERED: CISPLATIN IV SCH (16:00)
[2016-10-26] MEDS ORDERED: FUROSEMIDE 40 MG INJ IV SCH (19:00)
--- NOTE | 2016-10-26 20:20 | CONS ---
Date/Time of Note Date/Time of Note DATE: 10/26/16 TIME: 20:16 Assessment/Plan Assessment/Plan Chief Complaint/Hosp Course assessment/impression - fever and leukocytosis due to b/l pyelonephritis, large tumor burden and hydronephrosis - complicated UTI and b/l pyelonephritis due to ESBL+E. coli, enterococci and yeast. 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 Scant phlegm per Pt. recommendations - pending result: sensitivity of enterococci in his urine culture from Castañeda catheter - add levofloxacin for enterococci - continue meropenem for ESBL+E. coli and enterococci (ampicillin-sensitive strain, 10/18/2016-), plan to end 10/27/2016 - continue fluconazole. Plan for 10 days, plan to end on 10/27/2016 - contact isolation for ESBL+E. coli antibiotic management, prevention of UTI, catheterization technique, risks of UTI d/w Pt and his son - the total time I took to care for this Pt today was from 1930 to 2015 Problems: Consultation Date/Type/Reason Admit Date/Time Oct 09, 2016 at 05:45 Initial Consult Date 10/16/16 Type of Consultation: ID Referring Provider: JEFF OSPINA MD 24 HR Interval Summary Constitutional: no complaints Detailed Summary Eyes: no complaints ENT: no complaints Respiratory: cough Cardiovascular: no complaints Gastrointestinal: no complaints Genitourinary: other (b/l nephrostomy tubes and Castañeda), No discharge, No dysuria, No flank pain Musculoskeletal: no complaints Skin: no complaints Neurologic: no complaints Exam/Review of Systems Vital Signs Vitals Vital Signs Date Time Temp Pulse Resp B/P Pulse Ox O2 Delivery O2 Flow Rate FiO2 10/26/16 18:00 86 18 139/64 95 Nasal Cannula 1.0 10/26/16 17:15 98.0 Intake and Output 10/25/16 10/25/16 10/26/16 15:00 23:00 07:00 Intake Total 2513 ml 960 ml Output Total 300 ml 1972 ml Balance 2213 ml -1012 ml Exam Constitutional: alert, frail Psych: nl mood/affect, no complaints Head: atraumatic, normocephalic Eyes: nl conjunctiva, nl lids ENMT: nl external ears & nose, nl nasal mucosa & septum Respiratory: clear to auscultation, normal air movement Cardiovascular: nl pulses, regular rate and rhythm Gastrointestinal: non-tender, soft Genitourinary - Male: other (Castañeda, b/l nephrostomy tubes) Extremities: normal pulses, No edema Neurological: SHOOK SPLICER II-XII intact, nl mental status, nl speech Skin: nl turgor Results Result Diagram: 10/26/16 0500 10/26/16 0500 Results 24 hrs Laboratory Tests Test 10/25/16 21:06 10/26/16 05:00 10/26/16 09:00 10/26/16 11:33 Bedside Glucose 302 H 201 270 H White Blood Count 11.9 H Red Blood Count 4.19 L Hemoglobin 10.4 L Hematocrit 33.2 L Mean Corpuscular Volume 79.2 L Mean Corpuscular Hemoglobin 24.8 L Mean Corpuscular Hemoglobin Concent 31.3 L Red Cell Distribution Width 17.1 H Platelet Count 358 Mean Platelet Volume 8.7 Neutrophils % 91.9 H Lymphocytes % 5.6 L Monocytes % 1.9 Eosinophils % 0.0 Basophils % 0.1 Nucleated Red Blood Cells % 0.0 Neutrophils # 10.9 H Lymphocytes # 0.7 L Monocytes # 0.2 L Eosinophils # 0.0 Basophils # 0.0 Nucleated Red Blood Cells # 0.0 Sodium Level 131 L Potassium Level 4.7 Chloride Level 102 Carbon Dioxide Level 27 Anion Gap 7 L Blood Urea Nitrogen 18 Creatinine 0.66 Glucose Level 219 # Calcium Level 9.1 Phosphorus Level 3.8 Magnesium Level 2.0 Total Bilirubin 0.6 Direct Bilirubin 0.00 Indirect Bilirubin 0.6 Aspartate Amino Transf (AST/SGOT) 21 Alanine Aminotransferase (ALT/SGPT) 36 Alkaline Phosphatase 68 Total Protein 5.0 L Albumin 2.0 L Globulin 3.00 Albumin/Globulin Ratio 0.66 Test 10/26/16 17:37 Bedside Glucose 241 H Medications Medications Current Medications Ondansetron HCl (Zofran Inj) 4 mg Q6H PRN IV NAUSEA AND/OR VOMITING; Start at 06:30 Acetaminophen (Tylenol Tab) 650 mg Q6H PRN PO PAIN LEVEL 1-3 OR FEVER Last administered on 10/17/16 16:33; Admin Dose 650 MG; Start 10/09/16 at 06:30 Acetaminophen/ Hydrocodone Bitart ([place] (5/325)) 1 tab Q6H PRN PO MODERATE PAIN LEVEL 4-6 Last administered on 10/26/16 03:05; Admin Dose 1 TAB; Start at 06:30 Acetaminophen/ Hydrocodone Bitart ([place] (5/325)) 2 tab Q6H PRN PO SEVERE PAIN LEVEL 7-10 Last administered on 10/17/16 22:50; Admin Dose 2 TAB; Start at 06:30 Docusate Sodium (Colace) 100 mg Q12H PRN PO CONSTIPATION Last administered on 05:06; Admin Dose 100 MG; Start 10/09/16 at 06:30 Magnesium Hydroxide (Milk Of Mag) 30 ml DAILY PRN PO CONSTIPATION Last administered on 10/17/16 15:49; Admin Dose 30 ML; Start 10/09/16 at 06:30 Lisinopril (Zestril) 40 mg DAILY PO Last administered on 10/26/16 10:36; Admin Dose 40 MG; Start 10/09/16 at 09:00 Atorvastatin Calcium (Lipitor) 40 mg HS PO Last administered on 10/25/16 21:13 ; Admin Dose 40 MG; Start 10/09/16 at 21:00 Metoprolol Succinate (Toprol Xl) 25 mg DAILY PO Last administered on 10/26/16 10:36; Admin Dose 25 MG; Start 10/09/16 at 09:00 Pantoprazole (Protonix Tab) 40 mg DAILY@06 PO Last administered on 10/26/16 06: 09; Admin Dose 40 MG; Start 10/09/16 at 07:30 Miscellaneous Information 1 ea NOTE XX ; Start 10/09/16 at 07:30 Glucose (Glutose) 15 gm Q15M PRN PO DECREASED GLUCOSE; Start 10/09/16 at 07:30 Glucose (Glutose) 22.5 gm Q15M PRN PO DECREASED GLUCOSE; Start 10/09/16 at 07: 30 Dextrose (D50w Syringe) 25 ml Q15M PRN IV DECREASED GLUCOSE; Start 10/09/16 at 07:30 Dextrose (D50w Syringe) 50 ml Q15M PRN IV DECREASED GLUCOSE; Start 10/09/16 at 07:30 Glucagon (Glucagen) 1 mg Q15M PRN IM DECREASED GLUCOSE; Start 10/09/16 at 07:30 Glucose (Glutose) 15 gm Q15M PRN BUCCAL DECREASED GLUCOSE; Start 10/09/16 at 07 :30 Insulin Glargine (Lantus) 15 unit QHS SC Last administered on 10/25/16 21:11; Admin Dose 15 UNIT; Start 10/12/16 at 21:00 Non-Formulary Medication 1 ea DAILY BOTH EYES Last administered on 10/26/16 10: 33; Admin Dose 1 EA; Start 10/14/16 at 09:00 Polyethylene Glycol 17 gm 17 gm DAILY PRN PO CONSTIPATION; Start 10/15/16 at 20 :32 Fluconazole 100 ml @ 100 mls/hr Q24H IVPB Last administered on 10/26/16 15:51 ; Admin Dose 100 MLS/HR; Start 10/16/16 at 16:00; Stop 10/27/16 at 23:59 Meropenem (Merrem 1 Gm/100 ml (Pmx)) 100 ml @ 200 mls/hr Q8 IVPB Last administered on 10/26/16 13:44; Admin Dose 200 MLS/HR; Start 10/17/16 at 14:00; Stop 10/27/16 at 13:59 Enoxaparin Sodium 40 mg 40 mg DAILY SC Last administered on 10/26/16 10:33; Admin Dose 40 MG; Start 10/20/16 at 11:00 Potassium Chloride/ Potassium Phosphate/Sodium Chloride (KCl/K Phos (Meq)/NS) 1, 012.2727 ml @ 75 mls/hr [id number] IV Last administered on 10/25/16 21:13; Admin Dose 75 MLS/HR; Start 10/24/16 at 18:43 IV Flush 10 ml 10 ml PRN PRN IV IV PROTOCOL; Start 10/25/16 at 11:00 Gemcitabine HCl 1.9 gm/Sodium Chloride 250 ml @ 250 mls/hr Q7D IV Last administered on 10/25/16 18:53; Admin Dose 250 MLS/HR; Start 10/25/16 at 18:00; Stop 11/08/16 at 18:59 Ondansetron HCl 16 mg/ Dexamethasone 20 mg/Dextrose 63 ml @ 252 mls/hr Q7D IV Last administered on 10/25/16 18:27; Admin Dose 252 MLS/HR; Start 10/25/16 at 17: 30; Stop 11/08/16 at 17:44 Potassium Chloride/ Magnesium Sulfate/ Sodium Chloride (KCl/Magnesium Sulfate/NS ) 1,011 ml @ 252.75 mls/ hr Q4H IV ; Start 10/26/16 at 19:00; Stop 10/26/16 at 22 :59 VIRGILIO JACOBSON M.D. October 26, 2016 20:19
[2016-10-26] MEDS: LEVOFLOXACIN 500MG/D5W (PMX) 100 ML IVPB SCH (21:36)
[2016-10-26] MEDS: ATORVASTATIN 40 MG TAB PO SCH (21:36)
[2016-10-26] MEDS: INSULIN GLARGINE [LANtus] 3 ML PEN SC SCH (21:39)
[2016-10-27 00:20] VITALS: BP 144/74; PULSE 81; RESP 19
[2016-10-27] MEDS: HYDROCODONE/APAP (5/325) TAB PO PRN (00:42)
[2016-10-27] MEDS: SOD CHLORIDE 0.9% IV SCH (02:45)
[2016-10-27] MEDS: POTASSIUM CHLORIDE IV SCH (02:45)
[2016-10-27] MEDS: POTASSIUM PHOSPHATE IV SCH (02:45)
[2016-10-27 05:27] LABS: ADD SCAN DIFF NO
[2016-10-27 05:37] LABS: ABNORMAL IP MESSAGE 1; HEMATOCRIT 33.9 % (42.0-52.0); HEMOGLOBIN 10.7 g/dl (14.0-18.0); MEAN CORPUSCULAR HEMOGLOBIN 24.8 pg (29.0-33.0); MEAN CORPUSCULAR HGB CONC 31.6 g/dl (32.0-37.0); MEAN CORPUSCULAR VOLUME 78.7 fl (82.0-101.0); MEAN PLATELET VOLUME 8.7 fl (7.4-10.4); PLATELET COUNT 427 10^3/UL (140-415); RED BLOOD COUNT 4.31 10^6/ul (4.70-6.10); RED CELL DISTRIBUTION WIDTH 17.4 % (11.5-14.5); WHITE BLOOD COUNT 34.2 10^3/ul (4.8-10.8)
[2016-10-27] MEDS: MEROPENEM 1 GM/100 ML (PMX) 100 ML IVPB SCH (05:41)
[2016-10-27] MEDS: PANTOPRAZOLE (EC) 40 MG TAB PO SCH (05:42)
[2016-10-27 05:47] VITALS: BP 144/71; PULSE 75; RESP 18
[2016-10-27 06:01] LABS: ALBUMIN 2.1 g/dl (3.3-4.9); ALBUMIN/GLOBULIN RATIO 0.72; BILIRUBIN,INDIRECT 0.6 mg/dl (0-1.1); BILIRUBIN,TOTAL 0.6 mg/dl (0.2-1.3); CALCIUM 9.2 mg/dl (8.4-10.2); CREATININE 0.69 mg/dl (0.61-1.24); POTASSIUM 4.4 mmol/L (3.5-5.1)
[2016-10-27 07:43] VITALS: BP 143/82; PULSE 93; RESP 16
[2016-10-27 08:01] VITALS: BP 137/66; RESP 19
[2016-10-27] MEDS: INSULIN ASPART [NOVOLOG] 3 ML PEN SC SCH ×4 (09:11→20:59)
[2016-10-27] MEDS: ENOXAPARIN 40 MG/0.4 ML SYG SC SCH (09:12)
[2016-10-27] MEDS: LISINOPRIL 20 MG TAB PO SCH (09:12)
[2016-10-27] MEDS: TIMOPTIC 0.5% EYE DROPS BOTH EYES SCH (09:13)
[2016-10-27] MEDS: METOPROLOL (XL) 25 MG TAB PO SCH (09:13)
[2016-10-27 10:19] LABS: MONOCYTE # 0.3 10^3/ul (0.3-0.9); NEUTROPHIL # 32.8 10^3/ul (1.6-7.5); TOXIC GRANULATION 3+
--- NOTE | 2016-10-27 10:52 | PN ---
Date/Time of Note Date/Time of Note DATE: 10/27/16 TIME: 10:50 Assessment/Plan VTE Prophylaxis VTE Prophylaxis Intervention: ambulation Lines/Catheters IV Catheter Type (from Nrs): PICC Line Central line still needed: Yes Urinary Cath still in place: Yes Reason Cath still needed: other (indicate) (weakness) Assessment/Plan Assessment/Plan Pt tolerated chemotherapy well. Next dose due in about six days. He is in good spirits and is walking in the halls with PT now. Subjective 24 Hr Interval Summary Free Text/Dictation Pt had no side effects from chemotherapy. Exam/Review of Systems Vital Signs Vitals Vital Signs Date Time Temp Pulse Resp B/P Pulse Ox O2 Delivery O2 Flow Rate FiO2 10/27/16 08:01 98.0 75 19 137/66 98 10/27/16 08:00 Nasal Cannula 2.0 Intake and Output 10/26/16 10/26/16 10/27/16 15:00 23:00 07:00 Intake Total 520 ml 1974 ml 1400 ml Output Total 2500 ml 4480 ml Balance 520 ml -526 ml -3080 ml Exam Constitutional: alert, oriented Head: normocephalic Eyes: nl conjunctiva Neck: supple Respiratory: clear to auscultation Cardiovascular: regular rate and rhythm Gastrointestinal: soft Results Result Diagram: 10/27/16 0440 10/27/16 0440 Results 24 hrs Laboratory Tests Test 10/26/16 11:33 10/26/16 17:37 10/26/16 21:33 10/27/16 04:40 Bedside Glucose 270 H 241 H 249 H White Blood Count 34.2 #H Red Blood Count 4.31 L Hemoglobin 10.7 L Hematocrit 33.9 L Mean Corpuscular Volume 78.7 L Mean Corpuscular Hemoglobin 24.8 L Mean Corpuscular Hemoglobin Concent 31.6 L Red Cell Distribution Width 17.4 H Platelet Count 427 H Mean Platelet Volume 8.7 Neutrophils % 96.0 H Lymphocytes % 3.0 L Monocytes % 1.0 Neutrophils # 32.8 H Lymphocytes # 1.0 Monocytes # 0.3 Toxic Granulation 3+ Sodium Level 130 L Potassium Level 4.4 Chloride Level 101 Carbon Dioxide Level 26 Anion Gap 7 L Blood Urea Nitrogen 24 H Creatinine 0.69 Glucose Level 203 Calcium Level 9.2 Total Bilirubin 0.6 Direct Bilirubin 0.00 Indirect Bilirubin 0.6 Aspartate Amino Transf (AST/SGOT) 22 Alanine Aminotransferase (ALT/SGPT) 34 Alkaline Phosphatase 67 Total Protein 5.0 L Albumin 2.1 L Globulin 2.90 Albumin/Globulin Ratio 0.72 Test 10/27/16 08:37 Bedside Glucose 179 Medications Medications Current Medications Ondansetron HCl (Zofran Inj) 4 mg Q6H PRN IV NAUSEA AND/OR VOMITING; Start at 06:30 Acetaminophen (Tylenol Tab) 650 mg Q6H PRN PO PAIN LEVEL 1-3 OR FEVER Last administered on 10/17/16 16:33; Admin Dose 650 MG; Start 10/09/16 at 06:30 Acetaminophen/ Hydrocodone Bitart ([place] (5/325)) 1 tab Q6H PRN PO MODERATE PAIN LEVEL 4-6 Last administered on 10/27/16 00:42; Admin Dose 1 TAB; Start at 06:30 Acetaminophen/ Hydrocodone Bitart ([place] (5/325)) 2 tab Q6H PRN PO SEVERE PAIN LEVEL 7-10 Last administered on 10/17/16 22:50; Admin Dose 2 TAB; Start at 06:30 Docusate Sodium (Colace) 100 mg Q12H PRN PO CONSTIPATION Last administered on 05:06; Admin Dose 100 MG; Start 10/09/16 at 06:30 Magnesium Hydroxide (Milk Of Mag) 30 ml DAILY PRN PO CONSTIPATION Last administered on 10/17/16 15:49; Admin Dose 30 ML; Start 10/09/16 at 06:30 Lisinopril (Zestril) 40 mg DAILY PO Last administered on 10/27/16 09:12; Admin Dose 40 MG; Start 10/09/16 at 09:00 Atorvastatin Calcium (Lipitor) 40 mg HS PO Last administered on 10/26/16 21:36 ; Admin Dose 40 MG; Start 10/09/16 at 21:00 Metoprolol Succinate (Toprol Xl) 25 mg DAILY PO Last administered on 10/27/16 09:13; Admin Dose 25 MG; Start 10/09/16 at 09:00 Pantoprazole (Protonix Tab) 40 mg DAILY@06 PO Last administered on 10/27/16 05: 42; Admin Dose 40 MG; Start 10/09/16 at 07:30 Miscellaneous Information 1 ea NOTE XX ; Start 10/09/16 at 07:30 Glucose (Glutose) 15 gm Q15M PRN PO DECREASED GLUCOSE; Start 10/09/16 at 07:30 Glucose (Glutose) 22.5 gm Q15M PRN PO DECREASED GLUCOSE; Start 10/09/16 at 07: 30 Dextrose (D50w Syringe) 25 ml Q15M PRN IV DECREASED GLUCOSE; Start 10/09/16 at 07:30 Dextrose (D50w Syringe) 50 ml Q15M PRN IV DECREASED GLUCOSE; Start 10/09/16 at 07:30 Glucagon (Glucagen) 1 mg Q15M PRN IM DECREASED GLUCOSE; Start 10/09/16 at 07:30 Glucose (Glutose) 15 gm Q15M PRN BUCCAL DECREASED GLUCOSE; Start 10/09/16 at 07 :30 Insulin Glargine (Lantus) 15 unit QHS SC Last administered on 10/26/16 21:39; Admin Dose 15 UNIT; Start 10/12/16 at 21:00 Non-Formulary Medication 1 ea DAILY BOTH EYES Last administered on 10/27/16 09: 13; Admin Dose 1 EA; Start 10/14/16 at 09:00 Polyethylene Glycol 17 gm 17 gm DAILY PRN PO CONSTIPATION; Start 10/15/16 at 20 :32 Fluconazole 100 ml @ 100 mls/hr Q24H IVPB Last administered on 10/26/16 15:51 ; Admin Dose 100 MLS/HR; Start 10/16/16 at 16:00; Stop 10/27/16 at 23:59 Meropenem (Merrem 1 Gm/100 ml (Pmx)) 100 ml @ 200 mls/hr Q8 IVPB Last administered on 10/27/16 05:41; Admin Dose 200 MLS/HR; Start 10/17/16 at 14:00; Stop 10/27/16 at 13:59 Enoxaparin Sodium 40 mg 40 mg DAILY SC Last administered on 10/27/16 09:12; Admin Dose 40 MG; Start 10/20/16 at 11:00 Potassium Chloride/ Potassium Phosphate/Sodium Chloride (KCl/K Phos (Meq)/NS) 1, 012.2727 ml @ 75 mls/hr [id number] IV Last administered on 10/27/16 02:45; Admin Dose 75 MLS/HR; Start 10/24/16 at 18:43 IV Flush 10 ml 10 ml PRN PRN IV IV PROTOCOL; Start 10/25/16 at 11:00 Gemcitabine HCl 1.9 gm/Sodium Chloride 250 ml @ 250 mls/hr Q7D IV Last administered on 10/25/16 18:53; Admin Dose 250 MLS/HR; Start 10/25/16 at 18:00; Stop 11/08/16 at 18:59 Ondansetron HCl 16 mg/ Dexamethasone 20 mg/Dextrose 63 ml @ 252 mls/hr Q7D IV Last administered on 10/25/16 18:27; Admin Dose 252 MLS/HR; Start 10/25/16 at 17: 30; Stop 11/08/16 at 17:44 Levofloxacin/ Dextrose (Levaquin 500mg/ D5W 100 ml (Pmx)) 100 ml @ 100 mls/hr Q24H IVPB Last administered on 10/26/16 21:36; Admin Dose 100 MLS/HR; Start 10/26/16 at 21:00; Stop 11/05/16 at 20:59 KIP MILLER MD October 27, 2016 10:52
[2016-10-27 11:05] LABS: ADD SCAN DIFF NO
[2016-10-27 11:17] LABS: ABNORMAL IP MESSAGE 1; HEMATOCRIT 38.3 % (42.0-52.0); MEAN CORPUSCULAR HEMOGLOBIN 24.8 pg (29.0-33.0); MEAN CORPUSCULAR HGB CONC 31.3 g/dl (32.0-37.0); MEAN CORPUSCULAR VOLUME 79.1 fl (82.0-101.0); MEAN PLATELET VOLUME 8.6 fl (7.4-10.4); PLATELET COUNT 541 10^3/UL (140-415); RED BLOOD COUNT 4.84 10^6/ul (4.70-6.10); RED CELL DISTRIBUTION WIDTH 17.4 % (11.5-14.5); WHITE BLOOD COUNT 42.4 10^3/ul (4.8-10.8)
--- NOTE | 2016-10-27 12:12 | CONS ---
Date/Time of Note Date/Time of Note DATE: 10/27/16 TIME: 12:08 Assessment/Plan Assessment/Plan Chief Complaint/Hosp Course assessment/impression - fever and leukocytosis due to b/l pyelonephritis, large tumor burden and hydronephrosis - complicated UTI and b/l pyelonephritis due to ESBL+E. coli, enterococci and yeast. 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 Scant phlegm per Pt. - leukocytosis due to steroid recommendations - complete 10 days of levofloxacin (10/26/2016) for residual enterococci in his urine culture from [place] catheter - complete meropenem for ESBL+E. coli (would cover enterococci, an ampicillin- sensitive strain, 10/18/2016-) today (10/27/2016) - complete fluconazole today (10/27/2016) - contact isolation for ESBL+E. coli - management d/w Pt and his RN Problems: Consultation Date/Type/Reason Admit Date/Time Oct 09, 2016 at 05:45 Initial Consult Date 10/16/16 Type of Consultation: ID Referring Provider: JEFF OSPINA MD 24 HR Interval Summary Constitutional: no complaints Detailed Summary Eyes: no complaints ENT: no complaints Respiratory: cough Cardiovascular: no complaints Gastrointestinal: no complaints Genitourinary: other ([place] and b/l nephrostomy tubes) Musculoskeletal: no complaints Skin: no complaints Neurologic: no complaints Exam/Review of Systems Vital Signs Vitals Vital Signs Date Time Temp Pulse Resp B/P Pulse Ox O2 Delivery O2 Flow Rate FiO2 10/27/16 08:01 98.0 75 19 137/66 98 10/27/16 08:00 Nasal Cannula 2.0 Intake and Output 10/26/16 10/26/16 10/27/16 15:00 23:00 07:00 Intake Total 520 ml 1974 ml 1400 ml Output Total 2500 ml 4480 ml Balance 520 ml -526 ml -3080 ml Exam Constitutional: frail Psych: no complaints Head: atraumatic, normocephalic Eyes: nl conjunctiva, nl lids ENMT: nl external ears & nose, nl nasal mucosa & septum Neck: supple Respiratory: diminished breath sounds Cardiovascular: nl pulses, regular rate and rhythm Gastrointestinal: non-tender, soft Genitourinary - Male: nl penis, other (vernon and b/l nephrostomy tubes) Musculoskeletal: nl extremities to inspection Extremities: No edema Neurological: lethargic Skin: nl turgor Results Result Diagram: 10/27/16 1050 10/27/16 0440 Results 24 hrs Laboratory Tests Test 10/26/16 17:37 10/26/16 21:33 10/27/16 04:40 10/27/16 08:37 Bedside Glucose 241 H 249 H 179 White Blood Count 34.2 #H Red Blood Count 4.31 L Hemoglobin 10.7 L Hematocrit 33.9 L Mean Corpuscular Volume 78.7 L Mean Corpuscular Hemoglobin 24.8 L Mean Corpuscular Hemoglobin Concent 31.6 L Red Cell Distribution Width 17.4 H Platelet Count 427 H Mean Platelet Volume 8.7 Neutrophils % 96.0 H Lymphocytes % 3.0 L Monocytes % 1.0 Neutrophils # 32.8 H Lymphocytes # 1.0 Monocytes # 0.3 Toxic Granulation 3+ Sodium Level 130 L Potassium Level 4.4 Chloride Level 101 Carbon Dioxide Level 26 Anion Gap 7 L Blood Urea Nitrogen 24 H Creatinine 0.69 Glucose Level 203 Calcium Level 9.2 Total Bilirubin 0.6 Direct Bilirubin 0.00 Indirect Bilirubin 0.6 Aspartate Amino Transf (AST/SGOT) 22 Alanine Aminotransferase (ALT/SGPT) 34 Alkaline Phosphatase 67 Total Protein 5.0 L Albumin 2.1 L Globulin 2.90 Albumin/Globulin Ratio 0.72 Test 10/27/16 10:50 10/27/16 11:58 White Blood Count 42.4 #H Red Blood Count 4.84 Hemoglobin 12.0 L Hematocrit 38.3 L Mean Corpuscular Volume 79.1 L Mean Corpuscular Hemoglobin 24.8 L Mean Corpuscular Hemoglobin Concent 31.3 L Red Cell Distribution Width 17.4 H Platelet Count 541 #H Mean Platelet Volume 8.6 Bedside Glucose 214 Medications Medications Current Medications Ondansetron HCl (Zofran Inj) 4 mg Q6H PRN IV NAUSEA AND/OR VOMITING; Start at 06:30 Acetaminophen (Tylenol Tab) 650 mg Q6H PRN PO PAIN LEVEL 1-3 OR FEVER Last administered on 10/17/16 16:33; Admin Dose 650 MG; Start 10/09/16 at 06:30 Acetaminophen/ Hydrocodone Bitart ([place] (5/325)) 1 tab Q6H PRN PO MODERATE PAIN LEVEL 4-6 Last administered on 10/27/16 00:42; Admin Dose 1 TAB; Start at 06:30 Acetaminophen/ Hydrocodone Bitart ([place] (5/325)) 2 tab Q6H PRN PO SEVERE PAIN LEVEL 7-10 Last administered on 10/17/16 22:50; Admin Dose 2 TAB; Start at 06:30 Docusate Sodium (Colace) 100 mg Q12H PRN PO CONSTIPATION Last administered on 05:06; Admin Dose 100 MG; Start 10/09/16 at 06:30 Magnesium Hydroxide (Milk Of Mag) 30 ml DAILY PRN PO CONSTIPATION Last administered on 10/17/16 15:49; Admin Dose 30 ML; Start 10/09/16 at 06:30 Lisinopril (Zestril) 40 mg DAILY PO Last administered on 10/27/16 09:12; Admin Dose 40 MG; Start 10/09/16 at 09:00 Atorvastatin Calcium (Lipitor) 40 mg HS PO Last administered on 10/26/16 21:36 ; Admin Dose 40 MG; Start 10/09/16 at 21:00 Metoprolol Succinate (Toprol Xl) 25 mg DAILY PO Last administered on 10/27/16 09:13; Admin Dose 25 MG; Start 10/09/16 at 09:00 Pantoprazole (Protonix Tab) 40 mg DAILY@06 PO Last administered on 10/27/16 05: 42; Admin Dose 40 MG; Start 10/09/16 at 07:30 Miscellaneous Information 1 ea NOTE XX ; Start 10/09/16 at 07:30 Glucose (Glutose) 15 gm Q15M PRN PO DECREASED GLUCOSE; Start 10/09/16 at 07:30 Glucose (Glutose) 22.5 gm Q15M PRN PO DECREASED GLUCOSE; Start 10/09/16 at 07: 30 Dextrose (D50w Syringe) 25 ml Q15M PRN IV DECREASED GLUCOSE; Start 10/09/16 at 07:30 Dextrose (D50w Syringe) 50 ml Q15M PRN IV DECREASED GLUCOSE; Start 10/09/16 at 07:30 Glucagon (Glucagen) 1 mg Q15M PRN IM DECREASED GLUCOSE; Start 10/09/16 at 07:30 Glucose (Glutose) 15 gm Q15M PRN BUCCAL DECREASED GLUCOSE; Start 10/09/16 at 07 :30 Insulin Glargine (Lantus) 15 unit QHS SC Last administered on 10/26/16 21:39; Admin Dose 15 UNIT; Start 10/12/16 at 21:00 Non-Formulary Medication 1 ea DAILY BOTH EYES Last administered on 10/27/16 09: 13; Admin Dose 1 EA; Start 10/14/16 at 09:00 Polyethylene Glycol 17 gm 17 gm DAILY PRN PO CONSTIPATION; Start 10/15/16 at 20 :32 Fluconazole 100 ml @ 100 mls/hr Q24H IVPB Last administered on 10/26/16 15:51 ; Admin Dose 100 MLS/HR; Start 10/16/16 at 16:00; Stop 10/27/16 at 23:59 Meropenem (Merrem 1 Gm/100 ml (Pmx)) 100 ml @ 200 mls/hr Q8 IVPB Last administered on 10/27/16 05:41; Admin Dose 200 MLS/HR; Start 10/17/16 at 14:00; Stop 10/27/16 at 13:59 Enoxaparin Sodium 40 mg 40 mg DAILY SC Last administered on 10/27/16 09:12; Admin Dose 40 MG; Start 10/20/16 at 11:00 Potassium Chloride/ Potassium Phosphate/Sodium Chloride (KCl/K Phos (Meq)/NS) 1, 012.2727 ml @ 75 mls/hr [id number] IV Last administered on 10/27/16 02:45; Admin Dose 75 MLS/HR; Start 10/24/16 at 18:43 IV Flush 10 ml 10 ml PRN PRN IV IV PROTOCOL; Start 10/25/16 at 11:00 Gemcitabine HCl 1.9 gm/Sodium Chloride 250 ml @ 250 mls/hr Q7D IV Last administered on 10/25/16 18:53; Admin Dose 250 MLS/HR; Start 10/25/16 at 18:00; Stop 11/08/16 at 18:59 Ondansetron HCl 16 mg/ Dexamethasone 20 mg/Dextrose 63 ml @ 252 mls/hr Q7D IV Last administered on 10/25/16 18:27; Admin Dose 252 MLS/HR; Start 10/25/16 at 17: 30; Stop 11/08/16 at 17:44 Levofloxacin/ Dextrose (Levaquin 500mg/ D5W 100 ml (Pmx)) 100 ml @ 100 mls/hr Q24H IVPB Last administered on 10/26/16 21:36; Admin Dose 100 MLS/HR; Start 10/26/16 at 21:00; Stop 11/05/16 at 20:59 VIRGILIO JACOBSON M.D. October 27, 2016 12:12
[2016-10-27 13:12] LABS: LYMPHOCYTES # 0.8 10^3/ul (0.8-2.9); MONOCYTE # 1.3 10^3/ul (0.3-0.9); NEUTROPHIL # 40.3 10^3/ul (1.6-7.5)
[2016-10-27 13:13] LABS: PLATELET ESTIMATE PLT APPEAR INCREASED
--- NOTE | 2016-10-27 13:21 | CONS ---
Date/Time of Note Date/Time of Note DATE: 10/27/16 TIME: 13:14 Assessment/Plan Assessment/Plan Chief Complaint/Hosp Course 1. Obstructive uropathy . He has bilateral percutaneous nephrostomies . They are both draining well . He was in negative fluid balance yesterday after getting chemo and furosemide . . 2. metastatic bladder cancer . He is going to get cis-[place] today. 3. CAD 4. DM on insulin 5. dysphagia , will order speech therapy . 6. Anorexia, his appetite is improved and he is eating better. 8. he has iron deficiency anemia , he has completed a course of Ferrlicit. 9. UTI , he is now on Levaquin for 10 days . 10. leukocytosis . WBC is high today after getting dexamethasone with chemo yesterday .Will order labs for tomorrow . 11. A fib , on Aspirin .He has been seen by cardiology Dr Gutierrez Problems: Consultation Date/Type/Reason Admit Date/Time Oct 09, 2016 at 05:45 Initial Consult Date 10/10/16 Type of Consultation: ID Referring Provider: JEFF OSPINA MD 24 HR Interval Summary Free Text/Dictation He has completed his first course of chemotherapy . He has no new complaints . Constitutional: improved, no complaints Exam/Review of Systems Vital Signs Vitals Vital Signs Date Time Temp Pulse Resp B/P Pulse Ox O2 Delivery O2 Flow Rate FiO2 10/27/16 08:01 98.0 75 19 137/66 98 10/27/16 08:00 Nasal Cannula 2.0 Intake and Output 10/26/16 10/26/16 10/27/16 15:00 23:00 07:00 Intake Total 520 ml 1974 ml 1400 ml Output Total 2500 ml 4480 ml Balance 520 ml -526 ml -3080 ml Exam Constitutional: alert, frail, oriented Respiratory: clear to auscultation, diminished breath sounds Cardiovascular: edema, irregular rhythm Gastrointestinal: soft Extremities: edema Results Result Diagram: 10/27/16 1050 10/27/16 0440 Results 24 hrs Laboratory Tests Test 10/26/16 17:37 10/26/16 21:33 10/27/16 04:40 10/27/16 08:37 Bedside Glucose 241 H 249 H 179 White Blood Count 34.2 #H Red Blood Count 4.31 L Hemoglobin 10.7 L Hematocrit 33.9 L Mean Corpuscular Volume 78.7 L Mean Corpuscular Hemoglobin 24.8 L Mean Corpuscular Hemoglobin Concent 31.6 L Red Cell Distribution Width 17.4 H Platelet Count 427 H Mean Platelet Volume 8.7 Neutrophils % 96.0 H Lymphocytes % 3.0 L Monocytes % 1.0 Neutrophils # 32.8 H Lymphocytes # 1.0 Monocytes # 0.3 Toxic Granulation 3+ Sodium Level 130 L Potassium Level 4.4 Chloride Level 101 Carbon Dioxide Level 26 Anion Gap 7 L Blood Urea Nitrogen 24 H Creatinine 0.69 Glucose Level 203 Calcium Level 9.2 Total Bilirubin 0.6 Direct Bilirubin 0.00 Indirect Bilirubin 0.6 Aspartate Amino Transf (AST/SGOT) 22 Alanine Aminotransferase (ALT/SGPT) 34 Alkaline Phosphatase 67 Total Protein 5.0 L Albumin 2.1 L Globulin 2.90 Albumin/Globulin Ratio 0.72 Test 10/27/16 10:50 10/27/16 11:58 White Blood Count 42.4 #H Red Blood Count 4.84 Hemoglobin 12.0 L Hematocrit 38.3 L Mean Corpuscular Volume 79.1 L Mean Corpuscular Hemoglobin 24.8 L Mean Corpuscular Hemoglobin Concent 31.3 L Red Cell Distribution Width 17.4 H Platelet Count 541 #H Mean Platelet Volume 8.6 Neutrophils % 95.0 H Lymphocytes % 2.0 L Monocytes % 3.0 Neutrophils # 40.3 H Lymphocytes # 0.8 Monocytes # 1.3 H Platelet Estimate PLT APPEAR INCREASED Bedside Glucose 214 Medications Medications Current Medications Ondansetron HCl (Zofran Inj) 4 mg Q6H PRN IV NAUSEA AND/OR VOMITING; Start at 06:30 Acetaminophen (Tylenol Tab) 650 mg Q6H PRN PO PAIN LEVEL 1-3 OR FEVER Last administered on 10/17/16 16:33; Admin Dose 650 MG; Start 10/09/16 at 06:30 Acetaminophen/ Hydrocodone Bitart ([place] (5/325)) 1 tab Q6H PRN PO MODERATE PAIN LEVEL 4-6 Last administered on 10/27/16 00:42; Admin Dose 1 TAB; Start at 06:30 Acetaminophen/ Hydrocodone Bitart ([place] (5/325)) 2 tab Q6H PRN PO SEVERE PAIN LEVEL 7-10 Last administered on 10/17/16 22:50; Admin Dose 2 TAB; Start at 06:30 Docusate Sodium (Colace) 100 mg Q12H PRN PO CONSTIPATION Last administered on 05:06; Admin Dose 100 MG; Start 10/09/16 at 06:30 Magnesium Hydroxide (Milk Of Mag) 30 ml DAILY PRN PO CONSTIPATION Last administered on 10/17/16 15:49; Admin Dose 30 ML; Start 10/09/16 at 06:30 Lisinopril (Zestril) 40 mg DAILY PO Last administered on 10/27/16 09:12; Admin Dose 40 MG; Start 10/09/16 at 09:00 Atorvastatin Calcium (Lipitor) 40 mg HS PO Last administered on 10/26/16 21:36 ; Admin Dose 40 MG; Start 10/09/16 at 21:00 Metoprolol Succinate (Toprol Xl) 25 mg DAILY PO Last administered on 10/27/16 09:13; Admin Dose 25 MG; Start 10/09/16 at 09:00 Pantoprazole (Protonix Tab) 40 mg DAILY@06 PO Last administered on 10/27/16 05: 42; Admin Dose 40 MG; Start 10/09/16 at 07:30 Miscellaneous Information 1 ea NOTE XX ; Start 10/09/16 at 07:30 Glucose (Glutose) 15 gm Q15M PRN PO DECREASED GLUCOSE; Start 10/09/16 at 07:30 Glucose (Glutose) 22.5 gm Q15M PRN PO DECREASED GLUCOSE; Start 10/09/16 at 07: 30 Dextrose (D50w Syringe) 25 ml Q15M PRN IV DECREASED GLUCOSE; Start 10/09/16 at 07:30 Dextrose (D50w Syringe) 50 ml Q15M PRN IV DECREASED GLUCOSE; Start 10/09/16 at 07:30 Glucagon (Glucagen) 1 mg Q15M PRN IM DECREASED GLUCOSE; Start 10/09/16 at 07:30 Glucose (Glutose) 15 gm Q15M PRN BUCCAL DECREASED GLUCOSE; Start 10/09/16 at 07 :30 Insulin Glargine (Lantus) 15 unit QHS SC Last administered on 10/26/16 21:39; Admin Dose 15 UNIT; Start 10/12/16 at 21:00 Non-Formulary Medication 1 ea DAILY BOTH EYES Last administered on 10/27/16 09: 13; Admin Dose 1 EA; Start 10/14/16 at 09:00 Polyethylene Glycol 17 gm 17 gm DAILY PRN PO CONSTIPATION; Start 10/15/16 at 20 :32 Fluconazole 100 ml @ 100 mls/hr Q24H IVPB Last administered on 10/26/16 15:51 ; Admin Dose 100 MLS/HR; Start 10/16/16 at 16:00; Stop 10/27/16 at 23:59 Meropenem (Merrem 1 Gm/100 ml (Pmx)) 100 ml @ 200 mls/hr Q8 IVPB Last administered on 10/27/16 05:41; Admin Dose 200 MLS/HR; Start 10/17/16 at 14:00; Stop 10/27/16 at 13:59 Enoxaparin Sodium 40 mg 40 mg DAILY SC Last administered on 10/27/16 09:12; Admin Dose 40 MG; Start 10/20/16 at 11:00 Potassium Chloride/ Potassium Phosphate/Sodium Chloride (KCl/K Phos (Meq)/NS) 1, 012.2727 ml @ 75 mls/hr [id number] IV Last administered on 10/27/16 02:45; Admin Dose 75 MLS/HR; Start 10/24/16 at 18:43 IV Flush 10 ml 10 ml PRN PRN IV IV PROTOCOL; Start 10/25/16 at 11:00 Gemcitabine HCl 1.9 gm/Sodium Chloride 250 ml @ 250 mls/hr Q7D IV Last administered on 10/25/16 18:53; Admin Dose 250 MLS/HR; Start 10/25/16 at 18:00; Stop 11/08/16 at 18:59 Ondansetron HCl 16 mg/ Dexamethasone 20 mg/Dextrose 63 ml @ 252 mls/hr Q7D IV Last administered on 10/25/16 18:27; Admin Dose 252 MLS/HR; Start 10/25/16 at 17: 30; Stop 11/08/16 at 17:44 Levofloxacin/ Dextrose (Levaquin 500mg/ D5W 100 ml (Pmx)) 100 ml @ 100 mls/hr Q24H IVPB Last administered on 10/26/16 21:36; Admin Dose 100 MLS/HR; Start 10/26/16 at 21:00; Stop 11/05/16 at 20:59 JEFF OSPINA MD October 27, 2016 13:21
[2016-10-27] MEDS: FLUCONAZOLE 200 MG/NS (PMX) 100 ML IVPB SCH (16:28)
[2016-10-27 19:00] VITALS: BP 138/73; RESP 16
[2016-10-27] MEDS: LEVOFLOXACIN 500MG/D5W (PMX) 100 ML IVPB SCH (20:56)
[2016-10-27] MEDS: ATORVASTATIN 40 MG TAB PO SCH (20:56)
[2016-10-27] MEDS: INSULIN GLARGINE [LANtus] 3 ML PEN SC SCH (20:58)
[2016-10-28 05:25] LABS: ALBUMIN 2.1 g/dl (3.3-4.9); ALBUMIN/GLOBULIN RATIO 0.77; BILIRUBIN,INDIRECT 0.8 mg/dl (0-1.1); BILIRUBIN,TOTAL 0.8 mg/dl (0.2-1.3); CALCIUM 9.6 mg/dl (8.4-10.2); CREATININE 0.76 mg/dl (0.61-1.24); MAGNESIUM 1.9 mg/dl (1.7-2.5); PHOSPHORUS 3.3 mg/dl (2.5-4.9); POTASSIUM 4.2 mmol/L (3.5-5.1); TOTAL PROTEIN 4.8 g/dl (6.1-8.1)
[2016-10-28 05:54] LABS: ADD SCAN DIFF NO
[2016-10-28 06:05] LABS: ABNORMAL IP MESSAGE 1; BASOPHIL # 0.1 10^3/ul (0.0-0.1); BASOPHILS % 0.2 % (0.0-2.0); EOSINOPHILS # 0.1 10^3/ul (0.0-0.5); EOSINOPHILS % 0.3 % (0.0-7.0); HEMOGLOBIN 11.2 g/dl (14.0-18.0); LYMPHOCYTES # 1.2 10^3/ul (0.8-2.9); LYMPHOCYTES % 2.7 % (15.0-51.0); MEAN CORPUSCULAR HEMOGLOBIN 25.2 pg (29.0-33.0); MEAN CORPUSCULAR VOLUME 78.8 fl (82.0-101.0); MEAN PLATELET VOLUME 8.6 fl (7.4-10.4); MONOCYTE # 0.4 10^3/ul (0.3-0.9); MONOCYTES % 0.9 % (0.0-11.0); NEUTROPHIL # 42.3 10^3/ul (1.6-7.5); NEUTROPHILS % 94.8 % (39.0-77.0); PLATELET COUNT 415 10^3/UL (140-415); RED BLOOD COUNT 4.44 10^6/ul (4.70-6.10); RED CELL DISTRIBUTION WIDTH 17.3 % (11.5-14.5)
[2016-10-28 06:13] LABS: WHITE BLOOD COUNT 44.7 10^3/ul (4.8-10.8)
[2016-10-28] MEDS: PANTOPRAZOLE (EC) 40 MG TAB PO SCH (06:57)
[2016-10-28 08:33] VITALS: BP 135/70; RESP 18
[2016-10-28] MEDS: TIMOPTIC 0.5% EYE DROPS BOTH EYES SCH (08:53)
[2016-10-28] MEDS: METOPROLOL (XL) 25 MG TAB PO SCH (08:53)
[2016-10-28] MEDS: LISINOPRIL 20 MG TAB PO SCH (08:53)
[2016-10-28] MEDS: INSULIN ASPART [NOVOLOG] 3 ML PEN SC SCH ×4 (09:06→20:11)
[2016-10-28] MEDS: ENOXAPARIN 40 MG/0.4 ML SYG SC SCH (09:06)
[2016-10-28] MEDS: SOD CHLORIDE 0.9% 1,000 ML IV SCH (11:00)
--- NOTE | 2016-10-28 11:04 | PN ---
Date/Time of Note Date/Time of Note DATE: 10/28/16 TIME: 10:59 Assessment/Plan VTE Prophylaxis VTE Prophylaxis Intervention: LMWH Lines/Catheters IV Catheter Type (from Nrs): PICC Line Central line still needed: No Urinary Cath still in place: Yes Reason Cath still needed: urinary retention Assessment/Plan Assessment/Plan 1. Obstructive uropathy . functioning nephrostomy tubes 2. Hyponatremia - net negative 3L yesterday s/p lasix with chemo. Will add low dose IVF for today and f/u labs tomorrow 3. metastatic bladder cancer --> s/p cis-[place] 10/27. 4. CAD 5. DM on insulin 6. dysphagia --> f/u speech therapy 7. Anorexia, his appetite is improved and he is eating better. 8. Iron deficiency anemia - completed course of Ferrlicit. 9. UTI --> Levaquin for 10 days . 10. leukocytosis . Getting dexamethasone with chemo --> monitor 11. A fib, on Aspirin .He has been seen by cardiology Dr Gutierrez Subjective 24 Hr Interval Summary Free Text/Dictation slept well last night, frustrated about being woken up several times. Ambulating a bit with PT. Constitutional: improved Exam/Review of Systems Vital Signs Vitals Vital Signs Date Time Temp Pulse Resp B/P Pulse Ox O2 Delivery O2 Flow Rate FiO2 10/28/16 08:33 97.6 103 18 135/70 97 10/27/16 20:00 Nasal Cannula 2.0 Intake and Output 10/27/16 10/27/16 10/28/16 14:59 22:59 06:59 Intake Total 825 ml 1100 ml 380 ml Output Total 1750 ml 1400 ml Balance 825 ml -650 ml -1020 ml Exam Constitutional: alert, oriented Psych: no complaints Respiratory: clear to auscultation, normal air movement Cardiovascular: nl pulses, regular rate and rhythm Gastrointestinal: nl liver, spleen, non-tender, soft Results Result Diagram: 10/28/1643910/28/16439 Results 24 hrs Laboratory Tests Test 10/27/16 11:58 10/27/16 17:03 10/27/16 20:54 10/28/16 03:08 Bedside Glucose 214 266 H 245 H 211 Test 10/28/16 04:40 10/28/16 08:33 White Blood Count 44.7 H Red Blood Count 4.44 L Hemoglobin 11.2 L Hematocrit 35.0 L Mean Corpuscular Volume 78.8 L Mean Corpuscular Hemoglobin 25.2 L Mean Corpuscular Hemoglobin Concent 32.0 Red Cell Distribution Width 17.3 H Platelet Count 415 # Mean Platelet Volume 8.6 Neutrophils % 94.8 H Lymphocytes % 2.7 L Monocytes % 0.9 Eosinophils % 0.3 Basophils % 0.2 Nucleated Red Blood Cells % 0.0 Neutrophils # 42.3 H Lymphocytes # 1.2 Monocytes # 0.4 Eosinophils # 0.1 Basophils # 0.1 Nucleated Red Blood Cells # 0.0 Sodium Level 129 L Potassium Level 4.2 Chloride Level 100 Carbon Dioxide Level 29 Anion Gap 4 L Blood Urea Nitrogen 26 H Creatinine 0.76 Glucose Level 216 Calcium Level 9.6 Phosphorus Level 3.3 Magnesium Level 1.9 Total Bilirubin 0.8 Direct Bilirubin 0.00 Indirect Bilirubin 0.8 Aspartate Amino Transf (AST/SGOT) 23 Alanine Aminotransferase (ALT/SGPT) 31 Alkaline Phosphatase 80 Total Protein 4.8 L Albumin 2.1 L Globulin 2.70 Albumin/Globulin Ratio 0.77 Bedside Glucose 170 Medications Medications Current Medications Ondansetron HCl (Zofran Inj) 4 mg Q6H PRN IV NAUSEA AND/OR VOMITING; Start at 06:30 Acetaminophen (Tylenol Tab) 650 mg Q6H PRN PO PAIN LEVEL 1-3 OR FEVER Last administered on 10/17/16 16:33; Admin Dose 650 MG; Start 10/09/16 at 06:30 Acetaminophen/ Hydrocodone Bitart ([place] (5/325)) 1 tab Q6H PRN PO MODERATE PAIN LEVEL 4-6 Last administered on 10/27/16 00:42; Admin Dose 1 TAB; Start at 06:30 Acetaminophen/ Hydrocodone Bitart ([place] (5/325)) 2 tab Q6H PRN PO SEVERE PAIN LEVEL 7-10 Last administered on 10/17/16 22:50; Admin Dose 2 TAB; Start at 06:30 Docusate Sodium (Colace) 100 mg Q12H PRN PO CONSTIPATION Last administered on 05:06; Admin Dose 100 MG; Start 10/09/16 at 06:30 Magnesium Hydroxide (Milk Of Mag) 30 ml DAILY PRN PO CONSTIPATION Last administered on 10/17/16 15:49; Admin Dose 30 ML; Start 10/09/16 at 06:30 Lisinopril (Zestril) 40 mg DAILY PO Last administered on 10/28/16 08:53; Admin Dose 40 MG; Start 10/09/16 at 09:00 Atorvastatin Calcium (Lipitor) 40 mg HS PO Last administered on 10/27/16 20:56 ; Admin Dose 40 MG; Start 10/09/16 at 21:00 Metoprolol Succinate (Toprol Xl) 25 mg DAILY PO Last administered on 10/28/16 08:53; Admin Dose 25 MG; Start 10/09/16 at 09:00 Pantoprazole (Protonix Tab) 40 mg DAILY@06 PO Last administered on 10/28/16 06: 57; Admin Dose 40 MG; Start 10/09/16 at 07:30 Miscellaneous Information 1 ea NOTE XX ; Start 10/09/16 at 07:30 Glucose (Glutose) 15 gm Q15M PRN PO DECREASED GLUCOSE; Start 10/09/16 at 07:30 Glucose (Glutose) 22.5 gm Q15M PRN PO DECREASED GLUCOSE; Start 10/09/16 at 07: 30 Dextrose (D50w Syringe) 25 ml Q15M PRN IV DECREASED GLUCOSE; Start 10/09/16 at 07:30 Dextrose (D50w Syringe) 50 ml Q15M PRN IV DECREASED GLUCOSE; Start 10/09/16 at 07:30 Glucagon (Glucagen) 1 mg Q15M PRN IM DECREASED GLUCOSE; Start 10/09/16 at 07:30 Glucose (Glutose) 15 gm Q15M PRN BUCCAL DECREASED GLUCOSE; Start 10/09/16 at 07 :30 Insulin Glargine (Lantus) 15 unit QHS SC Last administered on 10/27/16 20:58; Admin Dose 15 UNIT; Start 10/12/16 at 21:00 Non-Formulary Medication 1 ea DAILY BOTH EYES Last administered on 10/28/16 08: 53; Admin Dose 1 EA; Start 10/14/16 at 09:00 Polyethylene Glycol (Miralax) 17 gm DAILY PRN PO CONSTIPATION; Start 10/15/16 at 20:32 Enoxaparin Sodium (Lovenox) 40 mg DAILY SC Last administered on 10/28/16 09:06 ; Admin Dose 40 MG; Start 10/20/16 at 11:00 IV Flush 10 ml 10 ml PRN PRN IV IV PROTOCOL; Start 10/25/16 at 11:00 Gemcitabine HCl 1.9 gm/Sodium Chloride 250 ml @ 250 mls/hr Q7D IV Last administered on 10/25/16 18:53; Admin Dose 250 MLS/HR; Start 10/25/16 at 18:00; Stop 11/08/16 at 18:59 Ondansetron HCl 16 mg/ Dexamethasone 20 mg/Dextrose 63 ml @ 252 mls/hr Q7D IV Last administered on 10/25/16 18:27; Admin Dose 252 MLS/HR; Start 10/25/16 at 17: 30; Stop 11/08/16 at 17:44 Levofloxacin/ Dextrose (Levaquin 500mg/ D5W 100 ml (Pmx)) 100 ml @ 100 mls/hr Q24H IVPB Last administered on 10/27/16 20:56; Admin Dose 100 MLS/HR; Start 10/26/16 at 21:00; Stop 11/05/16 at 20:59 JUANA JAIME MD October 28, 2016 11:04
--- NOTE | 2016-10-28 15:46 | CONS ---
Date/Time of Note Date/Time of Note DATE: 10/28/16 TIME: 15:45 Assessment/Plan Assessment/Plan Chief Complaint/Hosp Course - fever and leukocytosis due to b/l pyelonephritis, large tumor burden and hydronephrosis - complicated UTI and b/l pyelonephritis due to ESBL+E. coli, enterococci and yeast. 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 Scant phlegm per Pt. - leukocytosis due to steroid recommendations - finish 10 days of levofloxacin (10/26/2016) for residual enterococci in his urine culture from Castañeda catheter - s/p meropenem for ESBL+E. coli (would cover enterococci, an ampicillin- sensitive strain, 10/18/2016-) today (10/27/2016) - s/p fluconazole - contact isolation for ESBL+E. coli; repeat cxs neg. prior to stopping isolation Problems: Consultation Date/Type/Reason Admit Date/Time Oct 09, 2016 at 05:45 Initial Consult Date 10/19/16 Type of Consultation: ID Referring Provider: JEFF OSPINA MD Exam/Review of Systems Vital Signs Vitals Vital Signs Date Time Temp Pulse Resp B/P Pulse Ox O2 Delivery O2 Flow Rate FiO2 10/28/16 08:33 97.6 103 18 135/70 97 10/28/16 08:30 Nasal Cannula 2.0 Intake and Output 10/27/16 10/27/16 10/28/16 15:00 23:00 07:00 Intake Total 825 ml 1100 ml 380 ml Output Total 1750 ml 1400 ml Balance 825 ml -650 ml -1020 ml Exam Constitutional: alert, oriented, well developed Psych: nl mood/affect, no complaints Head: atraumatic, normocephalic Respiratory: clear to auscultation, normal air movement Gastrointestinal: nl liver, spleen, non-tender, soft Results Result Diagram: 10/28/16 0440 10/28/16 0440 Results 24 hrs Laboratory Tests Test 10/27/16 17:03 10/27/16 20:54 10/28/16 03:08 10/28/16 04:40 Bedside Glucose 266 H 245 H 211 White Blood Count 44.7 H Red Blood Count 4.44 L Hemoglobin 11.2 L Hematocrit 35.0 L Mean Corpuscular Volume 78.8 L Mean Corpuscular Hemoglobin 25.2 L Mean Corpuscular Hemoglobin Concent 32.0 Red Cell Distribution Width 17.3 H Platelet Count 415 # Mean Platelet Volume 8.6 Neutrophils % 94.8 H Lymphocytes % 2.7 L Monocytes % 0.9 Eosinophils % 0.3 Basophils % 0.2 Nucleated Red Blood Cells % 0.0 Neutrophils # 42.3 H Lymphocytes # 1.2 Monocytes # 0.4 Eosinophils # 0.1 Basophils # 0.1 Nucleated Red Blood Cells # 0.0 Sodium Level 129 L Potassium Level 4.2 Chloride Level 100 Carbon Dioxide Level 29 Anion Gap 4 L Blood Urea Nitrogen 26 H Creatinine 0.76 Glucose Level 216 Calcium Level 9.6 Phosphorus Level 3.3 Magnesium Level 1.9 Total Bilirubin 0.8 Direct Bilirubin 0.00 Indirect Bilirubin 0.8 Aspartate Amino Transf (AST/SGOT) 23 Alanine Aminotransferase (ALT/SGPT) 31 Alkaline Phosphatase 80 Total Protein 4.8 L Albumin 2.1 L Globulin 2.70 Albumin/Globulin Ratio 0.77 Test 10/28/16 08:33 10/28/16 12:34 Bedside Glucose 170 188 Medications Medications Current Medications Ondansetron HCl (Zofran Inj) 4 mg Q6H PRN IV NAUSEA AND/OR VOMITING; Start at 06:30 Acetaminophen (Tylenol Tab) 650 mg Q6H PRN PO PAIN LEVEL 1-3 OR FEVER Last administered on 10/17/16t 16:33; Admin Dose 650 MG; Start 10/09/16 at 06:30 Acetaminophen/ Hydrocodone Bitart ([place] (5/325)) 1 tab Q6H PRN PO MODERATE PAIN LEVEL 4-6 Last administered on 10/27/16 00:42; Admin Dose 1 TAB; Start at 06:30 Acetaminophen/ Hydrocodone Bitart ([place] (5/325)) 2 tab Q6H PRN PO SEVERE PAIN LEVEL 7-10 Last administered on 10/17/16 22:50; Admin Dose 2 TAB; Start at 06:30 Docusate Sodium (Colace) 100 mg Q12H PRN PO CONSTIPATION Last administered on 05:06; Admin Dose 100 MG; Start 10/09/16 at 06:30 Magnesium Hydroxide (Milk Of Mag) 30 ml DAILY PRN PO CONSTIPATION Last administered on 10/17/16 15:49; Admin Dose 30 ML; Start 10/09/16 at 06:30 Lisinopril (Zestril) 40 mg DAILY PO Last administered on 10/28/16 08:53; Admin Dose 40 MG; Start 10/09/16 at 09:00 Atorvastatin Calcium (Lipitor) 40 mg HS PO Last administered on 10/27/16 20:56 ; Admin Dose 40 MG; Start 10/09/16 at 21:00 Metoprolol Succinate (Toprol Xl) 25 mg DAILY PO Last administered on 10/28/16 08:53; Admin Dose 25 MG; Start 10/09/16 at 09:00 Pantoprazole (Protonix Tab) 40 mg DAILY@06 PO Last administered on 10/28/16 06: 57; Admin Dose 40 MG; Start 10/09/16 at 07:30 Miscellaneous Information 1 ea NOTE XX ; Start 10/09/16 at 07:30 Glucose (Glutose) 15 gm Q15M PRN PO DECREASED GLUCOSE; Start 10/09/16 at 07:30 Glucose (Glutose) 22.5 gm Q15M PRN PO DECREASED GLUCOSE; Start 10/09/16 at 07: 30 Dextrose (D50w Syringe) 25 ml Q15M PRN IV DECREASED GLUCOSE; Start 10/09/16 at 07:30 Dextrose (D50w Syringe) 50 ml Q15M PRN IV DECREASED GLUCOSE; Start 10/09/16 at 07:30 Glucagon (Glucagen) 1 mg Q15M PRN IM DECREASED GLUCOSE; Start 10/09/16 at 07:30 Glucose (Glutose) 15 gm Q15M PRN BUCCAL DECREASED GLUCOSE; Start 10/09/16 at 07 :30 Insulin Glargine (Lantus) 15 unit QHS SC Last administered on 10/27/16 20:58; Admin Dose 15 UNIT; Start 10/12/16 at 21:00 Non-Formulary Medication 1 ea DAILY BOTH EYES Last administered on 10/28/16 08: 53; Admin Dose 1 EA; Start 10/14/16 at 09:00 Polyethylene Glycol (Miralax) 17 gm DAILY PRN PO CONSTIPATION; Start 10/15/16 at 20:32 Enoxaparin Sodium (Lovenox) 40 mg DAILY SC Last administered on 10/28/16 09:06 ; Admin Dose 40 MG; Start 10/20/16 at 11:00 IV Flush 10 ml 10 ml PRN PRN IV IV PROTOCOL; Start 10/25/16 at 11:00 Gemcitabine HCl 1.9 gm/Sodium Chloride 250 ml @ 250 mls/hr Q7D IV Last administered on 10/25/16 18:53; Admin Dose 250 MLS/HR; Start 10/25/16 at 18:00; Stop 11/08/16 at 18:59 Ondansetron HCl 16 mg/ Dexamethasone 20 mg/Dextrose 63 ml @ 252 mls/hr Q7D IV Last administered on 10/25/16 18:27; Admin Dose 252 MLS/HR; Start 10/25/16 at 17: 30; Stop 11/08/16 at 17:44 Levofloxacin/ Dextrose 100 ml @ 100 mls/hr Q24H IVPB Last administered on 20:56; Admin Dose 100 MLS/HR; Start 10/26/16 at 21:00; Stop 11/05/16 at 20: 59 Sodium Chloride (NS) 1,000 ml @ 50 mls/hr Q20H IV ; Start 10/28/16 at 11:00 CARSON TORRES MD October 28, 2016 15:46
--- NOTE | 2016-10-28 17:36 | PN ---
Date/Time of Note Date/Time of Note DATE: 10/28/16 TIME: 17:32 Assessment/Plan VTE Prophylaxis VTE Prophylaxis Intervention: SCD's Lines/Catheters IV Catheter Type (from Nrs): PICC Line Central line still needed: Yes Urinary Cath still in place: Yes Reason Cath still needed: urinary retention Assessment/Plan Assessment/Plan Patient is an 86 year old man with metastatic urothelial carcinoma >Metastatic urothelial carcinoma Administered cisplatin and gemcitabine Continue to monitor kidney function Continue supportive care Subjective 24 Hr Interval Summary Free Text/Dictation Patient awake, alert Denies any nausea or vomiting Exam/Review of Systems Vital Signs Vitals Vital Signs Date Time Temp Pulse Resp B/P Pulse Ox O2 Delivery O2 Flow Rate FiO2 10/28/16 08:33 97.6 103 18 135/70 97 10/28/16 08:30 Nasal Cannula 2.0 Intake and Output 10/27/16 10/27/16 10/28/16 15:00 23:00 07:00 Intake Total 825 ml 1100 ml 380 ml Output Total 1750 ml 1400 ml Balance 825 ml -650 ml -1020 ml Exam Constitutional: alert, oriented Psych: nl mood/affect, no complaints Head: atraumatic, normocephalic Eyes: EOMI, nl conjunctiva Neck: non-tender, supple Respiratory: clear to auscultation, normal air movement Cardiovascular: nl pulses, regular rate and rhythm Gastrointestinal: non-tender, soft Extremities: normal pulses Results Result Diagram: 10/28/16 0440 10/28/16 0440 Results 24 hrs Laboratory Tests Test 10/27/16 20:54 10/28/16 03:08 10/28/16 04:40 10/28/16 08:33 Bedside Glucose 245 H 211 170 White Blood Count 44.7 H Red Blood Count 4.44 L Hemoglobin 11.2 L Hematocrit 35.0 L Mean Corpuscular Volume 78.8 L Mean Corpuscular Hemoglobin 25.2 L Mean Corpuscular Hemoglobin Concent 32.0 Red Cell Distribution Width 17.3 H Platelet Count 415 # Mean Platelet Volume 8.6 Neutrophils % 94.8 H Lymphocytes % 2.7 L Monocytes % 0.9 Eosinophils % 0.3 Basophils % 0.2 Nucleated Red Blood Cells % 0.0 Neutrophils # 42.3 H Lymphocytes # 1.2 Monocytes # 0.4 Eosinophils # 0.1 Basophils # 0.1 Nucleated Red Blood Cells # 0.0 Sodium Level 129 L Potassium Level 4.2 Chloride Level 100 Carbon Dioxide Level 29 Anion Gap 4 L Blood Urea Nitrogen 26 H Creatinine 0.76 Glucose Level 216 Calcium Level 9.6 Phosphorus Level 3.3 Magnesium Level 1.9 Total Bilirubin 0.8 Direct Bilirubin 0.00 Indirect Bilirubin 0.8 Aspartate Amino Transf (AST/SGOT) 23 Alanine Aminotransferase (ALT/SGPT) 31 Alkaline Phosphatase 80 Total Protein 4.8 L Albumin 2.1 L Globulin 2.70 Albumin/Globulin Ratio 0.77 Test 10/28/16 12:34 10/28/16 17:08 Bedside Glucose 188 173 Medications Medications Current Medications Ondansetron HCl (Zofran Inj) 4 mg Q6H PRN IV NAUSEA AND/OR VOMITING; Start at 06:30 Acetaminophen (Tylenol Tab) 650 mg Q6H PRN PO PAIN LEVEL 1-3 OR FEVER Last administered on 10/17/16 16:33; Admin Dose 650 MG; Start 10/09/16 at 06:30 Acetaminophen/ Hydrocodone Bitart ([place] (5/325)) 1 tab Q6H PRN PO MODERATE PAIN LEVEL 4-6 Last administered on 10/27/16 00:42; Admin Dose 1 TAB; Start at 06:30 Acetaminophen/ Hydrocodone Bitart ([place] (5/325)) 2 tab Q6H PRN PO SEVERE PAIN LEVEL 7-10 Last administered on 10/17/16 22:50; Admin Dose 2 TAB; Start at 06:30 Docusate Sodium (Colace) 100 mg Q12H PRN PO CONSTIPATION Last administered on 05:06; Admin Dose 100 MG; Start 10/09/16 at 06:30 Magnesium Hydroxide (Milk Of Mag) 30 ml DAILY PRN PO CONSTIPATION Last administered on 10/17/16 15:49; Admin Dose 30 ML; Start 10/09/16 at 06:30 Lisinopril (Zestril) 40 mg DAILY PO Last administered on 10/28/16 08:53; Admin Dose 40 MG; Start 10/09/16 at 09:00 Atorvastatin Calcium (Lipitor) 40 mg HS PO Last administered on 10/27/16 20:56 ; Admin Dose 40 MG; Start 10/09/16 at 21:00 Metoprolol Succinate (Toprol Xl) 25 mg DAILY PO Last administered on 10/28/16 08:53; Admin Dose 25 MG; Start 10/09/16 at 09:00 Pantoprazole (Protonix Tab) 40 mg DAILY@06 PO Last administered on 10/28/16 06: 57; Admin Dose 40 MG; Start 10/09/16 at 07:30 Miscellaneous Information 1 ea NOTE XX ; Start 10/09/16 at 07:30 Glucose (Glutose) 15 gm Q15M PRN PO DECREASED GLUCOSE; Start 10/09/16 at 07:30 Glucose (Glutose) 22.5 gm Q15M PRN PO DECREASED GLUCOSE; Start 10/09/16 at 07: 30 Dextrose (D50w Syringe) 25 ml Q15M PRN IV DECREASED GLUCOSE; Start 10/09/16 at 07:30 Dextrose (D50w Syringe) 50 ml Q15M PRN IV DECREASED GLUCOSE; Start 10/09/16 at 07:30 Glucagon (Glucagen) 1 mg Q15M PRN IM DECREASED GLUCOSE; Start 10/09/16 at 07:30 Glucose (Glutose) 15 gm Q15M PRN BUCCAL DECREASED GLUCOSE; Start 10/09/16 at 07 :30 Insulin Glargine (Lantus) 15 unit QHS SC Last administered on 10/27/16 20:58; Admin Dose 15 UNIT; Start 10/12/16 at 21:00 Non-Formulary Medication 1 ea DAILY BOTH EYES Last administered on 10/28/16 08: 53; Admin Dose 1 EA; Start 10/14/16 at 09:00 Polyethylene Glycol (Miralax) 17 gm DAILY PRN PO CONSTIPATION; Start 10/15/16 at 20:32 Enoxaparin Sodium (Lovenox) 40 mg DAILY SC Last administered on 10/28/16 09:06 ; Admin Dose 40 MG; Start 10/20/16 at 11:00 IV Flush 10 ml 10 ml PRN PRN IV IV PROTOCOL; Start 10/25/16 at 11:00 Gemcitabine HCl 1.9 gm/Sodium Chloride 250 ml @ 250 mls/hr Q7D IV Last administered on 10/25/16 18:53; Admin Dose 250 MLS/HR; Start 10/25/16 at 18:00; Stop 11/08/16 at 18:59 Ondansetron HCl 16 mg/ Dexamethasone 20 mg/Dextrose 63 ml @ 252 mls/hr Q7D IV Last administered on 10/25/16 18:27; Admin Dose 252 MLS/HR; Start 10/25/16 at 17: 30; Stop 11/08/16 at 17:44 Levofloxacin/ Dextrose 100 ml @ 100 mls/hr Q24H IVPB Last administered on 20:56; Admin Dose 100 MLS/HR; Start 10/26/16 at 21:00; Stop 11/05/16 at 20: 59 Sodium Chloride (NS) 1,000 ml @ 50 mls/hr Q20H IV ; Start 10/28/16 at 11:00 SEN PEREZ MD October 28, 2016 17:36
[2016-10-28 19:55] VITALS: BP 143/69; RESP 19
[2016-10-28] MEDS: INSULIN GLARGINE [LANtus] 3 ML PEN SC SCH (20:56)
[2016-10-28] MEDS: ATORVASTATIN 40 MG TAB PO SCH (20:59)
[2016-10-28] MEDS: LEVOFLOXACIN 500MG/D5W (PMX) 100 ML IVPB SCH (21:00)
[2016-10-29] MEDS: SOD CHLORIDE 0.9% 1,000 ML IV SCH ×2 (02:02→20:30)
[2016-10-29] MEDS: PANTOPRAZOLE (EC) 40 MG TAB PO SCH (06:03)
[2016-10-29 07:38] VITALS: BP 129/65; RESP 18
[2016-10-29] MEDS: LISINOPRIL 20 MG TAB PO SCH (08:28)
[2016-10-29] MEDS: METOPROLOL (XL) 25 MG TAB PO SCH (08:29)
[2016-10-29] MEDS: TIMOPTIC 0.5% EYE DROPS BOTH EYES SCH (08:29)
[2016-10-29] MEDS: ENOXAPARIN 40 MG/0.4 ML SYG SC SCH (08:38)
[2016-10-29] MEDS: INSULIN ASPART [NOVOLOG] 3 ML PEN SC SCH ×4 (08:38→20:32)
--- NOTE | 2016-10-29 11:58 | PN ---
Date/Time of Note Date/Time of Note DATE: 10/29/16 TIME: 11:56 Assessment/Plan VTE Prophylaxis VTE Prophylaxis Intervention: LMWH Lines/Catheters IV Catheter Type (from Nrs): PICC Line Central line still needed: No Urinary Cath still in place: Yes Reason Cath still needed: urinary retention Assessment/Plan Assessment/Plan 1. Obstructive uropathy . functioning nephrostomy tubes 2. Hyponatremia - net negative 3L 10/27 s/p lasix with chemo. cont low dose NS and recheck BMP today 3. metastatic bladder cancer --> s/p cis-circle 10/27. 4. CAD 5. DM on insulin 6. dysphagia --> seen by speech therapy; tolerating PO diet 7. Iron deficiency anemia - completed course of Ferrlicit. 8. UTI --> Levaquin for 10 days . 9. leukocytosis . Getting dexamethasone with chemo --> monitor 10. A fib, on Aspirin .He has been seen by cardiology Dr Gutierrez 11. Anticipate d/c to [facility] tomorrow as long as Na level ok Subjective 24 Hr Interval Summary Free Text/Dictation No acute complaints. Exam/Review of Systems Vital Signs Vitals Vital Signs Date Time Temp Pulse Resp B/P Pulse Ox O2 Delivery O2 Flow Rate FiO2 10/29/16 08:15 Nasal Cannula 2.0 10/29/16 07:38 97.4 80 18 129/65 96 10/28/16 21:03 28 Intake and Output 10/28/16 10/28/16 10/29/16 15:00 23:00 07:00 Intake Total 1040 ml 620 ml Output Total 5400 ml 1300 ml Balance -4360 ml -680 ml Exam Constitutional: alert, oriented Neck: non-tender, supple Respiratory: clear to auscultation, normal air movement Cardiovascular: nl pulses, regular rate and rhythm Gastrointestinal: non-tender, soft Results Result Diagram: 10/28/1643910/28/16439 Results 24 hrs Laboratory Tests Test 10/28/16 12:34 10/28/16 17:08 10/28/16 20:08 10/29/16 01:40 Bedside Glucose 188 173 192 195 Test 10/29/16 08:27 Bedside Glucose 165 Medications Medications Current Medications Ondansetron HCl (Zofran Inj) 4 mg Q6H PRN IV NAUSEA AND/OR VOMITING; Start at 06:30 Acetaminophen (Tylenol Tab) 650 mg Q6H PRN PO PAIN LEVEL 1-3 OR FEVER Last administered on 10/17/16 16:33; Admin Dose 650 MG; Start 10/09/16 at 06:30 Acetaminophen/ Hydrocodone Bitart ([place] (5/325)) 1 tab Q6H PRN PO MODERATE PAIN LEVEL 4-6 Last administered on 10/27/16 00:42; Admin Dose 1 TAB; Start at 06:30 Acetaminophen/ Hydrocodone Bitart ([place] (5/325)) 2 tab Q6H PRN PO SEVERE PAIN LEVEL 7-10 Last administered on 10/17/16 22:50; Admin Dose 2 TAB; Start at 06:30 Docusate Sodium (Colace) 100 mg Q12H PRN PO CONSTIPATION Last administered on 05:06; Admin Dose 100 MG; Start 10/09/16 at 06:30 Magnesium Hydroxide (Milk Of Mag) 30 ml DAILY PRN PO CONSTIPATION Last administered on 10/17/16 15:49; Admin Dose 30 ML; Start 10/09/16 at 06:30 Lisinopril (Zestril) 40 mg DAILY PO Last administered on 10/29/16 08:28; Admin Dose 40 MG; Start 10/09/16 at 09:00 Atorvastatin Calcium (Lipitor) 40 mg HS PO Last administered on 10/28/16 20:59 ; Admin Dose 40 MG; Start 10/09/16 at 21:00 Metoprolol Succinate (Toprol Xl) 25 mg DAILY PO Last administered on 10/29/16 08:29; Admin Dose 25 MG; Start 10/09/16 at 09:00 Pantoprazole (Protonix Tab) 40 mg DAILY@06 PO Last administered on 10/29/16 06: 03; Admin Dose 40 MG; Start 10/09/16 at 07:30 Miscellaneous Information 1 ea NOTE XX ; Start 10/09/16 at 07:30 Glucose (Glutose) 15 gm Q15M PRN PO DECREASED GLUCOSE; Start 10/09/16 at 07:30 Glucose (Glutose) 22.5 gm Q15M PRN PO DECREASED GLUCOSE; Start 10/09/16 at 07: 30 Dextrose (D50w Syringe) 25 ml Q15M PRN IV DECREASED GLUCOSE; Start 10/09/16 at 07:30 Dextrose (D50w Syringe) 50 ml Q15M PRN IV DECREASED GLUCOSE; Start 10/09/16 at 07:30 Glucagon (Glucagen) 1 mg Q15M PRN IM DECREASED GLUCOSE; Start 10/09/16 at 07:30 Glucose (Glutose) 15 gm Q15M PRN BUCCAL DECREASED GLUCOSE; Start 10/09/16 at 07 :30 Insulin Glargine (Lantus) 15 unit QHS SC Last administered on 10/28/16 20:56; Admin Dose 15 UNIT; Start 10/12/16 at 21:00 Non-Formulary Medication 1 ea DAILY BOTH EYES Last administered on 10/29/16 08: 29; Admin Dose 1 EA; Start 10/14/16 at 09:00 Polyethylene Glycol (Miralax) 17 gm DAILY PRN PO CONSTIPATION; Start 10/15/16 at 20:32 Enoxaparin Sodium (Lovenox) 40 mg DAILY SC Last administered on 10/29/16 08:38 ; Admin Dose 40 MG; Start 10/20/16 at 11:00 IV Flush 10 ml 10 ml PRN PRN IV IV PROTOCOL; Start 10/25/16 at 11:00 Gemcitabine HCl 1.9 gm/Sodium Chloride 250 ml @ 250 mls/hr Q7D IV Last administered on 10/25/16 18:53; Admin Dose 250 MLS/HR; Start 10/25/16 at 18:00; Stop 11/08/16 at 18:59 Ondansetron HCl 16 mg/ Dexamethasone 20 mg/Dextrose 63 ml @ 252 mls/hr Q7D IV Last administered on 10/25/16 18:27; Admin Dose 252 MLS/HR; Start 10/25/16 at 17: 30; Stop 11/08/16 at 17:44 Levofloxacin/ Dextrose 100 ml @ 100 mls/hr Q24H IVPB Last administered on 21:00; Admin Dose 100 MLS/HR; Start 10/26/16 at 21:00; Stop 11/05/16 at 20: 59 Sodium Chloride (NS) 1,000 ml @ 50 mls/hr Q20H IV Last administered on 5/7/ 17at 02:02; Admin Dose 50 MLS/HR; Start 10/28/16 at 11:00 JUANA JAIME MD October 29, 2016 11:58
--- NOTE | 2016-10-29 12:44 | CONS ---
Date/Time of Note Date/Time of Note DATE: 10/29/16 TIME: 12:43 Assessment/Plan Assessment/Plan Chief Complaint/Hosp Course - fever and leukocytosis due to b/l pyelonephritis, large tumor burden and hydronephrosis - complicated UTI and b/l pyelonephritis due to ESBL+E. coli, enterococci and yeast. 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 Scant phlegm per Pt. - leukocytosis due to steroid recommendations - finish 10 days of levofloxacin (10/26/2016) for residual enterococci in his urine culture from Castañeda catheter - s/p meropenem for ESBL+E. coli (would cover enterococci, an ampicillin- sensitive strain, 10/18/2016-) today (10/27/2016) - s/p fluconazole - contact isolation for ESBL+E. coli; repeat cxs neg. prior to stopping isolation Problems: Consultation Date/Type/Reason Admit Date/Time Oct 09, 2016 at 05:45 Initial Consult Date 10/19/16 Type of Consultation: ID Referring Provider: JEFF OSPINA MD 24 HR Interval Summary Free Text/Dictation d/w son and patient at bedside. slowly improving. remains on 02 Exam/Review of Systems Vital Signs Vitals Vital Signs Date Time Temp Pulse Resp B/P Pulse Ox O2 Delivery O2 Flow Rate FiO2 10/29/16 08:15 Nasal Cannula 2.0 10/29/16 07:38 97.4 80 18 129/65 96 10/28/16 21:03 28 Intake and Output 510/28/16 10/29/16 15:00 23:00 07:00 Intake Total 1040 ml 620 ml Output Total 5400 ml 1300 ml Balance -4360 ml -680 ml Exam Constitutional: alert, oriented, well developed Psych: nl mood/affect, no complaints Head: atraumatic, normocephalic Eyes: EOMI, PERRL, nl conjunctiva, nl lids, nl sclera Respiratory: clear to auscultation, normal air movement Cardiovascular: nl pulses, regular rate and rhythm Gastrointestinal: nl liver, spleen, non-tender, soft Results Result Diagram: 10/28/1643910/28/160 Results 24 hrs Laboratory Tests Test 10/28/16 17:08 10/28/16 20:08 10/29/16 01:40 10/29/16 08:27 Bedside Glucose 173 192 195 165 Test 10/29/16 12:22 Bedside Glucose 203 Medications Medications Current Medications Ondansetron HCl (Zofran Inj) 4 mg Q6H PRN IV NAUSEA AND/OR VOMITING; Start at 06:30 Acetaminophen (Tylenol Tab) 650 mg Q6H PRN PO PAIN LEVEL 1-3 OR FEVER Last administered on 10/17/16 16:33; Admin Dose 650 MG; Start 10/09/16 at 06:30 Acetaminophen/ Hydrocodone Bitart ([place] (5/325)) 1 tab Q6H PRN PO MODERATE PAIN LEVEL 4-6 Last administered on 10/27/16 00:42; Admin Dose 1 TAB; Start at 06:30 Acetaminophen/ Hydrocodone Bitart ([place] (5/325)) 2 tab Q6H PRN PO SEVERE PAIN LEVEL 7-10 Last administered on 10/17/16 22:50; Admin Dose 2 TAB; Start at 06:30 Docusate Sodium (Colace) 100 mg Q12H PRN PO CONSTIPATION Last administered on 05:06; Admin Dose 100 MG; Start 10/09/16 at 06:30 Magnesium Hydroxide (Milk Of Mag) 30 ml DAILY PRN PO CONSTIPATION Last administered on 10/17/16 15:49; Admin Dose 30 ML; Start 10/09/16 at 06:30 Lisinopril (Zestril) 40 mg DAILY PO Last administered on 10/29/16 08:28; Admin Dose 40 MG; Start 10/09/16 at 09:00 Atorvastatin Calcium (Lipitor) 40 mg HS PO Last administered on 10/28/16 20:59 ; Admin Dose 40 MG; Start 10/09/16 at 21:00 Metoprolol Succinate (Toprol Xl) 25 mg DAILY PO Last administered on 10/29/16 08:29; Admin Dose 25 MG; Start 10/09/16 at 09:00 Pantoprazole (Protonix Tab) 40 mg DAILY@06 PO Last administered on 10/29/16 06: 03; Admin Dose 40 MG; Start 10/09/16 at 07:30 Miscellaneous Information 1 ea NOTE XX ; Start 10/09/16 at 07:30 Glucose (Glutose) 15 gm Q15M PRN PO DECREASED GLUCOSE; Start 10/09/16 at 07:30 Glucose (Glutose) 22.5 gm Q15M PRN PO DECREASED GLUCOSE; Start 10/09/16 at 07: 30 Dextrose (D50w Syringe) 25 ml Q15M PRN IV DECREASED GLUCOSE; Start 10/09/16 at 07:30 Dextrose (D50w Syringe) 50 ml Q15M PRN IV DECREASED GLUCOSE; Start 10/09/16 at 07:30 Glucagon (Glucagen) 1 mg Q15M PRN IM DECREASED GLUCOSE; Start 10/09/16 at 07:30 Glucose (Glutose) 15 gm Q15M PRN BUCCAL DECREASED GLUCOSE; Start 10/09/16 at 07 :30 Insulin Glargine (Lantus) 15 unit QHS SC Last administered on 10/28/16 20:56; Admin Dose 15 UNIT; Start 10/12/16 at 21:00 Non-Formulary Medication 1 ea DAILY BOTH EYES Last administered on 10/29/16 08: 29; Admin Dose 1 EA; Start 10/14/16 at 09:00 Polyethylene Glycol (Miralax) 17 gm DAILY PRN PO CONSTIPATION; Start 10/15/16 at 20:32 Enoxaparin Sodium (Lovenox) 40 mg DAILY SC Last administered on 10/29/16 08:38 ; Admin Dose 40 MG; Start 10/20/16 at 11:00 IV Flush 10 ml 10 ml PRN PRN IV IV PROTOCOL; Start 10/25/16 at 11:00 Gemcitabine HCl 1.9 gm/Sodium Chloride 250 ml @ 250 mls/hr Q7D IV Last administered on 10/25/16 18:53; Admin Dose 250 MLS/HR; Start 10/25/16 at 18:00; Stop 11/08/16 at 18:59 Ondansetron HCl 16 mg/ Dexamethasone 20 mg/Dextrose 63 ml @ 252 mls/hr Q7D IV Last administered on 10/25/16 18:27; Admin Dose 252 MLS/HR; Start 10/25/16 at 17: 30; Stop 11/08/16 at 17:44 Levofloxacin/ Dextrose 100 ml @ 100 mls/hr Q24H IVPB Last administered on 21:00; Admin Dose 100 MLS/HR; Start 10/26/16 at 21:00; Stop 11/05/16 at 20: 59 Sodium Chloride (NS) 1,000 ml @ 50 mls/hr Q20H IV Last administered on 02:02; Admin Dose 50 MLS/HR; Start 10/28/16 at 11:00 CARSON TORRES MD October 29, 2016 12:44
[2016-10-29 12:55] LABS: CALCIUM 9.8 mg/dl (8.4-10.2); CREATININE 0.83 mg/dl (0.61-1.24); POTASSIUM 4.1 mmol/L (3.5-5.1)
--- NOTE | 2016-10-29 17:08 | PN ---
Date/Time of Note Date/Time of Note DATE: 10/29/16 TIME: 17:05 Assessment/Plan VTE Prophylaxis VTE Prophylaxis Intervention: SCD's Lines/Catheters IV Catheter Type (from Nrsg): PICC Line Central line still needed: Yes Urinary Cath still in place: Yes Reason Cath still needed: urinary retention Assessment/Plan Assessment/Plan Patient is an 86 year old man with metastatic urothelial carcinoma >Metastatic urothelial carcinoma Administered cisplatin and gemcitabine Continue to monitor kidney function Continue supportive care >Hyponatremia With noted marked urine output, possible concern for nephrogenic DI BMP shows decreased but stable creatinine and sodium. Continue to follow carefully. Subjective 24 Hr Interval Summary Free Text/Dictation Patient more lethargic today Exam/Review of Systems Vital Signs Vitals Vital Signs Date Time Temp Pulse Resp B/P Pulse Ox O2 Delivery O2 Flow Rate FiO2 10/29/16 08:15 Nasal Cannula 2.0 10/29/16 07:38 97.4 80 18 129/65 96 10/28/16 21:03 28 Intake and Output 10/28/16 10/28/16 10/29/16 15:00 23:00 07:00 Intake Total 1040 ml 620 ml Output Total 5400 ml 1300 ml Balance -4360 ml -680 ml Exam Constitutional: alert, oriented Psych: no complaints Eyes: EOMI, nl sclera Neck: non-tender, supple Respiratory: clear to auscultation, normal air movement Gastrointestinal: soft Extremities: normal pulses Neurological: BOLT MAN II-XII intact Results Result Diagram: 10/28/16 0440 10/29/16 1228 Results 24 hrs Laboratory Tests Test 10/28/16 17:08 10/28/16 20:08 10/29/16 01:40 10/29/16 08:27 Bedside Glucose 173 192 195 165 Test 10/29/16 12:22 10/29/16 12:28 Bedside Glucose 203 Sodium Level 128 L Potassium Level 4.1 Chloride Level 98 Carbon Dioxide Level 30 Anion Gap 4 L Blood Urea Nitrogen 26 H Creatinine 0.83 Glucose Level 259 H Calcium Level 9.8 Magnesium Level 1.8 Medications Medications Current Medications Ondansetron HCl (Zofran Inj) 4 mg Q6H PRN IV NAUSEA AND/OR VOMITING; Start at 06:30 Acetaminophen (Tylenol Tab) 650 mg Q6H PRN PO PAIN LEVEL 1-3 OR FEVER Last administered on 10/17/16 16:33; Admin Dose 650 MG; Start 10/09/16 at 06:30 Acetaminophen/ Hydrocodone Bitart ([place] (5/325)) 1 tab Q6H PRN PO MODERATE PAIN LEVEL 4-6 Last administered on 10/27/16 00:42; Admin Dose 1 TAB; Start at 06:30 Acetaminophen/ Hydrocodone Bitart ([place] (5/325)) 2 tab Q6H PRN PO SEVERE PAIN LEVEL 7-10 Last administered on 10/17/16 22:50; Admin Dose 2 TAB; Start at 06:30 Docusate Sodium (Colace) 100 mg Q12H PRN PO CONSTIPATION Last administered on 05:06; Admin Dose 100 MG; Start 10/09/16 at 06:30 Magnesium Hydroxide (Milk Of Mag) 30 ml DAILY PRN PO CONSTIPATION Last administered on 10/17/16 15:49; Admin Dose 30 ML; Start 10/09/16 at 06:30 Lisinopril (Zestril) 40 mg DAILY PO Last administered on 10/29/16 08:28; Admin Dose 40 MG; Start 10/09/16 at 09:00 Atorvastatin Calcium (Lipitor) 40 mg HS PO Last administered on 10/28/16 20:59 ; Admin Dose 40 MG; Start 10/09/16 at 21:00 Metoprolol Succinate (Toprol Xl) 25 mg DAILY PO Last administered on 10/29/16 08:29; Admin Dose 25 MG; Start 10/09/16 at 09:00 Pantoprazole (Protonix Tab) 40 mg DAILY@06 PO Last administered on 10/29/16 06: 03; Admin Dose 40 MG; Start 10/09/16 at 07:30 Miscellaneous Information 1 ea NOTE XX ; Start 10/09/16 at 07:30 Glucose (Glutose) 15 gm Q15M PRN PO DECREASED GLUCOSE; Start 10/09/16 at 07:30 Glucose (Glutose) 22.5 gm Q15M PRN PO DECREASED GLUCOSE; Start 10/09/16 at 07: 30 Dextrose (D50w Syringe) 25 ml Q15M PRN IV DECREASED GLUCOSE; Start 10/09/16 at 07:30 Dextrose (D50w Syringe) 50 ml Q15M PRN IV DECREASED GLUCOSE; Start 10/09/16 at 07:30 Glucagon (Glucagen) 1 mg Q15M PRN IM DECREASED GLUCOSE; Start 10/09/16 at 07:30 Glucose (Glutose) 15 gm Q15M PRN BUCCAL DECREASED GLUCOSE; Start 10/09/16 at 07 :30 Insulin Glargine (Lantus) 15 unit QHS SC Last administered on 10/28/16 20:56; Admin Dose 15 UNIT; Start 10/12/16 at 21:00 Non-Formulary Medication 1 ea DAILY BOTH EYES Last administered on 10/29/16 08: 29; Admin Dose 1 EA; Start 10/14/16 at 09:00 Polyethylene Glycol (Miralax) 17 gm DAILY PRN PO CONSTIPATION; Start 10/15/16 at 20:32 Enoxaparin Sodium (Lovenox) 40 mg DAILY SC Last administered on 10/29/16 08:38 ; Admin Dose 40 MG; Start 10/20/16 at 11:00 IV Flush 10 ml 10 ml PRN PRN IV IV PROTOCOL; Start 10/25/16 at 11:00 Gemcitabine HCl 1.9 gm/Sodium Chloride 250 ml @ 250 mls/hr Q7D IV Last administered on 10/25/16 18:53; Admin Dose 250 MLS/HR; Start 10/25/16 at 18:00; Stop 11/08/16 at 18:59 Ondansetron HCl 16 mg/ Dexamethasone 20 mg/Dextrose 63 ml @ 252 mls/hr Q7D IV Last administered on 10/25/16 18:27; Admin Dose 252 MLS/HR; Start 10/25/16 at 17: 30; Stop 11/08/16 at 17:44 Levofloxacin/ Dextrose 100 ml @ 100 mls/hr Q24H IVPB Last administered on 21:00; Admin Dose 100 MLS/HR; Start 10/26/16 at 21:00; Stop 11/05/16 at 20: 59 Sodium Chloride (NS) 1,000 ml @ 50 mls/hr Q20H IV Last administered on 02:02; Admin Dose 50 MLS/HR; Start 10/28/16 at 11:00 SEN PEREZ MD October 29, 2016 17:08
[2016-10-29 19:12] VITALS: BP 139/67; RESP 18
[2016-10-29] MEDS: ATORVASTATIN 40 MG TAB PO SCH (20:28)
[2016-10-29] MEDS ORDERED: SOD CHLORIDE 0.9% 250 ML IV ONE (20:30)
[2016-10-29] MEDS: INSULIN GLARGINE [LANtus] 3 ML PEN SC SCH (20:33)
[2016-10-29] MEDS: LEVOFLOXACIN 500MG/D5W (PMX) 100 ML IVPB SCH (22:00)
[2016-10-30] MEDS: SOD CHLORIDE 0.9% 1,000 ML IV SCH ×2 (02:24→07:33)
[2016-10-30 05:16] LABS: ADD SCAN DIFF NO
[2016-10-30 05:35] LABS: POTASSIUM 3.1 mmol/L (3.5-5.1)
[2016-10-30 05:37] LABS: CREATININE 0.78 mg/dl (0.61-1.24)
[2016-10-30 05:38] LABS: CALCIUM 9.2 mg/dl (8.4-10.2)
[2016-10-30 05:40] LABS: ABNORMAL IP MESSAGE 1; BASOPHILS % 0.1 % (0.0-2.0); EOSINOPHILS # 0.1 10^3/ul (0.0-0.5); EOSINOPHILS % 0.5 % (0.0-7.0); HEMOGLOBIN 9.7 g/dl (14.0-18.0); LYMPHOCYTES # 1.1 10^3/ul (0.8-2.9); LYMPHOCYTES % 4.6 % (15.0-51.0); MEAN CORPUSCULAR HEMOGLOBIN 24.7 pg (29.0-33.0); MEAN CORPUSCULAR HGB CONC 31.3 g/dl (32.0-37.0); MEAN CORPUSCULAR VOLUME 78.9 fl (82.0-101.0); MEAN PLATELET VOLUME 8.8 fl (7.4-10.4); MONOCYTE # 0.1 10^3/ul (0.3-0.9); MONOCYTES % 0.5 % (0.0-11.0); NEUTROPHIL # 22.8 10^3/ul (1.6-7.5); NEUTROPHILS % 93.8 % (39.0-77.0); PLATELET COUNT 286 10^3/UL (140-415); RED BLOOD COUNT 3.93 10^6/ul (4.70-6.10); RED CELL DISTRIBUTION WIDTH 17.2 % (11.5-14.5); WHITE BLOOD COUNT 24.3 10^3/ul (4.8-10.8)
[2016-10-30 05:41] LABS: MAGNESIUM 1.6 mg/dl (1.7-2.5); PHOSPHORUS 2.5 mg/dl (2.5-4.9)
[2016-10-30] MEDS: PANTOPRAZOLE (EC) 40 MG TAB PO SCH (06:03)
--- NOTE | 2016-10-30 08:22 | PN ---
Date/Time of Note Date/Time of Note DATE: 10/30/16 TIME: 08:15 Assessment/Plan VTE Prophylaxis VTE Prophylaxis Intervention: LMWH Lines/Catheters IV C[facility]ter Type (from [facility]): PICC Line Central line still needed: Yes Urinary Cath still in place: Yes Reason Cath still needed: urinary retention Assessment/Plan Chief Complaint/Hosp Course 1. Obstructive uropathy . He has bilateral percutaneous nephrostomies . They are both draining well . He has been in negative fluid balance the last several days with high urine output . 2. metastatic bladder cancer . He has finished 1 course of chemo . 3. CAD 4. DM on insulin 5. dysphagia , will order speech therapy . 6. Anorexia, his appetite is improved and he is eating better. 8. he has iron deficiency anemia , he has completed a course of Ferrlicit. 9. UTI , he is now on Levaquin for 10 days . 10. leukocytosis . WBC is high after getting dexamethasone with chemo . WBC is coming down . 11. A fib , on Aspirin .He has been seen by cardiology Dr Gutierrez Problems: Subjective 24 Hr Interval Summary Free Text/Dictation he is lethargic , just waking up , he is responsive . Constitutional: no complaints Cardiovascular: no complaints Gastrointestinal: no complaints Musculoskeletal: no complaints Exam/Review of Systems Vital Signs Vitals Vital Signs Date Time Temp Pulse Resp B/P Pulse Ox O2 Delivery O2 Flow Rate FiO2 10/29/16 20:00 Nasal Cannula 2.0 10/29/16 19:12 98.3 88 18 139/67 96 10/28/16 21:03 28 Intake and Output 10/29/16 10/29/16 10/30/16 15:00 23:00 07:00 Intake Total 2260 ml 2400 ml Output Total 4750 ml 1900 ml Balance -2490 ml 500 ml Exam Constitutional: alert, frail, oriented Head: normocephalic Respiratory: clear to auscultation Cardiovascular: edema, irregular rhythm Gastrointestinal: soft Results Result Diagram: 10/30/16 0433 10/30/16 0433 Results 24 hrs Laboratory Tests Test 10/29/16 08:27 10/29/16 12:22 10/29/16 12:28 10/29/16 17:16 Bedside Glucose 165 203 244 H Sodium Level 128 L Potassium Level 4.1 Chloride Level 98 Carbon Dioxide Level 30 Anion Gap 4 L Blood Urea Nitrogen 26 H Creatinine 0.83 Glucose Level 259 H Calcium Level 9.8 Magnesium Level 1.8 Test 10/29/16 20:25 10/29/16 20:26 10/29/16 21:10 10/30/16 01:18 Osmolality 289 Bedside Glucose 294 H 234 H Urine Osmolality 389 Urine Random Sodium 109 H Test 10/30/16 04:33 10/30/16 07:35 White Blood Count 24.3 #H Red Blood Count 3.93 L Hemoglobin 9.7 L Hematocrit 31.0 L Mean Corpuscular Volume 78.9 L Mean Corpuscular Hemoglobin 24.7 L Mean Corpuscular Hemoglobin Concent 31.3 L Red Cell Distribution Width 17.2 H Platelet Count 286 # Mean Platelet Volume 8.8 Neutrophils % 93.8 H Lymphocytes % 4.6 L Monocytes % 0.5 Eosinophils % 0.5 Basophils % 0.1 Nucleated Red Blood Cells % 0.0 Neutrophils # 22.8 H Lymphocytes # 1.1 Monocytes # 0.1 L Eosinophils # 0.1 Basophils # 0.0 Nucleated Red Blood Cells # 0.0 Sodium Level 132 L Potassium Level 3.1 L Chloride Level 98 Carbon Dioxide Level 29 Anion Gap 8 Blood Urea Nitrogen 22 H Creatinine 0.78 Glucose Level 179 Calcium Level 9.2 Phosphorus Level 2.5 Magnesium Level 1.6 L Bedside Glucose 164 Medications Medications Current Medications Ondansetron HCl (Zofran Inj) 4 mg Q6H PRN IV NAUSEA AND/OR VOMITING; Start at 06:30 Acetaminophen (Tylenol Tab) 650 mg Q6H PRN PO PAIN LEVEL 1-3 OR FEVER Last administered on 10/17/16 16:33; Admin Dose 650 MG; Start 10/09/16 at 06:30 Acetaminophen/ Hydrocodone Bitart ([place] (5/325)) 1 tab Q6H PRN PO MODERATE PAIN LEVEL 4-6 Last administered on 10/27/16 00:42; Admin Dose 1 TAB; Start at 06:30 Acetaminophen/ Hydrocodone Bitart ([place] (5/325)) 2 tab Q6H PRN PO SEVERE PAIN LEVEL 7-10 Last administered on 10/17/16 22:50; Admin Dose 2 TAB; Start at 06:30 Docusate Sodium (Colace) 100 mg Q12H PRN PO CONSTIPATION Last administered on 05:06; Admin Dose 100 MG; Start 10/09/16 at 06:30 Magnesium Hydroxide (Milk Of Mag) 30 ml DAILY PRN PO CONSTIPATION Last administered on 10/17/16 15:49; Admin Dose 30 ML; Start 10/09/16 at 06:30 Lisinopril (Zestril) 40 mg DAILY PO Last administered on 10/29/16 08:28; Admin Dose 40 MG; Start 10/09/16 at 09:00 Atorvastatin Calcium (Lipitor) 40 mg HS PO Last administered on 10/29/16 20:28 ; Admin Dose 40 MG; Start 10/09/16 at 21:00 Metoprolol Succinate (Toprol Xl) 25 mg DAILY PO Last administered on 10/29/16 08:29; Admin Dose 25 MG; Start 10/09/16 at 09:00 Pantoprazole (Protonix Tab) 40 mg DAILY@06 PO Last administered on 10/30/16 06: 03; Admin Dose 40 MG; Start 10/09/16 at 07:30 Miscellaneous Information 1 ea NOTE XX ; Start 10/09/16 at 07:30 Glucose (Glutose) 15 gm Q15M PRN PO DECREASED GLUCOSE; Start 10/09/16 at 07:30 Glucose (Glutose) 22.5 gm Q15M PRN PO DECREASED GLUCOSE; Start 10/09/16 at 07: 30 Dextrose (D50w Syringe) 25 ml Q15M PRN IV DECREASED GLUCOSE; Start 10/09/16 at 07:30 Dextrose (D50w Syringe) 50 ml Q15M PRN IV DECREASED GLUCOSE; Start 10/09/16 at 07:30 Glucagon (Glucagen) 1 mg Q15M PRN IM DECREASED GLUCOSE; Start 10/09/16 at 07:30 Glucose (Glutose) 15 gm Q15M PRN BUCCAL DECREASED GLUCOSE; Start 10/09/16 at 07 :30 Insulin Glargine (Lantus) 15 unit QHS SC Last administered on 10/29/16 20:33; Admin Dose 15 UNIT; Start 10/12/16 at 21:00 Non-Formulary Medication 1 ea DAILY BOTH EYES Last administered on 10/29/16 08: 29; Admin Dose 1 EA; Start 10/14/16 at 09:00 Polyethylene Glycol (Miralax) 17 gm DAILY PRN PO CONSTIPATION; Start 10/15/16 at 20:32 Enoxaparin Sodium (Lovenox) 40 mg DAILY SC Last administered on 10/29/16 08:38 ; Admin Dose 40 MG; Start 10/20/16 at 11:00 IV Flush 10 ml 10 ml PRN PRN IV IV PROTOCOL; Start 10/25/16 at 11:00 Gemcitabine HCl 1.9 gm/Sodium Chloride 250 ml @ 250 mls/hr Q7D IV Last administered on 10/25/16 18:53; Admin Dose 250 MLS/HR; Start 10/25/16 at 18:00; Stop 11/08/16 at 18:59 Ondansetron HCl 16 mg/ Dexamethasone 20 mg/Dextrose 63 ml @ 252 mls/hr Q7D IV Last administered on 10/25/16 18:27; Admin Dose 252 MLS/HR; Start 10/25/16 at 17: 30; Stop 11/08/16 at 17:44 Levofloxacin/ Dextrose 100 ml @ 100 mls/hr Q24H IVPB Last administered on 22:00; Admin Dose 100 MLS/HR; Start 10/26/16 at 21:00; Stop 11/05/16 at 20: 59 Potassium Chloride 20 meq/ Sodium Chloride 1,010 ml @ 200 mls/hr Q5H3M IV ; Start 10/30/16 at 13:00 Potassium Chloride (KCl 40 MEQ/250 ML NS) 250 ml @ 62.5 mls/hr ONCE ONCE IVPB ; Start 10/30/16 at 09:00; Stop 10/30/16 at 12:59 Potassium Chloride 20 meq 20 meq BID PO ; Start 10/30/16 at 09:00 Magnesium Sulfate/ Sodium Chloride (Magnesium Sulfate/NS) 106 ml @ 35.333 mls/ hr ONCE ONCE IVPB ; Start 10/30/16 at 09:30; Stop 10/30/16 at 12:29 JEFF OSPINA MD October 30, 2016 08:22
[2016-10-30] MEDS: ENOXAPARIN 40 MG/0.4 ML SYG SC SCH (08:37)
[2016-10-30] MEDS: INSULIN ASPART [NOVOLOG] 3 ML PEN SC SCH ×4 (08:40→20:55)
[2016-10-30 08:46] VITALS: BP 133/79; RESP 18
[2016-10-30] MEDS: POTASSIUM CHLORIDE (SR) 20 MEQ TAB PO SCH ×2 (08:49→20:45)
[2016-10-30] MEDS: METOPROLOL (XL) 25 MG TAB PO SCH (08:49)
[2016-10-30] MEDS: LISINOPRIL 20 MG TAB PO SCH (08:49)
[2016-10-30] MEDS: TIMOPTIC 0.5% EYE DROPS BOTH EYES SCH (08:50)
[2016-10-30] MEDS ORDERED: POTASSIUM CHLORIDE 250 ML IVPB ONE (09:00)
[2016-10-30] MEDS ORDERED: MAGNESIUM SULFATE 3 GM in SOD CHLORIDE 0.9% 100 ML IVPB ONE (09:30)
[2016-10-30] MEDS: NS + KCL 20 MEQ 1,000 ML IV SCH ×2 (12:56→17:11)
[2016-10-30] MEDS ORDERED: POTASSIUM CHLORIDE 20 MEQ in SOD CHLORIDE 0.9% 1,000 ML IV SCH (13:00)
--- NOTE | 2016-10-30 15:53 | PN ---
Date/Time of Note Date/Time of Note DATE: 10/30/16 TIME: 15:51 Assessment/Plan VTE Prophylaxis VTE Prophylaxis Intervention: other (per primary) Lines/Catheters IV Catheter Type (from Nrsg): PICC Line Central line still needed: Yes Urinary Cath still in place: Yes Reason Cath still needed: other (indicate) (weakness) Assessment/Plan Assessment/Plan s/p chemotherapy last week without problems from it. continue to encourage PT. Subjective 24 Hr Interval Summary Free Text/Dictation Pt resting comfortably. Attendant says that he has been fine. Exam/Review of Systems Vital Signs Vitals Vital Signs Date Time Temp Pulse Resp B/P Pulse Ox O2 Delivery O2 Flow Rate FiO2 10/30/16 13:31 Nasal Cannula 2.0 10/30/16 08:46 98.0 86 18 133/79 99 10/28/16 21:03 28 Intake and Output 10/29/16 10/29/16 10/30/16 15:00 23:00 07:00 Intake Total 2260 ml 2400 ml Output Total 4750 ml 1900 ml Balance -2490 ml 500 ml Exam No new issues. Pt sleeping comfortably Results Result Diagram: 10/30/16 0433 10/30/16 0433 Results 24 hrs Laboratory Tests Test 10/29/16 17:16 10/29/16 20:25 10/29/16 20:26 10/29/16 21:10 Bedside Glucose 244 H 294 H Osmolality 289 Urine Osmolality 389 Urine Random Sodium 109 H Test 10/30/16 01:18 10/30/16 04:33 10/30/16 07:35 10/30/16 12:02 Bedside Glucose 234 H 164 191 White Blood Count 24.3 #H Red Blood Count 3.93 L Hemoglobin 9.7 L Hematocrit 31.0 L Mean Corpuscular Volume 78.9 L Mean Corpuscular Hemoglobin 24.7 L Mean Corpuscular Hemoglobin Concent 31.3 L Red Cell Distribution Width 17.2 H Platelet Count 286 # Mean Platelet Volume 8.8 Neutrophils % 93.8 H Lymphocytes % 4.6 L Monocytes % 0.5 Eosinophils % 0.5 Basophils % 0.1 Nucleated Red Blood Cells % 0.0 Neutrophils # 22.8 H Lymphocytes # 1.1 Monocytes # 0.1 L Eosinophils # 0.1 Basophils # 0.0 Nucleated Red Blood Cells # 0.0 Sodium Level 132 L Potassium Level 3.1 L Chloride Level 98 Carbon Dioxide Level 29 Anion Gap 8 Blood Urea Nitrogen 22 H Creatinine 0.78 Glucose Level 179 Calcium Level 9.2 Phosphorus Level 2.5 Magnesium Level 1.6 L Medications Medications Current Medications Ondansetron HCl (Zofran Inj) 4 mg Q6H PRN IV NAUSEA AND/OR VOMITING; Start at 06:30 Acetaminophen (Tylenol Tab) 650 mg Q6H PRN PO PAIN LEVEL 1-3 OR FEVER Last administered on 10/17/16 16:33; Admin Dose 650 MG; Start 10/09/16 at 06:30 Acetaminophen/ Hydrocodone Bitart ([place] (5/325)) 1 tab Q6H PRN PO MODERATE PAIN LEVEL 4-6 Last administered on 10/27/16 00:42; Admin Dose 1 TAB; Start at 06:30 Acetaminophen/ Hydrocodone Bitart ([place] (5/325)) 2 tab Q6H PRN PO SEVERE PAIN LEVEL 7-10 Last administered on 10/17/16 22:50; Admin Dose 2 TAB; Start at 06:30 Docusate Sodium (Colace) 100 mg Q12H PRN PO CONSTIPATION Last administered on 05:06; Admin Dose 100 MG; Start 10/09/16 at 06:30 Magnesium Hydroxide (Milk Of Mag) 30 ml DAILY PRN PO CONSTIPATION Last administered on 10/17/16 15:49; Admin Dose 30 ML; Start 10/09/16 at 06:30 Lisinopril (Zestril) 40 mg DAILY PO Last administered on 10/30/16 08:49; Admin Dose 40 MG; Start 10/09/16 at 09:00 Atorvastatin Calcium (Lipitor) 40 mg HS PO Last administered on 10/29/16 20:28 ; Admin Dose 40 MG; Start 10/09/16 at 21:00 Metoprolol Succinate (Toprol Xl) 25 mg DAILY PO Last administered on 10/30/16 08:49; Admin Dose 25 MG; Start 10/09/16 at 09:00 Pantoprazole (Protonix Tab) 40 mg DAILY@06 PO Last administered on 10/30/16 06: 03; Admin Dose 40 MG; Start 10/09/16 at 07:30 Miscellaneous Information 1 ea NOTE XX ; Start 10/09/16 at 07:30 Glucose (Glutose) 15 gm Q15M PRN PO DECREASED GLUCOSE; Start 10/09/16 at 07:30 Glucose (Glutose) 22.5 gm Q15M PRN PO DECREASED GLUCOSE; Start 10/09/16 at 07: 30 Dextrose (D50w Syringe) 25 ml Q15M PRN IV DECREASED GLUCOSE; Start 10/09/16 at 07:30 Dextrose (D50w Syringe) 50 ml Q15M PRN IV DECREASED GLUCOSE; Start 10/09/16 at 07:30 Glucagon (Glucagen) 1 mg Q15M PRN IM DECREASED GLUCOSE; Start 10/09/16 at 07:30 Glucose (Glutose) 15 gm Q15M PRN BUCCAL DECREASED GLUCOSE; Start 10/09/16 at 07 :30 Insulin Glargine (Lantus) 15 unit QHS SC Last administered on 10/29/16 20:33; Admin Dose 15 UNIT; Start 10/12/16 at 21:00 Non-Formulary Medication 1 ea DAILY BOTH EYES Last administered on 10/30/16 08: 50; Admin Dose 1 EA; Start 10/14/16 at 09:00 Polyethylene Glycol (Miralax) 17 gm DAILY PRN PO CONSTIPATION; Start 10/15/16 at 20:32 Enoxaparin Sodium (Lovenox) 40 mg DAILY SC Last administered on 10/30/16 08:37 ; Admin Dose 40 MG; Start 10/20/16 at 11:00 IV Flush 10 ml 10 ml PRN PRN IV IV PROTOCOL; Start 10/25/16 at 11:00 Gemcitabine HCl 1.9 gm/Sodium Chloride 250 ml @ 250 mls/hr Q7D IV Last administered on 10/25/16 18:53; Admin Dose 250 MLS/HR; Start 10/25/16 at 18:00; Stop 11/08/16 at 18:59 Ondansetron HCl 16 mg/ Dexamethasone 20 mg/Dextrose 63 ml @ 252 mls/hr Q7D IV Last administered on 10/25/16 18:27; Admin Dose 252 MLS/HR; Start 10/25/16 at 17: 30; Stop 11/08/16 at 17:44 Levofloxacin/ Dextrose (Levaquin 500mg/ D5W 100 ml (Pmx)) 100 ml @ 100 mls/hr Q24H IVPB Last administered on 10/29/16 22:00; Admin Dose 100 MLS/HR; Start 10/26/16 at 21:00; Stop 11/05/16 at 20:59 Potassium Chloride 20 meq 20 meq BID PO Last administered on 10/30/16 08:49; Admin Dose 20 MEQ; Start 10/30/16 at 09:00 Potassium Chloride/Sodium Chloride (NS-KCl 20 Meq) 1,000 ml @ 200 mls/hr Q5H IV Last administered on 10/30/16 12:56; Admin Dose 200 MLS/HR; Start 10/30/16 at 13:00 KIP MILLER MD October 30, 2016 15:53
--- NOTE | 2016-10-30 19:29 | CONS ---
Date/Time of Note Date/Time of Note DATE: 10/30/16 TIME: 19:25 Assessment/Plan Assessment/Plan Chief Complaint/Hosp Course - Sepsis due to b/l pyelonephritis, large tumor burden and hydronephrosis; fever resolved and leukocytosis improving - complicated UTI and b/l pyelonephritis due to ESBL+E. coli, enterococci and yeast. 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 - DNR Recommendations: - finish 10 days of levofloxacin (10/26/2016) for residual enterococci in his urine culture from Castañeda catheter - Note: pt completed course of meropenem for ESBL+E. coli (would cover enterococci, an ampicillin-sensitive strain; 10/18/2016-10/27/2016) and fluconazole (10/18/2016-10/27/2016) - contact isolation for ESBL+E. coli; repeat cxs neg. prior to stopping isolation Management d/w Pt, RN, and Dr. Garcia Problems: Consultation Date/Type/Reason Admit Date/Time Oct 09, 2016 at 05:45 Initial Consult Date 10/19/16 Type of Consultation: Infectious Disease Referring Provider: JEFF OSPINA MD 24 HR Interval Summary Free Text/Dictation No acute issues; Pt declined to work with PT today per d/w RIVERA Keys. C/o generalized weakness and fatigue. States "Physical Therapy can't help me". Denies pain, SOB, n/v/d. Asking for assistance to change position in bed. Exam/Review of Systems Vital Signs Vitals Vital Signs Date Time Temp Pulse Resp B/P Pulse Ox O2 Delivery O2 Flow Rate FiO2 10/30/16 13:31 Nasal Cannula 2.0 10/30/16 08:46 98.0 86 18 133/79 99 10/28/16 21:03 28 Intake and Output 10/29/16 10/29/16 10/30/16 14:59 22:59 06:59 Intake Total 2160 ml 2500 ml Output Total 4750 ml 1900 ml Balance -2590 ml 600 ml Exam Constitutional: alert, frail, oriented, well developed Head: atraumatic, normocephalic Eyes: nl sclera Neck: supple Respiratory: diminished breath sounds, No wheezing Cardiovascular: irregular rhythm, nl pulses, systolic murmur Gastrointestinal: non-tender, soft Genitourinary - Male: other (Castañeda and bilateral nephrostomy tubes intact) Extremities: edema, other (LUE PICC with no e/o infection) Skin: ecchymosis (Left elbow with erythema and ecchymosis but no e/o infection) Results Result Diagram: 10/30/16 0433 10/30/16 0433 Results 24 hrs Laboratory Tests Test 10/29/16 20:25 10/29/16 20:26 10/29/16 21:10 10/30/16 01:18 Osmolality 289 Bedside Glucose 294 H 234 H Urine Osmolality 389 Urine Random Sodium 109 H Test 10/30/16 04:33 10/30/16 07:35 10/30/16 12:02 10/30/16 17:05 White Blood Count 24.3 #H Red Blood Count 3.93 L Hemoglobin 9.7 L Hematocrit 31.0 L Mean Corpuscular Volume 78.9 L Mean Corpuscular Hemoglobin 24.7 L Mean Corpuscular Hemoglobin Concent 31.3 L Red Cell Distribution Width 17.2 H Platelet Count 286 # Mean Platelet Volume 8.8 Neutrophils % 93.8 H Lymphocytes % 4.6 L Monocytes % 0.5 Eosinophils % 0.5 Basophils % 0.1 Nucleated Red Blood Cells % 0.0 Neutrophils # 22.8 H Lymphocytes # 1.1 Monocytes # 0.1 L Eosinophils # 0.1 Basophils # 0.0 Nucleated Red Blood Cells # 0.0 Sodium Level 132 L Potassium Level 3.1 L Chloride Level 98 Carbon Dioxide Level 29 Anion Gap 8 Blood Urea Nitrogen 22 H Creatinine 0.78 Glucose Level 179 Calcium Level 9.2 Phosphorus Level 2.5 Magnesium Level 1.6 L Bedside Glucose 164 191 246 H Medications Medications Current Medications Ondansetron HCl (Zofran Inj) 4 mg Q6H PRN IV NAUSEA AND/OR VOMITING; Start at 06:30 Acetaminophen (Tylenol Tab) 650 mg Q6H PRN PO PAIN LEVEL 1-3 OR FEVER Last administered on 10/17/16 16:33; Admin Dose 650 MG; Start 10/09/16 at 06:30 Acetaminophen/ Hydrocodone Bitart ([place] (5/325)) 1 tab Q6H PRN PO MODERATE PAIN LEVEL 4-6 Last administered on 10/27/16 00:42; Admin Dose 1 TAB; Start at 06:30 Acetaminophen/ Hydrocodone Bitart ([place] (5/325)) 2 tab Q6H PRN PO SEVERE PAIN LEVEL 7-10 Last administered on 10/17/16 22:50; Admin Dose 2 TAB; Start at 06:30 Docusate Sodium (Colace) 100 mg Q12H PRN PO CONSTIPATION Last administered on 05:06; Admin Dose 100 MG; Start 10/09/16 at 06:30 Magnesium Hydroxide (Milk Of Mag) 30 ml DAILY PRN PO CONSTIPATION Last administered on 10/17/16 15:49; Admin Dose 30 ML; Start 10/09/16 at 06:30 Lisinopril (Zestril) 40 mg DAILY PO Last administered on 10/30/16 08:49; Admin Dose 40 MG; Start 10/09/16 at 09:00 Atorvastatin Calcium (Lipitor) 40 mg HS PO Last administered on 10/29/16 20:28 ; Admin Dose 40 MG; Start 10/09/16 at 21:00 Metoprolol Succinate (Toprol Xl) 25 mg DAILY PO Last administered on 10/30/16 08:49; Admin Dose 25 MG; Start 10/09/16 at 09:00 Pantoprazole (Protonix Tab) 40 mg DAILY@06 PO Last administered on 10/30/16 06: 03; Admin Dose 40 MG; Start 10/09/16 at 07:30 Miscellaneous Information 1 ea NOTE XX ; Start 10/09/16 at 07:30 Glucose (Glutose) 15 gm Q15M PRN PO DECREASED GLUCOSE; Start 10/09/16 at 07:30 Glucose (Glutose) 22.5 gm Q15M PRN PO DECREASED GLUCOSE; Start 10/09/16 at 07: 30 Dextrose (D50w Syringe) 25 ml Q15M PRN IV DECREASED GLUCOSE; Start 10/09/16 at 07:30 Dextrose (D50w Syringe) 50 ml Q15M PRN IV DECREASED GLUCOSE; Start 10/09/16 at 07:30 Glucagon (Glucagen) 1 mg Q15M PRN IM DECREASED GLUCOSE; Start 10/09/16 at 07:30 Glucose (Glutose) 15 gm Q15M PRN BUCCAL DECREASED GLUCOSE; Start 10/09/16 at 07 :30 Insulin Glargine (Lantus) 15 unit QHS SC Last administered on 10/29/16 20:33; Admin Dose 15 UNIT; Start 10/12/16 at 21:00 Non-Formulary Medication 1 ea DAILY BOTH EYES Last administered on 10/30/16 08: 50; Admin Dose 1 EA; Start 10/14/16 at 09:00 Polyethylene Glycol (Miralax) 17 gm DAILY PRN PO CONSTIPATION; Start 10/15/16 at 20:32 Enoxaparin Sodium (Lovenox) 40 mg DAILY SC Last administered on 10/30/16 08:37 ; Admin Dose 40 MG; Start 10/20/16 at 11:00 IV Flush 10 ml 10 ml PRN PRN IV IV PROTOCOL; Start 10/25/16 at 11:00 Gemcitabine HCl 1.9 gm/Sodium Chloride 250 ml @ 250 mls/hr Q7D IV Last administered on 10/25/16 18:53; Admin Dose 250 MLS/HR; Start 10/25/16 at 18:00; Stop 11/08/16 at 18:59 Ondansetron HCl 16 mg/ Dexamethasone 20 mg/Dextrose 63 ml @ 252 mls/hr Q7D IV Last administered on 10/25/16 18:27; Admin Dose 252 MLS/HR; Start 10/25/16 at 17: 30; Stop 11/08/16 at 17:44 Levofloxacin/ Dextrose (Levaquin 500mg/ D5W 100 ml (Pmx)) 100 ml @ 100 mls/hr Q24H IVPB Last administered on 10/29/16 22:00; Admin Dose 100 MLS/HR; Start 10/26/16 at 21:00; Stop 11/05/16 at 20:59 Potassium Chloride 20 meq 20 meq BID PO Last administered on 10/30/16 08:49; Admin Dose 20 MEQ; Start 10/30/16 at 09:00 Potassium Chloride/Sodium Chloride (NS-KCl 20 Meq) 1,000 ml @ 200 mls/hr Q5H IV Last administered on 10/30/16 17:11; Admin Dose 200 MLS/HR; Start 10/30/16 at 13:00 ANABELLA WILLIAMSON NP October 30, 2016 19:29 ANABELLA WILLIAMSON NP October 30, 2016 19:29
[2016-10-30 20:43] VITALS: BP 159/80; RESP 20
[2016-10-30] MEDS: ATORVASTATIN 40 MG TAB PO SCH (20:45)
[2016-10-30] MEDS: LEVOFLOXACIN 500MG/D5W (PMX) 100 ML IVPB SCH (20:45)
[2016-10-30] MEDS: INSULIN GLARGINE [LANtus] 3 ML PEN SC SCH (20:56)
[2016-10-30 21:03] VITALS: BP 138/84; PULSE 88
[2016-10-31] MEDS: NS + KCL 20 MEQ 1,000 ML IV SCH ×6 (02:35→20:52)
[2016-10-31] MEDS: PANTOPRAZOLE (EC) 40 MG TAB PO SCH (05:48)
[2016-10-31] MEDS: INSULIN ASPART [NOVOLOG] 3 ML PEN SC SCH ×4 (07:50→20:52)
[2016-10-31 08:00] VITALS: BP 123/58; RESP 18
[2016-10-31 08:32] LABS: ADD SCAN DIFF NO
--- NOTE | 2016-10-31 08:32 | PN ---
Date/Time of Note Date/Time of Note DATE: 10/31/16 TIME: 08:23 Assessment/Plan VTE Prophylaxis VTE Prophylaxis Intervention: LMWH Lines/Catheters IV Catheter Type (from [facility]): PICC Line Central line still needed: Yes Urinary Cath still in place: Yes Reason Cath still needed: urinary retention Assessment/Plan Chief Complaint/Hosp Course 1. Obstructive uropathy . He has bilateral percutaneous nephrostomies . They are both draining well . He has been in negative fluid balance the last several days with high urine output , I have been increasing his IV fluids to keep up with his urine output . 2. metastatic bladder cancer . He has finished 1 course of chemo . I will need to address his wishes about stopping treatment and discuss with his sons . 3. CAD 4. DM on insulin 5. dysphagia , will order speech therapy . 6. Anorexia, his appetite is sill poor . 8. he has iron deficiency anemia , he has completed a course of Ferrlicit. 9. UTI , he is now on Levaquin for 10 days . 10. leukocytosis . WBC is high after getting dexamethasone with chemo . WBC is coming down . 11. A fib , on Aspirin .He has been seen by cardiology Dr Gutierrez Problems: Subjective 24 Hr Interval Summary Free Text/Dictation He is sleeping but rouses easily to verbal stimuli . He is feeling down and wants to stop everything . He says that he has spoken to his sons . Constitutional: poor po, requiring IVF Respiratory: no complaints Cardiovascular: no complaints Gastrointestinal: decreased appetite Neurologic: no complaints Exam/Review of Systems Vital Signs Vitals Vital Signs Date Time Temp Pulse Resp B/P Pulse Ox O2 Delivery O2 Flow Rate FiO2 10/31/16 08:00 97.5 84 18 123/58 99 10/30/16 20:00 Nasal Cannula 2.0 10/28/16 21:03 28 Intake and Output 10/30/16 10/30/16 10/31/16 15:00 23:00 07:00 Intake Total 1350 ml 1966 ml 2300 ml Output Total 6250 ml 2900 ml Balance 1350 ml -4284 ml -600 ml Exam Constitutional: alert, frail, oriented Respiratory: clear to auscultation, diminished breath sounds Cardiovascular: edema, irregular rhythm Gastrointestinal: soft Musculoskeletal: nl extremities to inspection Results Result Diagram: 10/30/16 0433 10/30/16 0433 Results 24 hrs Laboratory Tests Test 10/30/16 12:02 10/30/16 17:05 10/30/16 20:49 10/31/16 02:29 Bedside Glucose 191 246 H 211 146 Test 10/31/16 07:48 Bedside Glucose 105 Medications Medications Current Medications Ondansetron HCl (Zofran Inj) 4 mg Q6H PRN IV NAUSEA AND/OR VOMITING; Start at 06:30 Acetaminophen (Tylenol Tab) 650 mg Q6H PRN PO PAIN LEVEL 1-3 OR FEVER Last administered on 10/17/16 16:33; Admin Dose 650 MG; Start 10/09/16 at 06:30 Acetaminophen/ Hydrocodone Bitart ([place] (5/325)) 1 tab Q6H PRN PO MODERATE PAIN LEVEL 4-6 Last administered on 10/27/16 00:42; Admin Dose 1 TAB; Start at 06:30 Acetaminophen/ Hydrocodone Bitart ([place] (5/325)) 2 tab Q6H PRN PO SEVERE PAIN LEVEL 7-10 Last administered on 10/17/16 22:50; Admin Dose 2 TAB; Start at 06:30 Docusate Sodium (Colace) 100 mg Q12H PRN PO CONSTIPATION Last administered on 05:06; Admin Dose 100 MG; Start 10/09/16 at 06:30 Magnesium Hydroxide (Milk Of Mag) 30 ml DAILY PRN PO CONSTIPATION Last administered on 10/17/16 15:49; Admin Dose 30 ML; Start 10/09/16 at 06:30 Lisinopril (Zestril) 40 mg DAILY PO Last administered on 10/30/16 08:49; Admin Dose 40 MG; Start 10/09/16 at 09:00 Atorvastatin Calcium (Lipitor) 40 mg HS PO Last administered on 10/30/16 20:45 ; Admin Dose 40 MG; Start 10/09/16 at 21:00 Metoprolol Succinate (Toprol Xl) 25 mg DAILY PO Last administered on 10/30/16 08:49; Admin Dose 25 MG; Start 10/09/16 at 09:00 Pantoprazole (Protonix Tab) 40 mg DAILY@06 PO Last administered on 10/31/16 05: 48; Admin Dose 40 MG; Start 10/09/16 at 07:30 Miscellaneous Information 1 ea NOTE XX ; Start 10/09/16 at 07:30 Glucose (Glutose) 15 gm Q15M PRN PO DECREASED GLUCOSE; Start 10/09/16 at 07:30 Glucose (Glutose) 22.5 gm Q15M PRN PO DECREASED GLUCOSE; Start 10/09/16 at 07: 30 Dextrose (D50w Syringe) 25 ml Q15M PRN IV DECREASED GLUCOSE; Start 10/09/16 at 07:30 Dextrose (D50w Syringe) 50 ml Q15M PRN IV DECREASED GLUCOSE; Start 10/09/16 at 07:30 Glucagon (Glucagen) 1 mg Q15M PRN IM DECREASED GLUCOSE; Start 10/09/16 at 07:30 Glucose (Glutose) 15 gm Q15M PRN BUCCAL DECREASED GLUCOSE; Start 10/09/16 at 07 :30 Insulin Glargine (Lantus) 15 unit QHS SC Last administered on 10/30/16 20:56; Admin Dose 15 UNIT; Start 10/12/16 at 21:00 Non-Formulary Medication 1 ea DAILY BOTH EYES Last administered on 10/30/16 08: 50; Admin Dose 1 EA; Start 10/14/16 at 09:00 Polyethylene Glycol (Miralax) 17 gm DAILY PRN PO CONSTIPATION; Start 10/15/16 at 20:32 Enoxaparin Sodium (Lovenox) 40 mg DAILY SC Last administered on 10/30/16 08:37 ; Admin Dose 40 MG; Start 10/20/16 at 11:00 IV Flush 10 ml 10 ml PRN PRN IV IV PROTOCOL; Start 10/25/16 at 11:00 Gemcitabine HCl 1.9 gm/Sodium Chloride 250 ml @ 250 mls/hr Q7D IV Last administered on 10/25/16 18:53; Admin Dose 250 MLS/HR; Start 10/25/16 at 18:00; Stop 11/08/16 at 18:59 Ondansetron HCl 16 mg/ Dexamethasone 20 mg/Dextrose 63 ml @ 252 mls/hr Q7D IV Last administered on 10/25/16 18:27; Admin Dose 252 MLS/HR; Start 10/25/16 at 17: 30; Stop 11/08/16 at 17:44 Levofloxacin/ Dextrose (Levaquin 500mg/ D5W 100 ml (Pmx)) 100 ml @ 100 mls/hr Q24H IVPB Last administered on 10/30/16 20:45; Admin Dose 100 MLS/HR; Start 10/26/16 at 21:00; Stop 11/05/16 at 20:59 Potassium Chloride 20 meq 20 meq BID PO Last administered on 10/30/16 20:45; Admin Dose 20 MEQ; Start 10/30/16 at 09:00 Potassium Chloride/Sodium Chloride (NS-KCl 20 Meq) 1,000 ml @ 250 mls/hr Q4H IV Last administered on 10/31/16 02:35; Admin Dose 200 MLS/HR; Start 10/30/16 at 13:00 JEFF OSPINA MD October 31, 2016 08:32
[2016-10-31 08:52] LABS: EOSINOPHILS % 0.4 % (0.0-7.0); HEMATOCRIT 28.6 % (42.0-52.0); LYMPHOCYTES # 1.1 10^3/ul (0.8-2.9); LYMPHOCYTES % 11.8 % (15.0-51.0); MEAN CORPUSCULAR HEMOGLOBIN 24.4 pg (29.0-33.0); MEAN CORPUSCULAR HGB CONC 31.5 g/dl (32.0-37.0); MEAN CORPUSCULAR VOLUME 77.5 fl (82.0-101.0); MEAN PLATELET VOLUME 8.8 fl (7.4-10.4); MONOCYTE # 0.2 10^3/ul (0.3-0.9); MONOCYTES % 2.5 % (0.0-11.0); NEUTROPHIL # 7.7 10^3/ul (1.6-7.5); NEUTROPHILS % 84.9 % (39.0-77.0); PLATELET COUNT 201 10^3/UL (140-415); RED BLOOD COUNT 3.69 10^6/ul (4.70-6.10); RED CELL DISTRIBUTION WIDTH 17.2 % (11.5-14.5)
[2016-10-31] MEDS: TIMOPTIC 0.5% EYE DROPS BOTH EYES SCH (09:00)
[2016-10-31] MEDS: POTASSIUM CHLORIDE (SR) 20 MEQ TAB PO SCH ×2 (09:00→20:44)
[2016-10-31] MEDS: LISINOPRIL 20 MG TAB PO SCH (09:00)
[2016-10-31] MEDS: METOPROLOL (XL) 25 MG TAB PO SCH (09:01)
[2016-10-31 09:03] LABS: ALBUMIN 1.7 g/dl (3.3-4.9); ALBUMIN/GLOBULIN RATIO 0.73; CREATININE 0.66 mg/dl (0.61-1.24); MAGNESIUM 1.7 mg/dl (1.7-2.5); PHOSPHORUS 2.3 mg/dl (2.5-4.9); POTASSIUM 3.7 mmol/L (3.5-5.1)
[2016-10-31] MEDS: ENOXAPARIN 40 MG/0.4 ML SYG SC SCH (09:05)
--- NOTE | 2016-10-31 16:04 | CONS ---
Date/Time of Note Date/Time of Note DATE: 10/31/16 TIME: 16:03 Assessment/Plan Assessment/Plan Chief Complaint/Hosp Course - Sepsis due to b/l pyelonephritis, large tumor burden and hydronephrosis; fever resolved and leukocytosis improving - complicated UTI and b/l pyelonephritis due to ESBL+E. coli, enterococci and yeast. 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 - DNR Recommendations: - finish 10 days of levofloxacin (10/26/2016) for residual enterococci in his urine culture from Castañeda catheter - Note: pt completed course of meropenem for ESBL+E. coli (would cover enterococci, an ampicillin-sensitive strain; 10/18/2016-10/27/2016) and fluconazole (10/18/2016-10/27/2016) - contact isolation for ESBL+E. coli; repeat cxs neg. prior to stopping isolation Problems: Consultation Date/Type/Reason Admit Date/Time Oct 09, 2016 at 05:45 Initial Consult Date 10/19/16 Type of Consultation: Infectious Disease Referring Provider: JEFF OSPINA MD Exam/Review of Systems Vital Signs Vitals Vital Signs Date Time Temp Pulse Resp B/P Pulse Ox O2 Delivery O2 Flow Rate FiO2 10/31/16 10:42 Nasal Cannula 2.0 10/31/16 08:00 97.5 84 18 123/58 99 10/28/16 21:03 28 Intake and Output 10/30/16 10/30/16 10/31/16 15:00 23:00 07:00 Intake Total 1350 ml 1966 ml 2300 ml Output Total 6250 ml 2900 ml Balance 1350 ml -4284 ml -600 ml Exam Constitutional: alert, oriented, well developed Psych: nl mood/affect, no complaints Eyes: EOMI, PERRL, nl conjunctiva, nl lids, nl sclera ENMT: nl external ears & nose, nl lips & teeth, nl nasal mucosa & septum Respiratory: clear to auscultation, normal air movement Cardiovascular: nl pulses, regular rate and rhythm Gastrointestinal: nl liver, spleen, non-tender, soft Musculoskeletal: nl extremities to inspection, nl gait and stance Results Result Diagram: 10/31/1682110/31/16821 Results 24 hrs Laboratory Tests Test 10/30/16 17:05 10/30/16 20:49 10/31/16 02:29 10/31/16 07:48 Bedside Glucose 246 H 211 146 105 Test 10/31/16 08:22 10/31/16 11:54 White Blood Count 9.0 # Red Blood Count 3.69 L Hemoglobin 9.0 L Hematocrit 28.6 L Mean Corpuscular Volume 77.5 L Mean Corpuscular Hemoglobin 24.4 L Mean Corpuscular Hemoglobin Concent 31.5 L Red Cell Distribution Width 17.2 H Platelet Count 201 # Mean Platelet Volume 8.8 Neutrophils % 84.9 H Lymphocytes % 11.8 L Monocytes % 2.5 Eosinophils % 0.4 Basophils % 0.0 Nucleated Red Blood Cells % 0.0 Neutrophils # 7.7 H Lymphocytes # 1.1 Monocytes # 0.2 L Eosinophils # 0.0 Basophils # 0.0 Nucleated Red Blood Cells # 0.0 Sodium Level 129 L Potassium Level 3.7 Chloride Level 104 Carbon Dioxide Level 26 Anion Gap 3 L Blood Urea Nitrogen 17 Creatinine 0.66 Glucose Level 107 # Calcium Level 9.0 Phosphorus Level 2.3 L Magnesium Level 1.7 Total Bilirubin 1.0 Direct Bilirubin 0.00 Indirect Bilirubin 1.0 Aspartate Amino Transf (AST/SGOT) 13 L Alanine Aminotransferase (ALT/SGPT) 31 Alkaline Phosphatase 61 Total Protein 4.0 L Albumin 1.7 L Globulin 2.30 Albumin/Globulin Ratio 0.73 Bedside Glucose 156 Medications Medications Current Medications Ondansetron HCl (Zofran Inj) 4 mg Q6H PRN IV NAUSEA AND/OR VOMITING; Start at 06:30 Acetaminophen (Tylenol Tab) 650 mg Q6H PRN PO PAIN LEVEL 1-3 OR FEVER Last administered on 10/17/16 16:33; Admin Dose 650 MG; Start 10/09/16 at 06:30 Acetaminophen/ Hydrocodone Bitart ([place] (5/325)) 1 tab Q6H PRN PO MODERATE PAIN LEVEL 4-6 Last administered on 10/27/16 00:42; Admin Dose 1 TAB; Start at 06:30 Acetaminophen/ Hydrocodone Bitart ([place] (5/325)) 2 tab Q6H PRN PO SEVERE PAIN LEVEL 7-10 Last administered on 10/17/16 22:50; Admin Dose 2 TAB; Start at 06:30 Docusate Sodium (Colace) 100 mg Q12H PRN PO CONSTIPATION Last administered on 05:06; Admin Dose 100 MG; Start 10/09/16 at 06:30 Magnesium Hydroxide (Milk Of Mag) 30 ml DAILY PRN PO CONSTIPATION Last administered on 10/17/16 15:49; Admin Dose 30 ML; Start 10/09/16 at 06:30 Lisinopril (Zestril) 40 mg DAILY PO Last administered on 10/31/16 09:00; Admin Dose 40 MG; Start 10/09/16 at 09:00 Metoprolol Succinate (Toprol Xl) 25 mg DAILY PO Last administered on 10/31/16 09:01; Admin Dose 25 MG; Start 10/09/16 at 09:00 Pantoprazole (Protonix Tab) 40 mg DAILY@06 PO Last administered on 10/31/16 05: 48; Admin Dose 40 MG; Start 10/09/16 at 07:30 Miscellaneous Information 1 ea NOTE XX ; Start 10/09/16 at 07:30 Glucose (Glutose) 15 gm Q15M PRN PO DECREASED GLUCOSE; Start 10/09/16 at 07:30 Glucose (Glutose) 22.5 gm Q15M PRN PO DECREASED GLUCOSE; Start 10/09/16 at 07: 30 Dextrose (D50w Syringe) 25 ml Q15M PRN IV DECREASED GLUCOSE; Start 10/09/16 at 07:30 Dextrose (D50w Syringe) 50 ml Q15M PRN IV DECREASED GLUCOSE; Start 10/09/16 at 07:30 Glucagon (Glucagen) 1 mg Q15M PRN IM DECREASED GLUCOSE; Start 10/09/16 at 07:30 Glucose (Glutose) 15 gm Q15M PRN BUCCAL DECREASED GLUCOSE; Start 10/09/16 at 07 :30 Insulin Glargine (Lantus) 15 unit QHS SC Last administered on 10/30/16 20:56; Admin Dose 15 UNIT; Start 10/12/16 at 21:00 Non-Formulary Medication 1 ea DAILY BOTH EYES Last administered on 10/30/16 08: 50; Admin Dose 1 EA; Start 10/14/16 at 09:00 Polyethylene Glycol (Miralax) 17 gm DAILY PRN PO CONSTIPATION; Start 10/15/16 at 20:32 Enoxaparin Sodium (Lovenox) 40 mg DAILY SC Last administered on 10/31/16 09:05 ; Admin Dose 40 MG; Start 10/20/16 at 11:00 IV Flush 10 ml 10 ml PRN PRN IV IV PROTOCOL; Start 10/25/16 at 11:00 Gemcitabine HCl 1.9 gm/Sodium Chloride 250 ml @ 250 mls/hr Q7D IV Last administered on 10/25/16 18:53; Admin Dose 250 MLS/HR; Start 10/25/16 at 18:00; Stop 11/08/16 at 18:59 Ondansetron HCl 16 mg/ Dexamethasone 20 mg/Dextrose 63 ml @ 252 mls/hr Q7D IV Last administered on 10/25/16 18:27; Admin Dose 252 MLS/HR; Start 10/25/16 at 17: 30; Stop 11/08/16 at 17:44 Levofloxacin/ Dextrose (Levaquin 500mg/ D5W 100 ml (Pmx)) 100 ml @ 100 mls/hr Q24H IVPB Last administered on 10/30/16 20:45; Admin Dose 100 MLS/HR; Start 10/26/16 at 21:00; Stop 11/05/16 at 20:59 Potassium Chloride 20 meq 20 meq BID PO Last administered on 10/31/16 09:00; Admin Dose 20 MEQ; Start 10/30/16 at 09:00 Potassium Chloride/Sodium Chloride (NS-KCl 20 Meq) 1,000 ml @ 250 mls/hr Q4H IV Last administered on 10/31/16t 12:52; Admin Dose 250 MLS/HR; Start 10/30/16 at 13:00 CARSON TORRES MD October 31, 2016 16:04
--- NOTE | 2016-10-31 16:40 | PN ---
Date/Time of Note Date/Time of Note DATE: 10/31/16 TIME: 16:37 Assessment/Plan VTE Prophylaxis VTE Prophylaxis Intervention: ambulation Lines/Catheters IV Catheter Type (from Nrs): PICC Line Central line still needed: Yes Urinary Cath still in place: Yes Reason Cath still needed: other (indicate) (weakness) Assessment/Plan Assessment/Plan Pt is due for next chemo in a couple of days. I discussed with him that a response is likely to take at least a couple of months and presently he is only <1 week since the beginning of chemotherapy. No other new suggestions. Subjective 24 Hr Interval Summary Free Text/Dictation Pt is unhappy that he is not better yet Exam/Review of Systems Vital Signs Vitals Vital Signs Date Time Temp Pulse Resp B/P Pulse Ox O2 Delivery O2 Flow Rate FiO2 10/31/16 10:42 Nasal Cannula 2.0 10/31/16 08:00 97.5 84 18 123/58 99 10/28/16 21:03 28 Intake and Output 10/30/16 10/30/16 10/31/16 15:00 23:00 07:00 Intake Total 1350 ml 1966 ml 2300 ml Output Total 6250 ml 2900 ml Balance 1350 ml -4284 ml -600 ml Exam Constitutional: alert, oriented Head: normocephalic ENMT: other (poor dentition) Respiratory: clear to auscultation Cardiovascular: regular rate and rhythm Gastrointestinal: non-tender, soft Extremities: other (decreased muscle mass) Results Result Diagram: 10/31/16 0822 10/31/16 0822 Results 24 hrs Laboratory Tests Test 10/30/16 17:05 10/30/16 20:49 10/31/16 02:29 10/31/16 07:48 Bedside Glucose 246 H 211 146 105 Test 10/31/16 08:22 10/31/16 11:54 White Blood Count 9.0 # Red Blood Count 3.69 L Hemoglobin 9.0 L Hematocrit 28.6 L Mean Corpuscular Volume 77.5 L Mean Corpuscular Hemoglobin 24.4 L Mean Corpuscular Hemoglobin Concent 31.5 L Red Cell Distribution Width 17.2 H Platelet Count 201 # Mean Platelet Volume 8.8 Neutrophils % 84.9 H Lymphocytes % 11.8 L Monocytes % 2.5 Eosinophils % 0.4 Basophils % 0.0 Nucleated Red Blood Cells % 0.0 Neutrophils # 7.7 H Lymphocytes # 1.1 Monocytes # 0.2 L Eosinophils # 0.0 Basophils # 0.0 Nucleated Red Blood Cells # 0.0 Sodium Level 129 L Potassium Level 3.7 Chloride Level 104 Carbon Dioxide Level 26 Anion Gap 3 L Blood Urea Nitrogen 17 Creatinine 0.66 Glucose Level 107 # Calcium Level 9.0 Phosphorus Level 2.3 L Magnesium Level 1.7 Total Bilirubin 1.0 Direct Bilirubin 0.00 Indirect Bilirubin 1.0 Aspartate Amino Transf (AST/SGOT) 13 L Alanine Aminotransferase (ALT/SGPT) 31 Alkaline Phosphatase 61 Total Protein 4.0 L Albumin 1.7 L Globulin 2.30 Albumin/Globulin Ratio 0.73 Bedside Glucose 156 Medications Medications Current Medications Ondansetron HCl (Zofran Inj) 4 mg Q6H PRN IV NAUSEA AND/OR VOMITING; Start at 06:30 Acetaminophen (Tylenol Tab) 650 mg Q6H PRN PO PAIN LEVEL 1-3 OR FEVER Last administered on 10/17/16 16:33; Admin Dose 650 MG; Start 10/09/16 at 06:30 Acetaminophen/ Hydrocodone Bitart ([place] (5/325)) 1 tab Q6H PRN PO MODERATE PAIN LEVEL 4-6 Last administered on 10/27/16 00:42; Admin Dose 1 TAB; Start at 06:30 Acetaminophen/ Hydrocodone Bitart ([place] (5/325)) 2 tab Q6H PRN PO SEVERE PAIN LEVEL 7-10 Last administered on 10/17/16 22:50; Admin Dose 2 TAB; Start at 06:30 Docusate Sodium (Colace) 100 mg Q12H PRN PO CONSTIPATION Last administered on 05:06; Admin Dose 100 MG; Start 10/09/16 at 06:30 Magnesium Hydroxide (Milk Of Mag) 30 ml DAILY PRN PO CONSTIPATION Last administered on 10/17/16 15:49; Admin Dose 30 ML; Start 10/09/16 at 06:30 Lisinopril (Zestril) 40 mg DAILY PO Last administered on 10/31/16 09:00; Admin Dose 40 MG; Start 10/09/16 at 09:00 Metoprolol Succinate (Toprol Xl) 25 mg DAILY PO Last administered on 10/31/16 09:01; Admin Dose 25 MG; Start 10/09/16 at 09:00 Pantoprazole (Protonix Tab) 40 mg DAILY@06 PO Last administered on 10/31/16 05: 48; Admin Dose 40 MG; Start 10/09/16 at 07:30 Miscellaneous Information 1 ea NOTE XX ; Start 10/09/16 at 07:30 Glucose (Glutose) 15 gm Q15M PRN PO DECREASED GLUCOSE; Start 10/09/16 at 07:30 Glucose (Glutose) 22.5 gm Q15M PRN PO DECREASED GLUCOSE; Start 10/09/16 at 07: 30 Dextrose (D50w Syringe) 25 ml Q15M PRN IV DECREASED GLUCOSE; Start 10/09/16 at 07:30 Dextrose (D50w Syringe) 50 ml Q15M PRN IV DECREASED GLUCOSE; Start 10/09/16 at 07:30 Glucagon (Glucagen) 1 mg Q15M PRN IM DECREASED GLUCOSE; Start 10/09/16 at 07:30 Glucose (Glutose) 15 gm Q15M PRN BUCCAL DECREASED GLUCOSE; Start 10/09/16 at 07 :30 Insulin Glargine (Lantus) 15 unit QHS SC Last administered on 10/30/16 20:56; Admin Dose 15 UNIT; Start 10/12/16 at 21:00 Non-Formulary Medication 1 ea DAILY BOTH EYES Last administered on 10/30/16 08: 50; Admin Dose 1 EA; Start 10/14/16 at 09:00 Polyethylene Glycol (Miralax) 17 gm DAILY PRN PO CONSTIPATION; Start 10/15/16 at 20:32 Enoxaparin Sodium (Lovenox) 40 mg DAILY SC Last administered on 10/31/16 09:05 ; Admin Dose 40 MG; Start 10/20/16 at 11:00 IV Flush 10 ml 10 ml PRN PRN IV IV PROTOCOL; Start 10/25/16 at 11:00 Gemcitabine HCl 1.9 gm/Sodium Chloride 250 ml @ 250 mls/hr Q7D IV Last administered on 10/25/16 18:53; Admin Dose 250 MLS/HR; Start 10/25/16 at 18:00; Stop 11/08/16 at 18:59 Ondansetron HCl 16 mg/ Dexamethasone 20 mg/Dextrose 63 ml @ 252 mls/hr Q7D IV Last administered on 10/25/16 18:27; Admin Dose 252 MLS/HR; Start 10/25/16 at 17: 30; Stop 11/08/16 at 17:44 Levofloxacin/ Dextrose (Levaquin 500mg/ D5W 100 ml (Pmx)) 100 ml @ 100 mls/hr Q24H IVPB Last administered on 10/30/16 20:45; Admin Dose 100 MLS/HR; Start 10/26/16 at 21:00; Stop 11/05/16 at 20:59 Potassium Chloride 20 meq 20 meq BID PO Last administered on 10/31/16 09:00; Admin Dose 20 MEQ; Start 10/30/16 at 09:00 Potassium Chloride/Sodium Chloride (NS-KCl 20 Meq) 1,000 ml @ 250 mls/hr Q4H IV Last administered on 10/31/16 12:52; Admin Dose 250 MLS/HR; Start 10/30/16 at 13:00 KIP MILLER MD October 31, 2016 16:40
[2016-10-31] MEDS ORDERED: MAGNESIUM SULFATE 2 GM/50 ML 50 ML IVPB ONE (18:30)
[2016-10-31 19:42] VITALS: BP 156/75; RESP 18
[2016-10-31] MEDS: LEVOFLOXACIN 500MG/D5W (PMX) 100 ML IVPB SCH (20:47)
[2016-10-31] MEDS: INSULIN GLARGINE [LANtus] 3 ML PEN SC SCH (20:54)
[2016-10-31] MEDS: POTASSIUM CHLORIDE IV SCH (22:11)
[2016-10-31] MEDS: SOD CHLORIDE 0.9% IV SCH (22:11)
[2016-10-31] MEDS: POTASSIUM PHOSPHATE IV SCH (22:11)
[2016-11-01] MEDS: NS + KCL 20 MEQ 1,000 ML IV SCH ×3 (00:52→08:52)
[2016-11-01] MEDS: PANTOPRAZOLE (EC) 40 MG TAB PO SCH (05:57)
[2016-11-01] MEDS: POTASSIUM PHOSPHATE IV SCH (06:13)
[2016-11-01] MEDS: SOD CHLORIDE 0.9% IV SCH ×2 (06:13→18:24)
[2016-11-01] MEDS: POTASSIUM CHLORIDE IV SCH (06:13)
[2016-11-01 07:49] VITALS: BP 132/73; RESP 18
[2016-11-01] MEDS: INSULIN ASPART [NOVOLOG] 3 ML PEN SC SCH ×4 (07:50→21:04)
[2016-11-01 08:02] LABS: ADD SCAN DIFF NO
[2016-11-01 08:08] LABS: BASOPHILS % 0.1 % (0.0-2.0); EOSINOPHILS % 0.3 % (0.0-7.0); HEMATOCRIT 27.7 % (42.0-52.0); HEMOGLOBIN 8.6 g/dl (14.0-18.0); LYMPHOCYTES # 0.9 10^3/ul (0.8-2.9); LYMPHOCYTES % 7.7 % (15.0-51.0); MEAN CORPUSCULAR HEMOGLOBIN 24.2 pg (29.0-33.0); MEAN PLATELET VOLUME 8.9 fl (7.4-10.4); MONOCYTE # 0.4 10^3/ul (0.3-0.9); MONOCYTES % 3.6 % (0.0-11.0); NEUTROPHIL # 9.7 10^3/ul (1.6-7.5); NEUTROPHILS % 87.6 % (39.0-77.0); PLATELET COUNT 154 10^3/UL (140-415); RED BLOOD COUNT 3.55 10^6/ul (4.70-6.10); RED CELL DISTRIBUTION WIDTH 17.2 % (11.5-14.5); WHITE BLOOD COUNT 11.1 10^3/ul (4.8-10.8)
--- NOTE | 2016-11-01 08:17 | PN ---
Date/Time of Note Date/Time of Note DATE: 11/01/16 TIME: 08:11 Assessment/Plan VTE Prophylaxis VTE Prophylaxis Intervention: LMWH Lines/Catheters IV C[facility] Type [facility] PICC Line Central line still needed: Yes Urinary Cath still in place: Yes Reason Cath still needed: urinary retention Assessment/Plan Chief Complaint/Hosp Course 1. Obstructive uropathy . He has bilateral percutaneous nephrostomies . They are both draining well . He has been in negative fluid balance the last several days with high urine output , He has diffuse edema . I have decreased IV fluids and will allow him to re equilibrate . 2. metastatic bladder cancer . He has finished 1 course of chemo . He is getting 1 dose of chemo today . 3. CAD 4. DM on insulin 5. dysphagia , will order speech therapy . 6. Anorexia, his appetite is sill poor . I have ordered Boost as a nutritional supplement . 8. he has iron deficiency anemia , he has completed a course of Ferrlicit. 9. UTI , he is now on Levaquin for 10 days . 10. leukocytosis . WBC is high after getting dexamethasone with chemo . WBC is coming down . 11. A fib , on Aspirin .He has been seen by cardiology Dr Gutierrez Problems: Subjective 24 Hr Interval Summary Free Text/Dictation He is lethargic today , He does rouse to verbal stimuli . He continues to have a large diuresis . Constitutional: poor po Respiratory: no complaints Cardiovascular: edema, no complaints Gastrointestinal: no complaints Musculoskeletal: no complaints Exam/Review of Systems Vital Signs Vitals Vital Signs Date Time Temp Pulse Resp B/P Pulse Ox O2 Delivery O2 Flow Rate FiO2 11/01/16 07:49 98.3 82 18 132/73 98 10/31/16 20:30 Nasal Cannula 2.0 10/28/16 21:03 28 Intake and Output 10/31/16 10/31/16 11/01/16 15:00 23:00 07:00 Intake Total 1800 ml 2380 ml 2790 ml Output Total 6450 ml 6500 ml Balance 1800 ml -4070 ml -3710 ml Exam Constitutional: alert, frail Psych: depression Respiratory: clear to auscultation, diminished breath sounds Cardiovascular: edema, irregular rhythm Gastrointestinal: soft Extremities: edema Results Result Diagram: 10/31/16 0822 10/31/16 0822 Results 24 hrs Laboratory Tests Test 10/31/16 08:22 10/31/16 11:54 10/31/16 17:06 10/31/16 20:24 White Blood Count 9.0 # Red Blood Count 3.69 L Hemoglobin 9.0 L Hematocrit 28.6 L Mean Corpuscular Volume 77.5 L Mean Corpuscular Hemoglobin 24.4 L Mean Corpuscular Hemoglobin Concent 31.5 L Red Cell Distribution Width 17.2 H Platelet Count 201 # Mean Platelet Volume 8.8 Neutrophils % 84.9 H Lymphocytes % 11.8 L Monocytes % 2.5 Eosinophils % 0.4 Basophils % 0.0 Nucleated Red Blood Cells % 0.0 Neutrophils # 7.7 H Lymphocytes # 1.1 Monocytes # 0.2 L Eosinophils # 0.0 Basophils # 0.0 Nucleated Red Blood Cells # 0.0 Sodium Level 129 L Potassium Level 3.7 Chloride Level 104 Carbon Dioxide Level 26 Anion Gap 3 L Blood Urea Nitrogen 17 Creatinine 0.66 Glucose Level 107 # Calcium Level 9.0 Phosphorus Level 2.3 L Magnesium Level 1.7 Total Bilirubin 1.0 Direct Bilirubin 0.00 Indirect Bilirubin 1.0 Aspartate Amino Transf (AST/SGOT) 13 L Alanine Aminotransferase (ALT/SGPT) 31 Alkaline Phosphatase 61 Total Protein 4.0 L Albumin 1.7 L Globulin 2.30 Albumin/Globulin Ratio 0.73 Bedside Glucose 156 194 263 H Medications Medications Current Medications Ondansetron HCl (Zofran Inj) 4 mg Q6H PRN IV NAUSEA AND/OR VOMITING; Start at 06:30 Acetaminophen (Tylenol Tab) 650 mg Q6H PRN PO PAIN LEVEL 1-3 OR FEVER Last administered on 10/17/16 16:33; Admin Dose 650 MG; Start 10/09/16 at 06:30 Acetaminophen/ Hydrocodone Bitart ([place] (5/325)) 1 tab Q6H PRN PO MODERATE PAIN LEVEL 4-6 Last administered on 10/27/16 00:42; Admin Dose 1 TAB; Start at 06:30 Acetaminophen/ Hydrocodone Bitart ([place] (5/325)) 2 tab Q6H PRN PO SEVERE PAIN LEVEL 7-10 Last administered on 10/17/16 22:50; Admin Dose 2 TAB; Start at 06:30 Docusate Sodium (Colace) 100 mg Q12H PRN PO CONSTIPATION Last administered on 05:06; Admin Dose 100 MG; Start 10/09/16 at 06:30 Magnesium Hydroxide (Milk Of Mag) 30 ml DAILY PRN PO CONSTIPATION Last administered on 10/17/16 15:49; Admin Dose 30 ML; Start 10/09/16 at 06:30 Lisinopril (Zestril) 40 mg DAILY PO Last administered on 10/31/16 09:00; Admin Dose 40 MG; Start 10/09/16 at 09:00 Metoprolol Succinate (Toprol Xl) 25 mg DAILY PO Last administered on 10/31/16 09:01; Admin Dose 25 MG; Start 10/09/16 at 09:00 Pantoprazole (Protonix Tab) 40 mg DAILY@06 PO Last administered on 11/01/16 05 :57; Admin Dose 40 MG; Start 10/09/16 at 07:30 Miscellaneous Information 1 ea NOTE XX ; Start 10/09/16 at 07:30 Glucose (Glutose) 15 gm Q15M PRN PO DECREASED GLUCOSE; Start 10/09/16 at 07:30 Glucose (Glutose) 22.5 gm Q15M PRN PO DECREASED GLUCOSE; Start 10/09/16 at 07: 30 Dextrose (D50w Syringe) 25 ml Q15M PRN IV DECREASED GLUCOSE; Start 10/09/16 at 07:30 Dextrose (D50w Syringe) 50 ml Q15M PRN IV DECREASED GLUCOSE; Start 10/09/16 at 07:30 Glucagon (Glucagen) 1 mg Q15M PRN IM DECREASED GLUCOSE; Start 10/09/16 at 07:30 Glucose (Glutose) 15 gm Q15M PRN BUCCAL DECREASED GLUCOSE; Start 10/09/16 at 07 :30 Insulin Glargine (Lantus) 15 unit QHS SC Last administered on 10/31/16 20:54; Admin Dose 15 UNIT; Start 10/12/16 at 21:00 Non-Formulary Medication 1 ea DAILY BOTH EYES Last administered on 10/30/16 08: 50; Admin Dose 1 EA; Start 10/14/16 at 09:00 Polyethylene Glycol (Miralax) 17 gm DAILY PRN PO CONSTIPATION; Start 10/15/16 at 20:32 Enoxaparin Sodium (Lovenox) 40 mg DAILY SC Last administered on 10/31/16 09:05 ; Admin Dose 40 MG; Start 10/20/16 at 11:00 IV Flush 10 ml 10 ml PRN PRN IV IV PROTOCOL; Start 10/25/16 at 11:00 Gemcitabine HCl 1.9 gm/Sodium Chloride 250 ml @ 250 mls/hr Q7D IV Last administered on 10/25/16 18:53; Admin Dose 250 MLS/HR; Start 10/25/16 at 18:00; Stop 11/08/16 at 18:59 Ondansetron HCl 16 mg/ Dexamethasone 20 mg/Dextrose 63 ml @ 252 mls/hr Q7D IV Last administered on 10/25/16 18:27; Admin Dose 252 MLS/HR; Start 10/25/16 at 17: 30; Stop 11/08/16 at 17:44 Levofloxacin/ Dextrose (Levaquin 500mg/ D5W 100 ml (Pmx)) 100 ml @ 100 mls/hr Q24H IVPB Last administered on 10/31/16 20:47; Admin Dose 100 MLS/HR; Start 10/26/16 at 21:00; Stop 11/05/16 at 20:59 Potassium Chloride 20 meq 20 meq BID PO Last administered on 10/31/16 20:44; Admin Dose 20 MEQ; Start 10/30/16 at 09:00 Potassium Chloride/Sodium Chloride 1,000 ml @ 250 mls/hr Q4H IV Last administered on 10/31/16 16:38; Admin Dose 250 MLS/HR; Start 10/30/16 at 13:00 Potassium Chloride/ Potassium Phosphate/Sodium Chloride (KCl/K Phos (Meq)/NS) 1, 012.2727 ml @ 125 mls/hr Q8H6M IV Last administered on 11/01/16 06:13; Admin Dose 125 MLS/HR; Start 10/31/16 at 20:00 JEFF OSPINA MD November 01, 2016 08:17
[2016-11-01 08:31] LABS: ALBUMIN 1.7 g/dl (3.3-4.9); ALBUMIN/GLOBULIN RATIO 0.7; BILIRUBIN,INDIRECT 0.8 mg/dl (0-1.1); BILIRUBIN,TOTAL 0.8 mg/dl (0.2-1.3); CALCIUM 7.8 mg/dl (8.4-10.2); CREATININE 0.59 mg/dl (0.61-1.24); MAGNESIUM 1.8 mg/dl (1.7-2.5); PHOSPHORUS 4.2 mg/dl (2.5-4.9); POTASSIUM 5.9 mmol/L (3.5-5.1); TOTAL PROTEIN 4.1 g/dl (6.1-8.1)
--- NOTE | 2016-11-01 08:47 | CONS ---
DATE OF ADMISSION: 10/09/2016 DATE OF CONSULTATION: 11/01/2016 TYPE OF CONSULTATION: Hematology/Oncology progress note HISTORY OF PRESENT ILLNESS: Mr. Fernandez continues to complain of weakness. His oral intake has been poor. He does not have any mouth discomfort. No nausea or vomiting. OBJECTIVE VITAL SIGNS: Temperature 98.5, pulse 86 per minute and regular, respirations 18, blood pressure 156 /75, pulse oximetry 99% on 2 liters of oxygen. SKIN: Pale. No ecchymosis, no petechiae or rashes. HEENT: No mucosal lesions. No scleral icterus. There is nasal oxygen in place. NECK: No jugular venous distention or thyroid enlargement. CHEST: Clear to auscultation and percussion. No rhonchi, wheezes, rales or rubs. There is no pain on percussion of the spine, sternum, clavicles or ribs. HEART: Regular sinus rhythm, no S3, S4 or murmurs. No rubs. ABDOMEN: Soft, no masses, no ascites. Bowel sounds are active. There are bilateral nephrostomies draining clear urine. EXTREMITIES: No clubbing, edema or cyanosis. The PICC line is present in the left upper extremity. NEUROLOGIC: No focal neurologic abnormalities. He has generalized weakness. Intake 5230, output 6450. LABORATORY: CBC and comprehensive metabolic panel are pending. ASSESSMENT: 1. Metastatic urothelial carcinoma. 2. Bilateral hydronephrosis secondary to #1. PLAN: The patient is to receive day #8 chemotherapy today. Will receive cisplatin and gemcitabine. It is still unclear why this patient has increased his urine output to this degree and why he has be come hyponatremic. As noted, the patient is to receive day #8 cisplatin and gemcitabine today. We will add LDH and uric acid to today's laboratory. Also will check a portable chest x-ray. Dictated By: RADHA SHAW MD, SR/NTS Conf#: [id number] DID#: [id number]
[2016-11-01] MEDS: TIMOPTIC 0.5% EYE DROPS BOTH EYES SCH (09:02)
[2016-11-01] MEDS: METOPROLOL (XL) 25 MG TAB PO SCH (09:03)
[2016-11-01] MEDS: LISINOPRIL 20 MG TAB PO SCH (09:03)
[2016-11-01] MEDS: POTASSIUM CHLORIDE (SR) 20 MEQ TAB PO SCH (09:03)
[2016-11-01] MEDS: ENOXAPARIN 40 MG/0.4 ML SYG SC SCH (09:09)
[2016-11-01 09:51] LABS: URIC ACID 2.7 mg/dl (3.1-7.9)
--- NOTE | 2016-11-01 10:02 | RADRPT ---
PROCEDURE: XR Chest 1 View. CLINICAL INDICATION: Shortness of breath. TECHNIQUE: AP view of the chest was obtained. COMPARISON: October 25, 2016 FINDINGS: The heart size is within normal limits. Calcified atherosclerosis is noted in the aorta. Left-sided PICC line has its tip in the expected location of the mid superior vena cava. Central pulmonary va scular congestion and mild interstitial prominence is seen in both lungs. Patchy infiltrates are se en in the bilateral lower lobes. Small left pleural effusion is likely present. 4.0 cm nodular den sity seen in the periphery of the left upper lobe. 1.3 cm nodular density seen in the periphery of the right lower lobe. Osseous structures are intact. IMPRESSION: Calcified atherosclerosis in the aorta. Central pulmonary vascular congestion and mild interstitial prominence in both lungs. Patchy bilateral lower lung infiltrates and small left pleural effusion. Infiltrates have decreased when compared with prior exam. 4.0 cm nodular density in the periphery of the left upper lobe and 1.3 cm nodular density in the per iphery of the right lower lobe. Findings likely reflect lung nodules. Further characterization wit h CT chest should be considered RPTAT: AA .Bruno Israel MD, Date Time Electronically viewed and signed by .Bruno Israel MD, MD on 11/01/2016 10:01 .P/
[2016-11-01] MEDS: HYDROCODONE/APAP (5/325) TAB PO PRN ×2 (11:30→18:30)
[2016-11-01] MEDS: SOD CHLORIDE 0.9% 1,000 ML IV SCH ×2 (13:06→22:30)
--- NOTE | 2016-11-01 15:04 | CONS ---
Date/Time of Note Date/Time of Note DATE: 11/01/16 TIME: 15:02 Assessment/Plan Assessment/Plan Chief Complaint/Hosp Course - Sepsis due to b/l pyelonephritis, large tumor burden and hydronephrosis; fever resolved and leukocytosis improving - complicated UTI and b/l pyelonephritis due to ESBL+E. coli, enterococci and yeast. 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 - DNR Recommendations: - finish 10 days of levofloxacin (10/26/2016) for residual enterococci in his urine culture from Castañeda catheter - Note: pt completed course of meropenem for ESBL+E. coli (would cover enterococci, an ampicillin-sensitive strain; 10/18/2016-10/27/2016) and fluconazole (10/18/2016-10/27/2016) - contact isolation for ESBL+E. coli; repeat cxs neg. prior to stopping isolation Problems: Consultation Date/Type/Reason Admit Date/Time Oct 09, 2016 at 05:45 Initial Consult Date 10/19/16 Type of Consultation: Infectious Disease Referring Provider: JEFF OSPINA MD 24 HR Interval Summary Free Text/Dictation feels poorly per nursing. Exam/Review of Systems Vital Signs Vitals Vital Signs Date Time Temp Pulse Resp B/P Pulse Ox O2 Delivery O2 Flow Rate FiO2 11/01/16 09:00 Nasal Cannula 2.0 11/01/16 07:49 98.3 82 18 132/73 98 10/28/16 21:03 28 Intake and Output 10/31/16 10/31/16 11/01/16 15:00 23:00 07:00 Intake Total 1800 ml 2380 ml 2790 ml Output Total 6450 ml 6500 ml Balance 1800 ml -4070 ml -3710 ml Exam Constitutional: alert, oriented, well developed Psych: nl mood/affect, no complaints Head: atraumatic, normocephalic Eyes: EOMI, PERRL, nl conjunctiva, nl lids, nl sclera ENMT: nl external ears & nose, nl lips & teeth, nl nasal mucosa & septum Respiratory: clear to auscultation, normal air movement Cardiovascular: nl pulses, regular rate and rhythm Gastrointestinal: nl liver, spleen, non-tender, soft Musculoskeletal: nl extremities to inspection, nl gait and stance Neurological: [employer] II-XII intact, nl mental status, nl speech, nl strength Results Result Diagram: 11/01/16 0700 11/01/16 0700 Results 24 hrs Laboratory Tests Test 10/31/16 17:06 10/31/16 20:24 11/01/16 07:00 11/01/16 08:59 Bedside Glucose 194 263 H 139 White Blood Count 11.1 #H Red Blood Count 3.55 L Hemoglobin 8.6 L Hematocrit 27.7 L Mean Corpuscular Volume 78.0 L Mean Corpuscular Hemoglobin 24.2 L Mean Corpuscular Hemoglobin Concent 31.0 L Red Cell Distribution Width 17.2 H Platelet Count 154 # Mean Platelet Volume 8.9 Neutrophils % 87.6 H Lymphocytes % 7.7 L Monocytes % 3.6 Eosinophils % 0.3 Basophils % 0.1 Nucleated Red Blood Cells % 0.0 Neutrophils # 9.7 H Lymphocytes # 0.9 Monocytes # 0.4 Eosinophils # 0.0 Basophils # 0.0 Nucleated Red Blood Cells # 0.0 Sodium Level 132 L Potassium Level 5.9 #H Chloride Level 108 Carbon Dioxide Level 24 Anion Gap 6 L Blood Urea Nitrogen 13 Creatinine 0.59 L Glucose Level 126 Uric Acid 2.7 L Calcium Level 7.8 L Phosphorus Level 4.2 Magnesium Level 1.8 Total Bilirubin 0.8 Direct Bilirubin 0.00 Indirect Bilirubin 0.8 Aspartate Amino Transf (AST/SGOT) 12 L Alanine Aminotransferase (ALT/SGPT) 27 Alkaline Phosphatase 63 Lactate Dehydrogenase 432 Total Protein 4.1 L Albumin 1.7 L Globulin 2.40 Albumin/Globulin Ratio 0.70 Test 11/01/16 13:04 Bedside Glucose 230 H Medications Medications Current Medications Ondansetron HCl (Zofran Inj) 4 mg Q6H PRN IV NAUSEA AND/OR VOMITING; Start at 06:30 Acetaminophen (Tylenol Tab) 650 mg Q6H PRN PO PAIN LEVEL 1-3 OR FEVER Last administered on 10/17/16 16:33; Admin Dose 650 MG; Start 10/09/16 at 06:30 Acetaminophen/ Hydrocodone Bitart ([place] (5/325)) 1 tab Q6H PRN PO MODERATE PAIN LEVEL 4-6 Last administered on 11/01/16 11:30; Admin Dose 1 TAB; Start at 06:30 Acetaminophen/ Hydrocodone Bitart ([place] (5/325)) 2 tab Q6H PRN PO SEVERE PAIN LEVEL 7-10 Last administered on 10/17/16 22:50; Admin Dose 2 TAB; Start at 06:30 Docusate Sodium (Colace) 100 mg Q12H PRN PO CONSTIPATION Last administered on 05:06; Admin Dose 100 MG; Start 10/09/16 at 06:30 Magnesium Hydroxide (Milk Of Mag) 30 ml DAILY PRN PO CONSTIPATION Last administered on 10/17/16 15:49; Admin Dose 30 ML; Start 10/09/16 at 06:30 Lisinopril (Zestril) 40 mg DAILY PO Last administered on 11/01/16 09:03; Admin Dose 40 MG; Start 10/09/16 at 09:00 Metoprolol Succinate (Toprol Xl) 25 mg DAILY PO Last administered on 11/01/16 09:03; Admin Dose 25 MG; Start 10/09/16 at 09:00 Pantoprazole (Protonix Tab) 40 mg DAILY@06 PO Last administered on 11/01/16 05 :57; Admin Dose 40 MG; Start 10/09/16 at 07:30 Miscellaneous Information 1 ea NOTE XX ; Start 10/09/16 at 07:30 Glucose (Glutose) 15 gm Q15M PRN PO DECREASED GLUCOSE; Start 10/09/16 at 07:30 Glucose (Glutose) 22.5 gm Q15M PRN PO DECREASED GLUCOSE; Start 10/09/16 at 07: 30 Dextrose (D50w Syringe) 25 ml Q15M PRN IV DECREASED GLUCOSE; Start 10/09/16 at 07:30 Dextrose (D50w Syringe) 50 ml Q15M PRN IV DECREASED GLUCOSE; Start 10/09/16 at 07:30 Glucagon (Glucagen) 1 mg Q15M PRN IM DECREASED GLUCOSE; Start 10/09/16 at 07:30 Glucose (Glutose) 15 gm Q15M PRN BUCCAL DECREASED GLUCOSE; Start 10/09/16 at 07 :30 Insulin Glargine (Lantus) 15 unit QHS SC Last administered on 10/31/16 20:54; Admin Dose 15 UNIT; Start 10/12/16 at 21:00 Non-Formulary Medication 1 ea DAILY BOTH EYES Last administered on 11/01/16 09 :02; Admin Dose 1 EA; Start 10/14/16 at 09:00 Polyethylene Glycol (Miralax) 17 gm DAILY PRN PO CONSTIPATION; Start 10/15/16 at 20:32 Enoxaparin Sodium (Lovenox) 40 mg DAILY SC Last administered on 11/01/16 09:09 ; Admin Dose 40 MG; Start 10/20/16 at 11:00 IV Flush 10 ml 10 ml PRN PRN IV IV PROTOCOL; Start 10/25/16 at 11:00 Gemcitabine HCl 1.9 gm/Sodium Chloride 250 ml @ 250 mls/hr Q7D IV Last administered on 10/25/16 18:53; Admin Dose 250 MLS/HR; Start 10/25/16 at 18:00; Stop 11/08/16 at 18:59 Ondansetron HCl 16 mg/ Dexamethasone 20 mg/Dextrose 63 ml @ 252 mls/hr Q7D IV Last administered on 10/25/16 18:27; Admin Dose 252 MLS/HR; Start 10/25/16 at 17: 30; Stop 11/08/16 at 17:44 Levofloxacin/ Dextrose 100 ml @ 100 mls/hr Q24H IVPB Last administered on 20:47; Admin Dose 100 MLS/HR; Start 10/26/16 at 21:00; Stop 11/05/16 at 20: 59 Sodium Chloride (NS) 1,000 ml @ 100 mls/hr Q10H IV Last administered on t 13:06; Admin Dose 100 MLS/HR; Start 11/01/16 at 12:30 CARSON TORRES MD November 01, 2016 15:04
[2016-11-01] MEDS: ONDANSETRON INJ 16 MG, DEXAMETHASONE 4 MG/ML 20 MG in DEXTROSE 5% 50 ML IV SCH (17:35)
[2016-11-01 18:12] VITALS: BP 157/73; PULSE 79; RESP 16
[2016-11-01] MEDS: GEMCITABINE IV SCH (18:24)
[2016-11-01 18:30] VITALS: BP 140/70; PULSE 81; RESP 16
[2016-11-01 18:52] VITALS: BP 139/77; PULSE 84; RESP 16
[2016-11-01 20:22] VITALS: BP 127/74; RESP 19
[2016-11-01] MEDS: LEVOFLOXACIN 500MG/D5W (PMX) 100 ML IVPB SCH (21:06)
[2016-11-01] MEDS: INSULIN GLARGINE [LANtus] 3 ML PEN SC SCH (21:06)
[2016-11-01 22:00] VITALS: BP 125/71; PULSE 82; RESP 18
[2016-11-02] MEDS: HYDROCODONE/APAP (5/325) TAB PO PRN ×4 (01:00→17:38)
[2016-11-02 04:43] LABS: ADD SCAN DIFF NO
[2016-11-02 04:52] LABS: ABNORMAL IP MESSAGE 1; HEMATOCRIT 26.6 % (42.0-52.0); HEMOGLOBIN 8.2 g/dl (14.0-18.0); MEAN CORPUSCULAR HGB CONC 30.8 g/dl (32.0-37.0); MEAN PLATELET VOLUME 8.8 fl (7.4-10.4); PLATELET COUNT 107 10^3/UL (140-415); RED BLOOD COUNT 3.41 10^6/ul (4.70-6.10); RED CELL DISTRIBUTION WIDTH 17.2 % (11.5-14.5); WHITE BLOOD COUNT 7.9 10^3/ul (4.8-10.8)
[2016-11-02] MEDS: PANTOPRAZOLE (EC) 40 MG TAB PO SCH (05:01)
[2016-11-02 05:26] LABS: ALBUMIN 1.6 g/dl (3.3-4.9); POTASSIUM 3.7 mmol/L (3.5-5.1)
[2016-11-02 05:28] LABS: CREATININE 0.62 mg/dl (0.61-1.24)
[2016-11-02 05:29] LABS: ALBUMIN/GLOBULIN RATIO 0.69; BILIRUBIN,INDIRECT 0.7 mg/dl (0-1.1); BILIRUBIN,TOTAL 0.7 mg/dl (0.2-1.3); TOTAL PROTEIN 3.9 g/dl (6.1-8.1)
[2016-11-02 05:30] LABS: CALCIUM 7.5 mg/dl (8.4-10.2)
[2016-11-02 08:03] VITALS: BP 111/55; RESP 18
[2016-11-02] MEDS: METOPROLOL (XL) 25 MG TAB PO SCH (08:26)
[2016-11-02] MEDS: LISINOPRIL 20 MG TAB PO SCH (08:27)
[2016-11-02] MEDS: ENOXAPARIN 40 MG/0.4 ML SYG SC SCH (08:34)
[2016-11-02] MEDS: SOD CHLORIDE 0.9% 1,000 ML IV SCH (08:48)
[2016-11-02] MEDS: INSULIN ASPART [NOVOLOG] 3 ML PEN SC SCH ×4 (08:48→20:58)
[2016-11-02] MEDS: TIMOPTIC 0.5% EYE DROPS BOTH EYES SCH (08:49)
--- NOTE | 2016-11-02 10:09 | CONS ---
Date/Time of Note Date/Time of Note DATE: 11/02/16 TIME: 10:04 Assessment/Plan Assessment/Plan Chief Complaint/Hosp Course 1. Obstructive uropathy with polyuria . 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 He has bilateral percutaneous nephrostomies which are draining well . He has been in negative fluid balance the last several days with high urine output , He has diffuse edema . I have decreased IV fluids and will allow him to re equilibrate . 2. metastatic bladder cancer . He has finished 1 course of chemo . He got a second dose of gemcitabine yesterday . 3. CAD 4. DM on insulin , blood sugars have been high . 5. dysphagia , will order speech therapy . 6. Anorexia, his appetite is sill poor . I have ordered Boost as a nutritional supplement . 8. he has iron deficiency anemia , he has completed a course of Ferrlicit. 9. UTI , he is now on Levaquin for 10 days . 10. leukocytosis . WBC is high after getting dexamethasone with chemo . WBC is coming down . 11. A fib , on Aspirin .He has been seen by cardiology Dr Gutierrez Problems: Consultation Date/Type/Reason Admit Date/Time Oct 09, 2016 at 05:45 Initial Consult Date 10/10/16 Type of Consultation: Infectious Disease Referring Provider: JEFF OSPINA MD 24 HR Interval Summary Free Text/Dictation He is awake and responsive this morning . Constitutional: no complaints Exam/Review of Systems Vital Signs Vitals Vital Signs Date Time Temp Pulse Resp B/P Pulse Ox O2 Delivery O2 Flow Rate FiO2 11/02/16 08:03 98.1 82 18 111/55 97 11/01/16 22:00 Room Air 11/01/16 09:00 2.0 Intake and Output 11/01/16 11/01/16 11/02/16 15:00 23:00 07:00 Intake Total 1368 ml 2150 ml Output Total 1350 ml 4160 ml Balance 18 ml -2010 ml Exam Constitutional: alert, frail, oriented Respiratory: clear to auscultation, diminished breath sounds Cardiovascular: edema, regular rate and rhythm Gastrointestinal: soft Extremities: edema Results Result Diagram: 11/02/16 0425 11/02/16 0425 Results 24 hrs Laboratory Tests Test 11/01/16 13:04 11/01/16 14:50 11/01/16 18:09 11/01/16 20:59 Bedside Glucose 230 H 222 H 196 Potassium Level 4.0 Test 11/02/16 02:33 11/02/16 04:25 11/02/16 08:25 Bedside Glucose 254 H 224 H White Blood Count 7.9 # Red Blood Count 3.41 L Hemoglobin 8.2 L Hematocrit 26.6 L Mean Corpuscular Volume 78.0 L Mean Corpuscular Hemoglobin 24.0 L Mean Corpuscular Hemoglobin Concent 30.8 L Red Cell Distribution Width 17.2 H Platelet Count 107 #L Mean Platelet Volume 8.8 Sodium Level 133 L Potassium Level 3.7 Chloride Level 104 Carbon Dioxide Level 22 Anion Gap 11 Blood Urea Nitrogen 19 Creatinine 0.62 Glucose Level 213 Calcium Level 7.5 L Total Bilirubin 0.7 Direct Bilirubin 0.00 Indirect Bilirubin 0.7 Aspartate Amino Transf (AST/SGOT) 12 L Alanine Aminotransferase (ALT/SGPT) 24 Alkaline Phosphatase 54 Total Protein 3.9 L Albumin 1.6 L Globulin 2.30 Albumin/Globulin Ratio 0.69 Medications Medications Current Medications Ondansetron HCl (Zofran Inj) 4 mg Q6H PRN IV NAUSEA AND/OR VOMITING; Start at 06:30 Acetaminophen (Tylenol Tab) 650 mg Q6H PRN PO PAIN LEVEL 1-3 OR FEVER Last administered on 10/17/16 16:33; Admin Dose 650 MG; Start 10/09/16 at 06:30 Acetaminophen/ Hydrocodone Bitart ([place] (5/325)) 1 tab Q6H PRN PO MODERATE PAIN LEVEL 4-6 Last administered on 11/01/16 18:30; Admin Dose 1 TAB; Start at 06:30 Acetaminophen/ Hydrocodone Bitart ([place] (5/325)) 2 tab Q6H PRN PO SEVERE PAIN LEVEL 7-10 Last administered on 11/02/16 08:36; Admin Dose 2 TAB; Start at 06:30 Docusate Sodium (Colace) 100 mg Q12H PRN PO CONSTIPATION Last administered on 05:06; Admin Dose 100 MG; Start 10/09/16 at 06:30 Magnesium Hydroxide (Milk Of Mag) 30 ml DAILY PRN PO CONSTIPATION Last administered on 10/17/16 15:49; Admin Dose 30 ML; Start 10/09/16 at 06:30 Lisinopril (Zestril) 40 mg DAILY PO Last administered on 11/02/16 08:27; Admin Dose 40 MG; Start 10/09/16 at 09:00 Metoprolol Succinate (Toprol Xl) 25 mg DAILY PO Last administered on 11/02/16 08:26; Admin Dose 25 MG; Start 10/09/16 at 09:00 Pantoprazole (Protonix Tab) 40 mg DAILY@06 PO Last administered on 11/02/16 05 :01; Admin Dose 40 MG; Start 10/09/16 at 07:30 Miscellaneous Information 1 ea NOTE XX ; Start 10/09/16 at 07:30 Glucose (Glutose) 15 gm Q15M PRN PO DECREASED GLUCOSE; Start 10/09/16 at 07:30 Glucose (Glutose) 22.5 gm Q15M PRN PO DECREASED GLUCOSE; Start 10/09/16 at 07: 30 Dextrose (D50w Syringe) 25 ml Q15M PRN IV DECREASED GLUCOSE; Start 10/09/16 at 07:30 Dextrose (D50w Syringe) 50 ml Q15M PRN IV DECREASED GLUCOSE; Start 10/09/16 at 07:30 Glucagon (Glucagen) 1 mg Q15M PRN IM DECREASED GLUCOSE; Start 10/09/16 at 07:30 Glucose (Glutose) 15 gm Q15M PRN BUCCAL DECREASED GLUCOSE; Start 10/09/16 at 07 :30 Insulin Glargine (Lantus) 15 unit QHS SC Last administered on 11/01/16 21:06; Admin Dose 15 UNIT; Start 10/12/16 at 21:00 Non-Formulary Medication 1 ea DAILY BOTH EYES Last administered on 11/02/16 08 :49; Admin Dose 1 EA; Start 10/14/16 at 09:00 Polyethylene Glycol (Miralax) 17 gm DAILY PRN PO CONSTIPATION; Start 10/15/16 at 20:32 Enoxaparin Sodium (Lovenox) 40 mg DAILY SC Last administered on 11/02/16 08:34 ; Admin Dose 40 MG; Start 10/20/16 at 11:00 IV Flush 10 ml 10 ml PRN PRN IV IV PROTOCOL; Start 10/25/16 at 11:00 Gemcitabine HCl 1.9 gm/Sodium Chloride 250 ml @ 250 mls/hr Q7D IV Last administered on 11/01/16 18:24; Admin Dose 250 MLS/HR; Start 10/25/16 at 18:00; Stop 11/08/16 at 18:59 Ondansetron HCl 16 mg/ Dexamethasone 20 mg/Dextrose 63 ml @ 252 mls/hr Q7D IV Last administered on 11/01/16 17:35; Admin Dose 252 MLS/HR; Start 10/25/16 at 17 :30; Stop 11/08/16 at 17:44 Levofloxacin/ Dextrose (Levaquin 500mg/ D5W 100 ml (Pmx)) 100 ml @ 100 mls/hr Q24H IVPB Last administered on 11/01/16 21:06; Admin Dose 100 MLS/HR; Start at 21:00; Stop 11/05/16 at 20:59 JEFF OSPINA MD November 02, 2016 10:09
[2016-11-02] MEDS ORDERED: HYDROCODONE/APAP (5/325) TAB PO PRN (13:00)
--- NOTE | 2016-11-02 13:03 | PN ---
Date/Time of Note Date/Time of Note DATE: 11/02/16 TIME: 13:01 Assessment/Plan VTE Prophylaxis VTE Prophylaxis Intervention: SCD's Lines/Catheters IV Catheter Type (from Nrsg): PICC Line Central line still needed: Yes Urinary Cath still in place: Yes Reason Cath still needed: other (indicate) (weak) Assessment/Plan Assessment/Plan Chemo has been well tolerated. Continue current plans Subjective 24 Hr Interval Summary Free Text/Dictation Pt got chemotherapy without problem. He is still depressed about being so weak. Exam/Review of Systems Vital Signs Vitals Vital Signs Date Time Temp Pulse Resp B/P Pulse Ox O2 Delivery O2 Flow Rate FiO2 11/02/16 08:03 98.1 82 18 111/55 97 11/01/16 22:00 Room Air 11/01/16 09:00 2.0 Intake and Output 11/01/16 11/01/16 11/02/16 15:00 23:00 07:00 Intake Total 1368 ml 2150 ml Output Total 1350 ml 4160 ml Balance 18 ml -2010 ml Exam Constitutional: alert, oriented Head: other (bitemporal muscle wasting) Eyes: nl conjunctiva ENMT: other (poor dentition) Neck: supple Respiratory: clear to auscultation Cardiovascular: regular rate and rhythm Gastrointestinal: soft Results Result Diagram: 11/02/16 0425 11/02/16 0425 Results 24 hrs Laboratory Tests Test 11/01/16 13:04 11/01/16 14:50 11/01/16 18:09 11/01/16 20:59 Bedside Glucose 230 H 222 H 196 Potassium Level 4.0 Test 11/02/16 02:33 11/02/16 04:25 11/02/16 08:25 Bedside Glucose 254 H 224 H White Blood Count 7.9 # Red Blood Count 3.41 L Hemoglobin 8.2 L Hematocrit 26.6 L Mean Corpuscular Volume 78.0 L Mean Corpuscular Hemoglobin 24.0 L Mean Corpuscular Hemoglobin Concent 30.8 L Red Cell Distribution Width 17.2 H Platelet Count 107 #L Mean Platelet Volume 8.8 Sodium Level 133 L Potassium Level 3.7 Chloride Level 104 Carbon Dioxide Level 22 Anion Gap 11 Blood Urea Nitrogen 19 Creatinine 0.62 Glucose Level 213 Calcium Level 7.5 L Total Bilirubin 0.7 Direct Bilirubin 0.00 Indirect Bilirubin 0.7 Aspartate Amino Transf (AST/SGOT) 12 L Alanine Aminotransferase (ALT/SGPT) 24 Alkaline Phosphatase 54 Total Protein 3.9 L Albumin 1.6 L Globulin 2.30 Albumin/Globulin Ratio 0.69 Medications Medications Current Medications Ondansetron HCl (Zofran Inj) 4 mg Q6H PRN IV NAUSEA AND/OR VOMITING; Start at 06:30 Acetaminophen (Tylenol Tab) 650 mg Q6H PRN PO PAIN LEVEL 1-3 OR FEVER Last administered on 10/17/16 16:33; Admin Dose 650 MG; Start 10/09/16 at 06:30 Docusate Sodium (Colace) 100 mg Q12H PRN PO CONSTIPATION Last administered on 05:06; Admin Dose 100 MG; Start 10/09/16 at 06:30 Magnesium Hydroxide (Milk Of Mag) 30 ml DAILY PRN PO CONSTIPATION Last administered on 10/17/16 15:49; Admin Dose 30 ML; Start 10/09/16 at 06:30 Lisinopril (Zestril) 40 mg DAILY PO Last administered on 11/02/16 08:27; Admin Dose 40 MG; Start 10/09/16 at 09:00 Metoprolol Succinate (Toprol Xl) 25 mg DAILY PO Last administered on 11/02/16 08:26; Admin Dose 25 MG; Start 10/09/16 at 09:00 Pantoprazole (Protonix Tab) 40 mg DAILY@06 PO Last administered on 11/02/16 05 :01; Admin Dose 40 MG; Start 10/09/16 at 07:30 Miscellaneous Information 1 ea NOTE XX ; Start 10/09/16 at 07:30 Glucose (Glutose) 15 gm Q15M PRN PO DECREASED GLUCOSE; Start 10/09/16 at 07:30 Glucose (Glutose) 22.5 gm Q15M PRN PO DECREASED GLUCOSE; Start 10/09/16 at 07: 30 Dextrose (D50w Syringe) 25 ml Q15M PRN IV DECREASED GLUCOSE; Start 10/09/16 at 07:30 Dextrose (D50w Syringe) 50 ml Q15M PRN IV DECREASED GLUCOSE; Start 10/09/16 at 07:30 Glucagon (Glucagen) 1 mg Q15M PRN IM DECREASED GLUCOSE; Start 10/09/16 at 07:30 Glucose (Glutose) 15 gm Q15M PRN BUCCAL DECREASED GLUCOSE; Start 10/09/16 at 07 :30 Non-Formulary Medication 1 ea DAILY BOTH EYES Last administered on 11/02/16 08 :49; Admin Dose 1 EA; Start 10/14/16 at 09:00 Polyethylene Glycol (Miralax) 17 gm DAILY PRN PO CONSTIPATION; Start 10/15/16 at 20:32 Enoxaparin Sodium (Lovenox) 40 mg DAILY SC Last administered on 11/02/16 08:34 ; Admin Dose 40 MG; Start 10/20/16 at 11:00 IV Flush 10 ml 10 ml PRN PRN IV IV PROTOCOL; Start 10/25/16 at 11:00 Gemcitabine HCl 1.9 gm/Sodium Chloride 250 ml @ 250 mls/hr Q7D IV Last administered on 11/01/16 18:24; Admin Dose 250 MLS/HR; Start 10/25/16 at 18:00; Stop 11/08/16 at 18:59 Ondansetron HCl 16 mg/ Dexamethasone 20 mg/Dextrose 63 ml @ 252 mls/hr Q7D IV Last administered on 11/01/16 17:35; Admin Dose 252 MLS/HR; Start 10/25/16 at 17 :30; Stop 11/08/16 at 17:44 Levofloxacin/ Dextrose (Levaquin 500mg/ D5W 100 ml (Pmx)) 100 ml @ 100 mls/hr Q24H IVPB Last administered on 11/01/16 21:06; Admin Dose 100 MLS/HR; Start at 21:00; Stop 11/05/16 at 20:59 Insulin Glargine (Lantus) 22 unit QHS SC ; Start 11/02/16 at 21:00 Acetaminophen/ Hydrocodone Bitart ([place] (5/325)) 1 tab Q4 PRN PO MODERATE PAIN LEVEL 4-6; Start 11/02/16 at 13:00 Acetaminophen/ Hydrocodone Bitart ([place] (5/325)) 2 tab Q4 PRN PO SEVERE PAIN LEVEL 7-10; Start 11/02/16 at 13:00 KIP MILLER MD November 02, 2016 13:03
[2016-11-02 13:56] LABS: LYMPHOCYTES # 0.9 10^3/ul (0.8-2.9)
--- NOTE | 2016-11-02 15:13 | CONS ---
Date/Time of Note Date/Time of Note DATE: 11/02/16 TIME: 15:11 Assessment/Plan Assessment/Plan Chief Complaint/Hosp Course - Sepsis due to b/l pyelonephritis, large tumor burden and hydronephrosis; fever resolved and leukocytosis improving - complicated UTI and b/l pyelonephritis due to ESBL+E. coli, enterococci and yeast. 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 - DNR - Depression Recommendations: - Finish 10 days of levofloxacin (10/26/2016) for residual enterococci in his urine culture from Castañeda catheter - Note: pt completed course of meropenem for ESBL+E. coli (would cover enterococci, an ampicillin-sensitive strain; 10/18/2016-10/27/2016) and fluconazole (10/18/2016-10/27/2016) - DC contact isolation for ESBL+E. coli as repeat urine cx did not grow ESBL - Consider Hospice eval Management d/w Pt, RN, and Dr. Garcia Problems: Consultation Date/Type/Reason Admit Date/Time Oct 09, 2016 at 05:45 Initial Consult Date 10/19/16 Type of Consultation: Infectious Disease Referring Provider: JEFF OSPINA MD 24 HR Interval Summary Free Text/Dictation No new issues; tolerating chemo but pt should be considered for Hospice eval per d/w RIVERA Ocampo. Pt states "I thought my had it bad. No one should ever have to live like this." States pain is currently tolerable. Denies n/v/d, dysuria. Exam/Review of Systems Vital Signs Vitals Vital Signs Date Time Temp Pulse Resp B/P Pulse Ox O2 Delivery O2 Flow Rate FiO2 11/02/16 08:03 98.1 82 18 111/55 97 11/01/16 22:00 Room Air 11/01/16 09:00 2.0 Intake and Output 11/01/16 11/01/16 11/02/16 15:00 23:00 07:00 Intake Total 1368 ml 2150 ml Output Total 1350 ml 4160 ml Balance 18 ml -2010 ml Exam Constitutional: alert, frail, oriented, well developed Head: atraumatic, normocephalic Eyes: nl sclera Neck: supple Respiratory: diminished breath sounds, No wheezing Cardiovascular: irregular rhythm, nl pulses, systolic murmur Gastrointestinal: non-tender, soft Genitourinary - Male: other (Castañeda and bilateral nephrostomy tubes intact; Castañeda with cloudy output) Extremities: edema, other (LUE PICC with no e/o infection) Skin: ecchymosis (Left elbow with less erythema and ecchymosis but no e/o infection) Results Result Diagram: 11/02/16 0425 11/02/16 0425 Results 24 hrs Laboratory Tests Test 11/01/16 18:09 11/01/16 20:59 11/02/16 02:33 11/02/16 04:25 Bedside Glucose 222 H 196 254 H White Blood Count 7.9 # Red Blood Count 3.41 L Hemoglobin 8.2 L Hematocrit 26.6 L Mean Corpuscular Volume 78.0 L Mean Corpuscular Hemoglobin 24.0 L Mean Corpuscular Hemoglobin Concent 30.8 L Red Cell Distribution Width 17.2 H Platelet Count 107 #L Mean Platelet Volume 8.8 Neutrophils % 88.0 H Lymphocytes % 12.0 L Neutrophils # 7.0 Lymphocytes # 0.9 Sodium Level 133 L Potassium Level 3.7 Chloride Level 104 Carbon Dioxide Level 22 Anion Gap 11 Blood Urea Nitrogen 19 Creatinine 0.62 Glucose Level 213 Calcium Level 7.5 L Total Bilirubin 0.7 Direct Bilirubin 0.00 Indirect Bilirubin 0.7 Aspartate Amino Transf (AST/SGOT) 12 L Alanine Aminotransferase (ALT/SGPT) 24 Alkaline Phosphatase 54 Total Protein 3.9 L Albumin 1.6 L Globulin 2.30 Albumin/Globulin Ratio 0.69 Test 11/02/16 08:25 11/02/16 12:59 Bedside Glucose 224 H 350 H Medications Medications Current Medications Ondansetron HCl (Zofran Inj) 4 mg Q6H PRN IV NAUSEA AND/OR VOMITING; Start at 06:30 Acetaminophen (Tylenol Tab) 650 mg Q6H PRN PO PAIN LEVEL 1-3 OR FEVER Last administered on 10/17/16 16:33; Admin Dose 650 MG; Start 10/09/16 at 06:30 Docusate Sodium (Colace) 100 mg Q12H PRN PO CONSTIPATION Last administered on 05:06; Admin Dose 100 MG; Start 10/09/16 at 06:30 Magnesium Hydroxide (Milk Of Mag) 30 ml DAILY PRN PO CONSTIPATION Last administered on 10/17/16 15:49; Admin Dose 30 ML; Start 10/09/16 at 06:30 Lisinopril (Zestril) 40 mg DAILY PO Last administered on 11/02/16 08:27; Admin Dose 40 MG; Start 10/09/16 at 09:00 Metoprolol Succinate (Toprol Xl) 25 mg DAILY PO Last administered on 11/02/16 08:26; Admin Dose 25 MG; Start 10/09/16 at 09:00 Pantoprazole (Protonix Tab) 40 mg DAILY@06 PO Last administered on 11/02/16 05 :01; Admin Dose 40 MG; Start 10/09/16 at 07:30 Miscellaneous Information 1 ea NOTE XX ; Start 10/09/16 at 07:30 Glucose (Glutose) 15 gm Q15M PRN PO DECREASED GLUCOSE; Start 10/09/16 at 07:30 Glucose (Glutose) 22.5 gm Q15M PRN PO DECREASED GLUCOSE; Start 10/09/16 at 07: 30 Dextrose (D50w Syringe) 25 ml Q15M PRN IV DECREASED GLUCOSE; Start 10/09/16 at 07:30 Dextrose (D50w Syringe) 50 ml Q15M PRN IV DECREASED GLUCOSE; Start 10/09/16 at 07:30 Glucagon (Glucagen) 1 mg Q15M PRN IM DECREASED GLUCOSE; Start 10/09/16 at 07:30 Glucose (Glutose) 15 gm Q15M PRN BUCCAL DECREASED GLUCOSE; Start 10/09/16 at 07 :30 Non-Formulary Medication 1 ea DAILY BOTH EYES Last administered on 11/02/16 08 :49; Admin Dose 1 EA; Start 10/14/16 at 09:00 Polyethylene Glycol (Miralax) 17 gm DAILY PRN PO CONSTIPATION; Start 10/15/16 at 20:32 Enoxaparin Sodium (Lovenox) 40 mg DAILY SC Last administered on 11/02/16 08:34 ; Admin Dose 40 MG; Start 10/20/16 at 11:00 IV Flush 10 ml 10 ml PRN PRN IV IV PROTOCOL; Start 10/25/16 at 11:00 Gemcitabine HCl 1.9 gm/Sodium Chloride 250 ml @ 250 mls/hr Q7D IV Last administered on 11/01/16 18:24; Admin Dose 250 MLS/HR; Start 10/25/16 at 18:00; Stop 11/08/16 at 18:59 Ondansetron HCl 16 mg/ Dexamethasone 20 mg/Dextrose 63 ml @ 252 mls/hr Q7D IV Last administered on 11/01/16 17:35; Admin Dose 252 MLS/HR; Start 10/25/16 at 17 :30; Stop 11/08/16 at 17:44 Levofloxacin/ Dextrose (Levaquin 500mg/ D5W 100 ml (Pmx)) 100 ml @ 100 mls/hr Q24H IVPB Last administered on 11/01/16 21:06; Admin Dose 100 MLS/HR; Start at 21:00; Stop 11/05/16 at 20:59 Insulin Glargine (Lantus) 22 unit QHS SC ; Start 11/02/16 at 21:00 Acetaminophen/ Hydrocodone Bitart ([place] (5/325)) 1 tab Q4 PRN PO MODERATE PAIN LEVEL 4-6; Start 11/02/16 at 13:00 Acetaminophen/ Hydrocodone Bitart ([place] (5/325)) 2 tab Q4 PRN PO SEVERE PAIN LEVEL 7-10 Last administered on 11/02/16 12:56; Admin Dose 2 TAB; Start at 13:00 ANABELLA WILLIAMSON NP November 02, 2016 15:13
[2016-11-02] MEDS: POTASSIUM CHLORIDE 20 MEQ POWDER FOR ORAL SOLN PO SCH (17:37)
[2016-11-02] MEDS ORDERED: morphine 2 MG INJ IV PRN (19:30)
[2016-11-02 19:52] VITALS: BP 116/61; RESP 19
--- NOTE | 2016-11-02 20:10 | PN ---
DATE: 11/02/2016 The patient asked me to come and see him tonight with his son, Santo, to discuss future directives. T he patient at this time wants to stop all aggressive therapy. He is having pain in his back from a sacral decubitus. The patient has been on chemotherapy; however, he has developed a cisplatin-induc ed salt losing nephropathy. The patient at this time wants to be made comfortable. His son, Santo, i s in agreement with this. I explained to the patient that in the morning I will discuss with [facility] regarding his comfort care measures. The patient is in agreement with going on hospice after they evaluate him. I will start the patient on morphine as needed to keep him comfortable. His other m edications will be continued overnight, and we will discuss further options tomorrow. He will not g et any more chemotherapy. Our major aim at this point is to keep him comfortable. Dictated By: JEFF OSPINA MD, ND/KAROLYN Conf#: [id number] DID#: [id number]
[2016-11-02] MEDS: LEVOFLOXACIN 500MG/D5W (PMX) 100 ML IVPB SCH (20:52)
[2016-11-02] MEDS ORDERED: INSULIN GLARGINE [LANtus] 3 ML PEN SC SCH ×2 (21:00)
[2016-11-02] MEDS: ONDANSETRON 4 MG INJ IV PRN (22:04)
[2016-11-02] MEDS: morphine 2 MG INJ IV PRN (23:37)
[2016-11-03] MEDS: PANTOPRAZOLE (EC) 40 MG TAB PO SCH (05:33)
[2016-11-03] MEDS: ONDANSETRON 4 MG INJ IV PRN ×2 (05:54→15:17)
[2016-11-03] MEDS: morphine 2 MG INJ IV PRN ×2 (05:54→08:39)
[2016-11-03 07:00] VITALS: BP 127/74; RESP 18
[2016-11-03] MEDS: POTASSIUM CHLORIDE 20 MEQ POWDER FOR ORAL SOLN PO SCH (07:50)
[2016-11-03] MEDS: INSULIN ASPART [NOVOLOG] 3 ML PEN SC SCH ×2 (07:50→11:40)
[2016-11-03] MEDS: METOPROLOL (XL) 25 MG TAB PO SCH (08:35)
[2016-11-03] MEDS: LISINOPRIL 20 MG TAB PO SCH (08:36)
[2016-11-03] MEDS: ENOXAPARIN 40 MG/0.4 ML SYG SC SCH (08:36)
[2016-11-03] MEDS: TIMOPTIC 0.5% EYE DROPS BOTH EYES SCH (08:40)
--- NOTE | 2016-11-03 09:53 | PN ---
DATE: 11/03/2016 MEDICAL ONCOLOGY FOLLOWUP SUBJECTIVE: The patient is very depressed. He states she does not wish any further therapy. He st ates he had significant nausea and vomiting related to chemotherapy. He did receive day 8 chemother apy on 11/01/2016. Review of the patient's FARRUKH does demonstrate emesis on 11/02/2016 and 11/03/2016 only. Total was 450 mL. There is no other emesis recorded, either after day 1 therapy or day 8 th erapy. OBJECTIVE: VITAL SIGNS: Temperature 97.8, pulse 81 and regular, respirations 18, blood pressure 127/74, pulse oximetry 98% on 2 liters of oxygen. SKIN: Pale. No ecchymosis, no petechiae or rashes. HEENT: No mucosal lesions. No scleral icterus. There is nasal oxygen in place. Mucosa is dry. NECK: Supple. No jugular venous distention or thyroid enlargement. CHEST: Clear to auscultation and percussion. No rhonchi, wheezes, rales, or rubs. NODES: No palpable lymphadenopathy in any lymph node bearing area. HEART: Regular sinus rhythm. No S3, S4, or murmurs. ABDOMEN: Soft, no masses or ascites. There are bilateral nephrostomies which are draining clear ur ine. EXTREMITIES: No clubbing, edema, or cyanosis. NEUROLOGIC: Normal except for the patient's diffuse weakness. Intake and output the last 24 hours has improved. The patient's urine output has decreased. LABORATORY DATA: There are no chemistries done today. On 11/02/2016, sodium was 133, potassium 3.7 , creatinine 0.62, BUN 19. IMAGING DATA: Chest x-ray of 11/01/2016 demonstrates a 4 cm nodular density in the periphery of the left upper lobe and a 1.3 cm nodular density in the periphery of the right lower lobe. Previous st udies prior to any treatment describe a 3 cm lesion in the right lung base. Other nodules are seen. It is unclear whether or not these x-rays have actually changed. The only measurement which would be meaningful would include a CT scan. Other options would also be to obtain CT scans of the abdomen and pelvis in order to determine wheth er there has been any change in the right pelvic sidewall adenopathy versus bladder mass. As noted, the patient states he does not wish further chemotherapy. I would certainly respect his d ecision regarding this. Dictated By: RADHA SHAW MD, SR/KAROLYN Conf#: [id number] DID#: [id number]
[2016-11-03] MEDS ORDERED: HYDROmorphONE 1 MG/ML SYG IV PRN (10:00)
[2016-11-03] MEDS ORDERED: TRIMETHOBENZAMIDE 100 MG/ML VIAL IM PRN (10:00)
[2016-11-03] MEDS: HYDROmorphONE 1 MG/ML SYG IV PRN ×2 (10:48→15:17)
--- NOTE | 2016-11-03 14:03 | PN ---
Date/Time of Note Date/Time of Note DATE: 11/03/16 TIME: 13:55 Assessment/Plan VTE Prophylaxis VTE Prophylaxis Intervention: LMWH Lines/Catheters IV Catheter Type (from [facility]): PICC Line Central line still needed: Yes Urinary Cath still in place: Yes Reason Cath still needed: urinary retention Assessment/Plan Chief Complaint/Hosp Course 1. He has decided to stop all aggressive therapy , including chemotherapy . He wants to go on hospice and have comfort measures only . [facility] hospice consulted . 2. metastatic bladder cancer . He has finished 1 course of chemo . He wants to stop chemotherapy . 3. CAD 4. DM on insulin , blood sugars have been high . 5. dysphagia , will order speech therapy . 6. Anorexia, his appetite is sill poor . I have ordered Boost as a nutritional supplement . 8. he has iron deficiency anemia , he has completed a course of Ferrlicit. 9. UTI , he is now on Levaquin for 10 days . 10. leukocytosis . WBC is high after getting dexamethasone with chemo . WBC is coming down . 11. A fib , on Aspirin .He has been seen by cardiology Dr Gutierrez Problems: Subjective 24 Hr Interval Summary Free Text/Dictation Patient is tired . He has decided to stop all aggressive therapy and specifically chemotherapy . He wants comfort measures only . Constitutional: no complaints Respiratory: no complaints Cardiovascular: no complaints Gastrointestinal: no complaints Exam/Review of Systems Vital Signs Vitals Vital Signs Date Time Temp Pulse Resp B/P Pulse Ox O2 Delivery O2 Flow Rate FiO2 11/03/16 07:00 97.8 81 18 127/74 98 11/01/16 22:00 Room Air 11/01/16 09:00 2.0 Intake and Output 11/02/16 11/02/16 11/03/16 14:59 22:59 06:59 Intake Total 1200 ml 1180 ml 120 ml Output Total 300 ml 500 ml 650 ml Balance 900 ml 680 ml -530 ml Exam Constitutional: alert, frail, oriented Psych: depression Respiratory: clear to auscultation Cardiovascular: edema, irregular rhythm Gastrointestinal: soft Extremities: edema Results Result Diagram: 11/02/16 0425 11/02/16 0425 Results 24 hrs Laboratory Tests Test 11/02/16 17:21 11/02/16 20:51 11/03/16 01:59 Bedside Glucose 281 H 364 H 265 H Medications Medications Current Medications Ondansetron HCl (Zofran Inj) 4 mg Q6H PRN IV NAUSEA AND/OR VOMITING Last administered on 11/03/16 05:54; Admin Dose 4 MG; Start 10/09/16 at 06:30 Acetaminophen (Tylenol Tab) 650 mg Q6H PRN PO PAIN LEVEL 1-3 OR FEVER Last administered on 10/17/16 16:33; Admin Dose 650 MG; Start 10/09/16 at 06:30 Docusate Sodium (Colace) 100 mg Q12H PRN PO CONSTIPATION Last administered on 05:06; Admin Dose 100 MG; Start 10/09/16 at 06:30 Magnesium Hydroxide (Milk Of Mag) 30 ml DAILY PRN PO CONSTIPATION Last administered on 10/17/16 15:49; Admin Dose 30 ML; Start 10/09/16 at 06:30 Lisinopril (Zestril) 40 mg DAILY PO Last administered on 11/02/16 08:27; Admin Dose 40 MG; Start 10/09/16 at 09:00 Metoprolol Succinate (Toprol Xl) 25 mg DAILY PO Last administered on 11/02/16 08:26; Admin Dose 25 MG; Start 10/09/16 at 09:00 Pantoprazole (Protonix Tab) 40 mg DAILY@06 PO Last administered on 11/02/16 05 :01; Admin Dose 40 MG; Start 10/09/16 at 07:30 Miscellaneous Information 1 ea NOTE XX ; Start 10/09/16 at 07:30 Glucose (Glutose) 15 gm Q15M PRN PO DECREASED GLUCOSE; Start 10/09/16 at 07:30 Glucose (Glutose) 22.5 gm Q15M PRN PO DECREASED GLUCOSE; Start 10/09/16 at 07: 30 Dextrose (D50w Syringe) 25 ml Q15M PRN IV DECREASED GLUCOSE; Start 10/09/16 at 07:30 Dextrose (D50w Syringe) 50 ml Q15M PRN IV DECREASED GLUCOSE; Start 10/09/16 at 07:30 Glucagon (Glucagen) 1 mg Q15M PRN IM DECREASED GLUCOSE; Start 10/09/16 at 07:30 Glucose (Glutose) 15 gm Q15M PRN BUCCAL DECREASED GLUCOSE; Start 10/09/16 at 07 :30 Non-Formulary Medication 1 ea DAILY BOTH EYES Last administered on 11/02/16 08 :49; Admin Dose 1 EA; Start 10/14/16 at 09:00 Polyethylene Glycol (Miralax) 17 gm DAILY PRN PO CONSTIPATION; Start 10/15/16 at 20:32 Enoxaparin Sodium (Lovenox) 40 mg DAILY SC Last administered on 11/02/16 08:34 ; Admin Dose 40 MG; Start 10/20/16 at 11:00 IV Flush 10 ml 10 ml PRN PRN IV IV PROTOCOL; Start 10/25/16 at 11:00 Gemcitabine HCl 1.9 gm/Sodium Chloride 250 ml @ 250 mls/hr Q7D IV Last administered on 11/01/16 18:24; Admin Dose 250 MLS/HR; Start 10/25/16 at 18:00; Stop 11/08/16 at 18:59 Ondansetron HCl 16 mg/ Dexamethasone 20 mg/Dextrose 63 ml @ 252 mls/hr Q7D IV Last administered on 11/01/16 17:35; Admin Dose 252 MLS/HR; Start 10/25/16 at 17 :30; Stop 11/08/16 at 17:44 Levofloxacin/ Dextrose (Levaquin 500mg/ D5W 100 ml (Pmx)) 100 ml @ 100 mls/hr Q24H IVPB Last administered on 11/02/16 20:52; Admin Dose 100 MLS/HR; Start at 21:00; Stop 11/05/16 at 20:59 Acetaminophen/ Hydrocodone Bitart ([place] (5/325)) 1 tab Q4 PRN PO MODERATE PAIN LEVEL 4-6; Start 11/02/16 at 13:00 Acetaminophen/ Hydrocodone Bitart ([place] (5/325)) 2 tab Q4 PRN PO SEVERE PAIN LEVEL 7-10 Last administered on 11/02/16 17:38; Admin Dose 2 TAB; Start at 13:00 Insulin Glargine (Lantus) 30 unit QHS SC Last administered on 11/02/16 20:55; Admin Dose 30 UNIT; Start 11/02/16 at 21:00 Morphine Sulfate (morphine) 1 mg Q2H PRN IV MODERATE PAIN LEVEL 4-6; Start 05/11 at 19:30 Morphine Sulfate (morphine) 2 mg Q2H PRN IV SEVERE PAIN LEVEL 7-10 Last administered on 11/03/16 08:39; Admin Dose 2 MG; Start 11/02/16 at 19:30 Hydromorphone HCl (Dilaudid) 0.5 mg Q4H PRN IV MODERATE PAIN; Start 11/03/16 at 10:00 Hydromorphone HCl (Dilaudid) 1 mg Q4H PRN IV SEVERE PAIN Last administered on 10:48; Admin Dose 1 MG; Start 11/03/16 at 10:00 Trimethobenzamide HCl (Tigan) 200 mg Q6H PRN IM NAUSEA AND/OR VOMITING; Start 11/03/16 at 10:00 JEFF OSPINA MD November 03, 2016 14:03
[2016-11-03 19:48] VITALS: BP 111/57; RESP 20
--- NOTE | 2016-11-03 20:16 | CONS ---
Date/Time of Note Date/Time of Note DATE: 11/03/16 TIME: 20:15 Assessment/Plan Assessment/Plan Chief Complaint/Hosp Course assessment/impression - fever and leukocytosis due to b/l pyelonephritis, large tumor burden and hydronephrosis - complicated UTI and b/l pyelonephritis due to ESBL+E. coli, enterococci and yeast. 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 Scant phlegm per Pt. - leukocytosis due to steroid, resolved recommendations - Pt's completed levofloxacin and is now on hospice status - ID consult team will sign off; please contact us if needed management d/w Pt's RN Problems: Consultation Date/Type/Reason Admit Date/Time Oct 09, 2016 at 05:45 Initial Consult Date 10/16/16 Type of Consultation: Infectious Disease Referring Provider: JEFF OSPINA MD 24 HR Interval Summary Subjective hx not possible: other (lethargic) Constitutional: no complaints Detailed Summary Respiratory: cough Gastrointestinal: no complaints, No diarrhea Exam/Review of Systems Vital Signs Vitals Vital Signs Date Time Temp Pulse Resp B/P Pulse Ox O2 Delivery O2 Flow Rate FiO2 11/03/16 19:48 98.4 97 20 111/57 93 11/01/16 22:00 Room Air 11/01/16 09:00 2.0 Intake and Output 11/02/16 11/02/16 11/03/16 15:00 23:00 07:00 Intake Total 1200 ml 1180 ml 120 ml Output Total 300 ml 500 ml 650 ml Balance 900 ml 680 ml -530 ml Exam Constitutional: frail, other (lethargic) Psych: other (lethargic) Head: normocephalic Eyes: nl conjunctiva, nl lids ENMT: nl external ears & nose Respiratory: congested cough Cardiovascular: nl pulses, regular rate and rhythm Gastrointestinal: soft Genitourinary - Male: other (b/l nephrsotomy tubes) Extremities: No edema Neurological: confused Skin: ecchymosis, nl turgor Results Result Diagram: 11/02/1642411/02/16424 Results 24 hrs Laboratory Tests Test 11/02/16 20:51 11/03/16 01:59 Bedside Glucose 364 H 265 H Medications Medications Current Medications Ondansetron HCl (Zofran Inj) 4 mg Q6H PRN IV NAUSEA AND/OR VOMITING Last administered on 11/03/16 15:17; Admin Dose 4 MG; Start 10/09/16 at 06:30 Acetaminophen (Tylenol Tab) 650 mg Q6H PRN PO PAIN LEVEL 1-3 OR FEVER Last administered on 10/17/16 16:33; Admin Dose 650 MG; Start 10/09/16 at 06:30 Docusate Sodium (Colace) 100 mg Q12H PRN PO CONSTIPATION Last administered on 05:06; Admin Dose 100 MG; Start 10/09/16 at 06:30 Magnesium Hydroxide (Milk Of Mag) 30 ml DAILY PRN PO CONSTIPATION Last administered on 10/17/16 15:49; Admin Dose 30 ML; Start 10/09/16 at 06:30 Lisinopril (Zestril) 40 mg DAILY PO Last administered on 11/02/16 08:27; Admin Dose 40 MG; Start 10/09/16 at 09:00 Metoprolol Succinate (Toprol Xl) 25 mg DAILY PO Last administered on 11/02/16 08:26; Admin Dose 25 MG; Start 10/09/16 at 09:00 Pantoprazole (Protonix Tab) 40 mg DAILY@06 PO Last administered on 11/02/16 05 :01; Admin Dose 40 MG; Start 10/09/16 at 07:30 Miscellaneous Information 1 ea NOTE XX ; Start 10/09/16 at 07:30 Non-Formulary Medication 1 ea DAILY BOTH EYES Last administered on 11/02/16 08 :49; Admin Dose 1 EA; Start 10/14/16 at 09:00 Polyethylene Glycol (Miralax) 17 gm DAILY PRN PO CONSTIPATION; Start 10/15/16 at 20:32 IV Flush 10 ml 10 ml PRN PRN IV IV PROTOCOL; Start 10/25/16 at 11:00 Ondansetron HCl/ Dexamethasone/ Dextrose (Zofran Inj/ Decadron/D5W) 63 ml @ 252 mls/hr Q7D IV Last administered on 11/01/16 17:35; Admin Dose 252 MLS/HR; Start 10/25/16 at 17:30; Stop 11/08/16 at 17:44 Acetaminophen/ Hydrocodone Bitart ([place] (5/325)) 1 tab Q4 PRN PO MODERATE PAIN LEVEL 4-6; Start 11/02/16 at 13:00 Acetaminophen/ Hydrocodone Bitart ([place] (5/325)) 2 tab Q4 PRN PO SEVERE PAIN LEVEL 7-10 Last administered on 11/02/16 17:38; Admin Dose 2 TAB; Start at 13:00 Morphine Sulfate (morphine) 1 mg Q2H PRN IV MODERATE PAIN LEVEL 4-6; Start 05/11 at 19:30 Morphine Sulfate (morphine) 2 mg Q2H PRN IV SEVERE PAIN LEVEL 7-10 Last administered on 11/03/16 08:39; Admin Dose 2 MG; Start 11/02/16 at 19:30 Hydromorphone HCl (Dilaudid) 0.5 mg Q4H PRN IV MODERATE PAIN; Start 11/03/16 at 10:00 Hydromorphone HCl (Dilaudid) 1 mg Q4H PRN IV SEVERE PAIN Last administered on 15:17; Admin Dose 1 MG; Start 11/03/16 at 10:00 Trimethobenzamide HCl (Tigan) 200 mg Q6H PRN IM NAUSEA AND/OR VOMITING; Start 11/03/16 at 10:00 VIRGILIO JACOBSON M.D. November 03, 2016 20:16
[2016-11-04] MEDS: HYDROmorphONE 1 MG/ML SYG IV PRN ×2 (04:00→10:59)
[2016-11-04] MEDS: PANTOPRAZOLE (EC) 40 MG TAB PO SCH (05:37)
[2016-11-04 07:00] VITALS: BP 113/64; RESP 18
[2016-11-04] MEDS: TIMOPTIC 0.5% EYE DROPS BOTH EYES SCH (09:44)
[2016-11-04] MEDS: METOPROLOL (XL) 25 MG TAB PO SCH (09:46)
[2016-11-04] MEDS: LISINOPRIL 20 MG TAB PO SCH (09:46)
--- NOTE | 2016-11-04 15:02 | CONS ---
Date/Time of Note Date/Time of Note DATE: 11/04/16 TIME: 14:59 Assessment/Plan Assessment/Plan Additional Assessment/Plan 1. Obstructive uropathy with polyuria . 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 He has bilateral percutaneous nephrostomies which are draining well . He has been in negative fluid balance the last several days with high urine output , He has diffuse edema . I have decreased IV fluids and will allow him to re equilibrate . 2. metastatic bladder cancer . He has finished 1 course of chemo . He got a second dose of gemcitabine yesterday . 3. CAD 4. DM on insulin , blood sugars have been high . 5. dysphagia , will order speech therapy . 6. Anorexia, his appetite is sill poor . I have ordered Boost as a nutritional supplement . 8. he has iron deficiency anemia , he has completed a course of Ferrlicit. 9. UTI , he is now s/p Levaquin for 10 days . 10. leukocytosis . WBC is high after getting dexamethasone with chemo . WBC is coming down . 11. A fib , on Aspirin .He has been seen by cardiology Dr Gutierrez 12. comfort care and comfort measures, DNR status, POLST signed, d/c BP medications can be discharged home on hospice Problems: Consultation Date/Type/Reason Admit Date/Time Oct 09, 2016 at 05:45 Initial Consult Date 10/19/16 Type of Consultation: Infectious Disease Referring Provider: JEFF OSPINA MD 24 HR Interval Summary Free Text/Dictation pain at noon, s/p diluadid son at bedside explain pain regimen no acute issues stable for discharge but family is not ready yet hyperglycemia off insulin, rbs 200-300, explained to patient and son about comfort focused care Exam/Review of Systems Vital Signs Vitals Vital Signs Date Time Temp Pulse Resp B/P Pulse Ox O2 Delivery O2 Flow Rate FiO2 11/04/16 07:00 97.6 96 18 113/64 94 11/01/16 22:00 Room Air 11/01/16 09:00 2.0 Intake and Output 11/03/16 11/03/16 11/04/16 14:59 22:59 06:59 Intake Total 20 ml Output Total 850 ml 600 ml Balance -850 ml -580 ml Exam Constitutional: alert Head: normocephalic Eyes: EOMI Respiratory: congested cough, crackles/rales, diminished breath sounds Cardiovascular: irregular rhythm Results Result Diagram: 11/02/165 11/02/16 0425 Medications Medications Current Medications Ondansetron HCl (Zofran Inj) 4 mg Q6H PRN IV NAUSEA AND/OR VOMITING Last administered on 11/03/16 15:17; Admin Dose 4 MG; Start 10/09/16 at 06:30 Acetaminophen (Tylenol Tab) 650 mg Q6H PRN PO PAIN LEVEL 1-3 OR FEVER Last administered on 10/17/16 16:33; Admin Dose 650 MG; Start 10/09/16 at 06:30 Magnesium Hydroxide (Milk Of Mag) 30 ml DAILY PRN PO CONSTIPATION Last administered on 10/17/16 15:49; Admin Dose 30 ML; Start 10/09/16 at 06:30 Miscellaneous Information 1 ea NOTE XX ; Start 10/09/16 at 07:30 Non-Formulary Medication 1 ea DAILY BOTH EYES Last administered on 11/04/16 09 :44; Admin Dose 1 EA; Start 10/14/16 at 09:00 Polyethylene Glycol (Miralax) 17 gm DAILY PRN PO CONSTIPATION; Start 10/15/16 at 20:32 IV Flush 10 ml 10 ml PRN PRN IV IV PROTOCOL; Start 10/25/16 at 11:00 Ondansetron HCl/ Dexamethasone/ Dextrose (Zofran Inj/ Decadron/D5W) 63 ml @ 252 mls/hr Q7D IV Last administered on 11/01/16 17:35; Admin Dose 252 MLS/HR; Start 10/25/16 at 17:30; Stop 11/08/16 at 17:44 Acetaminophen/ Hydrocodone Bitart ([place] (5/325)) 1 tab Q4 PRN PO MODERATE PAIN LEVEL 4-6; Start 11/02/16 at 13:00 Acetaminophen/ Hydrocodone Bitart ([place] (5/325)) 2 tab Q4 PRN PO SEVERE PAIN LEVEL 7-10 Last administered on 11/02/16 17:38; Admin Dose 2 TAB; Start at 13:00 Morphine Sulfate (morphine) 1 mg Q2H PRN IV MODERATE PAIN LEVEL 4-6; Start 05/11 at 19:30 Morphine Sulfate (morphine) 2 mg Q2H PRN IV SEVERE PAIN LEVEL 7-10 Last administered on 11/03/16 08:39; Admin Dose 2 MG; Start 11/02/16 at 19:30 Hydromorphone HCl (Dilaudid) 0.5 mg Q4H PRN IV MODERATE PAIN; Start 11/03/16 at 10:00 Hydromorphone HCl (Dilaudid) 1 mg Q4H PRN IV SEVERE PAIN Last administered on 10:59; Admin Dose 1 MG; Start 11/03/16 at 10:00 Trimethobenzamide HCl (Tigan) 200 mg Q6H PRN IM NAUSEA AND/OR VOMITING; Start 11/03/16 at 10:00 SAGRARIO HARRINGTON MD November 04, 2016 15:02
--- NOTE | 2016-11-04 16:34 | PN ---
Date/Time of Note Date/Time of Note DATE: 11/04/16 TIME: 16:32 Assessment/Plan VTE Prophylaxis VTE Prophylaxis Intervention: LMWH Lines/Catheters IV Catheter Type (from [facility]): PICC Line Central line still needed: Yes Urinary Cath still in place: Yes Reason Cath still needed: urinary retention Assessment/Plan Chief Complaint/Hosp Course Patient with metastatic cancer and multiple medical problems, had chemo on 11/01. He does not want any more treatment, wants to go home and be comfortable. Home with hospice is the best option. Problems: Subjective 24 Hr Interval Summary Free Text/Dictation He has mild pain, well controlled. Done with treatments and just wants to go home or "to a grave". Exam/Review of Systems Vital Signs Vitals Vital Signs Date Time Temp Pulse Resp B/P Pulse Ox O2 Delivery O2 Flow Rate FiO2 11/04/16 07:00 97.6 96 18 113/64 94 11/01/16 22:00 Room Air 11/01/16 09:00 2.0 Intake and Output 11/03/16 11/03/16 11/04/16 14:59 22:59 06:59 Intake Total 20 ml Output Total 850 ml 600 ml Balance -850 ml -580 ml Exam Fraile elderly male. Weak voice. NAD Results Result Diagram: 11/02/16 0425 11/02/16 0425 Medications Medications Current Medications Ondansetron HCl (Zofran Inj) 4 mg Q6H PRN IV NAUSEA AND/OR VOMITING Last administered on 11/03/16 15:17; Admin Dose 4 MG; Start 10/09/16 at 06:30 Acetaminophen (Tylenol Tab) 650 mg Q6H PRN PO PAIN LEVEL 1-3 OR FEVER Last administered on 10/17/16 16:33; Admin Dose 650 MG; Start 10/09/16 at 06:30 Magnesium Hydroxide (Milk Of Mag) 30 ml DAILY PRN PO CONSTIPATION Last administered on 10/17/16 15:49; Admin Dose 30 ML; Start 10/09/16 at 06:30 Miscellaneous Information 1 ea NOTE XX ; Start 10/09/16 at 07:30 Non-Formulary Medication 1 ea DAILY BOTH EYES Last administered on 11/04/16 09 :44; Admin Dose 1 EA; Start 10/14/16 at 09:00 Polyethylene Glycol (Miralax) 17 gm DAILY PRN PO CONSTIPATION; Start 10/15/16 at 20:32 IV Flush 10 ml 10 ml PRN PRN IV IV PROTOCOL; Start 10/25/16 at 11:00 Ondansetron HCl/ Dexamethasone/ Dextrose (Zofran Inj/ Decadron/D5W) 63 ml @ 252 mls/hr Q7D IV Last administered on 11/01/16 17:35; Admin Dose 252 MLS/HR; Start 10/25/16 at 17:30; Stop 11/08/16 at 17:44 Acetaminophen/ Hydrocodone Bitart ([place] (5/325)) 1 tab Q4 PRN PO MODERATE PAIN LEVEL 4-6; Start 11/02/16 at 13:00 Acetaminophen/ Hydrocodone Bitart ([place] (5/325)) 2 tab Q4 PRN PO SEVERE PAIN LEVEL 7-10 Last administered on 11/02/16 17:38; Admin Dose 2 TAB; Start at 13:00 Morphine Sulfate (morphine) 1 mg Q2H PRN IV MODERATE PAIN LEVEL 4-6; Start 05/11 at 19:30 Morphine Sulfate (morphine) 2 mg Q2H PRN IV SEVERE PAIN LEVEL 7-10 Last administered on 11/03/16 08:39; Admin Dose 2 MG; Start 11/02/16 at 19:30 Hydromorphone HCl (Dilaudid) 0.5 mg Q4H PRN IV MODERATE PAIN; Start 11/03/16 at 10:00 Hydromorphone HCl (Dilaudid) 1 mg Q4H PRN IV SEVERE PAIN Last administered on 10:59; Admin Dose 1 MG; Start 11/03/16 at 10:00 Trimethobenzamide HCl (Tigan) 200 mg Q6H PRN IM NAUSEA AND/OR VOMITING; Start 11/03/16 at 10:00 MARCUS HURST MD November 04, 2016 16:34
[2016-11-04] MEDS: morphine 2 MG INJ IV PRN ×2 (17:13→21:40)
[2016-11-04 20:46] VITALS: BP 132/66; RESP 18
[2016-11-05] MEDS: morphine 2 MG INJ IV PRN ×5 (01:43→21:43)
[2016-11-05 08:44] VITALS: BP 121/58; RESP 16
[2016-11-05] MEDS: TIMOPTIC 0.5% EYE DROPS BOTH EYES SCH (10:57)
[2016-11-05] MEDS: HYDROmorphONE 1 MG/ML SYG IV PRN (12:17)
[2016-11-05 12:30] VITALS: BP 121/60; PULSE 83; RESP 18
[2016-11-05 19:24] VITALS: BP 139/68; RESP 18
--- NOTE | 2016-11-05 22:19 | CONS ---
Date/Time of Note Date/Time of Note DATE: 11/05/16 TIME: 22:17 Assessment/Plan Assessment/Plan Additional Assessment/Plan 0. goals of care, pain management and hospice at home vs snf, family and patient still deciding. Patient with pain controlled, mainly bed bound. KPS 30, PPS 30. Hospice diagnosis metastatic bladder cancer./ 1. Obstructive uropathy with polyuria . 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 He has bilateral percutaneous nephrostomies which are draining well . He has been in negative fluid balance the last several days with high urine output , He has diffuse edema . I have decreased IV fluids and will allow him to re equilibrate . 2. metastatic bladder cancer . He has finished 1 course of chemo . He got a second dose of gemcitabine yesterday . 3. CAD 4. DM on insulin , blood sugars have been high . 5. dysphagia , will order speech therapy . 6. Anorexia, his appetite is sill poor . I have ordered Boost as a nutritional supplement . 8. he has iron deficiency anemia , he has completed a course of Ferrlicit. 9. UTI , he is now s/p Levaquin for 10 days . 10. leukocytosis . WBC is high after getting dexamethasone with chemo . WBC is coming down . 11. A fib , on Aspirin .He has been seen by cardiology Dr Gutierrez 12. comfort care and comfort measures, DNR status, POLST signed, d/c BP medications can be discharged home on hospice Consultation Date/Type/Reason Admit Date/Time Oct 09, 2016 at 05:45 Initial Consult Date 10/19/16 Type of Consultation: Infectious Disease Referring Provider: JEFF OSPINA MD 24 HR Interval Summary Free Text/Dictation pain controlled son at bedside most of the day today medications discontinued guarded but stable family still considering SNF vs home on hospice Constitutional: no complaints Exam/Review of Systems Vital Signs Vitals Vital Signs Date Time Temp Pulse Resp B/P Pulse Ox O2 Delivery O2 Flow Rate FiO2 11/05/16 19:24 97.6 86 18 139/68 96 11/05/16 17:53 2.0 11/05/16 12:30 Room Air Intake and Output 11/04/16 11/04/16 11/05/16 15:00 23:00 07:00 Intake Total 880 ml 320 ml Output Total 2250 ml 1650 ml Balance -1370 ml -1330 ml Exam Constitutional: alert, oriented Eyes: EOMI Neck: supple Respiratory: diminished breath sounds, intercostal retraction Cardiovascular: nl pulses, regular rate and rhythm Gastrointestinal: soft Results Result Diagram: 11/02/16 0425 11/02/16 0425 Medications Medications Current Medications Ondansetron HCl (Zofran Inj) 4 mg Q6H PRN IV NAUSEA AND/OR VOMITING Last administered on 11/03/16 15:17; Admin Dose 4 MG; Start 10/09/16 at 06:30 Acetaminophen (Tylenol Tab) 650 mg Q6H PRN PO PAIN LEVEL 1-3 OR FEVER Last administered on 10/17/16 16:33; Admin Dose 650 MG; Start 10/09/16 at 06:30 Magnesium Hydroxide (Milk Of Mag) 30 ml DAILY PRN PO CONSTIPATION Last administered on 10/17/16 15:49; Admin Dose 30 ML; Start 10/09/16 at 06:30 Miscellaneous Information 1 ea NOTE XX ; Start 10/09/16 at 07:30 Non-Formulary Medication 1 ea DAILY BOTH EYES Last administered on 11/05/16 10 :57; Admin Dose 1 EA; Start 10/14/16 at 09:00 Polyethylene Glycol (Miralax) 17 gm DAILY PRN PO CONSTIPATION; Start 10/15/16 at 20:32 IV Flush 10 ml 10 ml PRN PRN IV IV PROTOCOL; Start 10/25/16 at 11:00 Ondansetron HCl/ Dexamethasone/ Dextrose (Zofran Inj/ Decadron/D5W) 63 ml @ 252 mls/hr Q7D IV Last administered on 11/01/16 17:35; Admin Dose 252 MLS/HR; Start 10/25/16 at 17:30; Stop 11/08/16 at 17:44 Acetaminophen/ Hydrocodone Bitart ([place] (5/325)) 1 tab Q4 PRN PO MODERATE PAIN LEVEL 4-6; Start 11/02/16 at 13:00 Acetaminophen/ Hydrocodone Bitart ([place] (5/325)) 2 tab Q4 PRN PO SEVERE PAIN LEVEL 7-10 Last administered on 11/02/16 17:38; Admin Dose 2 TAB; Start at 13:00 Morphine Sulfate (morphine) 1 mg Q2H PRN IV MODERATE PAIN LEVEL 4-6; Start 05/11 at 19:30 Morphine Sulfate (morphine) 2 mg Q2H PRN IV SEVERE PAIN LEVEL 7-10 Last administered on 11/05/16 21:43; Admin Dose 2 MG; Start 11/02/16 at 19:30 Hydromorphone HCl (Dilaudid) 0.5 mg Q4H PRN IV MODERATE PAIN; Start 11/03/16 at 10:00 Hydromorphone HCl (Dilaudid) 1 mg Q4H PRN IV SEVERE PAIN Last administered on 12:17; Admin Dose 1 MG; Start 11/03/16 at 10:00 Trimethobenzamide HCl (Tigan) 200 mg Q6H PRN IM NAUSEA AND/OR VOMITING; Start 11/03/16 at 10:00 SAGRARIO HARRINGTON MD November 05, 2016 22:19
[2016-11-06] MEDS: morphine 2 MG INJ IV PRN ×2 (05:43→22:24)
[2016-11-06] MEDS ORDERED: ALTEPLASE (CATHFLO) 2 MG INJ CATHETER PRN ×2 (08:30)
[2016-11-06 08:48] VITALS: BP 133/73; RESP 16
--- NOTE | 2016-11-06 08:58 | PN ---
Date/Time of Note Date/Time of Note DATE: 11/06/16 TIME: 08:48 Assessment/Plan VTE Prophylaxis VTE Prophylaxis Intervention: other Lines/Catheters IV Catheter Type (from [facility]): PICC Line Central line still needed: Yes Urinary Cath still in place: Yes Reason Cath still needed: urinary retention Assessment/Plan Chief Complaint/Hosp Course 1. He has decided to stop all aggressive therapy , including chemotherapy . He wants to go on hospice and have comfort measures only . [facility] hospice consulted . 2. metastatic bladder cancer . He has finished 1 course of chemo . He wants to stop chemotherapy . 3. CAD 4. DM on insulin , blood sugars have been high . 5. dysphagia , 6. Anorexia, his appetite is sill poor . I have ordered Boost as a nutritional supplement . 8. he has iron deficiency anemia , he has completed a course of Ferrlicit. 9. UTI , he is off antibiotics and they are not to be restarted . 10. leukocytosis . 11. A fib , on Aspirin Problems: Subjective 24 Hr Interval Summary Free Text/Dictation He is sleeping but does rouse to verbal stimuli . He c/o pain in R knee and R ankle . He is getting pain medication . Constitutional: poor po Respiratory: no complaints Cardiovascular: no complaints Gastrointestinal: no complaints Musculoskeletal: bone/joint pain Exam/Review of Systems Vital Signs Vitals Vital Signs Date Time Temp Pulse Resp B/P Pulse Ox O2 Delivery O2 Flow Rate FiO2 11/06/16 03:35 2.0 11/05/16 20:00 Nasal Cannula 11/05/16 19:24 97.6 86 18 139/68 96 Intake and Output 11/05/16 11/05/16 11/06/16 15:00 23:00 07:00 Intake Total 520 ml 980 ml Output Total 3300 ml 2950 ml Balance -2780 ml -1970 ml Exam Constitutional: alert, frail Psych: depression Respiratory: congested cough, diminished breath sounds Cardiovascular: edema, irregular rhythm Gastrointestinal: soft Extremities: edema Results Result Diagram: 11/02/16 0425 11/02/16 0425 Medications Medications Current Medications Ondansetron HCl (Zofran Inj) 4 mg Q6H PRN IV NAUSEA AND/OR VOMITING Last administered on 11/03/16t 15:17; Admin Dose 4 MG; Start 10/09/16 at 06:30 Acetaminophen (Tylenol Tab) 650 mg Q6H PRN PO PAIN LEVEL 1-3 OR FEVER Last administered on 10/17/16 16:33; Admin Dose 650 MG; Start 10/09/16 at 06:30 Magnesium Hydroxide (Milk Of Mag) 30 ml DAILY PRN PO CONSTIPATION Last administered on 10/17/16 15:49; Admin Dose 30 ML; Start 10/09/16 at 06:30 Miscellaneous Information 1 ea NOTE XX ; Start 10/09/16 at 07:30 Non-Formulary Medication 1 ea DAILY BOTH EYES Last administered on 11/05/16 10 :57; Admin Dose 1 EA; Start 10/14/16 at 09:00 Polyethylene Glycol (Miralax) 17 gm DAILY PRN PO CONSTIPATION; Start 10/15/16 at 20:32 IV Flush 10 ml 10 ml PRN PRN IV IV PROTOCOL; Start 10/25/16 at 11:00 Ondansetron HCl/ Dexamethasone/ Dextrose (Zofran Inj/ Decadron/D5W) 63 ml @ 252 mls/hr Q7D IV Last administered on 11/01/16 17:35; Admin Dose 252 MLS/HR; Start 10/25/16 at 17:30; Stop 11/08/16 at 17:44 Acetaminophen/ Hydrocodone Bitart ([place] (5/325)) 1 tab Q4 PRN PO MODERATE PAIN LEVEL 4-6; Start 11/02/16 at 13:00 Acetaminophen/ Hydrocodone Bitart ([place] (5/325)) 2 tab Q4 PRN PO SEVERE PAIN LEVEL 7-10 Last administered on 11/02/16 17:38; Admin Dose 2 TAB; Start at 13:00 Morphine Sulfate (morphine) 1 mg Q2H PRN IV MODERATE PAIN LEVEL 4-6; Start 05/11 at 19:30 Morphine Sulfate (morphine) 2 mg Q2H PRN IV SEVERE PAIN LEVEL 7-10 Last administered on 11/06/16 05:43; Admin Dose 2 MG; Start 11/02/16 at 19:30 Hydromorphone HCl (Dilaudid) 0.5 mg Q4H PRN IV MODERATE PAIN; Start 11/03/16 at 10:00 Hydromorphone HCl (Dilaudid) 1 mg Q4H PRN IV SEVERE PAIN Last administered on 5 /14/17at 12:17; Admin Dose 1 MG; Start 11/03/16 at 10:00 Trimethobenzamide HCl (Tigan) 200 mg Q6H PRN IM NAUSEA AND/OR VOMITING; Start 11/03/16 at 10:00 JEFF OSPINA MD November 06, 2016 08:58
[2016-11-06] MEDS: TIMOPTIC 0.5% EYE DROPS BOTH EYES SCH (09:42)
[2016-11-06] MEDS: HYDROmorphONE 1 MG/ML SYG IV PRN ×2 (09:43→14:18)
--- NOTE | 2016-11-06 09:44 | CONS ---
DATE OF ADMISSION: 10/09/2016 DATE OF CONSULTATION: 11/06/2016 HEMATOLOGY/ONCOLOGY PROGRESS NOTE Mr. Fernandez has decided to forego any further therapy and is presently on comfort measures only. The patient this morning is lethargic. Review of the I and O reveals that the patient is again putt ing out large amounts of urine. Urine output yesterday was 6250 mL. This is again likely due to the second treatment of cisplatin. All further therapy will be held and only treatments administered will be for comfort care. Dictated By: RADHA SHAW MD SR/NTS Conf#: [id number] DID#: [id number]
[2016-11-06 19:16] VITALS: BP 122/84; RESP 18
[2016-11-07 07:57] VITALS: BP 147/67; RESP 20
[2016-11-07] MEDS: TIMOPTIC 0.5% EYE DROPS BOTH EYES SCH (09:00)
--- NOTE | 2016-11-07 09:06 | PN ---
Date/Time of Note Date/Time of Note DATE: 11/07/16 TIME: 09:02 Assessment/Plan VTE Prophylaxis VTE Prophylaxis Intervention: other Lines/Catheters IV Catheter Type (from [facility]): PICC Line Central line still needed: Yes Urinary Cath still in place: Yes Reason Cath still needed: urinary retention Assessment/Plan Chief Complaint/Hosp Course 1. He has decided to stop all aggressive therapy , including chemotherapy . He wants to go on hospice and have comfort measures only . [facility] hospice consulted . Arrangements are being made for him to be going home tomorrow on hospice under the care of his family . 2. metastatic bladder cancer . He has finished 1 course of chemo . He wants to stop chemotherapy . 3. CAD 4. DM on insulin , blood sugars have been high . 5. dysphagia , 6. Anorexia, his appetite is sill poor . I have ordered Boost as a nutritional supplement . 8. he has iron deficiency anemia , he has completed a course of Ferrlicit. 9. UTI , he is off antibiotics and they are not to be restarted . 10. leukocytosis . 11. A fib , on Aspirin Problems: Subjective 24 Hr Interval Summary Free Text/Dictation He is sleeping but rouses easily to verbal stimuli . He says that his pain is under control . Respiratory: no complaints Cardiovascular: no complaints Gastrointestinal: no complaints Exam/Review of Systems Vital Signs Vitals Vital Signs Date Time Temp Pulse Resp B/P Pulse Ox O2 Delivery O2 Flow Rate FiO2 11/07/16 07:57 99.3 96 20 147/67 98 11/06/16 20:00 Nasal Cannula 2.0 Intake and Output 11/06/16 11/06/16 11/07/16 15:00 23:00 07:00 Intake Total 980 ml 480 ml Output Total 1700 ml 2150 ml Balance -720 ml -1670 ml Exam Constitutional: alert Psych: depression Respiratory: clear to auscultation, diminished breath sounds Cardiovascular: edema, irregular rhythm Gastrointestinal: soft Extremities: edema Medications Medications Current Medications Ondansetron HCl (Zofran Inj) 4 mg Q6H PRN IV NAUSEA AND/OR VOMITING Last administered on 11/03/16 15:17; Admin Dose 4 MG; Start 10/09/16 at 06:30 Acetaminophen (Tylenol Tab) 650 mg Q6H PRN PO PAIN LEVEL 1-3 OR FEVER Last administered on 10/17/16 16:33; Admin Dose 650 MG; Start 10/09/16 at 06:30 Magnesium Hydroxide (Milk Of Mag) 30 ml DAILY PRN PO CONSTIPATION Last administered on 10/17/16 15:49; Admin Dose 30 ML; Start 10/09/16 at 06:30 Miscellaneous Information 1 ea NOTE XX ; Start 10/09/16 at 07:30 Non-Formulary Medication 1 ea DAILY BOTH EYES Last administered on 11/06/16 09 :42; Admin Dose 1 EA; Start 10/14/16 at 09:00 Polyethylene Glycol (Miralax) 17 gm DAILY PRN PO CONSTIPATION; Start 10/15/16 at 20:32 IV Flush 10 ml 10 ml PRN PRN IV IV PROTOCOL; Start 10/25/16 at 11:00 Ondansetron HCl/ Dexamethasone/ Dextrose (Zofran Inj/ Decadron/D5W) 63 ml @ 252 mls/hr Q7D IV Last administered on 11/01/16 17:35; Admin Dose 252 MLS/HR; Start 10/25/16 at 17:30; Stop 11/08/16 at 17:44 Acetaminophen/ Hydrocodone Bitart ([place] (5/325)) 1 tab Q4 PRN PO MODERATE PAIN LEVEL 4-6; Start 11/02/16 at 13:00 Acetaminophen/ Hydrocodone Bitart ([place] (5/325)) 2 tab Q4 PRN PO SEVERE PAIN LEVEL 7-10 Last administered on 11/02/16 17:38; Admin Dose 2 TAB; Start at 13:00 Morphine Sulfate (morphine) 1 mg Q2H PRN IV MODERATE PAIN LEVEL 4-6; Start 05/11 at 19:30 Morphine Sulfate (morphine) 2 mg Q2H PRN IV SEVERE PAIN LEVEL 7-10 Last administered on 11/06/16 22:24; Admin Dose 2 MG; Start 11/02/16 at 19:30 Hydromorphone HCl (Dilaudid) 0.5 mg Q4H PRN IV MODERATE PAIN; Start 11/03/16 at 10:00 Hydromorphone HCl (Dilaudid) 1 mg Q4H PRN IV SEVERE PAIN Last administered on 14:18; Admin Dose 1 MG; Start 5/12/17 at 10:00 Trimethobenzamide HCl (Tigan) 200 mg Q6H PRN IM NAUSEA AND/OR VOMITING; Start 11/03/16 at 10:00 JEFF OSPINA MD November 07, 2016 09:06
[2016-11-07] MEDS: HYDROmorphONE 1 MG/ML SYG IV PRN ×2 (11:00→14:41)
[2016-11-07 19:02] VITALS: BP 142/68; RESP 18
[2016-11-07] MEDS: morphine 2 MG INJ IV PRN (19:54)
[2016-11-08 07:36] VITALS: BP 123/69; RESP 18
[2016-11-08] MEDS: TIMOPTIC 0.5% EYE DROPS BOTH EYES SCH (07:50)
[2016-11-08] MEDS: HYDROmorphONE 1 MG/ML SYG IV PRN ×2 (07:50→12:18)
--- NOTE | 2016-11-08 08:05 | PDOCDIS ---
Discharge Instructions CONDITION Patient Condition: Fair HOME CARE INSTRUCTIONS: Diet Instructions: RegularSpecial Diet: carb controlled ACTIVITY: Activity Restrictions: Slowly Increase Activity Rest between Activity Avoid heavy lifting Weight Bearing Bathing Restrictions: Sponge Bath FOLLOW UP/APPOINTMENTS Appointments Dr Pelaez . JEFF OSPINA MD November 08, 2016 08:05
[2016-11-08] MEDS ORDERED: ALTEPLASE (CATHFLO) 2 MG INJ CATHETER ONE (09:00)
[2016-11-08] MEDS: morphine 2 MG INJ IV PRN (10:53)
--- NOTE | 2016-11-08 11:01 | DS ---
DATE OF ADMISSION: 10/09/2016 DATE OF DISCHARGE: HISTORY OF PRESENT ILLNESS AND HOSPITAL COURSE: This 86-year-old man was originally admitted here f or chest pain. He was transferred from [facility] after he developed some substernal chest pain. A myocardial infarction was ruled out. The patient was seen by Dr. Singer, local car diologist and he had a cardiac nuclear stress test which did not show ischemia. The patient does thomason ve a diagnosis of metastatic bladder cancer. He was seen in consultation by Dr. Daniel Perez, an oncologist. Dr. Perez spoke to the patient and the family and it was decided that the patient sh ould start chemotherapy. The patient was given a course of gemcitabine and cisplatin. Subsequent t o the chemotherapy the patient developed polyuria. 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 The patient had very high urine outputs. His IVs were [place]us [place] to keep up with this. The patient became weaker while in the hospital. The patient had great d ifficulty walking. The patient finally decided that because of his continued weakness and poor cond ition that he did not want to continue with chemotherapy or any other type of treatment. He discuss ed this with his sons and they came to a decision that he should be a DNR and that he should go home with hospice. The [facility] hospice group was consulted. They have arranged for the patient to be dis charged home to the care of his sons and caretakers. The patient is comfortable with this plan. Th e family is comfortable with this plan. The patient at the time of discharge was in fair condition. His prognosis is poor and all efforts will be made to keep him comfortable. DISCHARGE DIAGNOSES 1. Metastatic urinary bladder cancer. 2. Hypertension. 3. Type 2 diabetes mellitus. 4. Coronary artery disease. Dictated By: JEFF OSPINA MD, ND/KAROLYN Conf#: [id number] DID#: [id number]
== END 2016-11-08 15:04 | disposition hospice, home (50) | DRG 686 ==
LOC: E/R 03:24 → TEL 05:45 → MS2 10-13 14:55 → MS1 10-14 00:56
PROVIDERS: ADMIT Internal Medicine; ATTEND Internal Medicine
PROC: 4A033R1 Measurement of Arterial Saturation, Peripheral, Percutaneous Approach (ICD-10-PCS; 2016-10-10)
PROC: 0T9430Z Drainage of Left Kidney Pelvis with Drainage Device, Percutaneous Approach (ICD-10-PCS; principal; 2016-10-19)
PROC: 30233N1 Transfusion of Nonautologous Red Blood Cells into Peripheral Vein, Percutaneous Approach (ICD-10-PCS; 2016-10-19)
PROC: 02HV33Z Insertion of Infusion Device into Superior Vena Cava, Percutaneous Approach (ICD-10-PCS; 2016-10-25)
PROC: B548ZZA Ultrasonography of Superior Vena Cava, Guidance (ICD-10-PCS; 2016-10-25)
PROC: 3E04305 Introduction of Other Antineoplastic into Central Vein, Percutaneous Approach (ICD-10-PCS; 2016-10-25)
DX: C67.9 Malignant neoplasm of bladder, unspecified (principal); A41.9 Sepsis, unspecified organism; J18.9 Pneumonia, unspecified organism; C78.00 Secondary malignant neoplasm of unspecified lung; E11.22 Type 2 diabetes mellitus with diabetic chronic kidney disease; N13.1 Hydronephrosis with ureteral stricture, not elsewhere classified; I48.91 Unspecified atrial fibrillation; E87.1 Hypo-osmolality and hyponatremia; R63.0 Anorexia; N12 Tubulo-interstitial nephritis, not specified as acute or chronic; B37.49 Other urogenital candidiasis; E83.52 Hypercalcemia; Z66 Do not resuscitate; Z51.5 Encounter for palliative care; I25.10 Atherosclerotic heart disease of native coronary artery without angina pectoris; I12.9 Hypertensive chronic kidney disease with stage 1 through stage 4 chronic kidney disease, or unspecified chronic kidney disease; N18.9 Chronic kidney disease, unspecified; R13.10 Dysphagia, unspecified; D63.8 Anemia in other chronic diseases classified elsewhere; D50.9 Iron deficiency anemia, unspecified; D72.829 Elevated white blood cell count, unspecified; K59.00 Constipation, unspecified; R33.9 Retention of urine, unspecified; B95.2 Enterococcus as the cause of diseases classified elsewhere; B96.20 Unspecified Escherichia coli [E. coli] as the cause of diseases classified elsewhere; Z16.12 Extended spectrum beta lactamase (ESBL) resistance; N31.9 Neuromuscular dysfunction of bladder, unspecified; R05 Cough; N21.0 Calculus in bladder; Z79.84 Long term (current) use of oral hypoglycemic drugs; T45.1X5A Adverse effect of antineoplastic and immunosuppressive drugs, initial encounter; Z95.1 Presence of aortocoronary bypass graft; Z87.891 Personal history of nicotine dependence; T38.0X5A Adverse effect of glucocorticoids and synthetic analogues, initial encounter; Y92.230 Patient room in hospital as the place of occurrence of the external cause
CPT/HCPCS: 36430; 36569; 36600; 71010; 73550; 74176; 74230; 74475; 76937; 76942; 78452; 80048; 80053; 81001; 81003; 82550; 82553; 82728; 82803; 82962; 83540; 83605; 83615; 83735; 83930; 83935; 84100; 84132; 84300; 84484; 84560; 85025; 85610; 85730; 86703; 86850; 86900; 86901; 86920; 87040; 87081; 87086; 92526; 92610; 92611; 93005; 93017; 93306; 93970; 96374; 96375; 97110; 97116; 97162; 97530; J9201; A9500; A9505; J0456; J0692; J0713; J1100; J1170; J1650; J1815; J1940; J1956; J2185; J2250; J2270; J2405; J2543; J2785; J2916; J2997; J3010; J3370; J3475; J3480; J7030; J7040; J7042; J7050; P9016; Q9967